=== PATIENT | male | born 1955 | race Caucasian/White ===

== ENCOUNTER 2017-04-27 07:07 | Inpatient (IN) | payer BC ==
[~2017-04-27] VITALS: Ht 182.9 cm; Wt 107.6 kg
--- NOTE | 2017-04-27 07:23 | PHYS DOC ---
Adult General Chief Complaint Chief Complaint: ABDOMINAL PAIN HPI HPI Patient is a 61 year old male who presents with abdominal pain. Patient states the pain started yesterday at noon, left lower quadrant radiating up to his left upper quadrant. Mild nausea, no vomiting, denies change in bowel or bladder. No hematuria or hematochezia. No fevers, no prior similar symptoms. He' s not attempted any symptom controlling medication. Patient's prior abdominal surgery includes cholecystectomy. He did take his a.m. medications. Pain does not radiate into his groin. Patient states he has an allergy to ciprofloxacin due to having a seizure after taking for urinary tract infection. Review of Systems Review of Systems Constitutional: Denies fever or chills [] Eyes: Denies change in visual acuity, redness, or eye pain [] HENT: Denies nasal congestion or sore throat [] Respiratory: Denies cough, reports minimal shortness of breath Cardiovascular: Denies chest pain GI: Per history of present illness : Denies dysuria or hematuria [] Musculoskeletal: Denies back pain or joint pain [] Integument: Denies rash or skin lesions [] Neurologic: Denies headache, focal weakness or sensory changes [] Current Medications Current Medications Current Medications Medications (Trade) Dose Ordered Sig/Duane Start Time Stop Time Status Last Admin Dose Admin Info (Do NOT chart on this entry -- for MONITORING) 1 each PRN DAILY PRN 04/27/17 08:15 04/29/17 08:14 Iohexol (Omnipaque 300 Mg/ml) 75 ml 1X ONCE 04/27/17 08:15 04/27/17 08:16 DC 04/27/17 08:41 75 ML Morphine Sulfate 4 mg 1X ONCE 04/27/17 07:30 04/27/17 07:52 DC 04/27/17 08:03 4 MG Ondansetron HCl (Zofran) 4 mg 1X ONCE 04/27/17 08:15 04/27/17 08:16 DC 04/27/17 08:12 4 MG Piperacillin Sod/ Tazobactam Sod (Zosyn Per Pharmacy) 1 each PRN DAILY PRN 04/27/17 09:45 Piperacillin Sod/ Tazobactam Sod 3.375 gm/Sodium Chloride 50 ml @ 100 mls/hr 1X ONCE 04/27/17 09:45 04/27/17 10:14 DC 04/27/17 10:05 100 MLS/HR Sodium Chloride 1,000 ml @ 1,000 mls/hr 1X ONCE 04/27/17 09:30 04/27/17 10:29 DC 04/27/17 09:30 1,000 MLS/HR Allergies Allergies Allergies Coded Allergies Type Severity Reaction Last Updated Verified ciprofloxacin Adverse Reaction Severe SEIZURES 04/27/17 Yes Physical Exam Physical Exam Constitutional: Well developed, well nourished, appears uncomfortable, obese HENT: Normocephalic, atraumatic, bilateral external ears normal, oropharynx moist, no oral exudates, nose normal. [] Eyes: PERRLA, EOMI, conjunctiva normal, no discharge. [] Neck: Normal range of motion, no tenderness, supple, no stridor. [] Cardiovascular:Heart rate regular with irregular rhythm, no murmur [] Lungs & Thorax: Bilateral breath sounds, no crackles, intermittent wheezes, moderate air movement Abdomen: Bowel sounds normal, soft, mildly distended, diffuse tenderness to palpation the left side of the abdomen most prominent in the left lower quadrant with mild voluntary guarding, no peritoneal signs Skin: Warm, dry, no erythema, no rash. [] Back: No tenderness, no CVA tenderness. [] Extremities: No tenderness, no cyanosis, no clubbing, ROM intact, no edema. Negative Homans bilaterally Neurologic: Alert and oriented X 3, normal motor function, normal sensory function, no focal deficits noted. [] Psychologic: Affect normal, judgement normal, mood normal. [] Current Patient Data Vital Signs Vital Signs Date Time Temp Pulse Resp B/P (MAP) Pulse Ox O2 Delivery O2 Flow Rate FiO2 04/27/17 09:42 125 20 106/76 (86) 95 Room Air 04/27/17 08:16 99.4 99.4 Lab Values Laboratory Tests Test 04/27/17 07:25 White Blood Count 16.8 x10^3/uL (4.0-11.0) H Red Blood Count 5.00 x10^6/uL (4.30-5.70) Hemoglobin 14.2 g/dL (13.0-17.5) Hematocrit 42.1 % (39.0-53.0) Mean Corpuscular Volume 84 fL (79-100) Mean Corpuscular Hemoglobin 28 pg (25-35) Mean Corpuscular Hemoglobin Concent 34 g/dL (31-37) Red Cell Distribution Width 14.1 % (11.5-14.5) Platelet Count 249 x10^3/uL (140-400) Neutrophils (%) (Auto) 82 % (31-73) H Lymphocytes (%) (Auto) 11 % (24-48) L Monocytes (%) (Auto) 5 % (0-9) Eosinophils (%) (Auto) 2 % (0-3) Basophils (%) (Auto) 1 % (0-3) Neutrophils # (Auto) 13.8 x10^3uL (1.8-7.7) H Lymphocytes # (Auto) 1.9 x10^3/uL (1.0-4.8) Monocytes # (Auto) 0.8 x10^3/uL (0.0-1.1) Eosinophils # (Auto) 0.3 x10^3/uL (0.0-0.7) Basophils # (Auto) 0.1 x10^3/uL (0.0-0.2) Sodium Level 137 mmol/L (136-145) Potassium Level 4.3 mmol/L (3.5-5.1) Chloride Level 100 mmol/L (98-107) Carbon Dioxide Level 28 mmol/L (21-32) Anion Gap 9 (6-14) Blood Urea Nitrogen 24 mg/dL (8-26) Creatinine 0.7 mg/dL (0.7-1.3) Estimated GFR (Cockcroft-Gault) 114.6 Glucose Level 195 mg/dL (70-99) H Calcium Level 9.8 mg/dL (8.5-10.1) Magnesium Level 1.4 mg/dL (1.8-2.4) L Total Bilirubin 0.7 mg/dL (0.2-1.0) Direct Bilirubin 0.1 mg/dL (0.0-0.2) Aspartate Amino Transferase (AST) 13 U/L (15-37) L Alanine Aminotransferase (ALT) 18 U/L (16-63) Alkaline Phosphatase 126 U/L (46-116) H Total Protein 8.5 g/dL (6.4-8.2) H Albumin 3.5 g/dL (3.4-5.0) Lipase 53 U/L (73-393) L Laboratory Tests 04/27/17 07:25 Laboratory Tests 04/27/17 07:25 EKG EKG 87 bpm, A. fib, normal intervals, no ST elevation or depression, interpreted by me [] Radiology/Procedures Radiology/Procedures CT abdomen and pelvis: Impression: Findings consistent with sigmoid diverticulitis. Small collections of free air are seen within the abdomen consistent with a perforation. No abscess is seen. Course & Med Decision Making Course & Med Decision Making Pertinent Labs and Imaging studies reviewed. (See chart for details) Patient given IV morphine, IV fluids. Lab work, urinalysis, CT abdomen and pelvis ordered. She received additional IV fluids and pain medication. When he returned from the CT scanner his blood pressure dropped and his heart rate went up. Repeat EKG showed A. fib with RVR. Continue to get IV fluids and his blood pressure responded and his heart rate did intermittently decrease. I contacted cardiology for consult. I spoke with Dr. Mcclain regarding the CT findings, IV Zosyn was given. I spoke with Dr. pelayo accepted this patient to stepdown unit. Cardiology recommended 500 g IV Digoxin, which was given. Pt given additional fluids. Dragon Disclaimer Dragon Disclaimer This electronic medical record was generated, in whole or in part, using a voice recognition dictation system. Departure Departure Impression: Primary Impression: Perforated bowel Additional Impression: Diverticulitis Disposition: ADMITTED INPATIENT Admitting Physician: Luly Pelayo Condition: GUARDED Problem Qualifiers ELIZABETH JOYA MD Apr 27, 2017 07:23
[2017-04-27] MEDS ORDERED: MORPHINE SULFATE 4 MG/ML DISP.SYRIN. IV ONE (07:30)
[2017-04-27 07:43] LABS: BASO # 0.1 x10^3/uL (0.0-0.2); BASO % 1 % (0-3); EOS % 2 % (0-3); HEMATOCRIT 42.1 % (39.0-53.0); HEMOGLOBIN 14.2 g/dL (13.0-17.5); LYMPH # 1.9 x10^3/uL (1.0-4.8); LYMPH % 11 % (24-48); MEAN CORPUSCULAR HEMOGLOBIN 28 pg (25-35); MEAN CORPUSCULAR HGB CONC 34 g/dL (31-37); MEAN CORPUSCULAR VOLUME 84 fL (79-100); MONO % 5 % (0-9); NEUT % 82 % (31-73); PLATELET COUNT 249 x10^3/uL (140-400); RED CELL DISTRIBUTION WIDTH 14.1 % (11.5-14.5); WHITE BLOOD COUNT 16.8 x10^3/uL (4.0-11.0)
[2017-04-27] MEDS ORDERED: NAPR220C4 PO (07:54)
[2017-04-27] MEDS ORDERED: CARV6.252 PO (07:54)
[2017-04-27] MEDS ORDERED: INSU100I13 SQ (07:54)
[2017-04-27] MEDS ORDERED: GEMF600T3 PO (07:54)
[2017-04-27] MEDS ORDERED: ASPI-482 PO (07:54)
[2017-04-27] MEDS ORDERED: GABA600T2 PO (07:54)
[2017-04-27] MEDS ORDERED: LISI-338 PO (07:54)
[2017-04-27 07:56] LABS: ALBUMIN 3.5 g/dL (3.4-5.0); DIRECT BILIRUBIN 0.1 mg/dL (0.0-0.2); TOTAL BILIRUBIN 0.7 mg/dL (0.2-1.0); TOTAL PROTEIN 8.5 g/dL (6.4-8.2)
[2017-04-27] MEDS ORDERED: CONTRAST GIVEN MC PRN (08:15)
[2017-04-27] MEDS ORDERED: IOHEXOL 300 MG/ML 75 ML VIAL IV ONE (08:15)
[2017-04-27] MEDS ORDERED: ONDANSETRON PF 4 MG/2 ML VIAL. IV ONE (08:15)
--- NOTE | 2017-04-27 08:36 | ACF ---
Admission Forms Criteria ABDOMINAL PAIN Clinical Indications for Admission to Inpatient Care (Place 'X' for any and all applicable criteria): Admission is indicated for ANY ONE of the following(1)(2)(3)(4)(5): [X]I. Inpatient admission required rather than observation care (Also use Abdominal Pain: Observation Care, as appropriate) because of ANY ONE of the following: [X]a) Severe pain requiring acute inpatient management [X]b) Identification of etiology/finding that requires inpatient care (eg, aortic dissection, free air) [ ]c) Absent bowel sounds with complete ileus(6) [ ]d) Suspected toxic megacolon [ ]e) Severe electrolyte abnormalities requiring inpatient care [ ]f) High fever or infection requiring inpatient admission as indicated by ANY ONE of following(7)(8): [ ] i) Appropriate outpatient or observational care antimicrobial treatment unavailable, not effective, or not feasible [ ] ii) Documented bacteremia [ ] iii) Temperature > 104.9 degrees F (oral) [ ] iv) T >103.1 F (oral) or < 96.8 F(rectal) that does not respond to all emergency treatment measures [ ]g) Signs of intestinal obstruction [B] [ ]h) Hemodynamic instability [ ]i) IV fluid to replace significant ongoing losses (greater than 3 L/m2 per day) (12)(13) [ ]j) Percutaneous or open drainage (eg, abscess, biliary tract ) procedures [ ]k) Parenteral nutrition regimen that must be implemented on inpatient basis [ ]l) Other condition,treatment or monitoring requiring inpatient admission. [ ]II. Peritoneal signs present [ ]III. Surgery needed that cannot be performed on an ambulatory basis. [ ]IV. Evaluation requires patient to not eat or drink for extended period ( eg, more than 24 hours). [ ]V. Contraindications and/or Inappropriate clinical situations for Observational Care in patients with abdominal pain, when ANY ONE of the following is required: [ ]a) Thorough evaluation is required to prevent catastrophic events due to delays in diagnosing (e.g.Mesenteric ischemia) 1,3 [ ]b) Patient with severe pathology or with chronic symptoms unlikely to improve in the ED stay (3) [ ]. General contraindications and/or Inappropriate clinical situations for Observational Care in patients with abdominal pain, when ANY ONE of the following is required: [ ]a) Prediction of prolongation of LOS based on ANY ONE of the following may be considered as a contraindication for observational care 2, 3, 4, 5, 6, 7, 8, 9, 10, 11 [ ]i) Age > 65 yrs. [ ]ii) Patient arriving by ambulance [ ]iii) Patient with high acuity [ ]iv) Patient requiring vital sign monitoring [ ]v) Patient on IV medication [ ]b) Systolic blood pressures 180mmHg 3,12 [ ]c) Patient with altered mental status including delirium and other alteration of consciousness, (3) [ ]d) Patient whose discharge disposition will be to a jail home or rehabilitation home should not be managed in Emergency Department Observation Unit. CMS rule requires 3 days hospital stay before such placement.3,13 [ ]e) Patient with failure to thrive due to broad array of etiologies 3,16,17 [ ]f) Inability to ambulate 3,14 Extended stay beyond goal length of stay may be needed for(2)(3): [ ]a) Persistent abdominal pain with suspected intra-abdominal process [ ]b) Diagnosed condition requiring continued stay (e.g., pancreatitis, complicated diverticulitis) [ ]c) Surgery (e.g., colectomy) The original [employer] content created by [employer] has been revised. The portions of the content which have been revised are identified through the use of italic text or in bold, and [facility] has neither reviewed nor approved the modified material.All other unmodified content is copyright [employer]. Please see references footnoted in the original [employer] [facility] edition 2016 Admission Criteria Met?: Yes SARAH DEVLIN Apr 27, 2017 08:36
--- NOTE | 2017-04-27 08:58 | EKG ---
[facility] [address] [place] [address] Test Date: 2017-04-27 Test Time: 07:43:59 Pat Name: DAYAN TORRES Department: Room: Gender: Scientific Helper: : 1955 Requested By: ELIZABETH JOYA Order Number: [id number] Reading MD: Michel Ford Measurements Intervals Comins Rate: 87 P: AR: QRS: 29 QRSD: 114 T: 23 QT: 332 QTc: 405 Interpretive Statements SR PAC Electronically Signed On 04-28-2017 11:05:00 CDT by Michel Ford
[2017-04-27] MEDS ORDERED: IV NORMAL SALINE 1000ML BAG 1,000 ML IV ONE ×2 (09:30→11:00)
--- NOTE | 2017-04-27 09:34 | RAD ---
CT scan of the abdomen and pelvis with contrast 04/27/2017 Clinical history: Lower abdominal pain. Technique: After the intravenous administration of 75 cc of Omnipaque 300, contiguous, 5 mm axial sections were obtained through the abdomen and pelvis. One or more of the following individualized dose reduction techniques were utilized for this study: 1. Automated exposure control. 2. Adjustment of the mA and/or kV according to patient size. 3. Use of iterative reconstruction technique. Findings: Images through the lung bases demonstrate minimal dependent subsegmental atelectasis bilaterally. The liver, spleen, pancreas, adrenal glands and right kidney are within normal limits. A 2.7 cm rounded low-attenuation lesion is seen involving the lower pole of the left kidney. This likely represents a cyst. Moderate atherosclerotic calcification of the abdominal aorta is seen. The abdominal aorta tapers normally. Surgical clips are seen within the gallbladder fossa consistent with a cholecystectomy. No free fluid is seen within the abdomen. There is no evidence of bowel obstruction. The appendix is well visualized and is within normal limits. Multiple diverticula are seen scattered throughout the colon, particularly the sigmoid colon. Wall thickening of the mid sigmoid colon is seen. Increased density is seen within the adjacent fat. These findings are consistent with sigmoid diverticulitis. Extraluminal collections of air are seen near the sigmoid colon. Small collections of free air are seen throughout the abdomen consistent with a perforation. No abnormal fluid collection is seen to suggest evidence of an abscess. Images through the pelvis demonstrate the urinary bladder distended with urine. Calcifications are seen within the prostate gland. No free fluid is seen. Degenerative changes are seen involving the lower thoracic and throughout the lumbar spine and both hips. Mild S-shaped curvature of the thoracic lumbar spine is noted. Impression: Findings consistent with sigmoid diverticulitis. Small collections of free air are seen within the abdomen consistent with a perforation. No abscess is seen. These findings were discussed with the emergency department.
[2017-04-27] MEDS ORDERED: PIP/TAZO PER PHARMACY MC PRN (09:45)
[2017-04-27] MEDS ORDERED: PIPERACILLIN/TAZOBACTAM 3.375 GM in IV NORMAL SALINE 50ML 50 ML IV ONE (09:45)
[2017-04-27] MEDS ORDERED: fentaNYL PF VIAL 100 MCG/2 ML VIAL IV ONE (10:00)
[2017-04-27] MEDS ORDERED: ONDANSETRON PF 4 MG/2 ML VIAL. IV PRN (10:00)
[2017-04-27] MEDS ORDERED: DIGOXIN IV 500 MCG/2 ML AMPUL. IV ONE (10:30)
--- NOTE | 2017-04-27 10:32 | PDOC2 ---
CARDIAC CONSULT DATE OF CONSULT Date of Consult DATE: 04/27/17 TIME: 10:31 REASON FOR CONSULT Reason for Consult: AFIB RVR REFERRING PHYSICIAN Referring Physician: Igor SOURCE Source: Chart review, Patient HISTORY OF PRESENT ILLNESS HISTORY OF PRESENT ILLNESS This is a pleasant 61 yo male who came in for abdominal tenderness and pain. This started yesterday afternoon. There was no apparent fever or chills at that time but his abd pain continued on overnight. No reports of chest pain and SOA but upon admission he was noted with AFIB RVR and upon further diagnostics he was noted with perforated large bowel with diverticulitis via CT. He does have hx of irregular heart rhythm but could not tell me specifically if any afib or atrial flutter and medications he has coreg and lisinpril at home and baby ASA and no mention of any OAC/NOAC in the past. He told me he has irregular heart beat for yrs since he was at the [employer]. No prior hx of stroke, dizziness, syncope. No cardiac symptoms prior to his abdominal pain. PAST MEDICAL HISTORY Cardiovascular: HTN, Hyperlipidemia Pulmonary: No pertinent hx CENTRAL NERVOUS SYSTEM: Other (No pertinent history) GI: No pertinent hx Heme/Onc: No pertinent hx Hepatobiliary: No pertinent hx Psych: No pertinent hx Renal/: Other (nephrolithiasis) Endocrine: Diabetes (2insulin dependent) Dermatology: No pertinent hx PAST SURGICAL HISTORY Past Surgical History: Cholecystectomy FAMILY HISTORY Family History: Coronary Artery Disease (father) SOCIAL HISTORY Smoke: 1 pack per day (50 pk yr) ALCOHOL: occassional Drugs: None Lives: with Family CURRENT MEDICATIONS CURRENT MEDICATIONS Current Medications Medications (Trade) Dose Ordered Sig/Duane Route PRN Reason Start Time Stop Time Status Last Admin Dose Admin Morphine Sulfate 4 mg 1X ONCE IV 04/27/17 07:30 04/27/17 07:52 DC 04/27/17 08:03 Ondansetron HCl (Zofran) 4 mg 1X ONCE IV 04/27/17 08:15 04/27/17 08:16 DC 04/27/17 08:12 Iohexol (Omnipaque 300 Mg/ml) 75 ml 1X ONCE IV 04/27/17 08:15 04/27/17 08:16 DC 04/27/17 08:41 Sodium Chloride 1,000 ml @ 1,000 mls/hr 1X ONCE IV 04/27/17 09:30 04/27/17 10:29 DC 04/27/17 09:30 Piperacillin Sod/ Tazobactam Sod 3.375 gm/Sodium Chloride 50 ml @ 100 mls/hr 1X ONCE IV 04/27/17 09:45 04/27/17 10:14 DC 04/27/17 10:05 Fentanyl Citrate (Fentanyl 2ml Vial) 50 mcg 1X ONCE IV 04/27/17 10:00 04/27/17 10:01 DC 04/27/17 10:27 ALLERGIES ALLERGIES: Coded Allergies: ciprofloxacin (Verified Adverse Reaction, Severe, SEIZURES, 04/27/17) ROS Review of System 14 point ROS evaluated with pertinent positives noted per HPI PHYSICAL EXAM General: Alert, Oriented X3, Cooperative, No acute distress HEENT: Atraumatic, Mucous membr. moist/pink Lungs: Clear to auscultation, Normal air movement Heart: Regular rate (AFIB RVR), Normal S1, Normal S2, Other (2/6 systolic murmur to LLS border) Abdomen: Other (diffuse abdominal tenderness with more pain to LLQ) Extremities: No cyanosis, No edema Skin: No breakdown, No significant lesion Neuro: Normal speech, Sensation intact Psych/Mental Status: Mental status NL, Mood NL MUSCULOSKELETAL: Osteoarthritic changes both hands VITALS VITALS Vital Signs Date Time Temp Pulse Resp B/P (MAP) Pulse Ox O2 Delivery O2 Flow Rate FiO2 04/27/17 10:28 101 20 94/55 (68) 95 Room Air 04/27/17 08:16 99.4 99.4 LABS Lab: Laboratory Tests Test 04/27/17 07:25 White Blood Count 16.8 x10^3/uL (4.0-11.0) Red Blood Count 5.00 x10^6/uL (4.30-5.70) Hemoglobin 14.2 g/dL (13.0-17.5) Hematocrit 42.1 % (39.0-53.0) Mean Corpuscular Volume 84 fL (79-100) Mean Corpuscular Hemoglobin 28 pg (25-35) Mean Corpuscular Hemoglobin Concent 34 g/dL (31-37) Red Cell Distribution Width 14.1 % (11.5-14.5) Platelet Count 249 x10^3/uL (140-400) Neutrophils (%) (Auto) 82 % (31-73) Lymphocytes (%) (Auto) 11 % (24-48) Monocytes (%) (Auto) 5 % (0-9) Eosinophils (%) (Auto) 2 % (0-3) Basophils (%) (Auto) 1 % (0-3) Neutrophils # (Auto) 13.8 x10^3uL (1.8-7.7) Lymphocytes # (Auto) 1.9 x10^3/uL (1.0-4.8) Monocytes # (Auto) 0.8 x10^3/uL (0.0-1.1) Eosinophils # (Auto) 0.3 x10^3/uL (0.0-0.7) Basophils # (Auto) 0.1 x10^3/uL (0.0-0.2) Creatinine 0.7 mg/dL (0.7-1.3) Estimated GFR (Cockcroft-Gault) 114.6 Total Bilirubin 0.7 mg/dL (0.2-1.0) Direct Bilirubin 0.1 mg/dL (0.0-0.2) Aspartate Amino Transf (AST/SGOT) 13 U/L (15-37) Alanine Aminotransferase (ALT/SGPT) 18 U/L (16-63) Alkaline Phosphatase 126 U/L (46-116) Total Protein 8.5 g/dL (6.4-8.2) Albumin 3.5 g/dL (3.4-5.0) Lipase 53 U/L (73-393) ASSESSMENT/PLAN ASSESSMENT/PLAN 1. AFIB RVR: Suspect new diagnosis. Currently appears paroxysmal with spontaneous conversion to SR at times 2. Sigmoid diverticulitis with perforation: general surgery and ID consulted 3. HTN: currently at low end 4. HLP 5. DM2: insulin dependent 6. Possible COPD with 50 pk yr tobaccoism Recommendations 1. Awaiting if any surgical plans. TTE today 2. Could not start any CCB or BB due to low BP. Dig for now. and will incorporate metoprolol IV when BP improved. 3. Per guidelines OAC/NOAC would be recommended for stroke prevention, but with #2, would not be a candidate at this time. Will consider for ASA once surgical plans is established and cleared by others.. 4. Mg and K and replace as warranted. IVF ongoing. TTE today and will risk stratify. 5. TSH, lipids. 6. Smoking cessation 7. DC coreg. Hold ACEi. 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
[2017-04-27 10:42] LABS: CALCIUM 9.8 mg/dL (8.5-10.1); CREATININE 0.7 mg/dL (0.7-1.3); GFR 114.6; MAGNESIUM 1.4 mg/dL (1.8-2.4); POTASSIUM 4.3 mmol/L (3.5-5.1)
[2017-04-27] MEDS ORDERED: MAGNESIUM SULFATE 4GM 100 ML IV ONE (11:00)
[2017-04-27 11:48] VITALS: BP 113/70
[2017-04-27 11:49] VITALS: BP 113/70
[2017-04-27] MEDS: fentaNYL PF VIAL 100 MCG/2 ML VIAL IV PRN ×3 (12:09→19:42)
--- NOTE | 2017-04-27 12:11 | PDOC ---
Infectious Disease Note ROS ROS GEN: Denies fevers, chills, sweats HEENT: Denies blurred vision, sore throat CV: Denies chest pain RESP: Denies shortness of air, cough GI: Denies n/v/d NEURO: Denies confusion, dizziness MSK: Denies weakness, joint pain/swelling Vital Sign Vital Signs Vital Signs Date Time Temp Pulse Resp B/P (MAP) Pulse Ox O2 Delivery O2 Flow Rate FiO2 04/27/17 10:54 136 16 84/56 (65) 95 Room Air 04/27/17 08:16 99.4 99.4 Physical Exam PHYSICAL EXAM GENERAL: NAD, Alert HEENT: PERRL, OC/OP NECK: Supple, no JVD, no LN LUNGS: Clear HEART: S1S2, no gallop, no murmur ABD: Soft, NT, no organomegaly, no rebound EXT: No edema, no cyanosis 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 GENERAL 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: Alert, oriented x 3, no focal neurologic deficit SKIN: No rash IV: ok Labs Lab Laboratory Tests Test 04/27/17 07:25 White Blood Count 16.8 x10^3/uL (4.0-11.0) Red Blood Count 5.00 x10^6/uL (4.30-5.70) Hemoglobin 14.2 g/dL (13.0-17.5) Hematocrit 42.1 % (39.0-53.0) Mean Corpuscular Volume 84 fL (79-100) Mean Corpuscular Hemoglobin 28 pg (25-35) Mean Corpuscular Hemoglobin Concent 34 g/dL (31-37) Red Cell Distribution Width 14.1 % (11.5-14.5) Platelet Count 249 x10^3/uL (140-400) Neutrophils (%) (Auto) 82 % (31-73) Lymphocytes (%) (Auto) 11 % (24-48) Monocytes (%) (Auto) 5 % (0-9) Eosinophils (%) (Auto) 2 % (0-3) Basophils (%) (Auto) 1 % (0-3) Neutrophils # (Auto) 13.8 x10^3uL (1.8-7.7) Lymphocytes # (Auto) 1.9 x10^3/uL (1.0-4.8) Monocytes # (Auto) 0.8 x10^3/uL (0.0-1.1) Eosinophils # (Auto) 0.3 x10^3/uL (0.0-0.7) Basophils # (Auto) 0.1 x10^3/uL (0.0-0.2) Sodium Level 137 mmol/L (136-145) Potassium Level 4.3 mmol/L (3.5-5.1) Chloride Level 100 mmol/L (98-107) Carbon Dioxide Level 28 mmol/L (21-32) Anion Gap 9 (6-14) Blood Urea Nitrogen 24 mg/dL (8-26) Creatinine 0.7 mg/dL (0.7-1.3) Estimated GFR (Cockcroft-Gault) 114.6 Glucose Level 195 mg/dL (70-99) Calcium Level 9.8 mg/dL (8.5-10.1) Magnesium Level 1.4 mg/dL (1.8-2.4) Total Bilirubin 0.7 mg/dL (0.2-1.0) Direct Bilirubin 0.1 mg/dL (0.0-0.2) Aspartate Amino Transf (AST/SGOT) 13 U/L (15-37) Alanine Aminotransferase (ALT/SGPT) 18 U/L (16-63) Alkaline Phosphatase 126 U/L (46-116) Total Protein 8.5 g/dL (6.4-8.2) Albumin 3.5 g/dL (3.4-5.0) Lipase 53 U/L (73-393) Objective Assessment Perforated sigmoid diverticulum Cipro allergy - ? seizure -has not had levoflox/Cipro since Leukocytosis Afib RVR Plan Plan of Care Agree with Zosyn F/u labs and progress Blood cults if spikes but now abx started already Thank you D/w family # [id number] JULIA JURADO MD Apr 27, 2017 12:11
[2017-04-27] MEDS ORDERED: METOPROLOL TARTRATE 5 MG/5 ML VIAL. IVP SCH (13:00)
--- NOTE | 2017-04-27 13:07 | CARD ---
APPROVED REPORT EXAM: Two-dimensional and M-mode echocardiogram with Doppler and color Doppler. Other Information Quality : GoodHR: 93bpm Rhythm : PVC's INDICATION Pre-Op 2D DIMENSIONS RVDd3.4 (2.9-3.5cm)Left Atrium(2D)3.7 (1.6-4.0cm) IVSd1.2 (0.7-1.1cm)Aortic Root(2D)3.2 (2.0-3.7cm) LVDd5.2 (3.9-5.9cm)LVOT Diameter2.5 (1.8-2.4cm) PWd1.2 (0.7-1.1cm)LVDs3.5 (2.5-4.0cm) FS (%) 32.1 %SV77.1 ml LVEF(%)59.9 (>50%) Aortic Valve LVOT Peak Simone.120.6cm/s Mitral Valve MV E Drjxmxuu99.6cm/sMV E Peak Gr.3mmHg MV DECEL [id number] A Ndddezxm850.3cm/s MV E Mean Gr.1mmHgE/A Ratio0.7 MV A [id number] Pulmonary Valve PV Peak Dqalpdnx13.8cm/s Pulmonary Vein S1 Rcgxnvsn00.1cm/sD2 Cejvagyr17.3cm/s PVa [id number] LEFT VENTRICLE The left ventricle is normal size. There is mild concentric left ventricular hypertrophy. The left ve ntricular systolic function is normal. The Ejection Fraction is 60-65%. Abnormal septal motion was no jesica. Transmitral Doppler flow pattern is Grade I-abnormal relaxation pattern. RIGHT VENTRICLE The right ventricle is normal size. There is normal right ventricular wall thickness. The right ventr icular systolic function is normal. ATRIA The left atrium size is normal. The right atrium size is normal. The interatrial septum is intact wit h no evidence for an atrial septal defect or patent foramen ovale as noted on 2-D or Doppler imaging. AORTIC VALVE The aortic valve is mildly sclerotic. The aortic valve is trileaflet. Doppler and Color Flow revealed no significant aortic regurgitation. There is no significant aortic valvular stenosis. MITRAL VALVE The mitral valve leaflets are mildly thickened. There is no evidence of mitral valve prolapse. There is no mitral valve stenosis. Doppler and Color Flow revealed no mitral valve regurgitation noted. TRICUSPID VALVE Doppler and Color Flow revealed no tricuspid valve regurgitation noted. Unable to determine pulmonary artery pressure at exam time. PULMONIC VALVE Doppler and Color Flow revealed no pulmonic valvular regurgitation. There is no pulmonic valvular phani nosis. GREAT VESSELS The aortic root is normal in size. The ascending aorta is normal in size. The pulmonary artery is nor mal. The IVC is normal in size and collapses >50% with inspiration. PERICARDIAL EFFUSION There is no evidence of significant pericardial effusion. Critical Notification Critical Value: No <Conclusion> The left ventricular systolic function is normal. The Ejection Fraction is 60-65%. Transmitral Doppler flow pattern is Grade I-abnormal relaxation pattern. There is no evidence of significant pericardial effusion.
[2017-04-27 13:13] LABS: CHOLESTEROL/HDL RATIO 5.6
[2017-04-27 13:40] LABS: BILIRUBIN,URINE NEGATIVE (NEG); GLUCOSE,URINE 250 mg/dL (NEG); NITRITE,URINE NEGATIVE (NEG); PROTEIN,URINE NEGATIVE (NEG-TRACE)
[2017-04-27 13:49] LABS: BACTERIA,URINE 0 /HPF (0-FEW); RBC,URINE 0 /HPF (0-2); SPERM,URINE PRESENT /HPF; SQUAMOUS EPITHELIAL CELL,UR FEW /LPF; WBC,URINE OCC /HPF (0-4)
--- NOTE | 2017-04-27 14:04 | PDOC1 ---
History and Physical Date of Admission Date of Admission DATE: 04/27/17 TIME: 14:00 Identification/Chief Complaint Chief Complaint acute abd pain Problems: Source Source: Chart review History of Present Illness History of Present Illness Mr. Lacy, is a 61 year old male who presents with abdominal pain. ACute worsening abd pain, w. left lower quadrant - a little improved from earlier. with IV pain meds, 6/10 at rest. Severe pain with movement adn any palpitations. . Mild nausea, no vomiting, dry mouth, no urinary ouptut he has been seen by Gen surg and ID, plan to defer surg at this time. Past Medical History Cardiovascular: HTN, Hyperlipidemia Pulmonary: No pertinent hx CENTRAL NERVOUS SYSTEM: Other (No pertinent history) GI: No pertinent hx Heme/Onc: No pertinent hx Hepatobiliary: No pertinent hx Psych: No pertinent hx Renal/: Other (nephrolithiasis) Endocrine: Diabetes (2insulin dependent) Dermatology: No pertinent hx Past Surgical History Past Surgical History: Cholecystectomy Family History Family History: Coronary Artery Disease (father) Social History Smoke: 1 pack per day (50 pk yr) ALCOHOL: occassional Drugs: None Current Problem List Problem List Problems Medical Problems: (1) Diverticulitis Status: Acute (2) Perforated bowel Status: Acute Problems: Current Medications Current Medications Current Medications Morphine Sulfate 4 mg 1X ONCE IV Last administered on 04/27/17 08:03; Start 04/27/17 at 07:30; Stop 04/27/17 at 07:52; Status DC Ondansetron HCl (Zofran) 4 mg 1X ONCE IV Last administered on 04/27/17 08:12 ; Start 04/27/17 at 08:15; Stop 04/27/17 at 08:16; Status DC Iohexol (Omnipaque 300 Mg/ml) 75 ml 1X ONCE IV Last administered on 04/27/17 08:41; Start 04/27/17 at 08:15; Stop 04/27/17 at 08:16; Status DC Info (Do NOT chart on this entry -- for MONITORING) 1 each PRN DAILY PRN MC SEE COMMENTS; Start 04/27/17 at 08:15; Stop 04/29/17 at 08:14 Sodium Chloride 1,000 ml @ 1,000 mls/hr 1X ONCE IV Last administered on 09:30; Start 04/27/17 at 09:30; Stop 04/27/17 at 10:29; Status DC Piperacillin Sod/ Tazobactam Sod (Zosyn Per Pharmacy) 1 each PRN DAILY PRN MC SEE COMMENTS; Start 04/27/17 at 09:45 Piperacillin Sod/ Tazobactam Sod 3.375 gm/Sodium Chloride 50 ml @ 100 mls/hr 1X ONCE IV Last administered on 04/27/17 10:05; Start 04/27/17 at 09:45; Stop 04/27/17 at 10:14; Status DC Fentanyl Citrate (Fentanyl 2ml Vial) 50 mcg 1X ONCE IV Last administered on 10:27; Start 04/27/17 at 10:00; Stop 04/27/17 at 10:01; Status DC Ondansetron HCl (Zofran) 4 mg PRN Q8HRS PRN IV NAUSEA/VOMITING; Start 04/27/17 at 10:00; Stop 04/28/17 at 09:59 Fentanyl Citrate (Fentanyl 2ml Vial) 50 mcg PRN Q1HR PRN IV PAIN Last administered on 04/27/17 12:09; Start 04/27/17 at 10:00; Stop 04/28/17 at 09:59 Piperacillin Sod/ Tazobactam Sod 3.375 gm/Sodium Chloride 50 ml @ 100 mls/hr Q6HRS IV ; Start 04/27/17 at 18:00 Digoxin (Lanoxin) 500 mcg 1X ONCE IV Last administered on 04/27/17 10:44; Start 04/27/17 at 10:30; Stop 04/27/17 at 10:31; Status DC Sodium Chloride 1,000 ml @ 1,000 mls/hr 1X ONCE IV Last administered on 10:53; Start 04/27/17 at 11:00; Stop 04/27/17 at 11:59; Status DC Magnesium Sulfate/ Dextrose 100 ml @ 25 mls/hr 1X ONCE IV Last administered on 04/27/17 12:21; Start 04/27/17 at 11:00; Stop 04/27/17 at 14:59 Metoprolol Tartrate (Lopressor) 5 mg Q6HRS IVP ; Start 04/27/17 at 13:00 Active Scripts Active Reported Lantus Solostar (Insulin Glargine,Hum.rec.anlog) 100 Unit/1 Ml Insuln.pen 65 Unit SQ BID Aleve (Naproxen Sodium) 220 Mg Capsule 440 Mg PO BID Aspir 81 (Aspirin) 81 Mg Tablet.dr 1 Tab PO DAILY Gabapentin 600 Mg Tablet 600 Mg PO TID Carvedilol 6.25 Mg Tablet 1 Tab PO BID Lisinopril 5 Mg Tablet 1 Tab PO DAILY Gemfibrozil 600 Mg Tablet 600 Mg PO BID Allergies Allergies: Coded Allergies: ciprofloxacin (Verified Adverse Reaction, Severe, SEIZURES, 04/27/17) ROS General: YES: Fatigue, Malaise, No: Chills, Night Sweats, Appetite, Other PSYCHOLOGICAL ROS: No: Anxiety, Behavioral Disorder, Concentration difficultie , Decreased libido, Depression, Disorientation, Hallucinations, Hostility, Irritablity, Memory difficulties, Mood Swings, Obsessive thoughts, Other Eyes: No Blurry vision, No Decreased vision, No Double vision, No Dry eyes, No Excessive tearing, No Eye Pain, No Itchy Eyes, No Loss of vision, No Photophobia , No Scotomata, No Uses contacts, No Uses glasses, No Other HEENT: YES: Other (dry mouth), No: Heacaches, Visual Changes, Hearing change, Nasal congestion, Nasal discharge, Oral lesions, Sinus pain, Sore Throat, Epistaxis, Sneezing, Snoring, Tinnitus, Vertigo, Vocal changes Hematological and Lymphatic: No: Bleeding Problems, Blood Clots, Blood Transfusions, Brusing, Night Sweats, Pallor, Swollen Lymph Nodes, Other Respiratory: No: Cough, Hemoptysis, Orthopnea, Pleuritic Pain, Shortness of breath, SOB with excertion, Sputum Changes, Stridor, Tachypnea, Wheezing, Other Cardiovascular: No Chest Pain, No Palpitations, No Orthopnea, No Paroxysmal Noc. Dyspnea, No Edema, No Lt Headedness, No Other Gastrointestinal: Yes Nausea, Yes Abdominal Pain, No Vomiting, No Diarrhea, No Constipation, No Melena, No Hematochezia, No Other Genitourinary: No Dysuria, No Frequency, No Incontinence, No Hematuria, No Retention, No Discharge, No Urgency, No Pain, No Flank Pain, No Other, No , No , No , No , No , No , No Musculoskeletal: Yes Joint Stiffness, No Gait Disturbance, No Joint Pain, No Joint Swelling, No Muscle Pain, No Muscular Weakness, No Pain In:, No Swelling In:, No Other Neurological: No Behavorial Changes, No Bowel/Bladder ControlChng, No Confusion , No Dizziness, No Gait Disturbance, No Headaches, No Impaired Coord/balance, No Memory Loss, No Numbness/Tingling, No Seizures, No Speech Problems, No Tremors, No Visual Changes, No Weakness, No Other Skin: No Dry Skin, No Eczema, No Hair Changes, No Lumps, No Mole Changes, No Mottling, No Nail Changes, No Pruritus, No Rash, No Skin Lesion Changes, No Other, No Acne Physical Exam General: Alert, Oriented X3, Cooperative, mild distress, moderate distress HEENT: Atraumatic, PERRLA, EOMI, Mucous membr. moist/pink, Other (dry mouth) Lungs: Clear to auscultation Heart: S1S2, no gallops Abdomen: Normal bowel sounds (tender, w/ guarding, pain with bed movement), Soft Extremities: No clubbing Skin: No rashes, No breakdown Neuro: Normal tone, Sensation intact Psych/Mental Status: Mood NL Vitals Vitals Vital Signs Date Time Temp Pulse Resp B/P (MAP) Pulse Ox O2 Delivery O2 Flow Rate FiO2 04/27/17 12:39 96 04/27/17 11:49 98.1 93 22 113/70 (84) Room Air 98.1 Labs Labs Laboratory Tests Test 04/27/17 07:25 04/27/17 11:35 04/27/17 12:01 White Blood Count 16.8 x10^3/uL (4.0-11.0) Red Blood Count 5.00 x10^6/uL (4.30-5.70) Hemoglobin 14.2 g/dL (13.0-17.5) Hematocrit 42.1 % (39.0-53.0) Mean Corpuscular Volume 84 fL (79-100) Mean Corpuscular Hemoglobin 28 pg (25-35) Mean Corpuscular Hemoglobin Concent 34 g/dL (31-37) Red Cell Distribution Width 14.1 % (11.5-14.5) Platelet Count 249 x10^3/uL (140-400) Neutrophils (%) (Auto) 82 % (31-73) Lymphocytes (%) (Auto) 11 % (24-48) Monocytes (%) (Auto) 5 % (0-9) Eosinophils (%) (Auto) 2 % (0-3) Basophils (%) (Auto) 1 % (0-3) Neutrophils # (Auto) 13.8 x10^3uL (1.8-7.7) Lymphocytes # (Auto) 1.9 x10^3/uL (1.0-4.8) Monocytes # (Auto) 0.8 x10^3/uL (0.0-1.1) Eosinophils # (Auto) 0.3 x10^3/uL (0.0-0.7) Basophils # (Auto) 0.1 x10^3/uL (0.0-0.2) Sodium Level 137 mmol/L (136-145) Potassium Level 4.3 mmol/L (3.5-5.1) Chloride Level 100 mmol/L (98-107) Carbon Dioxide Level 28 mmol/L (21-32) Anion Gap 9 (6-14) Blood Urea Nitrogen 24 mg/dL (8-26) Creatinine 0.7 mg/dL (0.7-1.3) Estimated GFR (Cockcroft-Gault) 114.6 Glucose Level 195 mg/dL (70-99) Calcium Level 9.8 mg/dL (8.5-10.1) Magnesium Level 1.4 mg/dL (1.8-2.4) Total Bilirubin 0.7 mg/dL (0.2-1.0) Direct Bilirubin 0.1 mg/dL (0.0-0.2) Aspartate Amino Transf (AST/SGOT) 13 U/L (15-37) Alanine Aminotransferase (ALT/SGPT) 18 U/L (16-63) Alkaline Phosphatase 126 U/L (46-116) Total Protein 8.5 g/dL (6.4-8.2) Albumin 3.5 g/dL (3.4-5.0) Triglycerides Level 139 mg/dL (0-150) Cholesterol Level 203 mg/dL (0-200) LDL Cholesterol, Calculated 139 mg/dL (0-100) VLDL Cholesterol, Calculated 28 mg/dL (0-40) Non-HDL Cholesterol Calculated 167 mg/dL (0-129) HDL Cholesterol 36 mg/dL (40-60) Cholesterol/HDL Ratio 5.6 Lipase 53 U/L (73-393) Thyroid Stimulating Hormone (TSH) 1.502 uIU/mL (0.358-3.74) Urine Collection Type Void Urine Color Yellow Urine Clarity Clear Urine pH 7.0 Urine Specific [place] >=1.030 Urine Protein Negative mg/dL (NEG-TRACE) Urine Glucose (UA) 250 mg/dL (NEG) Urine Ketones (Stick) Negative mg/dL (NEG) Urine Blood Negative (NEG) Urine Nitrite Negative (NEG) Urine Bilirubin Negative (NEG) Urine Urobilinogen Dipstick 1.0 mg/dL (0.2 mg/dL) Urine Leukocyte Esterase Negative (NEG) Urine RBC 0 /HPF (0-2) Urine WBC Occ /HPF (0-4) Urine Squamous Epithelial Cells Few /LPF Urine Bacteria 0 /HPF (0-FEW) Urine Mucus Slight /LPF Urine Sperm Present /HPF Glucose (Fingerstick) 169 mg/dL (70-99) Laboratory Tests Test 04/27/17 07:25 04/27/17 11:35 04/27/17 12:01 White Blood Count 16.8 x10^3/uL (4.0-11.0) Red Blood Count 5.00 x10^6/uL (4.30-5.70) Hemoglobin 14.2 g/dL (13.0-17.5) Hematocrit 42.1 % (39.0-53.0) Mean Corpuscular Volume 84 fL (79-100) Mean Corpuscular Hemoglobin 28 pg (25-35) Mean Corpuscular Hemoglobin Concent 34 g/dL (31-37) Red Cell Distribution Width 14.1 % (11.5-14.5) Platelet Count 249 x10^3/uL (140-400) Neutrophils (%) (Auto) 82 % (31-73) Lymphocytes (%) (Auto) 11 % (24-48) Monocytes (%) (Auto) 5 % (0-9) Eosinophils (%) (Auto) 2 % (0-3) Basophils (%) (Auto) 1 % (0-3) Neutrophils # (Auto) 13.8 x10^3uL (1.8-7.7) Lymphocytes # (Auto) 1.9 x10^3/uL (1.0-4.8) Monocytes # (Auto) 0.8 x10^3/uL (0.0-1.1) Eosinophils # (Auto) 0.3 x10^3/uL (0.0-0.7) Basophils # (Auto) 0.1 x10^3/uL (0.0-0.2) Sodium Level 137 mmol/L (136-145) Potassium Level 4.3 mmol/L (3.5-5.1) Chloride Level 100 mmol/L (98-107) Carbon Dioxide Level 28 mmol/L (21-32) Anion Gap 9 (6-14) Blood Urea Nitrogen 24 mg/dL (8-26) Creatinine 0.7 mg/dL (0.7-1.3) Estimated GFR (Cockcroft-Gault) 114.6 Glucose Level 195 mg/dL (70-99) Calcium Level 9.8 mg/dL (8.5-10.1) Magnesium Level 1.4 mg/dL (1.8-2.4) Total Bilirubin 0.7 mg/dL (0.2-1.0) Direct Bilirubin 0.1 mg/dL (0.0-0.2) Aspartate Amino Transf (AST/SGOT) 13 U/L (15-37) Alanine Aminotransferase (ALT/SGPT) 18 U/L (16-63) Alkaline Phosphatase 126 U/L (46-116) Total Protein 8.5 g/dL (6.4-8.2) Albumin 3.5 g/dL (3.4-5.0) Triglycerides Level 139 mg/dL (0-150) Cholesterol Level 203 mg/dL (0-200) LDL Cholesterol, Calculated 139 mg/dL (0-100) VLDL Cholesterol, Calculated 28 mg/dL (0-40) Non-HDL Cholesterol Calculated 167 mg/dL (0-129) HDL Cholesterol 36 mg/dL (40-60) Cholesterol/HDL Ratio 5.6 Lipase 53 U/L (73-393) Thyroid Stimulating Hormone (TSH) 1.502 uIU/mL (0.358-3.74) Urine Collection Type Void Urine Color Yellow Urine Clarity Clear Urine pH 7.0 Urine Specific [place] >=1.030 Urine Protein Negative mg/dL (NEG-TRACE) Urine Glucose (UA) 250 mg/dL (NEG) Urine Ketones (Stick) Negative mg/dL (NEG) Urine Blood Negative (NEG) Urine Nitrite Negative (NEG) Urine Bilirubin Negative (NEG) Urine Urobilinogen Dipstick 1.0 mg/dL (0.2 mg/dL) Urine Leukocyte Esterase Negative (NEG) Urine RBC 0 /HPF (0-2) Urine WBC Occ /HPF (0-4) Urine Squamous Epithelial Cells Few /LPF Urine Bacteria 0 /HPF (0-FEW) Urine Mucus Slight /LPF Urine Sperm Present /HPF Glucose (Fingerstick) 169 mg/dL (70-99) VTE Prophylaxis Ordered VTE Prophylaxis Devices: No VTE Pharmacological Prophylaxi: Yes Assessment/Plan Assessment/Plan Sepsis, tachycardia, tachypnea, leukocytosis Perf. abdominal viscous, acute diverticulitis, IV zosyn ID consult, gen surg to follow obesity, BMI 32 tobaccoism htn xerostomia DM2, check A1c, on insulin at baseline, decrease dose by 75% as NPO, follow FSBS FLORIAN PATEL MD Apr 27, 2017 14:04
[2017-04-27] MEDS ORDERED: DEXTROSE 50% 25 GM / 50ML DISP.SYRIN. IV PRN (14:15)
[2017-04-27] MEDS ORDERED: SALIVA STIMULANT AGENT 44ML SPRAY BOTTLE. PO PRN (14:15)
[2017-04-27] MEDS ORDERED: NICOTINE POLACRILEX 2MG GUM PACKAGE of 12. BC PRN (14:15)
[2017-04-27] MEDS ORDERED: IPRATRPIUM/ALBUTEROL 0.5/2.5MG 3 ML NEBU. NEB ONE (14:15)
[2017-04-27] MEDS: ASPIRIN ENTERIC COATED 81 MG TABLET.DR. PO SCH (14:30)
[2017-04-27] MEDS: IV NORMAL SALINE 1000ML BAG 1,000 ML IV SCH ×2 (14:41→23:11)
[2017-04-27 15:26] VITALS: BP 98/49
[2017-04-27] MEDS: IPRATRPIUM/ALBUTEROL 0.5/2.5MG 3 ML NEBU. NEB SCH ×2 (15:28→20:12)
--- NOTE | 2017-04-27 16:11 | EKG ---
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
[2017-04-27] MEDS: INSULIN ASPART 300 UNITS/3 ML INSULN.PEN SQ SCH (17:00)
[2017-04-27] MEDS: METOPROLOL TARTRATE 5 MG/5 ML VIAL. IVP SCH (18:00)
[2017-04-27 18:11] VITALS: BP 96/59
[2017-04-27] MEDS: PIPERACILLIN/TAZOBACTAM 3.375 GM in IV NORMAL SALINE 50ML 50 ML IV SCH ×2 (18:17→23:12)
[2017-04-27 19:45] VITALS: BP 96/65
[2017-04-27] MEDS: INSULIN DETEMIR 300 UNITS/3 ML INSULN.PEN. SQ SCH (20:41)
[2017-04-27] MEDS ORDERED: ATORVASTATIN CALCIUM 20 MG TABLET PO SCH (21:00)
[2017-04-27 22:22] VITALS: BP 96/57
[2017-04-28] VITALS (7 sets, daily range): BP systolic 88–123; BP diastolic 49–79
--- NOTE | 2017-04-28 00:25 | CONS ---
DATE OF CONSULTATION: 04/27/2017 LOCATION: 210. REQUESTING PHYSICIAN: Dr. Pelayo. REASON FOR CONSULTATION: Perforated diverticulum. HISTORY OF PRESENT ILLNESS: The patient is a pleasant gentleman with history of diabetes and atrial fibrillation, some high blood pressure. 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 He felt weak, had some chills, but he was sweating secondary to having recently been out in the truck. He states it was hot outside. He did develop some nausea as well and did not have any bowel movement with any blood in it, did not have any problems passing his urine, no spasms. He did not vomit. Did not have any hematuria. Denies any trauma or falls, but he did present to [facility] this morning was found to have a white blood cell count of 16.8, did develop a temperature of 99.[address] scan of the abdomen and pelvis which showed sigmoid diverticulitis with small fluid collections of free air within the abdomen consistent with a perforation. He was started on Zosyn and admitted to the hospital. Currently, the patient is in bed. He is fairly comfortable. Denies any gross headaches or change in vision. PAST MEDICAL HISTORY: Positive for previous urinary tract infection approximately 4-6 years ago secondary to a kidney stone, history of diabetes, hypertension, hyperlipidemia and atrial fibrillation. Questionable history of rheumatoid arthritis. PAST SURGICAL HISTORY: Positive for cholecystectomy as well as a renal stent and stone removal. REVIEW OF SYSTEMS: Otherwise negative except for mentioned above. ALLERGIES: LISTED CIPROFLOXACIN, WHICH APPARENTLY CAUSED A QUESTIONABLE SEIZURE. 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 FAMILY HISTORY: Noncontributory. CURRENT MEDICATIONS: Include Zosyn, digoxin, fentanyl, Zofran. PHYSICAL EXAMINATION: VITAL SIGNS: T-max most recently 99.4, pulse 120, respirations 16, satting 95% on room air, blood pressure 107/69. CONSTITUTIONAL: He is pleasant. He is cooperative. He is in no acute distress. He is sitting upright in bed. HEENT: Pupils are equal and reactive. He has normal conjunctivae. Oral cavity, pharynx is clear. He has good dentition. NECK: Supple, no JVD. LUNGS: Clear to auscultation bilaterally. HEART: S1, S2. ABDOMEN: Mildly obese and soft. Decreased bowel sounds. Minimal distention. EXTREMITIES: No clubbing or cyanosis. No gross edema. SKIN: Warm to touch without signs of rash. NEUROLOGIC: He is nonfocal. He is pleasant, appropriate. PSYCHIATRIC: Affect is pleasant. LABORATORY DATA: White count 16.8, hemoglobin 14.2, platelets of 249, neutrophils 81, lymphs 11, glucose 195, creatinine 0.9, AST 13, ALT 18, lipase 53. Radiology reviewed in history of present illness. IMPRESSION: 1. Perforated sigmoid diverticulum. 2. Cipro allergy causes questionable seizure, has not had levofloxacin suppressants. 3. Leukocytosis. 4. Atrial fibrillation, rapid ventricular response. RECOMMENDATIONS: I did review and agree with the Zosyn. We will follow up on labs as well as his progress. We will obtain blood cultures if he spikes, but no antibiotics ____ started at this point. Discussed the case with his family. Thank you for allowing us to participate in this patient's care. If you have any questions, please do not hesitate to contact me. JULIA JURADO MD DR: BERTHA/frank JOB#: [id number] / [id number]
--- NOTE | 2017-04-28 02:16 | CONS ---
DATE OF CONSULTATION: 04/27/2017 SUBJECTIVE: The patient also is a 61-year-old gentleman admitted through the Emergency Department with left lower quadrant abdominal pain, which came on acutely and has gradually progressed. He denies any similar previous episodes. He was evaluated in the Emergency Department where CT scan showed sigmoid diverticulitis with probable microperforation secondary to some small bubbles of air seen throughout the abdomen. He was admitted for further treatment and we were asked to evaluate him from a surgical standpoint. PAST SURGICAL HISTORY: Previous cholecystectomy done laparoscopically . PAST MEDICAL HISTORY: History of hypertension, hyperlipidemia, he is a type 2 diabetic, on insulin. ALLERGIES: HE IS ALLERGIC TO CIPROFLOXACIN. ROUTINE MEDICATIONS: Listed on reconciliation sheet. SOCIAL HISTORY: He is a pack a day smoker, has been for 50 years. He occasionally uses alcohol. FAMILY HISTORY: Positive for coronary artery disease. REVIEW OF SYSTEMS: GENERAL: He has been easily fatigable and lethargic of late, but denies chills or fevers. HEENT: Dry mouth. RESPIRATORY: No productive cough, although he is a smoker. CARDIAC: Denies chest pain or palpitations. GASTROINTESTINAL: As in HPI, positive for nausea, pain, no diarrhea or vomiting. GENITOURINARY: Denies frequency or dysuria. NEUROLOGIC: No recent visual changes or headaches. PHYSICAL EXAMINATION: GENERAL: Reveals a well-developed, well-nourished male. He is awake, alert and oriented. VITAL SIGNS: He is afebrile at 98.1, pulses 93, blood pressure 113/70. HEENT: Normocephalic. EOMs intact. The teeth were in poor repair. LUNGS: Have an occasional rhonchi. HEART: Regular rate and rhythm without extra sounds. ABDOMEN: Soft, nondistended, well healed scars from previous laparoscopic cholecystectomy, there is some tenderness to palpation in the left lower quadrant. GENITAL AND RECTAL: Deferred. EXTREMITIES: Show some arthritic changes. NEUROLOGIC: He is grossly intact. ADMISSION LABORATORY DATA: Showed a white count of 16,800, hemoglobin 14.2. Chemistries showed an elevated blood sugars and magnesium of 1.4. CT scan done on presentation showed findings consistent with sigmoid diverticulitis and some small areas of free air suggesting perforation without abscess. IMPRESSION: 1. Left lower quadrant abdominal pain. 1.1. Acute diverticulitis. 1.2. Microperforation. 2. Diabetes. 3. Hypertension. 4. Tobacco abuse. PLAN: Gut rest, IV fluids and antibiotics, pain meds as needed, hopefully we can defervesce the acute process prior to proceeding with any type of surgical resection in an attempt to avoid temporary stoma. Discussed the plan with the patient and his . Questions were answered. They understand. Thank you for asking me to see this gentleman and participate in his care. We will follow him with you during this hospitalization. JUAN LUIS HUANG MD DR: ENRICO/frank JOB#: [id number] / [id number]
[2017-04-28 04:28] LABS: BASO # 0.1 x10^3/uL (0.0-0.2); BASO % 0 % (0-3); EOS % 1 % (0-3); HEMATOCRIT 36.4 % (39.0-53.0); LYMPH # 2.3 x10^3/uL (1.0-4.8); LYMPH % 16 % (24-48); MEAN CORPUSCULAR HEMOGLOBIN 28 pg (25-35); MEAN CORPUSCULAR HGB CONC 33 g/dL (31-37); MEAN CORPUSCULAR VOLUME 85 fL (79-100); MONO % 7 % (0-9); NEUT % 76 % (31-73); PLATELET COUNT 197 x10^3/uL (140-400); RED BLOOD COUNT 4.29 x10^6/uL (4.30-5.70); RED CELL DISTRIBUTION WIDTH 14.4 % (11.5-14.5); WHITE BLOOD COUNT 14.5 x10^3/uL (4.0-11.0)
[2017-04-28 04:43] LABS: ALBUMIN 2.6 g/dL (3.4-5.0); ALBUMIN/GLOBULIN RATIO 0.6 (1.0-1.7); CALCIUM 8.6 mg/dL (8.5-10.1); CREATININE 0.7 mg/dL (0.7-1.3); GFR 114.6; POTASSIUM 3.6 mmol/L (3.5-5.1); TOTAL BILIRUBIN 0.6 mg/dL (0.2-1.0)
[2017-04-28] MEDS: METOPROLOL TARTRATE 5 MG/5 ML VIAL. IVP SCH ×4 (06:00→17:33)
[2017-04-28] MEDS: PIPERACILLIN/TAZOBACTAM 3.375 GM in IV NORMAL SALINE 50ML 50 ML IV SCH ×4 (06:20→22:57)
[2017-04-28] MEDS: INSULIN ASPART 300 UNITS/3 ML INSULN.PEN SQ SCH ×3 (08:00→17:00)
[2017-04-28] MEDS: fentaNYL PF VIAL 100 MCG/2 ML VIAL IV PRN ×5 (08:08→22:49)
--- NOTE | 2017-04-28 08:15 | PDOC ---
Infectious Disease Note Subjective Subjective Hungry. Pain is stable. Some sweats but feels room is warm + Flatus urinating well ROS ROS GEN: Denies fevers, chills HEENT: Denies blurred vision, sore throat CV: Denies chest pain RESP: Denies shortness of air, cough NEURO: Denies confusion, dizziness MSK: Denies weakness, joint pain/swelling Vital Sign Vital Signs Vital Signs Date Time Temp Pulse Resp B/P (MAP) Pulse Ox O2 Delivery O2 Flow Rate FiO2 04/28/17 07:20 98.2 79 20 119/71 (87) 95 Room Air 98.2 Physical Exam PHYSICAL EXAM GENERAL: NAD, Alert HEENT: PERRL, OC/OP -clear NECK: Supple, no JVD, no LN LUNGS: Clear HEART: S1S2, no gallop, no murmur ABD: Soft, NT, obese. no guard but + rebound even from right side EXT: No edema, no cyanosis CRIMINAL INTELLIGENCE SPECIALIST: Alert, oriented x 3, no focal neurologic deficit SKIN: No rash IV: ok Labs Lab Laboratory Tests Test 04/27/17 11:35 04/27/17 12:01 04/27/17 16:39 04/27/17 20:36 Urine Collection Type Void Urine Color Yellow Urine Clarity Clear Urine pH 7.0 Urine Specific [place] >=1.030 Urine Protein Negative mg/dL (NEG-TRACE) Urine Glucose (UA) 250 mg/dL (NEG) Urine Ketones (Stick) Negative mg/dL (NEG) Urine Blood Negative (NEG) Urine Nitrite Negative (NEG) Urine Bilirubin Negative (NEG) Urine Urobilinogen Dipstick 1.0 mg/dL (0.2 mg/dL) Urine Leukocyte Esterase Negative (NEG) Urine RBC 0 /HPF (0-2) Urine WBC Occ /HPF (0-4) Urine Squamous Epithelial Cells Few /LPF Urine Bacteria 0 /HPF (0-FEW) Urine Mucus Slight /LPF Urine Sperm Present /HPF Glucose (Fingerstick) 169 mg/dL (70-99) 144 mg/dL (70-99) 151 mg/dL (70-99) Test 04/28/17 03:10 04/28/17 07:22 White Blood Count 14.5 x10^3/uL (4.0-11.0) Red Blood Count 4.29 x10^6/uL (4.30-5.70) Hemoglobin 12.0 g/dL (13.0-17.5) Hematocrit 36.4 % (39.0-53.0) Mean Corpuscular Volume 85 fL (79-100) Mean Corpuscular Hemoglobin 28 pg (25-35) Mean Corpuscular Hemoglobin Concent 33 g/dL (31-37) Red Cell Distribution Width 14.4 % (11.5-14.5) Platelet Count 197 x10^3/uL (140-400) Neutrophils (%) (Auto) 76 % (31-73) Lymphocytes (%) (Auto) 16 % (24-48) Monocytes (%) (Auto) 7 % (0-9) Eosinophils (%) (Auto) 1 % (0-3) Basophils (%) (Auto) 0 % (0-3) Neutrophils # (Auto) 11.0 x10^3uL (1.8-7.7) Lymphocytes # (Auto) 2.3 x10^3/uL (1.0-4.8) Monocytes # (Auto) 1.0 x10^3/uL (0.0-1.1) Eosinophils # (Auto) 0.2 x10^3/uL (0.0-0.7) Basophils # (Auto) 0.1 x10^3/uL (0.0-0.2) Sodium Level 138 mmol/L (136-145) Potassium Level 3.6 mmol/L (3.5-5.1) Chloride Level 104 mmol/L (98-107) Carbon Dioxide Level 28 mmol/L (21-32) Anion Gap 6 (6-14) Blood Urea Nitrogen 20 mg/dL (8-26) Creatinine 0.7 mg/dL (0.7-1.3) Estimated GFR (Cockcroft-Gault) 114.6 BUN/Creatinine Ratio 29 (6-20) Glucose Level 129 mg/dL (70-99) Calcium Level 8.6 mg/dL (8.5-10.1) Magnesium Level 1.9 mg/dL (1.8-2.4) Total Bilirubin 0.6 mg/dL (0.2-1.0) Aspartate Amino Transf (AST/SGOT) 11 U/L (15-37) Alanine Aminotransferase (ALT/SGPT) 12 U/L (16-63) Alkaline Phosphatase 86 U/L (46-116) Total Protein 7.0 g/dL (6.4-8.2) Albumin 2.6 g/dL (3.4-5.0) Albumin/Globulin Ratio 0.6 (1.0-1.7) Glucose (Fingerstick) 131 mg/dL (70-99) Objective Assessment Perforated sigmoid diverticulum Cipro allergy - ? seizure -has not had levoflox/Cipro since Leukocytosis - better Afib RVR Plan Plan of Care Cont Zosyn F/u labs and progress Blood cults if spikes but now abx started already Thank you D/w JULIA JURADO MD Apr 28, 2017 08:15
[2017-04-28] MEDS: IPRATRPIUM/ALBUTEROL 0.5/2.5MG 3 ML NEBU. NEB SCH ×4 (08:43→20:28)
[2017-04-28] MEDS: ASPIRIN ENTERIC COATED 81 MG TABLET.DR. PO SCH (09:00)
[2017-04-28] MEDS: IV NORMAL SALINE 1000ML BAG 1,000 ML IV SCH ×2 (10:24→19:40)
[2017-04-28] MEDS ORDERED: fentaNYL PF VIAL 100 MCG/2 ML VIAL IV PRN (10:45)
[2017-04-28] MEDS ORDERED: METOPROLOL TARTRATE 5 MG/5 ML VIAL. IVP PRN (12:00)
--- NOTE | 2017-04-28 12:07 | PDOC ---
PROGRESS NOTES Chief Complaint Chief Complaint 1. Sigmoid diverticulitis with perforation 2. Paroxysmal atrial fivb s.p RVR now nSR 3. DM 2 on insulin 4. SIRS POA, no sepsis History of Present Illness History of Present Illness PAin still, LLQ area NO fevers WBC dropped to 14 from 16 LOwest pain scale is 6/10 PLAn: Inc fentanyl to 100mcg IV q2 prn PPI IV Dc ASA and all other PO meds if still NPO\ Cont IV zosyn CBC again cleopatra BC if febrile Dw SHARIF Choe Vitals Vitals Vital Signs Date Time Temp Pulse Resp B/P (MAP) Pulse Ox O2 Delivery O2 Flow Rate FiO2 04/28/17 10:17 98.7 80 20 123/79 (94) 97 Room Air 98.7 Physical Exam General: Alert, Oriented X3, Cooperative, mild distress, moderate distress Heart: Regular rate (AFIB RVR), Normal S1, Normal S2, Other (2/6 systolic murmur to LLS border) Abdomen: Normal bowel sounds (tender, w/ guarding, pain with bed movement), Soft Extremities: No clubbing Skin: No rashes, No breakdown Labs LABS Laboratory Tests Test 04/27/17 12:01 04/27/17 16:39 04/27/17 20:36 04/28/17 03:10 Glucose (Fingerstick) 169 mg/dL (70-99) 144 mg/dL (70-99) 151 mg/dL (70-99) White Blood Count 14.5 x10^3/uL (4.0-11.0) Red Blood Count 4.29 x10^6/uL (4.30-5.70) Hemoglobin 12.0 g/dL (13.0-17.5) Hematocrit 36.4 % (39.0-53.0) Mean Corpuscular Volume 85 fL (79-100) Mean Corpuscular Hemoglobin 28 pg (25-35) Mean Corpuscular Hemoglobin Concent 33 g/dL (31-37) Red Cell Distribution Width 14.4 % (11.5-14.5) Platelet Count 197 x10^3/uL (140-400) Neutrophils (%) (Auto) 76 % (31-73) Lymphocytes (%) (Auto) 16 % (24-48) Monocytes (%) (Auto) 7 % (0-9) Eosinophils (%) (Auto) 1 % (0-3) Basophils (%) (Auto) 0 % (0-3) Neutrophils # (Auto) 11.0 x10^3uL (1.8-7.7) Lymphocytes # (Auto) 2.3 x10^3/uL (1.0-4.8) Monocytes # (Auto) 1.0 x10^3/uL (0.0-1.1) Eosinophils # (Auto) 0.2 x10^3/uL (0.0-0.7) Basophils # (Auto) 0.1 x10^3/uL (0.0-0.2) Sodium Level 138 mmol/L (136-145) Potassium Level 3.6 mmol/L (3.5-5.1) Chloride Level 104 mmol/L (98-107) Carbon Dioxide Level 28 mmol/L (21-32) Anion Gap 6 (6-14) Blood Urea Nitrogen 20 mg/dL (8-26) Creatinine 0.7 mg/dL (0.7-1.3) Estimated GFR (Cockcroft-Gault) 114.6 BUN/Creatinine Ratio 29 (6-20) Glucose Level 129 mg/dL (70-99) Calcium Level 8.6 mg/dL (8.5-10.1) Magnesium Level 1.9 mg/dL (1.8-2.4) Total Bilirubin 0.6 mg/dL (0.2-1.0) Aspartate Amino Transf (AST/SGOT) 11 U/L (15-37) Alanine Aminotransferase (ALT/SGPT) 12 U/L (16-63) Alkaline Phosphatase 86 U/L (46-116) Total Protein 7.0 g/dL (6.4-8.2) Albumin 2.6 g/dL (3.4-5.0) Albumin/Globulin Ratio 0.6 (1.0-1.7) Test 04/28/17 07:22 04/28/17 10:18 Glucose (Fingerstick) 131 mg/dL (70-99) 133 mg/dL (70-99) Review of Systems Review of Systems pain LLQ area, no diarrhea, emesis, nausea, cp, soa Assessment and Plan Assessmemt and Plan Problems Medical Problems: (1) Diverticulitis Status: Acute (2) Perforated bowel Status: Acute Problems: Comment Review of Relevant I have reviewed the following items ebony (where applicable) has been applied. Labs Laboratory Tests Test 04/27/17 07:25 04/27/17 11:35 04/27/17 12:01 04/27/17 16:39 White Blood Count 16.8 x10^3/uL (4.0-11.0) Red Blood Count 5.00 x10^6/uL (4.30-5.70) Hemoglobin 14.2 g/dL (13.0-17.5) Hematocrit 42.1 % (39.0-53.0) Mean Corpuscular Volume 84 fL (79-100) Mean Corpuscular Hemoglobin 28 pg (25-35) Mean Corpuscular Hemoglobin Concent 34 g/dL (31-37) Red Cell Distribution Width 14.1 % (11.5-14.5) Platelet Count 249 x10^3/uL (140-400) Neutrophils (%) (Auto) 82 % (31-73) Lymphocytes (%) (Auto) 11 % (24-48) Monocytes (%) (Auto) 5 % (0-9) Eosinophils (%) (Auto) 2 % (0-3) Basophils (%) (Auto) 1 % (0-3) Neutrophils # (Auto) 13.8 x10^3uL (1.8-7.7) Lymphocytes # (Auto) 1.9 x10^3/uL (1.0-4.8) Monocytes # (Auto) 0.8 x10^3/uL (0.0-1.1) Eosinophils # (Auto) 0.3 x10^3/uL (0.0-0.7) Basophils # (Auto) 0.1 x10^3/uL (0.0-0.2) Sodium Level 137 mmol/L (136-145) Potassium Level 4.3 mmol/L (3.5-5.1) Chloride Level 100 mmol/L (98-107) Carbon Dioxide Level 28 mmol/L (21-32) Anion Gap 9 (6-14) Blood Urea Nitrogen 24 mg/dL (8-26) Creatinine 0.7 mg/dL (0.7-1.3) Estimated GFR (Cockcroft-Gault) 114.6 Glucose Level 195 mg/dL (70-99) Calcium Level 9.8 mg/dL (8.5-10.1) Magnesium Level 1.4 mg/dL (1.8-2.4) Total Bilirubin 0.7 mg/dL (0.2-1.0) Direct Bilirubin 0.1 mg/dL (0.0-0.2) Aspartate Amino Transf (AST/SGOT) 13 U/L (15-37) Alanine Aminotransferase (ALT/SGPT) 18 U/L (16-63) Alkaline Phosphatase 126 U/L (46-116) Total Protein 8.5 g/dL (6.4-8.2) Albumin 3.5 g/dL (3.4-5.0) Triglycerides Level 139 mg/dL (0-150) Cholesterol Level 203 mg/dL (0-200) LDL Cholesterol, Calculated 139 mg/dL (0-100) VLDL Cholesterol, Calculated 28 mg/dL (0-40) Non-HDL Cholesterol Calculated 167 mg/dL (0-129) HDL Cholesterol 36 mg/dL (40-60) Cholesterol/HDL Ratio 5.6 Lipase 53 U/L (73-393) Thyroid Stimulating Hormone (TSH) 1.502 uIU/mL (0.358-3.74) Urine Collection Type Void Urine Color Yellow Urine Clarity Clear Urine pH 7.0 Urine Specific [place] >=1.030 Urine Protein Negative mg/dL (NEG-TRACE) Urine Glucose (UA) 250 mg/dL (NEG) Urine Ketones (Stick) Negative mg/dL (NEG) Urine Blood Negative (NEG) Urine Nitrite Negative (NEG) Urine Bilirubin Negative (NEG) Urine Urobilinogen Dipstick 1.0 mg/dL (0.2 mg/dL) Urine Leukocyte Esterase Negative (NEG) Urine RBC 0 /HPF (0-2) Urine WBC Occ /HPF (0-4) Urine Squamous Epithelial Cells Few /LPF Urine Bacteria 0 /HPF (0-FEW) Urine Mucus Slight /LPF Urine Sperm Present /HPF Glucose (Fingerstick) 169 mg/dL (70-99) 144 mg/dL (70-99) Test 04/27/17 20:36 04/28/17 03:10 04/28/17 07:22 04/28/17 10:18 Glucose (Fingerstick) 151 mg/dL (70-99) 131 mg/dL (70-99) 133 mg/dL (70-99) White Blood Count 14.5 x10^3/uL (4.0-11.0) Red Blood Count 4.29 x10^6/uL (4.30-5.70) Hemoglobin 12.0 g/dL (13.0-17.5) Hematocrit 36.4 % (39.0-53.0) Mean Corpuscular Volume 85 fL (79-100) Mean Corpuscular Hemoglobin 28 pg (25-35) Mean Corpuscular Hemoglobin Concent 33 g/dL (31-37) Red Cell Distribution Width 14.4 % (11.5-14.5) Platelet Count 197 x10^3/uL (140-400) Neutrophils (%) (Auto) 76 % (31-73) Lymphocytes (%) (Auto) 16 % (24-48) Monocytes (%) (Auto) 7 % (0-9) Eosinophils (%) (Auto) 1 % (0-3) Basophils (%) (Auto) 0 % (0-3) Neutrophils # (Auto) 11.0 x10^3uL (1.8-7.7) Lymphocytes # (Auto) 2.3 x10^3/uL (1.0-4.8) Monocytes # (Auto) 1.0 x10^3/uL (0.0-1.1) Eosinophils # (Auto) 0.2 x10^3/uL (0.0-0.7) Basophils # (Auto) 0.1 x10^3/uL (0.0-0.2) Sodium Level 138 mmol/L (136-145) Potassium Level 3.6 mmol/L (3.5-5.1) Chloride Level 104 mmol/L (98-107) Carbon Dioxide Level 28 mmol/L (21-32) Anion Gap 6 (6-14) Blood Urea Nitrogen 20 mg/dL (8-26) Creatinine 0.7 mg/dL (0.7-1.3) Estimated GFR (Cockcroft-Gault) 114.6 BUN/Creatinine Ratio 29 (6-20) Glucose Level 129 mg/dL (70-99) Calcium Level 8.6 mg/dL (8.5-10.1) Magnesium Level 1.9 mg/dL (1.8-2.4) Total Bilirubin 0.6 mg/dL (0.2-1.0) Aspartate Amino Transf (AST/SGOT) 11 U/L (15-37) Alanine Aminotransferase (ALT/SGPT) 12 U/L (16-63) Alkaline Phosphatase 86 U/L (46-116) Total Protein 7.0 g/dL (6.4-8.2) Albumin 2.6 g/dL (3.4-5.0) Albumin/Globulin Ratio 0.6 (1.0-1.7) Laboratory Tests Test 04/27/17 12:01 04/27/17 16:39 04/27/17 20:36 04/28/17 03:10 Glucose (Fingerstick) 169 mg/dL (70-99) 144 mg/dL (70-99) 151 mg/dL (70-99) White Blood Count 14.5 x10^3/uL (4.0-11.0) Red Blood Count 4.29 x10^6/uL (4.30-5.70) Hemoglobin 12.0 g/dL (13.0-17.5) Hematocrit 36.4 % (39.0-53.0) Mean Corpuscular Volume 85 fL (79-100) Mean Corpuscular Hemoglobin 28 pg (25-35) Mean Corpuscular Hemoglobin Concent 33 g/dL (31-37) Red Cell Distribution Width 14.4 % (11.5-14.5) Platelet Count 197 x10^3/uL (140-400) Neutrophils (%) (Auto) 76 % (31-73) Lymphocytes (%) (Auto) 16 % (24-48) Monocytes (%) (Auto) 7 % (0-9) Eosinophils (%) (Auto) 1 % (0-3) Basophils (%) (Auto) 0 % (0-3) Neutrophils # (Auto) 11.0 x10^3uL (1.8-7.7) Lymphocytes # (Auto) 2.3 x10^3/uL (1.0-4.8) Monocytes # (Auto) 1.0 x10^3/uL (0.0-1.1) Eosinophils # (Auto) 0.2 x10^3/uL (0.0-0.7) Basophils # (Auto) 0.1 x10^3/uL (0.0-0.2) Sodium Level 138 mmol/L (136-145) Potassium Level 3.6 mmol/L (3.5-5.1) Chloride Level 104 mmol/L (98-107) Carbon Dioxide Level 28 mmol/L (21-32) Anion Gap 6 (6-14) Blood Urea Nitrogen 20 mg/dL (8-26) Creatinine 0.7 mg/dL (0.7-1.3) Estimated GFR (Cockcroft-Gault) 114.6 BUN/Creatinine Ratio 29 (6-20) Glucose Level 129 mg/dL (70-99) Calcium Level 8.6 mg/dL (8.5-10.1) Magnesium Level 1.9 mg/dL (1.8-2.4) Total Bilirubin 0.6 mg/dL (0.2-1.0) Aspartate Amino Transf (AST/SGOT) 11 U/L (15-37) Alanine Aminotransferase (ALT/SGPT) 12 U/L (16-63) Alkaline Phosphatase 86 U/L (46-116) Total Protein 7.0 g/dL (6.4-8.2) Albumin 2.6 g/dL (3.4-5.0) Albumin/Globulin Ratio 0.6 (1.0-1.7) Test 04/28/17 07:22 04/28/17 10:18 Glucose (Fingerstick) 131 mg/dL (70-99) 133 mg/dL (70-99) Medications Current Medications Morphine Sulfate 4 mg 1X ONCE IV Last administered on 04/27/17 08:03; Start 04/27/17 at 07:30; Stop 04/27/17 at 07:52; Status DC Ondansetron HCl (Zofran) 4 mg 1X ONCE IV Last administered on 04/27/17 08:12 ; Start 04/27/17 at 08:15; Stop 04/27/17 at 08:16; Status DC Iohexol (Omnipaque 300 Mg/ml) 75 ml 1X ONCE IV Last administered on 04/27/17 08:41; Start 04/27/17 at 08:15; Stop 04/27/17 at 08:16; Status DC Info (Do NOT chart on this entry -- for MONITORING) 1 each PRN DAILY PRN MC SEE COMMENTS; Start 04/27/17 at 08:15; Stop 04/29/17 at 08:14 Sodium Chloride 1,000 ml @ 1,000 mls/hr 1X ONCE IV Last administered on 09:30; Start 04/27/17 at 09:30; Stop 04/27/17 at 10:29; Status DC Piperacillin Sod/ Tazobactam Sod (Zosyn Per Pharmacy) 1 each PRN DAILY PRN MC SEE COMMENTS; Start 04/27/17 at 09:45 Piperacillin Sod/ Tazobactam Sod 3.375 gm/Sodium Chloride 50 ml @ 100 mls/hr 1X ONCE IV Last administered on 04/27/17 10:05; Start 04/27/17 at 09:45; Stop 04/27/17 at 10:14; Status DC Fentanyl Citrate (Fentanyl 2ml Vial) 50 mcg 1X ONCE IV Last administered on 10:27; Start 04/27/17 at 10:00; Stop 04/27/17 at 10:01; Status DC Ondansetron HCl (Zofran) 4 mg PRN Q8HRS PRN IV NAUSEA/VOMITING; Start 04/27/17 at 10:00; Stop 04/28/17 at 09:59; Status DC Fentanyl Citrate (Fentanyl 2ml Vial) 50 mcg PRN Q1HR PRN IV PAIN Last administered on 04/28/17 08:08; Start 04/27/17 at 10:00; Stop 04/28/17 at 09:59 ; Status DC Piperacillin Sod/ Tazobactam Sod 3.375 gm/Sodium Chloride 50 ml @ 100 mls/hr Q6HRS IV Last administered on 04/28/17 06:20; Start 04/27/17 at 18:00 Digoxin (Lanoxin) 500 mcg 1X ONCE IV Last administered on 04/27/17 10:44; Start 04/27/17 at 10:30; Stop 04/27/17 at 10:31; Status DC Sodium Chloride 1,000 ml @ 1,000 mls/hr 1X ONCE IV Last administered on 10:53; Start 04/27/17 at 11:00; Stop 04/27/17 at 11:59; Status DC Magnesium Sulfate/ Dextrose 100 ml @ 25 mls/hr 1X ONCE IV Last administered on 04/27/17 12:21; Start 04/27/17 at 11:00; Stop 04/27/17 at 14:59; Status DC Metoprolol Tartrate (Lopressor) 5 mg Q6HRS IVP ; Start 04/27/17 at 13:00; Stop 04/27/17 at 15:57; Status DC Sodium Chloride 1,000 ml @ 100 mls/hr Q10H IV Last administered on 04/28/17 10:24; Start 04/27/17 at 14:15 Saliva Substitute (Biotene Moisturizing Mouth) 2 spray PRN Q15MIN PRN PO DRY MOUTH Last administered on 04/27/17 18:18; Start 04/27/17 at 14:15 Nicotine Polacrilex (Nicorette Gum) 1 each PRN Q1HR PRN BC SMOKING CESSATION; Start 04/27/17 at 14:15 Albuterol/ Ipratropium (Duoneb) 3 ml RTQID NEB Last administered on 04/28/17 08:43; Start 04/27/17 at 16:00 Albuterol/ Ipratropium (Duoneb) 3 ml 1X ONCE NEB ; Start 04/27/17 at 14:15; Stop 04/27/17 at 14:16; Status DC Aspirin (Ecotrin) 81 mg DAILY PO ; Start 04/27/17 at 14:30; Stop 04/28/17 at 11: 52; Status DC Insulin Aspart (NovoLOG) 0-9 UNITS TIDWMEALS SQ ; Start 04/27/17 at 17:00 Dextrose (Dextrose 50%-Water Syringe) 12.5 gm PRN Q15MIN PRN IV SEE COMMENTS; Start 04/27/17 at 14:15 Insulin Detemir (Levemir) 25 units QHS SQ Last administered on 04/27/17 20:41 ; Start 04/27/17 at 21:00 Metoprolol Tartrate (Lopressor) 2.5 mg Q6HRS IVP ; Start 04/27/17 at 18:00; Stop 04/28/17 at 11:53; Status DC Atorvastatin Calcium (Lipitor) 20 mg QHS PO Last administered on 04/27/17 20: 38; Start 04/27/17 at 21:00; Stop 04/28/17 at 11:52; Status DC Ondansetron HCl (Zofran) 4 mg PRN Q6HRS PRN IV NAUSEA/VOMITING; Start 04/28/17 at 10:45 Fentanyl Citrate (Fentanyl 2ml Vial) 50 mcg PRN Q2HR PRN IV PAIN; Start at 10:45; Stop 04/28/17 at 11:50; Status DC Fentanyl Citrate (Fentanyl 2ml Vial) 100 mcg PRN Q2HR PRN IV PAIN SEVERE; Start 04/28/17 at 12:00 Pantoprazole Sodium (Protonix Vial) 40 mg DAILYAC IVP ; Start 04/28/17 at 12:00 Metoprolol Tartrate (Lopressor) 2.5 mg Q6HRS PRN IVP 160/100; Start 04/28/17 at 12:00; Status UNV Active Scripts Active Reported Lantus Solostar (Insulin Glargine,Hum.rec.anlog) 100 Unit/1 Ml Insuln.pen 65 Unit SQ BID Aleve (Naproxen Sodium) 220 Mg Capsule 440 Mg PO BID Aspir 81 (Aspirin) 81 Mg Tablet.dr 1 Tab PO DAILY Gabapentin 600 Mg Tablet 600 Mg PO TID Carvedilol 6.25 Mg Tablet 1 Tab PO BID Lisinopril 5 Mg Tablet 1 Tab PO DAILY Gemfibrozil 600 Mg Tablet 600 Mg PO BID Vitals/I & O Vital Sign - Last 24 Hours 04/27/17 04/27/17 04/27/17 04/27/17 12:09 15:26 15:28 16:32 Temp 99.5 99.5 Pulse 81 Resp 22 B/P (MAP) 98/49 (65) Pulse Ox 96 93 96 96 O2 Delivery Room Air Room Air Room Air 04/27/17 04/27/17 04/27/17 04/27/17 18:11 19:42 19:45 20:00 Temp 97.9 97.9 Pulse 81 Resp 18 B/P (MAP) 96/59 (71) 96/65 (75) Pulse Ox 96 96 O2 Delivery Room Air Room Air Room Air 04/27/17 04/27/17 04/27/17 04/28/17 20:12 20:12 22:22 02:49 Temp 98.5 98.6 98.5 98.6 Pulse 83 84 Resp 22 18 B/P (MAP) 96/57 (70) 104/49 (67) Pulse Ox 96 94 94 O2 Delivery Room Air Room Air Room Air 04/28/17 04/28/17 04/28/17 04/28/17 06:00 07:20 08:00 08:08 Temp 98.2 98.2 Pulse 84 79 Resp 20 B/P (MAP) 104/49 119/71 (87) Pulse Ox 95 O2 Delivery Room Air Room Air Room Air 04/28/17 04/28/17 04/28/17 08:44 09:00 10:17 Temp 98.7 98.7 Pulse 80 Resp 20 B/P (MAP) 123/79 (94) Pulse Ox 96 97 O2 Delivery Room Air Room Air Room Air Intake and Output 04/27/17 04/27/17 04/28/17 14:59 22:59 06:59 Intake Total 1050 ml 250 ml 1479 ml Output Total 225 ml 310 ml 1200 ml Balance 825 ml -60 ml 279 ml MURIEL FEUNTES MD Apr 28, 2017 12:06
--- NOTE | 2017-04-28 12:18 | PDOC ---
SURGICAL PROGRESS NOTE Subjective pain main issue passing gas denies nausea Vital Signs Vital Signs Date Time Temp Pulse Resp B/P (MAP) Pulse Ox O2 Delivery O2 Flow Rate FiO2 04/28/17 12:03 Room Air 04/28/17 10:17 98.7 80 20 123/79 (94) 97 98.7 I&O Intake and Output 04/28/17 06:59 Intake Total 2779 ml Output Total 1735 ml Balance 1044 ml Intake Oral 200 ml IV Total 2579 ml Output Urine Total 1735 ml PATIENT HAS A ZIEGLER: No General: Alert, Oriented X3, No acute distress Abdomen: Soft, Other (TTP LLQ) Labs Laboratory Tests Test 04/27/17 07:25 04/27/17 11:35 04/27/17 12:01 04/27/17 16:39 White Blood Count 16.8 x10^3/uL (4.0-11.0) Red Blood Count 5.00 x10^6/uL (4.30-5.70) Hemoglobin 14.2 g/dL (13.0-17.5) Hematocrit 42.1 % (39.0-53.0) Mean Corpuscular Volume 84 fL (79-100) Mean Corpuscular Hemoglobin 28 pg (25-35) Mean Corpuscular Hemoglobin Concent 34 g/dL (31-37) Red Cell Distribution Width 14.1 % (11.5-14.5) Platelet Count 249 x10^3/uL (140-400) Neutrophils (%) (Auto) 82 % (31-73) Lymphocytes (%) (Auto) 11 % (24-48) Monocytes (%) (Auto) 5 % (0-9) Eosinophils (%) (Auto) 2 % (0-3) Basophils (%) (Auto) 1 % (0-3) Neutrophils # (Auto) 13.8 x10^3uL (1.8-7.7) Lymphocytes # (Auto) 1.9 x10^3/uL (1.0-4.8) Monocytes # (Auto) 0.8 x10^3/uL (0.0-1.1) Eosinophils # (Auto) 0.3 x10^3/uL (0.0-0.7) Basophils # (Auto) 0.1 x10^3/uL (0.0-0.2) Sodium Level 137 mmol/L (136-145) Potassium Level 4.3 mmol/L (3.5-5.1) Chloride Level 100 mmol/L (98-107) Carbon Dioxide Level 28 mmol/L (21-32) Anion Gap 9 (6-14) Blood Urea Nitrogen 24 mg/dL (8-26) Creatinine 0.7 mg/dL (0.7-1.3) Estimated GFR (Cockcroft-Gault) 114.6 Glucose Level 195 mg/dL (70-99) Calcium Level 9.8 mg/dL (8.5-10.1) Magnesium Level 1.4 mg/dL (1.8-2.4) Total Bilirubin 0.7 mg/dL (0.2-1.0) Direct Bilirubin 0.1 mg/dL (0.0-0.2) Aspartate Amino Transf (AST/SGOT) 13 U/L (15-37) Alanine Aminotransferase (ALT/SGPT) 18 U/L (16-63) Alkaline Phosphatase 126 U/L (46-116) Total Protein 8.5 g/dL (6.4-8.2) Albumin 3.5 g/dL (3.4-5.0) Triglycerides Level 139 mg/dL (0-150) Cholesterol Level 203 mg/dL (0-200) LDL Cholesterol, Calculated 139 mg/dL (0-100) VLDL Cholesterol, Calculated 28 mg/dL (0-40) Non-HDL Cholesterol Calculated 167 mg/dL (0-129) HDL Cholesterol 36 mg/dL (40-60) Cholesterol/HDL Ratio 5.6 Lipase 53 U/L (73-393) Thyroid Stimulating Hormone (TSH) 1.502 uIU/mL (0.358-3.74) Urine Collection Type Void Urine Color Yellow Urine Clarity Clear Urine pH 7.0 Urine Specific [place] >=1.030 Urine Protein Negative mg/dL (NEG-TRACE) Urine Glucose (UA) 250 mg/dL (NEG) Urine Ketones (Stick) Negative mg/dL (NEG) Urine Blood Negative (NEG) Urine Nitrite Negative (NEG) Urine Bilirubin Negative (NEG) Urine Urobilinogen Dipstick 1.0 mg/dL (0.2 mg/dL) Urine Leukocyte Esterase Negative (NEG) Urine RBC 0 /HPF (0-2) Urine WBC Occ /HPF (0-4) Urine Squamous Epithelial Cells Few /LPF Urine Bacteria 0 /HPF (0-FEW) Urine Mucus Slight /LPF Urine Sperm Present /HPF Glucose (Fingerstick) 169 mg/dL (70-99) 144 mg/dL (70-99) Test 04/27/17 20:36 04/28/17 03:10 04/28/17 07:22 04/28/17 10:18 Glucose (Fingerstick) 151 mg/dL (70-99) 131 mg/dL (70-99) 133 mg/dL (70-99) White Blood Count 14.5 x10^3/uL (4.0-11.0) Red Blood Count 4.29 x10^6/uL (4.30-5.70) Hemoglobin 12.0 g/dL (13.0-17.5) Hematocrit 36.4 % (39.0-53.0) Mean Corpuscular Volume 85 fL (79-100) Mean Corpuscular Hemoglobin 28 pg (25-35) Mean Corpuscular Hemoglobin Concent 33 g/dL (31-37) Red Cell Distribution Width 14.4 % (11.5-14.5) Platelet Count 197 x10^3/uL (140-400) Neutrophils (%) (Auto) 76 % (31-73) Lymphocytes (%) (Auto) 16 % (24-48) Monocytes (%) (Auto) 7 % (0-9) Eosinophils (%) (Auto) 1 % (0-3) Basophils (%) (Auto) 0 % (0-3) Neutrophils # (Auto) 11.0 x10^3uL (1.8-7.7) Lymphocytes # (Auto) 2.3 x10^3/uL (1.0-4.8) Monocytes # (Auto) 1.0 x10^3/uL (0.0-1.1) Eosinophils # (Auto) 0.2 x10^3/uL (0.0-0.7) Basophils # (Auto) 0.1 x10^3/uL (0.0-0.2) Sodium Level 138 mmol/L (136-145) Potassium Level 3.6 mmol/L (3.5-5.1) Chloride Level 104 mmol/L (98-107) Carbon Dioxide Level 28 mmol/L (21-32) Anion Gap 6 (6-14) Blood Urea Nitrogen 20 mg/dL (8-26) Creatinine 0.7 mg/dL (0.7-1.3) Estimated GFR (Cockcroft-Gault) 114.6 BUN/Creatinine Ratio 29 (6-20) Glucose Level 129 mg/dL (70-99) Calcium Level 8.6 mg/dL (8.5-10.1) Magnesium Level 1.9 mg/dL (1.8-2.4) Total Bilirubin 0.6 mg/dL (0.2-1.0) Aspartate Amino Transf (AST/SGOT) 11 U/L (15-37) Alanine Aminotransferase (ALT/SGPT) 12 U/L (16-63) Alkaline Phosphatase 86 U/L (46-116) Total Protein 7.0 g/dL (6.4-8.2) Albumin 2.6 g/dL (3.4-5.0) Albumin/Globulin Ratio 0.6 (1.0-1.7) Laboratory Tests Test 04/27/17 16:39 04/27/17 20:36 04/28/17 03:10 04/28/17 07:22 Glucose (Fingerstick) 144 mg/dL (70-99) 151 mg/dL (70-99) 131 mg/dL (70-99) White Blood Count 14.5 x10^3/uL (4.0-11.0) Red Blood Count 4.29 x10^6/uL (4.30-5.70) Hemoglobin 12.0 g/dL (13.0-17.5) Hematocrit 36.4 % (39.0-53.0) Mean Corpuscular Volume 85 fL (79-100) Mean Corpuscular Hemoglobin 28 pg (25-35) Mean Corpuscular Hemoglobin Concent 33 g/dL (31-37) Red Cell Distribution Width 14.4 % (11.5-14.5) Platelet Count 197 x10^3/uL (140-400) Neutrophils (%) (Auto) 76 % (31-73) Lymphocytes (%) (Auto) 16 % (24-48) Monocytes (%) (Auto) 7 % (0-9) Eosinophils (%) (Auto) 1 % (0-3) Basophils (%) (Auto) 0 % (0-3) Neutrophils # (Auto) 11.0 x10^3uL (1.8-7.7) Lymphocytes # (Auto) 2.3 x10^3/uL (1.0-4.8) Monocytes # (Auto) 1.0 x10^3/uL (0.0-1.1) Eosinophils # (Auto) 0.2 x10^3/uL (0.0-0.7) Basophils # (Auto) 0.1 x10^3/uL (0.0-0.2) Sodium Level 138 mmol/L (136-145) Potassium Level 3.6 mmol/L (3.5-5.1) Chloride Level 104 mmol/L (98-107) Carbon Dioxide Level 28 mmol/L (21-32) Anion Gap 6 (6-14) Blood Urea Nitrogen 20 mg/dL (8-26) Creatinine 0.7 mg/dL (0.7-1.3) Estimated GFR (Cockcroft-Gault) 114.6 BUN/Creatinine Ratio 29 (6-20) Glucose Level 129 mg/dL (70-99) Calcium Level 8.6 mg/dL (8.5-10.1) Magnesium Level 1.9 mg/dL (1.8-2.4) Total Bilirubin 0.6 mg/dL (0.2-1.0) Aspartate Amino Transf (AST/SGOT) 11 U/L (15-37) Alanine Aminotransferase (ALT/SGPT) 12 U/L (16-63) Alkaline Phosphatase 86 U/L (46-116) Total Protein 7.0 g/dL (6.4-8.2) Albumin 2.6 g/dL (3.4-5.0) Albumin/Globulin Ratio 0.6 (1.0-1.7) Test 04/28/17 10:18 Glucose (Fingerstick) 133 mg/dL (70-99) Problem List Problems Medical Problems: (1) Diverticulitis Status: Acute (2) Perforated bowel Status: Acute Assessment/Plan stable pain persists WBC down a little continue abx offer clears Problems: JUAN LUIS HUANG MD Apr 28, 2017 12:18
[2017-04-28] MEDS: PANTOPRAZOLE IV PUSH 40 MG VIAL. IVP SCH (12:22)
--- NOTE | 2017-04-28 12:43 | PDOC ---
CARDIO Progress Notes Date and Time Date of Service 04/28/2017 Time of Evaluation 1150 Subjective Subjective: No Chest Pain, No shortness of breath, No Palpitations, No Dizziness, Other (continue to have diffuse abdominal tenderness but tolerable) Vitals Vitals Vital Signs Date Time Temp Pulse Resp B/P (MAP) Pulse Ox O2 Delivery O2 Flow Rate FiO2 04/28/17 12:24 80 123/79 04/28/17 12:03 Room Air 04/28/17 10:17 98.7 20 97 98.7 Weight Weight [ ] Input and Output Intake and Output Intake and Output 04/28/17 07:00 Intake Total 2779 ml Output Total 1735 ml Balance 1044 ml Intake Oral 200 ml IV Total 2579 ml Output Urine Total 1735 ml Laboratory Labs Laboratory Tests Test 04/27/17 16:39 04/27/17 20:36 04/28/17 03:10 04/28/17 07:22 Glucose (Fingerstick) 144 mg/dL (70-99) 151 mg/dL (70-99) 131 mg/dL (70-99) White Blood Count 14.5 x10^3/uL (4.0-11.0) Red Blood Count 4.29 x10^6/uL (4.30-5.70) Hemoglobin 12.0 g/dL (13.0-17.5) Hematocrit 36.4 % (39.0-53.0) Mean Corpuscular Volume 85 fL (79-100) Mean Corpuscular Hemoglobin 28 pg (25-35) Mean Corpuscular Hemoglobin Concent 33 g/dL (31-37) Red Cell Distribution Width 14.4 % (11.5-14.5) Platelet Count 197 x10^3/uL (140-400) Neutrophils (%) (Auto) 76 % (31-73) Lymphocytes (%) (Auto) 16 % (24-48) Monocytes (%) (Auto) 7 % (0-9) Eosinophils (%) (Auto) 1 % (0-3) Basophils (%) (Auto) 0 % (0-3) Neutrophils # (Auto) 11.0 x10^3uL (1.8-7.7) Lymphocytes # (Auto) 2.3 x10^3/uL (1.0-4.8) Monocytes # (Auto) 1.0 x10^3/uL (0.0-1.1) Eosinophils # (Auto) 0.2 x10^3/uL (0.0-0.7) Basophils # (Auto) 0.1 x10^3/uL (0.0-0.2) Sodium Level 138 mmol/L (136-145) Potassium Level 3.6 mmol/L (3.5-5.1) Chloride Level 104 mmol/L (98-107) Carbon Dioxide Level 28 mmol/L (21-32) Anion Gap 6 (6-14) Blood Urea Nitrogen 20 mg/dL (8-26) Creatinine 0.7 mg/dL (0.7-1.3) Estimated GFR (Cockcroft-Gault) 114.6 BUN/Creatinine Ratio 29 (6-20) Glucose Level 129 mg/dL (70-99) Calcium Level 8.6 mg/dL (8.5-10.1) Magnesium Level 1.9 mg/dL (1.8-2.4) Total Bilirubin 0.6 mg/dL (0.2-1.0) Aspartate Amino Transf (AST/SGOT) 11 U/L (15-37) Alanine Aminotransferase (ALT/SGPT) 12 U/L (16-63) Alkaline Phosphatase 86 U/L (46-116) Total Protein 7.0 g/dL (6.4-8.2) Albumin 2.6 g/dL (3.4-5.0) Albumin/Globulin Ratio 0.6 (1.0-1.7) Test 04/28/17 10:18 Glucose (Fingerstick) 133 mg/dL (70-99) Physical Exam HEENT: Neck Supple W Full Motion Chest: Symmetric LUNGS: Clear to Auscultation Heart: S1S2, RRR (SR) Abdomen: Soft N/T Extremities: No Edema, No Calf Tenderness Neurology: alert, oriented, follow commands Assessment Assessment 1. PAFIB: RVR initially and has remained SR overnight. 2. Sigmoid diverticulitis with perforation: General surgery and ID following 3. HTN: better adequacy today 4. HLP 5. DM2: insulin dependent 6. Possible COPD with 50 pk yr tobaccoism Recommendations 1. TTE with normal LV systolic function and EF. No significant valvular disease. Continue with low dose IV metoprolol, will consider changing to PO per tolerance of po liquids. 2. IVF ongoing, to be advanced to clear liquid diet. Talked to general surgery , ok to start ECASA 81 mg po for stroke prevention. 3. Not a candidate for NOAC/OAC at this time due to above #2. 4. lipitor started, continue to hold ACEi. 5. Smoking cessation 6. Continue supportive care. GINA ONEILL APRN Apr 28, 2017 12:43
[2017-04-28 15:18] LABS: POTASSIUM ISTAT 4.1 mmol/L (3.5-5.0)
[2017-04-28] MEDS: ONDANSETRON PF 4 MG/2 ML VIAL. IV PRN (19:41)
[2017-04-28] MEDS: ATORVASTATIN CALCIUM 20 MG TABLET PO SCH (21:19)
[2017-04-28] MEDS: INSULIN DETEMIR 300 UNITS/3 ML INSULN.PEN. SQ SCH (21:22)
[2017-04-29 02:42] VITALS: BP 90/59
[2017-04-29] MEDS: ONDANSETRON PF 4 MG/2 ML VIAL. IV PRN (02:55)
[2017-04-29] MEDS: fentaNYL PF VIAL 100 MCG/2 ML VIAL IV PRN ×3 (02:56→08:19)
[2017-04-29 05:31] LABS: BASO % 0 % (0-3); EOS % 1 % (0-3); HEMATOCRIT 41.3 % (39.0-53.0); HEMOGLOBIN 13.6 g/dL (13.0-17.5); LYMPH # 1.8 x10^3/uL (1.0-4.8); LYMPH % 10 % (24-48); MEAN CORPUSCULAR HEMOGLOBIN 28 pg (25-35); MEAN CORPUSCULAR HGB CONC 33 g/dL (31-37); MEAN CORPUSCULAR VOLUME 85 fL (79-100); MONO % 7 % (0-9); NEUT % 83 % (31-73); PLATELET COUNT 228 x10^3/uL (140-400); RED BLOOD COUNT 4.85 x10^6/uL (4.30-5.70); RED CELL DISTRIBUTION WIDTH 13.9 % (11.5-14.5); WHITE BLOOD COUNT 18.3 x10^3/uL (4.0-11.0)
[2017-04-29] MEDS: IV NORMAL SALINE 1000ML BAG 1,000 ML IV SCH ×3 (06:19→19:32)
[2017-04-29] MEDS: METOPROLOL TARTRATE 5 MG/5 ML VIAL. IVP SCH ×4 (06:19→18:16)
[2017-04-29] MEDS: PIPERACILLIN/TAZOBACTAM 3.375 GM in IV NORMAL SALINE 50ML 50 ML IV SCH ×3 (06:20→18:08)
[2017-04-29 06:24] LABS: CREATININE 0.6 mg/dL (0.7-1.3)
[2017-04-29 07:40] VITALS: BP 130/85
[2017-04-29] MEDS: IPRATRPIUM/ALBUTEROL 0.5/2.5MG 3 ML NEBU. NEB SCH ×4 (07:44→21:04)
[2017-04-29] MEDS: INSULIN ASPART 300 UNITS/3 ML INSULN.PEN SQ SCH ×3 (08:00→17:00)
[2017-04-29] MEDS: PANTOPRAZOLE IV PUSH 40 MG VIAL. IVP SCH (08:18)
[2017-04-29] MEDS: ASPIRIN ENTERIC COATED 81 MG TABLET.DR. PO SCH (08:19)
--- NOTE | 2017-04-29 08:23 | PDOC ---
Infectious Disease Note Subjective Subjective Cont pain but pain med is not lasting as long. Still sweats + Flatus urinating well ROS ROS GEN: Denies chills HEENT: Denies blurred vision, sore throat CV: Denies chest pain RESP: Denies shortness of air, cough GI: Denies n/v NEURO: Denies confusion, dizziness MSK: Denies weakness, joint pain/swelling Vital Sign Vital Signs Vital Signs Date Time Temp Pulse Resp B/P (MAP) Pulse Ox O2 Delivery O2 Flow Rate FiO2 04/29/17 07:50 Room Air 04/29/17 07:45 96 04/29/17 07:40 98.6 80 18 130/85 (100) 98.6 Physical Exam PHYSICAL EXAM GENERAL: NAD, Alert, sitting on side of bed. looks a little uncomfortable HEENT: PERRL, OC/OP -clear NECK: Supple, no JVD, no LN LUNGS: Clear HEART: S1S2, no gallop, no murmur ABD: Soft, NT, obese. 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, oriented x 3, no focal neurologic deficit SKIN: No rash IV: ok Labs Lab Laboratory Tests Test 04/28/17 10:18 04/28/17 16:23 04/28/17 20:22 04/29/17 05:00 Glucose (Fingerstick) 133 mg/dL (70-99) 140 mg/dL (70-99) 166 mg/dL (70-99) White Blood Count 18.3 x10^3/uL (4.0-11.0) Red Blood Count 4.85 x10^6/uL (4.30-5.70) Hemoglobin 13.6 g/dL (13.0-17.5) Hematocrit 41.3 % (39.0-53.0) Mean Corpuscular Volume 85 fL (79-100) Mean Corpuscular Hemoglobin 28 pg (25-35) Mean Corpuscular Hemoglobin Concent 33 g/dL (31-37) Red Cell Distribution Width 13.9 % (11.5-14.5) Platelet Count 228 x10^3/uL (140-400) Neutrophils (%) (Auto) 83 % (31-73) Lymphocytes (%) (Auto) 10 % (24-48) Monocytes (%) (Auto) 7 % (0-9) Eosinophils (%) (Auto) 1 % (0-3) Basophils (%) (Auto) 0 % (0-3) Neutrophils # (Auto) 15.1 x10^3uL (1.8-7.7) Lymphocytes # (Auto) 1.8 x10^3/uL (1.0-4.8) Monocytes # (Auto) 1.2 x10^3/uL (0.0-1.1) Eosinophils # (Auto) 0.1 x10^3/uL (0.0-0.7) Basophils # (Auto) 0.0 x10^3/uL (0.0-0.2) Creatinine 0.6 mg/dL (0.7-1.3) Estimated GFR (Cockcroft-Gault) 137.0 Test 04/29/17 07:39 Glucose (Fingerstick) 174 mg/dL (70-99) Objective Assessment Perforated sigmoid diverticulum Cipro allergy - ? seizure -has not had levoflox/Cipro since Leukocytosis - increased Afib RVR Plan Plan of Care Cont Zosyn Add micafungin May need additional imaging with progressive pain d/w [facility] nursing to please notify Gen surgery F/u labs and progress Blood cults if spikes but now abx started already JULIA JURADO MD Apr 29, 2017 08:23
[2017-04-29] MEDS: MICAFUNGIN 100 MG in IV DEXTROSE 5% 100 ML IV SCH (09:07)
[2017-04-29] MEDS ORDERED: NALOXONE 0.4 MG/ML VIAL. IV PRN (09:45)
[2017-04-29 10:16] LABS: % EOS 2 % (0-5)
[2017-04-29 10:17] LABS: PLT ESTIMATE ADEQUATE (ADEQUATE)
[2017-04-29 10:30] VITALS: BP 120/86
--- NOTE | 2017-04-29 10:35 | PDOC ---
PROGRESS NOTES Chief Complaint Chief Complaint cc: abdominal pain A/P Leucocytosis: on Zosyn and Micafungin, ID following, Repeat CT today, PAFIB: Rate controlled, continue current care. 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 HTN. HLD DM : SSI, see orders. History of Present Illness History of Present Illness no fever pain 8/10 not better NPO Vitals Vitals Vital Signs Date Time Temp Pulse Resp B/P (MAP) Pulse Ox O2 Delivery O2 Flow Rate FiO2 04/29/17 08:45 96 Room Air 04/29/17 07:40 98.6 80 18 130/85 (100) 98.6 Physical Exam General: Alert, Oriented X3, No acute distress Heart: Regular rate (AFIB RVR), Normal S1, Normal S2, Other (2/6 systolic murmur to LLS border) Abdomen: Soft, Other (TTP LLQ) Extremities: No clubbing Skin: No rashes, No breakdown Labs LABS Laboratory Tests Test 04/28/17 16:23 04/28/17 20:22 04/29/17 05:00 04/29/17 07:39 Glucose (Fingerstick) 140 mg/dL (70-99) 166 mg/dL (70-99) 174 mg/dL (70-99) White Blood Count 18.3 x10^3/uL (4.0-11.0) Red Blood Count 4.85 x10^6/uL (4.30-5.70) Hemoglobin 13.6 g/dL (13.0-17.5) Hematocrit 41.3 % (39.0-53.0) Mean Corpuscular Volume 85 fL (79-100) Mean Corpuscular Hemoglobin 28 pg (25-35) Mean Corpuscular Hemoglobin Concent 33 g/dL (31-37) Red Cell Distribution Width 13.9 % (11.5-14.5) Platelet Count 228 x10^3/uL (140-400) Neutrophils (%) (Auto) 83 % (31-73) Lymphocytes (%) (Auto) 10 % (24-48) Monocytes (%) (Auto) 7 % (0-9) Eosinophils (%) (Auto) 1 % (0-3) Basophils (%) (Auto) 0 % (0-3) Neutrophils # (Auto) 15.1 x10^3uL (1.8-7.7) Lymphocytes # (Auto) 1.8 x10^3/uL (1.0-4.8) Monocytes # (Auto) 1.2 x10^3/uL (0.0-1.1) Eosinophils # (Auto) 0.1 x10^3/uL (0.0-0.7) Basophils # (Auto) 0.0 x10^3/uL (0.0-0.2) Segmented Neutrophils % 84 % (35-66) Band Neutrophils % 3 % (0-9) Lymphocytes % 8 % (24-48) Monocytes % 3 % (0-10) Eosinophils % 2 % (0-5) Platelet Estimate Adequate (ADEQUATE) Creatinine 0.6 mg/dL (0.7-1.3) Estimated GFR (Cockcroft-Gault) 137.0 Assessment and Plan Assessmemt and Plan Problems Medical Problems: (1) Diverticulitis Status: Acute (2) Perforated bowel Status: Acute Problems: Comment Review of Relevant I have reviewed the following items ebony (where applicable) has been applied. Labs Laboratory Tests Test 04/27/17 11:35 04/27/17 12:01 04/27/17 16:39 04/27/17 20:36 Urine Collection Type Void Urine Color Yellow Urine Clarity Clear Urine pH 7.0 Urine Specific Truxton >=1.030 Urine Protein Negative mg/dL (NEG-TRACE) Urine Glucose (UA) 250 mg/dL (NEG) Urine Ketones (Stick) Negative mg/dL (NEG) Urine Blood Negative (NEG) Urine Nitrite Negative (NEG) Urine Bilirubin Negative (NEG) Urine Urobilinogen Dipstick 1.0 mg/dL (0.2 mg/dL) Urine Leukocyte Esterase Negative (NEG) Urine RBC 0 /HPF (0-2) Urine WBC Occ /HPF (0-4) Urine Squamous Epithelial Cells Few /LPF Urine Bacteria 0 /HPF (0-FEW) Urine Mucus Slight /LPF Urine Sperm Present /HPF Glucose (Fingerstick) 169 mg/dL (70-99) 144 mg/dL (70-99) 151 mg/dL (70-99) Test 04/28/17 03:10 04/28/17 07:22 04/28/17 10:18 04/28/17 16:23 White Blood Count 14.5 x10^3/uL (4.0-11.0) Red Blood Count 4.29 x10^6/uL (4.30-5.70) Hemoglobin 12.0 g/dL (13.0-17.5) Hematocrit 36.4 % (39.0-53.0) Mean Corpuscular Volume 85 fL (79-100) Mean Corpuscular Hemoglobin 28 pg (25-35) Mean Corpuscular Hemoglobin Concent 33 g/dL (31-37) Red Cell Distribution Width 14.4 % (11.5-14.5) Platelet Count 197 x10^3/uL (140-400) Neutrophils (%) (Auto) 76 % (31-73) Lymphocytes (%) (Auto) 16 % (24-48) Monocytes (%) (Auto) 7 % (0-9) Eosinophils (%) (Auto) 1 % (0-3) Basophils (%) (Auto) 0 % (0-3) Neutrophils # (Auto) 11.0 x10^3uL (1.8-7.7) Lymphocytes # (Auto) 2.3 x10^3/uL (1.0-4.8) Monocytes # (Auto) 1.0 x10^3/uL (0.0-1.1) Eosinophils # (Auto) 0.2 x10^3/uL (0.0-0.7) Basophils # (Auto) 0.1 x10^3/uL (0.0-0.2) Sodium Level 138 mmol/L (136-145) Potassium Level 3.6 mmol/L (3.5-5.1) Chloride Level 104 mmol/L (98-107) Carbon Dioxide Level 28 mmol/L (21-32) Anion Gap 6 (6-14) Blood Urea Nitrogen 20 mg/dL (8-26) Creatinine 0.7 mg/dL (0.7-1.3) Estimated GFR (Cockcroft-Gault) 114.6 BUN/Creatinine Ratio 29 (6-20) Glucose Level 129 mg/dL (70-99) Calcium Level 8.6 mg/dL (8.5-10.1) Magnesium Level 1.9 mg/dL (1.8-2.4) Total Bilirubin 0.6 mg/dL (0.2-1.0) Aspartate Amino Transf (AST/SGOT) 11 U/L (15-37) Alanine Aminotransferase (ALT/SGPT) 12 U/L (16-63) Alkaline Phosphatase 86 U/L (46-116) Total Protein 7.0 g/dL (6.4-8.2) Albumin 2.6 g/dL (3.4-5.0) Albumin/Globulin Ratio 0.6 (1.0-1.7) Glucose (Fingerstick) 131 mg/dL (70-99) 133 mg/dL (70-99) 140 mg/dL (70-99) Test 04/28/17 20:22 04/29/17 05:00 04/29/17 07:39 Glucose (Fingerstick) 166 mg/dL (70-99) 174 mg/dL (70-99) White Blood Count 18.3 x10^3/uL (4.0-11.0) Red Blood Count 4.85 x10^6/uL (4.30-5.70) Hemoglobin 13.6 g/dL (13.0-17.5) Hematocrit 41.3 % (39.0-53.0) Mean Corpuscular Volume 85 fL (79-100) Mean Corpuscular Hemoglobin 28 pg (25-35) Mean Corpuscular Hemoglobin Concent 33 g/dL (31-37) Red Cell Distribution Width 13.9 % (11.5-14.5) Platelet Count 228 x10^3/uL (140-400) Neutrophils (%) (Auto) 83 % (31-73) Lymphocytes (%) (Auto) 10 % (24-48) Monocytes (%) (Auto) 7 % (0-9) Eosinophils (%) (Auto) 1 % (0-3) Basophils (%) (Auto) 0 % (0-3) Neutrophils # (Auto) 15.1 x10^3uL (1.8-7.7) Lymphocytes # (Auto) 1.8 x10^3/uL (1.0-4.8) Monocytes # (Auto) 1.2 x10^3/uL (0.0-1.1) Eosinophils # (Auto) 0.1 x10^3/uL (0.0-0.7) Basophils # (Auto) 0.0 x10^3/uL (0.0-0.2) Segmented Neutrophils % 84 % (35-66) Band Neutrophils % 3 % (0-9) Lymphocytes % 8 % (24-48) Monocytes % 3 % (0-10) Eosinophils % 2 % (0-5) Platelet Estimate Adequate (ADEQUATE) Creatinine 0.6 mg/dL (0.7-1.3) Estimated GFR (Cockcroft-Gault) 137.0 Laboratory Tests Test 04/28/17 16:23 04/28/17 20:22 04/29/17 05:00 04/29/17 07:39 Glucose (Fingerstick) 140 mg/dL (70-99) 166 mg/dL (70-99) 174 mg/dL (70-99) White Blood Count 18.3 x10^3/uL (4.0-11.0) Red Blood Count 4.85 x10^6/uL (4.30-5.70) Hemoglobin 13.6 g/dL (13.0-17.5) Hematocrit 41.3 % (39.0-53.0) Mean Corpuscular Volume 85 fL (79-100) Mean Corpuscular Hemoglobin 28 pg (25-35) Mean Corpuscular Hemoglobin Concent 33 g/dL (31-37) Red Cell Distribution Width 13.9 % (11.5-14.5) Platelet Count 228 x10^3/uL (140-400) Neutrophils (%) (Auto) 83 % (31-73) Lymphocytes (%) (Auto) 10 % (24-48) Monocytes (%) (Auto) 7 % (0-9) Eosinophils (%) (Auto) 1 % (0-3) Basophils (%) (Auto) 0 % (0-3) Neutrophils # (Auto) 15.1 x10^3uL (1.8-7.7) Lymphocytes # (Auto) 1.8 x10^3/uL (1.0-4.8) Monocytes # (Auto) 1.2 x10^3/uL (0.0-1.1) Eosinophils # (Auto) 0.1 x10^3/uL (0.0-0.7) Basophils # (Auto) 0.0 x10^3/uL (0.0-0.2) Segmented Neutrophils % 84 % (35-66) Band Neutrophils % 3 % (0-9) Lymphocytes % 8 % (24-48) Monocytes % 3 % (0-10) Eosinophils % 2 % (0-5) Platelet Estimate Adequate (ADEQUATE) Creatinine 0.6 mg/dL (0.7-1.3) Estimated GFR (Cockcroft-Gault) 137.0 Medications Current Medications Morphine Sulfate 4 mg 1X ONCE IV Last administered on 04/27/17 08:03; Start 04/27/17 at 07:30; Stop 04/27/17 at 07:52; Status DC Ondansetron HCl (Zofran) 4 mg 1X ONCE IV Last administered on 04/27/17 08:12 ; Start 04/27/17 at 08:15; Stop 04/27/17 at 08:16; Status DC Iohexol (Omnipaque 300 Mg/ml) 75 ml 1X ONCE IV Last administered on 04/27/17 08:41; Start 04/27/17 at 08:15; Stop 04/27/17 at 08:16; Status DC Info (Do NOT chart on this entry -- for MONITORING) 1 each PRN DAILY PRN MC SEE COMMENTS; Start 04/27/17 at 08:15; Stop 04/29/17 at 08:14; Status DC Sodium Chloride 1,000 ml @ 1,000 mls/hr 1X ONCE IV Last administered on 09:30; Start 04/27/17 at 09:30; Stop 04/27/17 at 10:29; Status DC Piperacillin Sod/ Tazobactam Sod (Zosyn Per Pharmacy) 1 each PRN DAILY PRN MC SEE COMMENTS; Start 04/27/17 at 09:45 Piperacillin Sod/ Tazobactam Sod 3.375 gm/Sodium Chloride 50 ml @ 100 mls/hr 1X ONCE IV Last administered on 04/27/17 10:05; Start 04/27/17 at 09:45; Stop 04/27/17 at 10:14; Status DC Fentanyl Citrate (Fentanyl 2ml Vial) 50 mcg 1X ONCE IV Last administered on 10:27; Start 04/27/17 at 10:00; Stop 04/27/17 at 10:01; Status DC Ondansetron HCl (Zofran) 4 mg PRN Q8HRS PRN IV NAUSEA/VOMITING; Start 04/27/17 at 10:00; Stop 04/28/17 at 09:59; Status DC Fentanyl Citrate (Fentanyl 2ml Vial) 50 mcg PRN Q1HR PRN IV PAIN Last administered on 04/28/17 08:08; Start 04/27/17 at 10:00; Stop 04/28/17 at 09:59 ; Status DC Piperacillin Sod/ Tazobactam Sod 3.375 gm/Sodium Chloride 50 ml @ 100 mls/hr Q6HRS IV Last administered on 04/29/17 06:20; Start 04/27/17 at 18:00 Digoxin (Lanoxin) 500 mcg 1X ONCE IV Last administered on 04/27/17 10:44; Start 04/27/17 at 10:30; Stop 04/27/17 at 10:31; Status DC Sodium Chloride 1,000 ml @ 1,000 mls/hr 1X ONCE IV Last administered on 10:53; Start 04/27/17 at 11:00; Stop 04/27/17 at 11:59; Status DC Magnesium Sulfate/ Dextrose 100 ml @ 25 mls/hr 1X ONCE IV Last administered on 04/27/17 12:21; Start 04/27/17 at 11:00; Stop 04/27/17 at 14:59; Status DC Metoprolol Tartrate (Lopressor) 5 mg Q6HRS IVP ; Start 04/27/17 at 13:00; Stop 04/27/17 at 15:57; Status DC Sodium Chloride 1,000 ml @ 100 mls/hr Q10H IV Last administered on 04/29/17 06:19; Start 04/27/17 at 14:15 Saliva Substitute (Biotene Moisturizing Mouth) 2 spray PRN Q15MIN PRN PO DRY MOUTH Last administered on 04/27/17 18:18; Start 04/27/17 at 14:15 Nicotine Polacrilex (Nicorette Gum) 1 each PRN Q1HR PRN BC SMOKING CESSATION; Start 04/27/17 at 14:15 Albuterol/ Ipratropium (Duoneb) 3 ml RTQID NEB Last administered on 04/29/17 07:44; Start 04/27/17 at 16:00 Albuterol/ Ipratropium (Duoneb) 3 ml 1X ONCE NEB ; Start 04/27/17 at 14:15; Stop 04/27/17 at 14:16; Status DC Aspirin (Ecotrin) 81 mg DAILY PO ; Start 04/27/17 at 14:30; Stop 04/28/17 at 11: 52; Status DC Insulin Aspart (NovoLOG) 0-9 UNITS TIDWMEALS SQ ; Start 04/27/17 at 17:00 Dextrose (Dextrose 50%-Water Syringe) 12.5 gm PRN Q15MIN PRN IV SEE COMMENTS; Start 04/27/17 at 14:15 Insulin Detemir (Levemir) 25 units QHS SQ Last administered on 04/28/17 21:22 ; Start 04/27/17 at 21:00 Metoprolol Tartrate (Lopressor) 2.5 mg Q6HRS IVP ; Start 04/27/17 at 18:00; Stop 04/28/17 at 11:53; Status DC Atorvastatin Calcium (Lipitor) 20 mg QHS PO Last administered on 04/27/17 20: 38; Start 04/27/17 at 21:00; Stop 04/28/17 at 11:52; Status DC Ondansetron HCl (Zofran) 4 mg PRN Q6HRS PRN IV NAUSEA/VOMITING Last administered on 04/29/17 02:55; Start 04/28/17 at 10:45 Fentanyl Citrate (Fentanyl 2ml Vial) 50 mcg PRN Q2HR PRN IV PAIN; Start at 10:45; Stop 04/28/17 at 11:50; Status DC Fentanyl Citrate (Fentanyl 2ml Vial) 100 mcg PRN Q2HR PRN IV PAIN SEVERE Last administered on 04/29/17 08:19; Start 04/28/17 at 12:00 Pantoprazole Sodium (Protonix Vial) 40 mg DAILYAC IVP Last administered on 04/29 08:18; Start 04/28/17 at 12:00 Metoprolol Tartrate (Lopressor) 2.5 mg PRN Q6HRS PRN IVP BP 160/100; Start at 12:00 Metoprolol Tartrate (Lopressor) 2.5 mg Q6HRS IVP Last administered on 06:19; Start 04/28/17 at 12:00 Aspirin (Ecotrin) 81 mg DAILYWBKFT PO Last administered on 04/29/17 08:19; Start 04/29/17 at 08:00 Atorvastatin Calcium (Lipitor) 20 mg QHS PO Last administered on 04/28/17 21: 19; Start 04/28/17 at 21:00 Micafungin Sodium 100 mg/Dextrose 100 ml @ 100 mls/hr Q24H IV Last administered on 04/29/17 09:07; Start 04/29/17 at 09:00 Naloxone HCl (Narcan) 0.4 mg PRN Q2MIN PRN IV SEE INSTRUCTIONS; Start 04/29/17 at 09:45 Hydromorphone HCl 30 ml @ 0 mls/hr CONT PRN PRN IV PROTOCOL; Start 04/29/17 at 09:45 Digoxin (Lanoxin) 125 mcg DAILY IV ; Start 04/29/17 at 11:00 Active Scripts Active Reported Lantus Solostar (Insulin Glargine,Hum.rec.anlog) 100 Unit/1 Ml Insuln.pen 65 Unit SQ BID Aleve (Naproxen Sodium) 220 Mg Capsule 440 Mg PO BID Aspir 81 (Aspirin) 81 Mg Tablet. 1 Tab PO DAILY Gabapentin 600 Mg Tablet 600 Mg PO TID Carvedilol 6.25 Mg Tablet 1 Tab PO BID Lisinopril 5 Mg Tablet 1 Tab PO DAILY Gemfibrozil 600 Mg Tablet 600 Mg PO BID Vitals/I & O Vital Sign - Last 24 Hours 04/28/17 04/28/17 04/28/17 04/28/17 12:03 12:24 13:04 14:18 Temp 97.8 97.8 Pulse 80 94 102 Resp 20 B/P (MAP) 123/79 111/64 (80) 109/68 (82) Pulse Ox 96 O2 Delivery Room Air Room Air Room Air 04/28/17 04/28/17 04/28/17 04/28/17 14:23 16:17 17:03 17:33 Pulse 124 B/P (MAP) 112/63 O2 Delivery Room Air Room Air Room Air 04/28/17 04/28/17 04/28/17 04/28/17 18:04 19:40 19:41 20:20 Pulse 102 Resp 20 B/P (MAP) 104/59 (74) Pulse Ox 95 O2 Delivery Room Air Room Air Room Air 04/28/17 04/28/17 04/29/17 04/29/17 22:28 22:49 02:42 02:56 Temp 98.0 97.8 98.0 97.8 Pulse 95 67 Resp 20 20 18 20 B/P (MAP) 88/56 (67) 90/59 (69) Pulse Ox 96 95 O2 Delivery Room Air Room Air Room Air Room Air 04/29/17 04/29/17 04/29/17 04/29/17 06:19 06:20 06:50 07:40 Temp 98.6 98.6 Pulse 92 80 Resp 20 20 18 B/P (MAP) 90/59 130/85 (100) Pulse Ox 95 O2 Delivery Room Air Room Air 04/29/17 04/29/17 04/29/17 04/29/17 07:45 07:50 08:19 08:45 Pulse Ox 96 96 96 O2 Delivery Room Air Room Air Room Air Room Air Intake and Output 04/28/17 04/28/17 04/29/17 15:00 23:00 07:00 Intake Total 2090 ml Output Total 525 ml 500 ml 550 ml Balance -525 ml 1590 ml -550 ml CARLOS MURRELL MD Apr 29, 2017 10:35
[2017-04-29] MEDS ORDERED: CONTRAST GIVEN MC PRN (11:15)
[2017-04-29] MEDS ORDERED: IOHEXOL 300 MG/ML 75 ML VIAL IV ONE (11:15)
--- NOTE | 2017-04-29 11:25 | PDOC ---
CARDIO Progress Notes Date and Time Date of Service 04/29/2017 Time of Evaluation 0920 Subjective Subjective: No Chest Pain, No shortness of breath, No Palpitations, No Dizziness, Other (no appetite, still have some abdominal tenderness) Vitals Vitals Vital Signs Date Time Temp Pulse Resp B/P (MAP) Pulse Ox O2 Delivery O2 Flow Rate FiO2 04/29/17 11:09 95 Room Air 04/29/17 10:30 98.1 82 18 120/86 (97) 98.1 Weight Weight [ ] Input and Output Intake and Output Intake and Output 04/29/17 07:00 Intake Total 2090 ml Output Total 1575 ml Balance 515 ml Intake Oral 740 ml IV Total 1350 ml Output Urine Total 1575 ml Laboratory Labs Laboratory Tests Test 04/28/17 16:23 04/28/17 20:22 04/29/17 05:00 04/29/17 07:39 Glucose (Fingerstick) 140 mg/dL (70-99) 166 mg/dL (70-99) 174 mg/dL (70-99) White Blood Count 18.3 x10^3/uL (4.0-11.0) Red Blood Count 4.85 x10^6/uL (4.30-5.70) Hemoglobin 13.6 g/dL (13.0-17.5) Hematocrit 41.3 % (39.0-53.0) Mean Corpuscular Volume 85 fL (79-100) Mean Corpuscular Hemoglobin 28 pg (25-35) Mean Corpuscular Hemoglobin Concent 33 g/dL (31-37) Red Cell Distribution Width 13.9 % (11.5-14.5) Platelet Count 228 x10^3/uL (140-400) Neutrophils (%) (Auto) 83 % (31-73) Lymphocytes (%) (Auto) 10 % (24-48) Monocytes (%) (Auto) 7 % (0-9) Eosinophils (%) (Auto) 1 % (0-3) Basophils (%) (Auto) 0 % (0-3) Neutrophils # (Auto) 15.1 x10^3uL (1.8-7.7) Lymphocytes # (Auto) 1.8 x10^3/uL (1.0-4.8) Monocytes # (Auto) 1.2 x10^3/uL (0.0-1.1) Eosinophils # (Auto) 0.1 x10^3/uL (0.0-0.7) Basophils # (Auto) 0.0 x10^3/uL (0.0-0.2) Segmented Neutrophils % 84 % (35-66) Band Neutrophils % 3 % (0-9) Lymphocytes % 8 % (24-48) Monocytes % 3 % (0-10) Eosinophils % 2 % (0-5) Platelet Estimate Adequate (ADEQUATE) Creatinine 0.6 mg/dL (0.7-1.3) Estimated GFR (Cockcroft-Gault) 137.0 Physical Exam HEENT: Neck Supple W Full Motion Chest: Symmetric LUNGS: Clear to Auscultation Heart: S1S2, RRR (SR) Abdomen: Soft N/T Extremities: No Edema, No Calf Tenderness Neurology: alert, oriented, follow commands Assessment Assessment 1. PAFIB: overnight with episodes of brief AFIB RVR otherwise currently SR. 2. Sigmoid diverticulitis with perforation: General surgery and ID following 3. HTN: at time low and presently adequate. 4. HLP:m statin in place 5. DM2: insulin dependent 6. Possible COPD with 50 pk yr tobaccoism Recommendations 1. Continue with 2.5 mg of IV metoprolol (unable to uptitrate due to BP) and will add 0.125 mg of IV digoxin daily. 2. ECASA 81 mg po for stroke prevention. 3. Not a candidate for NOAC/OAC at this time due to above #2. 4. Hold any other antiHTN 5. Smoking cessation 6. Continue supportive care. 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
[2017-04-29] MEDS: DIGOXIN IV 500 MCG/2 ML AMPUL. IV SCH (11:38)
--- NOTE | 2017-04-29 13:37 | RAD ---
CT scan of the abdomen and pelvis with contrast 04/29/2017 Clinical history: Sigmoid diverticulitis. Technique: After the intravenous administration of 75 cc of Omnipaque 300, contiguous, 5 mm axial sections were obtained through the abdomen and pelvis. One or more of the following individualized dose reduction techniques were utilized for this study: 1. Automated exposure control. 2. Adjustment of the mA and/or kV according to patient size. 3. Use of iterative reconstruction technique. Findings: Comparison study is dated 04/27/2017. Images through the lung bases demonstrate areas of subsegmental atelectasis and/or infiltrate involving both lower lobes which have increased since previous examination. The liver, spleen, pancreas, adrenal glands and right kidney within normal limits. A 2.7 cm rounded low-attenuation lesion is seen involving the lower pole left kidney. This likely represents a cyst. It is unchanged. Moderate scattered atherosclerotic plaque formation is seen involving the abdominal aorta and its branches. The abdominal aorta tapers normally. Findings are again seen consistent with sigmoid diverticulitis. The inflammatory changes surrounding the sigmoid colon have increased since the previous study. There has been interval development of small amount of ascites surrounding the liver and spleen within the abdomen. Small extraluminal collections of air are seen within the mesentery and peroneal cavity consistent with perforation. This has increased slightly since the previous study. Progressive dilatation of small bowel loops to the level of the sigmoid diverticulitis is noted. The small bowel distal to this is normal in caliber as is the colon. These findings could reflect an ileus versus a small bowel obstruction. Images through the pelvis demonstrate the urinary bladder distended with urine. No abnormal fluid collection is seen. The osseous structures are unchanged. Impression: Findings are again seen consistent with sigmoid diverticulitis. The inflammatory changes surrounding the sigmoid colon have increased since the previous examination. There has been interval development of a small amount of ascites. The extraluminal collections of air within the abdomen consistent with a perforation have increased slightly. Progressive dilatation of small bowel loops to the level of the sigmoid diverticulitis is seen which could reflect a small bowel obstruction versus an ileus. No abscess is seen.
[2017-04-29 14:30] VITALS: BP 108/71
--- NOTE | 2017-04-29 14:46 | PDOC ---
SURGICAL PROGRESS NOTE Subjective pt seen this AM and again this afternoon pain better with SEE WHEELER at bedside passing gas denies n/v Vital Signs Vital Signs Date Time Temp Pulse Resp B/P (MAP) Pulse Ox O2 Delivery O2 Flow Rate FiO2 04/29/17 13:37 83 118/80 04/29/17 11:39 96 Room Air 04/29/17 10:30 98.1 18 98.1 I&O Intake and Output 04/29/17 07:00 Intake Total 2090 ml Output Total 1575 ml Balance 515 ml Intake Oral 740 ml IV Total 1350 ml Output Urine Total 1575 ml PATIENT HAS A ZIEGLER: No General: Alert, Oriented X3, No acute distress Abdomen: Soft, Other (TTP LLQ) Labs Laboratory Tests Test 04/27/17 16:39 04/27/17 20:36 04/28/17 03:10 04/28/17 07:22 Glucose (Fingerstick) 144 mg/dL (70-99) 151 mg/dL (70-99) 131 mg/dL (70-99) White Blood Count 14.5 x10^3/uL (4.0-11.0) Red Blood Count 4.29 x10^6/uL (4.30-5.70) Hemoglobin 12.0 g/dL (13.0-17.5) Hematocrit 36.4 % (39.0-53.0) Mean Corpuscular Volume 85 fL (79-100) Mean Corpuscular Hemoglobin 28 pg (25-35) Mean Corpuscular Hemoglobin Concent 33 g/dL (31-37) Red Cell Distribution Width 14.4 % (11.5-14.5) Platelet Count 197 x10^3/uL (140-400) Neutrophils (%) (Auto) 76 % (31-73) Lymphocytes (%) (Auto) 16 % (24-48) Monocytes (%) (Auto) 7 % (0-9) Eosinophils (%) (Auto) 1 % (0-3) Basophils (%) (Auto) 0 % (0-3) Neutrophils # (Auto) 11.0 x10^3uL (1.8-7.7) Lymphocytes # (Auto) 2.3 x10^3/uL (1.0-4.8) Monocytes # (Auto) 1.0 x10^3/uL (0.0-1.1) Eosinophils # (Auto) 0.2 x10^3/uL (0.0-0.7) Basophils # (Auto) 0.1 x10^3/uL (0.0-0.2) Sodium Level 138 mmol/L (136-145) Potassium Level 3.6 mmol/L (3.5-5.1) Chloride Level 104 mmol/L (98-107) Carbon Dioxide Level 28 mmol/L (21-32) Anion Gap 6 (6-14) Blood Urea Nitrogen 20 mg/dL (8-26) Creatinine 0.7 mg/dL (0.7-1.3) Estimated GFR (Cockcroft-Gault) 114.6 BUN/Creatinine Ratio 29 (6-20) Glucose Level 129 mg/dL (70-99) Calcium Level 8.6 mg/dL (8.5-10.1) Magnesium Level 1.9 mg/dL (1.8-2.4) Total Bilirubin 0.6 mg/dL (0.2-1.0) Aspartate Amino Transf (AST/SGOT) 11 U/L (15-37) Alanine Aminotransferase (ALT/SGPT) 12 U/L (16-63) Alkaline Phosphatase 86 U/L (46-116) Total Protein 7.0 g/dL (6.4-8.2) Albumin 2.6 g/dL (3.4-5.0) Albumin/Globulin Ratio 0.6 (1.0-1.7) Test 04/28/17 10:18 04/28/17 16:23 04/28/17 20:22 04/29/17 05:00 Glucose (Fingerstick) 133 mg/dL (70-99) 140 mg/dL (70-99) 166 mg/dL (70-99) White Blood Count 18.3 x10^3/uL (4.0-11.0) Red Blood Count 4.85 x10^6/uL (4.30-5.70) Hemoglobin 13.6 g/dL (13.0-17.5) Hematocrit 41.3 % (39.0-53.0) Mean Corpuscular Volume 85 fL (79-100) Mean Corpuscular Hemoglobin 28 pg (25-35) Mean Corpuscular Hemoglobin Concent 33 g/dL (31-37) Red Cell Distribution Width 13.9 % (11.5-14.5) Platelet Count 228 x10^3/uL (140-400) Neutrophils (%) (Auto) 83 % (31-73) Lymphocytes (%) (Auto) 10 % (24-48) Monocytes (%) (Auto) 7 % (0-9) Eosinophils (%) (Auto) 1 % (0-3) Basophils (%) (Auto) 0 % (0-3) Neutrophils # (Auto) 15.1 x10^3uL (1.8-7.7) Lymphocytes # (Auto) 1.8 x10^3/uL (1.0-4.8) Monocytes # (Auto) 1.2 x10^3/uL (0.0-1.1) Eosinophils # (Auto) 0.1 x10^3/uL (0.0-0.7) Basophils # (Auto) 0.0 x10^3/uL (0.0-0.2) Segmented Neutrophils % 84 % (35-66) Band Neutrophils % 3 % (0-9) Lymphocytes % 8 % (24-48) Monocytes % 3 % (0-10) Eosinophils % 2 % (0-5) Platelet Estimate Adequate (ADEQUATE) Creatinine 0.6 mg/dL (0.7-1.3) Estimated GFR (Cockcroft-Gault) 137.0 Test 04/29/17 07:39 04/29/17 11:37 Glucose (Fingerstick) 174 mg/dL (70-99) 188 mg/dL (70-99) Laboratory Tests Test 04/28/17 16:23 04/28/17 20:22 04/29/17 05:00 04/29/17 07:39 Glucose (Fingerstick) 140 mg/dL (70-99) 166 mg/dL (70-99) 174 mg/dL (70-99) White Blood Count 18.3 x10^3/uL (4.0-11.0) Red Blood Count 4.85 x10^6/uL (4.30-5.70) Hemoglobin 13.6 g/dL (13.0-17.5) Hematocrit 41.3 % (39.0-53.0) Mean Corpuscular Volume 85 fL (79-100) Mean Corpuscular Hemoglobin 28 pg (25-35) Mean Corpuscular Hemoglobin Concent 33 g/dL (31-37) Red Cell Distribution Width 13.9 % (11.5-14.5) Platelet Count 228 x10^3/uL (140-400) Neutrophils (%) (Auto) 83 % (31-73) Lymphocytes (%) (Auto) 10 % (24-48) Monocytes (%) (Auto) 7 % (0-9) Eosinophils (%) (Auto) 1 % (0-3) Basophils (%) (Auto) 0 % (0-3) Neutrophils # (Auto) 15.1 x10^3uL (1.8-7.7) Lymphocytes # (Auto) 1.8 x10^3/uL (1.0-4.8) Monocytes # (Auto) 1.2 x10^3/uL (0.0-1.1) Eosinophils # (Auto) 0.1 x10^3/uL (0.0-0.7) Basophils # (Auto) 0.0 x10^3/uL (0.0-0.2) Segmented Neutrophils % 84 % (35-66) Band Neutrophils % 3 % (0-9) Lymphocytes % 8 % (24-48) Monocytes % 3 % (0-10) Eosinophils % 2 % (0-5) Platelet Estimate Adequate (ADEQUATE) Creatinine 0.6 mg/dL (0.7-1.3) Estimated GFR (Cockcroft-Gault) 137.0 Test 04/29/17 11:37 Glucose (Fingerstick) 188 mg/dL (70-99) I have reviewed the following repeat CT reviewed Problem List Problems Medical Problems: (1) Diverticulitis Status: Acute (2) Perforated bowel Status: Acute Assessment/Plan acute diverticulitis offered surgery, Gee would like to wait if possible will follow WBC and VS does not look toxic continue IV ABX observe Problems: JUAN LUIS HUANG MD Apr 29, 2017 14:46
[2017-04-29 19:25] VITALS: BP 112/70
[2017-04-29] MEDS: INSULIN DETEMIR 300 UNITS/3 ML INSULN.PEN. SQ SCH (20:56)
[2017-04-29] MEDS: ATORVASTATIN CALCIUM 20 MG TABLET PO SCH (20:56)
[2017-04-29 23:34] VITALS: BP 113/63
[2017-04-30] MEDS: METOPROLOL TARTRATE 5 MG/5 ML VIAL. IVP SCH ×4 (00:10→17:41)
[2017-04-30] MEDS: PIPERACILLIN/TAZOBACTAM 3.375 GM in IV NORMAL SALINE 50ML 50 ML IV SCH ×4 (00:10→17:40)
[2017-04-30 02:56] VITALS: BP 134/79
[2017-04-30 05:11] LABS: BASO # 0.1 x10^3/uL (0.0-0.2); BASO % 1 % (0-3); EOS % 4 % (0-3); HEMATOCRIT 37.9 % (39.0-53.0); HEMOGLOBIN 12.6 g/dL (13.0-17.5); LYMPH % 15 % (24-48); MEAN CORPUSCULAR HEMOGLOBIN 28 pg (25-35); MEAN CORPUSCULAR HGB CONC 33 g/dL (31-37); MEAN CORPUSCULAR VOLUME 85 fL (79-100); MONO % 8 % (0-9); NEUT % 73 % (31-73); PLATELET COUNT 243 x10^3/uL (140-400); RED BLOOD COUNT 4.48 x10^6/uL (4.30-5.70); RED CELL DISTRIBUTION WIDTH 13.8 % (11.5-14.5); WHITE BLOOD COUNT 13.2 x10^3/uL (4.0-11.0)
[2017-04-30] MEDS: IV NORMAL SALINE 1000ML BAG 1,000 ML IV SCH ×2 (05:31→16:12)
[2017-04-30 05:39] LABS: CALCIUM 8.8 mg/dL (8.5-10.1); CREATININE 0.5 mg/dL (0.7-1.3); POTASSIUM 3.4 mmol/L (3.5-5.1)
[2017-04-30] MEDS: IPRATRPIUM/ALBUTEROL 0.5/2.5MG 3 ML NEBU. NEB SCH ×4 (07:29→19:49)
[2017-04-30 07:30] VITALS: BP 115/70
[2017-04-30] MEDS: INSULIN ASPART 300 UNITS/3 ML INSULN.PEN SQ SCH ×3 (08:00→16:55)
[2017-04-30] MEDS: ASPIRIN ENTERIC COATED 81 MG TABLET.DR. PO SCH (08:22)
[2017-04-30] MEDS: DIGOXIN IV 500 MCG/2 ML AMPUL. IV SCH (08:23)
[2017-04-30] MEDS: PANTOPRAZOLE IV PUSH 40 MG VIAL. IVP SCH (08:25)
[2017-04-30] MEDS: MICAFUNGIN 100 MG in IV DEXTROSE 5% 100 ML IV SCH (08:27)
--- NOTE | 2017-04-30 09:26 | PDOC ---
CARDIO Progress Notes Date and Time Date of Service 04/30/2017 Time of Evaluation 0920 Subjective Subjective: No Chest Pain, No shortness of breath, No Palpitations, No Dizziness, Other (tolerting clear liquids) Vitals Vitals Vital Signs Date Time Temp Pulse Resp B/P (MAP) Pulse Ox O2 Delivery O2 Flow Rate FiO2 04/30/17 08:23 81 115/70 04/30/17 08:00 Room Air 2.0 04/30/17 07:30 97.6 20 96 97.6 Weight Weight [ ] Input and Output Intake and Output Intake and Output 04/30/17 07:00 Intake Total 1888 ml Output Total 1200 ml Balance 688 ml Intake Oral 540 ml IV Total 1348 ml Output Urine Total 1200 ml Laboratory Labs Laboratory Tests Test 04/29/17 11:37 04/29/17 17:08 04/29/17 20:51 04/30/17 05:00 Glucose (Fingerstick) 188 mg/dL (70-99) 162 mg/dL (70-99) 151 mg/dL (70-99) White Blood Count 13.2 x10^3/uL (4.0-11.0) Red Blood Count 4.48 x10^6/uL (4.30-5.70) Hemoglobin 12.6 g/dL (13.0-17.5) Hematocrit 37.9 % (39.0-53.0) Mean Corpuscular Volume 85 fL (79-100) Mean Corpuscular Hemoglobin 28 pg (25-35) Mean Corpuscular Hemoglobin Concent 33 g/dL (31-37) Red Cell Distribution Width 13.8 % (11.5-14.5) Platelet Count 243 x10^3/uL (140-400) Neutrophils (%) (Auto) 73 % (31-73) Lymphocytes (%) (Auto) 15 % (24-48) Monocytes (%) (Auto) 8 % (0-9) Eosinophils (%) (Auto) 4 % (0-3) Basophils (%) (Auto) 1 % (0-3) Neutrophils # (Auto) 9.6 x10^3uL (1.8-7.7) Lymphocytes # (Auto) 2.0 x10^3/uL (1.0-4.8) Monocytes # (Auto) 1.1 x10^3/uL (0.0-1.1) Eosinophils # (Auto) 0.5 x10^3/uL (0.0-0.7) Basophils # (Auto) 0.1 x10^3/uL (0.0-0.2) Sodium Level 140 mmol/L (136-145) Potassium Level 3.4 mmol/L (3.5-5.1) Chloride Level 104 mmol/L (98-107) Carbon Dioxide Level 24 mmol/L (21-32) Anion Gap 12 (6-14) Blood Urea Nitrogen 14 mg/dL (8-26) Creatinine 0.5 mg/dL (0.7-1.3) Estimated GFR (Cockcroft-Gault) 169.0 Glucose Level 147 mg/dL (70-99) Calcium Level 8.8 mg/dL (8.5-10.1) Test 04/30/17 07:41 Glucose (Fingerstick) 163 mg/dL (70-99) Physical Exam HEENT: Neck Supple W Full Motion Chest: Symmetric LUNGS: Clear to Auscultation Heart: S1S2, RRR (SR no signnificant ectopies overnight) Abdomen: Soft N/T Extremities: No Edema, No Calf Tenderness Neurology: alert, oriented, follow commands Assessment Assessment 1. PAFIB: intially with RVR. No further episodes overnight 2. Sigmoid diverticulitis with perforation: General surgery and ID following 3. HTN: well controlled overnight 4. HLP: statin in place 5. DM2: insulin dependent 6. Possible COPD with 50 pk yr tobaccoism Recommendations 1. Continue with 2.5 mg of IV metoprolol and 0.125 mg of IV digoxin daily. 2. ECASA 81 mg po for stroke prevention. 3. Not a candidate for NOAC/OAC at this time due to above #2. 4. Hold any other antiHTN, replace K. 5. Smoking cessation 6. Wanting to wait in regards to surgery. Preoperative risk for non cardiac surgery moderate risk for perioperative CV events. 6. Continue supportive care. GINA ONEILL APRN Apr 30, 2017 09:26
[2017-04-30] MEDS ORDERED: POTASSIUM CHLORIDE 20 MEQ TABLET.ER. PO ONE (10:00)
--- NOTE | 2017-04-30 10:16 | PDOC ---
SURGICAL PROGRESS NOTE Subjective didn't sleep well less pain using less MAP MOUNTER passing some gas Vital Signs Vital Signs Date Time Temp Pulse Resp B/P (MAP) Pulse Ox O2 Delivery O2 Flow Rate FiO2 04/30/17 08:23 81 115/70 04/30/17 08:00 Room Air 2.0 04/30/17 07:30 97.6 20 96 97.6 I&O Intake and Output 04/30/17 07:00 Intake Total 1888 ml Output Total 1200 ml Balance 688 ml Intake Oral 540 ml IV Total 1348 ml Output Urine Total 1200 ml PATIENT HAS A ZIEGLER: No General: Alert, Oriented X3, Cooperative, No acute distress Abdomen: Soft, Other (some TTP in the LLQ) Labs Laboratory Tests Test 04/28/17 10:18 04/28/17 16:23 04/28/17 20:22 04/29/17 05:00 Glucose (Fingerstick) 133 mg/dL (70-99) 140 mg/dL (70-99) 166 mg/dL (70-99) White Blood Count 18.3 x10^3/uL (4.0-11.0) Red Blood Count 4.85 x10^6/uL (4.30-5.70) Hemoglobin 13.6 g/dL (13.0-17.5) Hematocrit 41.3 % (39.0-53.0) Mean Corpuscular Volume 85 fL (79-100) Mean Corpuscular Hemoglobin 28 pg (25-35) Mean Corpuscular Hemoglobin Concent 33 g/dL (31-37) Red Cell Distribution Width 13.9 % (11.5-14.5) Platelet Count 228 x10^3/uL (140-400) Neutrophils (%) (Auto) 83 % (31-73) Lymphocytes (%) (Auto) 10 % (24-48) Monocytes (%) (Auto) 7 % (0-9) Eosinophils (%) (Auto) 1 % (0-3) Basophils (%) (Auto) 0 % (0-3) Neutrophils # (Auto) 15.1 x10^3uL (1.8-7.7) Lymphocytes # (Auto) 1.8 x10^3/uL (1.0-4.8) Monocytes # (Auto) 1.2 x10^3/uL (0.0-1.1) Eosinophils # (Auto) 0.1 x10^3/uL (0.0-0.7) Basophils # (Auto) 0.0 x10^3/uL (0.0-0.2) Segmented Neutrophils % 84 % (35-66) Band Neutrophils % 3 % (0-9) Lymphocytes % 8 % (24-48) Monocytes % 3 % (0-10) Eosinophils % 2 % (0-5) Platelet Estimate Adequate (ADEQUATE) Creatinine 0.6 mg/dL (0.7-1.3) Estimated GFR (Cockcroft-Gault) 137.0 Test 04/29/17 07:39 04/29/17 11:37 04/29/17 17:08 04/29/17 20:51 Glucose (Fingerstick) 174 mg/dL (70-99) 188 mg/dL (70-99) 162 mg/dL (70-99) 151 mg/dL (70-99) Test 04/30/17 05:00 04/30/17 07:41 White Blood Count 13.2 x10^3/uL (4.0-11.0) Red Blood Count 4.48 x10^6/uL (4.30-5.70) Hemoglobin 12.6 g/dL (13.0-17.5) Hematocrit 37.9 % (39.0-53.0) Mean Corpuscular Volume 85 fL (79-100) Mean Corpuscular Hemoglobin 28 pg (25-35) Mean Corpuscular Hemoglobin Concent 33 g/dL (31-37) Red Cell Distribution Width 13.8 % (11.5-14.5) Platelet Count 243 x10^3/uL (140-400) Neutrophils (%) (Auto) 73 % (31-73) Lymphocytes (%) (Auto) 15 % (24-48) Monocytes (%) (Auto) 8 % (0-9) Eosinophils (%) (Auto) 4 % (0-3) Basophils (%) (Auto) 1 % (0-3) Neutrophils # (Auto) 9.6 x10^3uL (1.8-7.7) Lymphocytes # (Auto) 2.0 x10^3/uL (1.0-4.8) Monocytes # (Auto) 1.1 x10^3/uL (0.0-1.1) Eosinophils # (Auto) 0.5 x10^3/uL (0.0-0.7) Basophils # (Auto) 0.1 x10^3/uL (0.0-0.2) Sodium Level 140 mmol/L (136-145) Potassium Level 3.4 mmol/L (3.5-5.1) Chloride Level 104 mmol/L (98-107) Carbon Dioxide Level 24 mmol/L (21-32) Anion Gap 12 (6-14) Blood Urea Nitrogen 14 mg/dL (8-26) Creatinine 0.5 mg/dL (0.7-1.3) Estimated GFR (Cockcroft-Gault) 169.0 Glucose Level 147 mg/dL (70-99) Calcium Level 8.8 mg/dL (8.5-10.1) Glucose (Fingerstick) 163 mg/dL (70-99) Laboratory Tests Test 04/29/17 11:37 04/29/17 17:08 04/29/17 20:51 04/30/17 05:00 Glucose (Fingerstick) 188 mg/dL (70-99) 162 mg/dL (70-99) 151 mg/dL (70-99) White Blood Count 13.2 x10^3/uL (4.0-11.0) Red Blood Count 4.48 x10^6/uL (4.30-5.70) Hemoglobin 12.6 g/dL (13.0-17.5) Hematocrit 37.9 % (39.0-53.0) Mean Corpuscular Volume 85 fL (79-100) Mean Corpuscular Hemoglobin 28 pg (25-35) Mean Corpuscular Hemoglobin Concent 33 g/dL (31-37) Red Cell Distribution Width 13.8 % (11.5-14.5) Platelet Count 243 x10^3/uL (140-400) Neutrophils (%) (Auto) 73 % (31-73) Lymphocytes (%) (Auto) 15 % (24-48) Monocytes (%) (Auto) 8 % (0-9) Eosinophils (%) (Auto) 4 % (0-3) Basophils (%) (Auto) 1 % (0-3) Neutrophils # (Auto) 9.6 x10^3uL (1.8-7.7) Lymphocytes # (Auto) 2.0 x10^3/uL (1.0-4.8) Monocytes # (Auto) 1.1 x10^3/uL (0.0-1.1) Eosinophils # (Auto) 0.5 x10^3/uL (0.0-0.7) Basophils # (Auto) 0.1 x10^3/uL (0.0-0.2) Sodium Level 140 mmol/L (136-145) Potassium Level 3.4 mmol/L (3.5-5.1) Chloride Level 104 mmol/L (98-107) Carbon Dioxide Level 24 mmol/L (21-32) Anion Gap 12 (6-14) Blood Urea Nitrogen 14 mg/dL (8-26) Creatinine 0.5 mg/dL (0.7-1.3) Estimated GFR (Cockcroft-Gault) 169.0 Glucose Level 147 mg/dL (70-99) Calcium Level 8.8 mg/dL (8.5-10.1) Test 04/30/17 07:41 Glucose (Fingerstick) 163 mg/dL (70-99) WBC down Problem List Problems Medical Problems: (1) Diverticulitis Status: Acute (2) Perforated bowel Status: Acute Assessment/Plan acute diverticulitis stable continue presetn Rx ice chips Problems: JUAN LUIS UHANG MD Apr 30, 2017 10:16
[2017-04-30 11:15] VITALS: BP 116/76
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
--- NOTE | 2017-04-30 11:49 | PDOC ---
PROGRESS NOTES Chief Complaint Chief Complaint cc: abdominal pain A/P Leucocytosis: on Zosyn and Micafungin, ID following, Repeat CT - no acute findings, PAFIB: Rate controlled, continue current care. 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 HTN. HLD DM : SSI, see orders. History of Present Illness History of Present Illness no fever pain 8/10 not better NPO Vitals Vitals Vital Signs Date Time Temp Pulse Resp B/P (MAP) Pulse Ox O2 Delivery O2 Flow Rate FiO2 04/30/17 11:29 Room Air 04/30/17 11:15 97.8 81 22 116/76 (89) 95 2.0 97.8 Physical Exam General: Alert, Oriented X3, Cooperative, No acute distress Heart: Regular rate (AFIB RVR), Normal S1, Normal S2, Other (2/6 systolic murmur to LLS border) Abdomen: Soft, Other (some TTP in the LLQ) Extremities: No clubbing Skin: No rashes, No breakdown Labs LABS Laboratory Tests Test 04/29/17 17:08 04/29/17 20:51 04/30/17 05:00 04/30/17 07:41 Glucose (Fingerstick) 162 mg/dL (70-99) 151 mg/dL (70-99) 163 mg/dL (70-99) White Blood Count 13.2 x10^3/uL (4.0-11.0) Red Blood Count 4.48 x10^6/uL (4.30-5.70) Hemoglobin 12.6 g/dL (13.0-17.5) Hematocrit 37.9 % (39.0-53.0) Mean Corpuscular Volume 85 fL (79-100) Mean Corpuscular Hemoglobin 28 pg (25-35) Mean Corpuscular Hemoglobin Concent 33 g/dL (31-37) Red Cell Distribution Width 13.8 % (11.5-14.5) Platelet Count 243 x10^3/uL (140-400) Neutrophils (%) (Auto) 73 % (31-73) Lymphocytes (%) (Auto) 15 % (24-48) Monocytes (%) (Auto) 8 % (0-9) Eosinophils (%) (Auto) 4 % (0-3) Basophils (%) (Auto) 1 % (0-3) Neutrophils # (Auto) 9.6 x10^3uL (1.8-7.7) Lymphocytes # (Auto) 2.0 x10^3/uL (1.0-4.8) Monocytes # (Auto) 1.1 x10^3/uL (0.0-1.1) Eosinophils # (Auto) 0.5 x10^3/uL (0.0-0.7) Basophils # (Auto) 0.1 x10^3/uL (0.0-0.2) Sodium Level 140 mmol/L (136-145) Potassium Level 3.4 mmol/L (3.5-5.1) Chloride Level 104 mmol/L (98-107) Carbon Dioxide Level 24 mmol/L (21-32) Anion Gap 12 (6-14) Blood Urea Nitrogen 14 mg/dL (8-26) Creatinine 0.5 mg/dL (0.7-1.3) Estimated GFR (Cockcroft-Gault) 169.0 Glucose Level 147 mg/dL (70-99) Calcium Level 8.8 mg/dL (8.5-10.1) Assessment and Plan Assessmemt and Plan Problems Medical Problems: (1) Diverticulitis Status: Acute (2) Perforated bowel Status: Acute Problems: Comment Review of Relevant I have reviewed the following items ebony (where applicable) has been applied. Labs Laboratory Tests Test 04/28/17 16:23 04/28/17 20:22 04/29/17 05:00 04/29/17 07:39 Glucose (Fingerstick) 140 mg/dL (70-99) 166 mg/dL (70-99) 174 mg/dL (70-99) White Blood Count 18.3 x10^3/uL (4.0-11.0) Red Blood Count 4.85 x10^6/uL (4.30-5.70) Hemoglobin 13.6 g/dL (13.0-17.5) Hematocrit 41.3 % (39.0-53.0) Mean Corpuscular Volume 85 fL (79-100) Mean Corpuscular Hemoglobin 28 pg (25-35) Mean Corpuscular Hemoglobin Concent 33 g/dL (31-37) Red Cell Distribution Width 13.9 % (11.5-14.5) Platelet Count 228 x10^3/uL (140-400) Neutrophils (%) (Auto) 83 % (31-73) Lymphocytes (%) (Auto) 10 % (24-48) Monocytes (%) (Auto) 7 % (0-9) Eosinophils (%) (Auto) 1 % (0-3) Basophils (%) (Auto) 0 % (0-3) Neutrophils # (Auto) 15.1 x10^3uL (1.8-7.7) Lymphocytes # (Auto) 1.8 x10^3/uL (1.0-4.8) Monocytes # (Auto) 1.2 x10^3/uL (0.0-1.1) Eosinophils # (Auto) 0.1 x10^3/uL (0.0-0.7) Basophils # (Auto) 0.0 x10^3/uL (0.0-0.2) Segmented Neutrophils % 84 % (35-66) Band Neutrophils % 3 % (0-9) Lymphocytes % 8 % (24-48) Monocytes % 3 % (0-10) Eosinophils % 2 % (0-5) Platelet Estimate Adequate (ADEQUATE) Creatinine 0.6 mg/dL (0.7-1.3) Estimated GFR (Cockcroft-Gault) 137.0 Test 04/29/17 11:37 04/29/17 17:08 04/29/17 20:51 04/30/17 05:00 Glucose (Fingerstick) 188 mg/dL (70-99) 162 mg/dL (70-99) 151 mg/dL (70-99) White Blood Count 13.2 x10^3/uL (4.0-11.0) Red Blood Count 4.48 x10^6/uL (4.30-5.70) Hemoglobin 12.6 g/dL (13.0-17.5) Hematocrit 37.9 % (39.0-53.0) Mean Corpuscular Volume 85 fL (79-100) Mean Corpuscular Hemoglobin 28 pg (25-35) Mean Corpuscular Hemoglobin Concent 33 g/dL (31-37) Red Cell Distribution Width 13.8 % (11.5-14.5) Platelet Count 243 x10^3/uL (140-400) Neutrophils (%) (Auto) 73 % (31-73) Lymphocytes (%) (Auto) 15 % (24-48) Monocytes (%) (Auto) 8 % (0-9) Eosinophils (%) (Auto) 4 % (0-3) Basophils (%) (Auto) 1 % (0-3) Neutrophils # (Auto) 9.6 x10^3uL (1.8-7.7) Lymphocytes # (Auto) 2.0 x10^3/uL (1.0-4.8) Monocytes # (Auto) 1.1 x10^3/uL (0.0-1.1) Eosinophils # (Auto) 0.5 x10^3/uL (0.0-0.7) Basophils # (Auto) 0.1 x10^3/uL (0.0-0.2) Sodium Level 140 mmol/L (136-145) Potassium Level 3.4 mmol/L (3.5-5.1) Chloride Level 104 mmol/L (98-107) Carbon Dioxide Level 24 mmol/L (21-32) Anion Gap 12 (6-14) Blood Urea Nitrogen 14 mg/dL (8-26) Creatinine 0.5 mg/dL (0.7-1.3) Estimated GFR (Cockcroft-Gault) 169.0 Glucose Level 147 mg/dL (70-99) Calcium Level 8.8 mg/dL (8.5-10.1) Test 04/30/17 07:41 Glucose (Fingerstick) 163 mg/dL (70-99) Laboratory Tests Test 04/29/17 17:08 04/29/17 20:51 04/30/17 05:00 04/30/17 07:41 Glucose (Fingerstick) 162 mg/dL (70-99) 151 mg/dL (70-99) 163 mg/dL (70-99) White Blood Count 13.2 x10^3/uL (4.0-11.0) Red Blood Count 4.48 x10^6/uL (4.30-5.70) Hemoglobin 12.6 g/dL (13.0-17.5) Hematocrit 37.9 % (39.0-53.0) Mean Corpuscular Volume 85 fL (79-100) Mean Corpuscular Hemoglobin 28 pg (25-35) Mean Corpuscular Hemoglobin Concent 33 g/dL (31-37) Red Cell Distribution Width 13.8 % (11.5-14.5) Platelet Count 243 x10^3/uL (140-400) Neutrophils (%) (Auto) 73 % (31-73) Lymphocytes (%) (Auto) 15 % (24-48) Monocytes (%) (Auto) 8 % (0-9) Eosinophils (%) (Auto) 4 % (0-3) Basophils (%) (Auto) 1 % (0-3) Neutrophils # (Auto) 9.6 x10^3uL (1.8-7.7) Lymphocytes # (Auto) 2.0 x10^3/uL (1.0-4.8) Monocytes # (Auto) 1.1 x10^3/uL (0.0-1.1) Eosinophils # (Auto) 0.5 x10^3/uL (0.0-0.7) Basophils # (Auto) 0.1 x10^3/uL (0.0-0.2) Sodium Level 140 mmol/L (136-145) Potassium Level 3.4 mmol/L (3.5-5.1) Chloride Level 104 mmol/L (98-107) Carbon Dioxide Level 24 mmol/L (21-32) Anion Gap 12 (6-14) Blood Urea Nitrogen 14 mg/dL (8-26) Creatinine 0.5 mg/dL (0.7-1.3) Estimated GFR (Cockcroft-Gault) 169.0 Glucose Level 147 mg/dL (70-99) Calcium Level 8.8 mg/dL (8.5-10.1) Medications Current Medications Morphine Sulfate 4 mg 1X ONCE IV Last administered on 04/27/17 08:03; Start 04/27/17 at 07:30; Stop 04/27/17 at 07:52; Status DC Ondansetron HCl (Zofran) 4 mg 1X ONCE IV Last administered on 04/27/17 08:12 ; Start 04/27/17 at 08:15; Stop 04/27/17 at 08:16; Status DC Iohexol (Omnipaque 300 Mg/ml) 75 ml 1X ONCE IV Last administered on 04/27/17 08:41; Start 04/27/17 at 08:15; Stop 04/27/17 at 08:16; Status DC Info (Do NOT chart on this entry -- for MONITORING) 1 each PRN DAILY PRN MC SEE COMMENTS; Start 04/27/17 at 08:15; Stop 04/29/17 at 08:14; Status DC Sodium Chloride 1,000 ml @ 1,000 mls/hr 1X ONCE IV Last administered on 09:30; Start 04/27/17 at 09:30; Stop 04/27/17 at 10:29; Status DC Piperacillin Sod/ Tazobactam Sod (Zosyn Per Pharmacy) 1 each PRN DAILY PRN MC SEE COMMENTS; Start 04/27/17 at 09:45 Piperacillin Sod/ Tazobactam Sod 3.375 gm/Sodium Chloride 50 ml @ 100 mls/hr 1X ONCE IV Last administered on 04/27/17 10:05; Start 04/27/17 at 09:45; Stop 04/27/17 at 10:14; Status DC Fentanyl Citrate (Fentanyl 2ml Vial) 50 mcg 1X ONCE IV Last administered on 10:27; Start 04/27/17 at 10:00; Stop 04/27/17 at 10:01; Status DC Ondansetron HCl (Zofran) 4 mg PRN Q8HRS PRN IV NAUSEA/VOMITING; Start 04/27/17 at 10:00; Stop 04/28/17 at 09:59; Status DC Fentanyl Citrate (Fentanyl 2ml Vial) 50 mcg PRN Q1HR PRN IV PAIN Last administered on 04/28/17 08:08; Start 04/27/17 at 10:00; Stop 04/28/17 at 09:59 ; Status DC Piperacillin Sod/ Tazobactam Sod 3.375 gm/Sodium Chloride 50 ml @ 100 mls/hr Q6HRS IV Last administered on 04/30/17 05:31; Start 04/27/17 at 18:00 Digoxin (Lanoxin) 500 mcg 1X ONCE IV Last administered on 04/27/17 10:44; Start 04/27/17 at 10:30; Stop 04/27/17 at 10:31; Status DC Sodium Chloride 1,000 ml @ 1,000 mls/hr 1X ONCE IV Last administered on 10:53; Start 04/27/17 at 11:00; Stop 04/27/17 at 11:59; Status DC Magnesium Sulfate/ Dextrose 100 ml @ 25 mls/hr 1X ONCE IV Last administered on 04/27/17 12:21; Start 04/27/17 at 11:00; Stop 04/27/17 at 14:59; Status DC Metoprolol Tartrate (Lopressor) 5 mg Q6HRS IVP ; Start 04/27/17 at 13:00; Stop 04/27/17 at 15:57; Status DC Sodium Chloride 1,000 ml @ 100 mls/hr Q10H IV Last administered on 04/30/17 05:31; Start 04/27/17 at 14:15 Saliva Substitute (Biotene Moisturizing Mouth) 2 spray PRN Q15MIN PRN PO DRY MOUTH Last administered on 04/27/17 18:18; Start 04/27/17 at 14:15 Nicotine Polacrilex (Nicorette Gum) 1 each PRN Q1HR PRN BC SMOKING CESSATION; Start 04/27/17 at 14:15 Albuterol/ Ipratropium (Duoneb) 3 ml RTQID NEB Last administered on 04/30/17 11:28; Start 04/27/17 at 16:00 Albuterol/ Ipratropium (Duoneb) 3 ml 1X ONCE NEB ; Start 04/27/17 at 14:15; Stop 04/27/17 at 14:16; Status DC Aspirin (Ecotrin) 81 mg DAILY PO ; Start 04/27/17 at 14:30; Stop 04/28/17 at 11: 52; Status DC Insulin Aspart (NovoLOG) 0-9 UNITS TIDWMEALS SQ ; Start 04/27/17 at 17:00 Dextrose (Dextrose 50%-Water Syringe) 12.5 gm PRN Q15MIN PRN IV SEE COMMENTS; Start 04/27/17 at 14:15 Insulin Detemir (Levemir) 25 units QHS SQ Last administered on 04/28/17 21:22 ; Start 04/27/17 at 21:00 Metoprolol Tartrate (Lopressor) 2.5 mg Q6HRS IVP ; Start 04/27/17 at 18:00; Stop 04/28/17 at 11:53; Status DC Atorvastatin Calcium (Lipitor) 20 mg QHS PO Last administered on 04/27/17 20: 38; Start 04/27/17 at 21:00; Stop 04/28/17 at 11:52; Status DC Ondansetron HCl (Zofran) 4 mg PRN Q6HRS PRN IV NAUSEA/VOMITING Last administered on 04/29/17 02:55; Start 04/28/17 at 10:45 Fentanyl Citrate (Fentanyl 2ml Vial) 50 mcg PRN Q2HR PRN IV PAIN; Start at 10:45; Stop 04/28/17 at 11:50; Status DC Fentanyl Citrate (Fentanyl 2ml Vial) 100 mcg PRN Q2HR PRN IV PAIN SEVERE Last administered on 04/29/17 08:19; Start 04/28/17 at 12:00 Pantoprazole Sodium (Protonix Vial) 40 mg DAILYAC IVP Last administered on 04/30 08:25; Start 04/28/17 at 12:00 Metoprolol Tartrate (Lopressor) 2.5 mg PRN Q6HRS PRN IVP BP 160/100; Start at 12:00 Metoprolol Tartrate (Lopressor) 2.5 mg Q6HRS IVP Last administered on 05:32; Start 04/28/17 at 12:00 Aspirin (Ecotrin) 81 mg DAILYWBKFT PO Last administered on 04/30/17 08:22; Start 04/29/17 at 08:00 Atorvastatin Calcium (Lipitor) 20 mg QHS PO Last administered on 04/28/17 21: 19; Start 04/28/17 at 21:00 Micafungin Sodium 100 mg/Dextrose 100 ml @ 100 mls/hr Q24H IV Last administered on 04/30/17 08:27; Start 04/29/17 at 09:00 Naloxone HCl (Narcan) 0.4 mg PRN Q2MIN PRN IV SEE INSTRUCTIONS; Start 04/29/17 at 09:45 Hydromorphone HCl 30 ml @ 0 mls/hr CONT PRN PRN IV PROTOCOL Last administered on 04/29/17 11:09; Start 04/29/17 at 09:45 Digoxin (Lanoxin) 125 mcg DAILY IV Last administered on 04/30/17t 08:23; Start 04/29/17 at 11:00 Iohexol (Omnipaque 300 Mg/ml) 75 ml 1X ONCE IV ; Start 04/29/17 at 11:15; Stop 04/29/17 at 11:16; Status DC Info (Do NOT chart on this entry -- for MONITORING) 1 each PRN DAILY PRN MC SEE COMMENTS; Start 04/29/17 at 11:15; Stop 05/01/17 at 11:14 Potassium Chloride (Klor-Con) 20 meq 1X ONCE PO Last administered on t 10:04; Start 04/30/17 at 10:00; Stop 04/30/17 at 10:01; Status DC Active Scripts Active Reported Lantus Solostar (Insulin Glargine,Hum.rec.anlog) 100 Unit/1 Ml Insuln.pen 65 Unit SQ BID Aleve (Naproxen Sodium) 220 Mg Capsule 440 Mg PO BID Aspir 81 (Aspirin) 81 Mg Tablet. 1 Tab PO DAILY Gabapentin 600 Mg Tablet 600 Mg PO TID Carvedilol 6.25 Mg Tablet 1 Tab PO BID Lisinopril 5 Mg Tablet 1 Tab PO DAILY Gemfibrozil 600 Mg Tablet 600 Mg PO BID Vitals/I & O Vital Sign - Last 24 Hours 04/29/17 04/29/17 04/29/17 04/29/17 13:37 14:30 16:24 18:16 Temp 97.7 97.7 Pulse 83 80 80 Resp 17 B/P (MAP) 118/80 108/71 (83) 108/71 Pulse Ox 96 O2 Delivery Room Air Room Air 04/29/17 04/29/17 04/29/17 04/29/17 19:25 19:28 20:53 23:34 Temp 97.6 98.4 97.6 98.4 Pulse 80 85 Resp 18 20 B/P (MAP) 112/70 (84) 113/63 (80) Pulse Ox 97 96 97 O2 Delivery Nasal Cannula Room Air Room Air O2 Flow Rate 2.0 2.0 2.0 04/30/17 04/30/17 04/30/17 04/30/17 00:10 02:56 05:32 07:29 Temp 98.2 98.2 Pulse 85 82 82 Resp 18 B/P (MAP) 113/63 134/79 (97) 134/79 Pulse Ox 96 97 O2 Delivery Room Air Room Air 04/30/17 04/30/17 04/30/17 04/30/17 07:30 08:00 08:23 11:15 Temp 97.6 97.8 97.6 97.8 Pulse 81 81 81 Resp 20 22 B/P (MAP) 115/70 (85) 115/70 116/76 (89) Pulse Ox 96 95 O2 Delivery Nasal Cannula Room Air Nasal Cannula O2 Flow Rate 2.0 2.0 2.0 04/30/17 11:29 O2 Delivery Room Air Intake and Output 04/29/17 04/29/17 04/30/17 15:00 23:00 07:00 Intake Total 180 ml 1108 ml 600 ml Output Total 900 ml 300 ml Balance -720 ml 808 ml 600 ml CARLOS MURRELL MD Apr 30, 2017 11:49
[2017-04-30] MEDS ORDERED: POTASSIUM CL 20MEQ IN D5W 1,000 ML IV ONE (13:00)
[2017-04-30 15:30] VITALS: BP 119/74
[2017-04-30 19:10] VITALS: BP 115/74
[2017-04-30] MEDS: ATORVASTATIN CALCIUM 20 MG TABLET PO SCH (21:01)
[2017-04-30] MEDS: INSULIN DETEMIR 300 UNITS/3 ML INSULN.PEN. SQ SCH (21:04)
[2017-04-30 22:37] VITALS: BP 122/73
[2017-05-01] MEDS: METOPROLOL TARTRATE 5 MG/5 ML VIAL. IVP SCH ×5 (00:16→23:48)
[2017-05-01] MEDS: PIPERACILLIN/TAZOBACTAM 3.375 GM in IV NORMAL SALINE 50ML 50 ML IV SCH ×5 (00:17→23:47)
[2017-05-01] MEDS: fentaNYL PF VIAL 100 MCG/2 ML VIAL IV PRN ×2 (00:29→20:58)
[2017-05-01] MEDS: IV NORMAL SALINE 1000ML BAG 1,000 ML IV SCH ×3 (02:51→22:51)
[2017-05-01 03:47] VITALS: BP 132/77
[2017-05-01 06:16] VITALS: BP 129/75
[2017-05-01] MEDS: IPRATRPIUM/ALBUTEROL 0.5/2.5MG 3 ML NEBU. NEB SCH ×4 (07:38→19:31)
[2017-05-01] MEDS: INSULIN ASPART 300 UNITS/3 ML INSULN.PEN SQ SCH ×3 (08:00→17:00)
[2017-05-01] MEDS: PANTOPRAZOLE IV PUSH 40 MG VIAL. IVP SCH (09:02)
[2017-05-01] MEDS: DIGOXIN IV 500 MCG/2 ML AMPUL. IV SCH (09:02)
[2017-05-01] MEDS: ASPIRIN ENTERIC COATED 81 MG TABLET.DR. PO SCH (09:04)
[2017-05-01] MEDS: MICAFUNGIN 100 MG in IV DEXTROSE 5% 100 ML IV SCH (09:09)
--- NOTE | 2017-05-01 09:40 | PDOC ---
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 Cipro allergy - ? seizure -has not had levoflox/Cipro since Leukocytosis Afib RVR Plan Plan of Care Cont Zosyn and micafungin Await today's CBC Supportive care Attending Co-Sign The patient was seen and interviewed as well as examined at the bedside. The chart was reviewed. The case was discussed. Agree with the plan of care. ALLEN MCKINLEY APRN May 01, 2017 09:40 MARU VENTURA MD May 01, 2017 12:21
[2017-05-01 09:56] LABS: BASO # 0.1 x10^3/uL (0.0-0.2); BASO % 1 % (0-3); EOS % 4 % (0-3); HEMATOCRIT 37.1 % (39.0-53.0); HEMOGLOBIN 12.3 g/dL (13.0-17.5); LYMPH % 17 % (24-48); MEAN CORPUSCULAR HEMOGLOBIN 28 pg (25-35); MEAN CORPUSCULAR HGB CONC 33 g/dL (31-37); MEAN CORPUSCULAR VOLUME 84 fL (79-100); MONO % 7 % (0-9); NEUT % 72 % (31-73); PLATELET COUNT 272 x10^3/uL (140-400); RED BLOOD COUNT 4.45 x10^6/uL (4.30-5.70)
--- NOTE | 2017-05-01 10:17 | PDOC ---
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: No General: No acute distress Abdomen: Soft, Other (some TTP in the LLQ) Labs Laboratory Tests Test 04/29/17 11:37 04/29/17 17:08 04/29/17 20:51 04/30/17 05:00 Glucose (Fingerstick) 188 mg/dL (70-99) 162 mg/dL (70-99) 151 mg/dL (70-99) White Blood Count 13.2 x10^3/uL (4.0-11.0) Red Blood Count 4.48 x10^6/uL (4.30-5.70) Hemoglobin 12.6 g/dL (13.0-17.5) Hematocrit 37.9 % (39.0-53.0) Mean Corpuscular Volume 85 fL (79-100) Mean Corpuscular Hemoglobin 28 pg (25-35) Mean Corpuscular Hemoglobin Concent 33 g/dL (31-37) Red Cell Distribution Width 13.8 % (11.5-14.5) Platelet Count 243 x10^3/uL (140-400) Neutrophils (%) (Auto) 73 % (31-73) Lymphocytes (%) (Auto) 15 % (24-48) Monocytes (%) (Auto) 8 % (0-9) Eosinophils (%) (Auto) 4 % (0-3) Basophils (%) (Auto) 1 % (0-3) Neutrophils # (Auto) 9.6 x10^3uL (1.8-7.7) Lymphocytes # (Auto) 2.0 x10^3/uL (1.0-4.8) Monocytes # (Auto) 1.1 x10^3/uL (0.0-1.1) Eosinophils # (Auto) 0.5 x10^3/uL (0.0-0.7) Basophils # (Auto) 0.1 x10^3/uL (0.0-0.2) Sodium Level 140 mmol/L (136-145) Potassium Level 3.4 mmol/L (3.5-5.1) Chloride Level 104 mmol/L (98-107) Carbon Dioxide Level 24 mmol/L (21-32) Anion Gap 12 (6-14) Blood Urea Nitrogen 14 mg/dL (8-26) Creatinine 0.5 mg/dL (0.7-1.3) Estimated GFR (Cockcroft-Gault) 169.0 Glucose Level 147 mg/dL (70-99) Calcium Level 8.8 mg/dL (8.5-10.1) Test 04/30/17 07:41 04/30/17 11:58 04/30/17 16:45 04/30/17 20:36 Glucose (Fingerstick) 163 mg/dL (70-99) 170 mg/dL (70-99) 187 mg/dL (70-99) 185 mg/dL (70-99) Test 05/01/17 09:11 Glucose (Fingerstick) 178 mg/dL (70-99) Laboratory Tests Test 04/30/17 11:58 04/30/17 16:45 04/30/17 20:36 05/01/17 09:11 Glucose (Fingerstick) 170 mg/dL (70-99) 187 mg/dL (70-99) 185 mg/dL (70-99) 178 mg/dL (70-99) Problem List Problems Medical Problems: (1) Diverticulitis Status: Acute (2) Perforated bowel Status: Acute Assessment/Plan recheck lab start clears explained to Mr Lacy that if we hope to transition to po abx and outpatient Rx will need to be sure he tolerates diet to that end will start with clears today Problems: JUAN LUIS HUANG MD May 01, 2017 10:17
[2017-05-01 11:00] VITALS: BP 115/80
[2017-05-01] MEDS: ENOXAPARIN 40 MG/0.4 ML SYRINGE. SQ SCH (11:44)
--- NOTE | 2017-05-01 13:46 | PDOC ---
PROGRESS NOTES Chief Complaint Chief Complaint cc: abdominal pain A/P Leucocytosis: on Zosyn and Micafungin, ID following, Repeat CT - no acute findings, PAFIB: Rate controlled, continue current care. Sigmoid diverticulitis with perforation:clear liquids, advance as per GS Pain due to above: on SULKY DRIVER pump per surgery, telemetry avoid co2 narcosis. HTN. HLD DM : SSI, see orders. History of Present Illness History of Present Illness no fever pain 8/10 not better BM TODAY Vitals Vitals Vital Signs Date Time Temp Pulse Resp B/P (MAP) Pulse Ox O2 Delivery O2 Flow Rate FiO2 05/01/17 11:43 79 129/75 05/01/17 11:35 Room Air 05/01/17 11:00 98.2 20 96 98.2 05/01/17 07:40 2.0 Physical Exam General: Alert, Oriented X3, Cooperative, No acute distress Heart: Regular rate (AFIB RVR), Normal S1, Normal S2, Other (2/6 systolic murmur to LLS border) Lungs: Clear Abdomen: Soft, Other Extremities: No clubbing Skin: No rashes, No breakdown Labs LABS Laboratory Tests Test 04/30/17 16:45 04/30/17 20:36 05/01/17 09:11 05/01/17 09:30 Glucose (Fingerstick) 187 mg/dL (70-99) 185 mg/dL (70-99) 178 mg/dL (70-99) White Blood Count 12.0 x10^3/uL (4.0-11.0) Red Blood Count 4.45 x10^6/uL (4.30-5.70) Hemoglobin 12.3 g/dL (13.0-17.5) Hematocrit 37.1 % (39.0-53.0) Mean Corpuscular Volume 84 fL (79-100) Mean Corpuscular Hemoglobin 28 pg (25-35) Mean Corpuscular Hemoglobin Concent 33 g/dL (31-37) Red Cell Distribution Width 14.0 % (11.5-14.5) Platelet Count 272 x10^3/uL (140-400) Neutrophils (%) (Auto) 72 % (31-73) Lymphocytes (%) (Auto) 17 % (24-48) Monocytes (%) (Auto) 7 % (0-9) Eosinophils (%) (Auto) 4 % (0-3) Basophils (%) (Auto) 1 % (0-3) Neutrophils # (Auto) 8.6 x10^3uL (1.8-7.7) Lymphocytes # (Auto) 2.0 x10^3/uL (1.0-4.8) Monocytes # (Auto) 0.9 x10^3/uL (0.0-1.1) Eosinophils # (Auto) 0.5 x10^3/uL (0.0-0.7) Basophils # (Auto) 0.1 x10^3/uL (0.0-0.2) Test 05/01/17 11:45 Glucose (Fingerstick) 165 mg/dL (70-99) Assessment and Plan Assessmemt and Plan Problems Medical Problems: (1) Diverticulitis Status: Acute (2) Perforated bowel Status: Acute Problems: Comment Review of Relevant I have reviewed the following items ebony (where applicable) has been applied. Labs Laboratory Tests Test 04/29/17 17:08 04/29/17 20:51 04/30/17 05:00 04/30/17 07:41 Glucose (Fingerstick) 162 mg/dL (70-99) 151 mg/dL (70-99) 163 mg/dL (70-99) White Blood Count 13.2 x10^3/uL (4.0-11.0) Red Blood Count 4.48 x10^6/uL (4.30-5.70) Hemoglobin 12.6 g/dL (13.0-17.5) Hematocrit 37.9 % (39.0-53.0) Mean Corpuscular Volume 85 fL (79-100) Mean Corpuscular Hemoglobin 28 pg (25-35) Mean Corpuscular Hemoglobin Concent 33 g/dL (31-37) Red Cell Distribution Width 13.8 % (11.5-14.5) Platelet Count 243 x10^3/uL (140-400) Neutrophils (%) (Auto) 73 % (31-73) Lymphocytes (%) (Auto) 15 % (24-48) Monocytes (%) (Auto) 8 % (0-9) Eosinophils (%) (Auto) 4 % (0-3) Basophils (%) (Auto) 1 % (0-3) Neutrophils # (Auto) 9.6 x10^3uL (1.8-7.7) Lymphocytes # (Auto) 2.0 x10^3/uL (1.0-4.8) Monocytes # (Auto) 1.1 x10^3/uL (0.0-1.1) Eosinophils # (Auto) 0.5 x10^3/uL (0.0-0.7) Basophils # (Auto) 0.1 x10^3/uL (0.0-0.2) Sodium Level 140 mmol/L (136-145) Potassium Level 3.4 mmol/L (3.5-5.1) Chloride Level 104 mmol/L (98-107) Carbon Dioxide Level 24 mmol/L (21-32) Anion Gap 12 (6-14) Blood Urea Nitrogen 14 mg/dL (8-26) Creatinine 0.5 mg/dL (0.7-1.3) Estimated GFR (Cockcroft-Gault) 169.0 Glucose Level 147 mg/dL (70-99) Calcium Level 8.8 mg/dL (8.5-10.1) Test 04/30/17 11:58 04/30/17 16:45 04/30/17 20:36 05/01/17 09:11 Glucose (Fingerstick) 170 mg/dL (70-99) 187 mg/dL (70-99) 185 mg/dL (70-99) 178 mg/dL (70-99) Test 05/01/17 09:30 05/01/17 11:45 White Blood Count 12.0 x10^3/uL (4.0-11.0) Red Blood Count 4.45 x10^6/uL (4.30-5.70) Hemoglobin 12.3 g/dL (13.0-17.5) Hematocrit 37.1 % (39.0-53.0) Mean Corpuscular Volume 84 fL (79-100) Mean Corpuscular Hemoglobin 28 pg (25-35) Mean Corpuscular Hemoglobin Concent 33 g/dL (31-37) Red Cell Distribution Width 14.0 % (11.5-14.5) Platelet Count 272 x10^3/uL (140-400) Neutrophils (%) (Auto) 72 % (31-73) Lymphocytes (%) (Auto) 17 % (24-48) Monocytes (%) (Auto) 7 % (0-9) Eosinophils (%) (Auto) 4 % (0-3) Basophils (%) (Auto) 1 % (0-3) Neutrophils # (Auto) 8.6 x10^3uL (1.8-7.7) Lymphocytes # (Auto) 2.0 x10^3/uL (1.0-4.8) Monocytes # (Auto) 0.9 x10^3/uL (0.0-1.1) Eosinophils # (Auto) 0.5 x10^3/uL (0.0-0.7) Basophils # (Auto) 0.1 x10^3/uL (0.0-0.2) Glucose (Fingerstick) 165 mg/dL (70-99) Laboratory Tests Test 04/30/17 16:45 04/30/17 20:36 05/01/17 09:11 05/01/17 09:30 Glucose (Fingerstick) 187 mg/dL (70-99) 185 mg/dL (70-99) 178 mg/dL (70-99) White Blood Count 12.0 x10^3/uL (4.0-11.0) Red Blood Count 4.45 x10^6/uL (4.30-5.70) Hemoglobin 12.3 g/dL (13.0-17.5) Hematocrit 37.1 % (39.0-53.0) Mean Corpuscular Volume 84 fL (79-100) Mean Corpuscular Hemoglobin 28 pg (25-35) Mean Corpuscular Hemoglobin Concent 33 g/dL (31-37) Red Cell Distribution Width 14.0 % (11.5-14.5) Platelet Count 272 x10^3/uL (140-400) Neutrophils (%) (Auto) 72 % (31-73) Lymphocytes (%) (Auto) 17 % (24-48) Monocytes (%) (Auto) 7 % (0-9) Eosinophils (%) (Auto) 4 % (0-3) Basophils (%) (Auto) 1 % (0-3) Neutrophils # (Auto) 8.6 x10^3uL (1.8-7.7) Lymphocytes # (Auto) 2.0 x10^3/uL (1.0-4.8) Monocytes # (Auto) 0.9 x10^3/uL (0.0-1.1) Eosinophils # (Auto) 0.5 x10^3/uL (0.0-0.7) Basophils # (Auto) 0.1 x10^3/uL (0.0-0.2) Test 05/01/17 11:45 Glucose (Fingerstick) 165 mg/dL (70-99) Medications Current Medications Morphine Sulfate 4 mg 1X ONCE IV Last administered on 04/27/17 08:03; Start 04/27/17 at 07:30; Stop 04/27/17 at 07:52; Status DC Ondansetron HCl (Zofran) 4 mg 1X ONCE IV Last administered on 04/27/17 08:12 ; Start 04/27/17 at 08:15; Stop 04/27/17 at 08:16; Status DC Iohexol (Omnipaque 300 Mg/ml) 75 ml 1X ONCE IV Last administered on 04/27/17 08:41; Start 04/27/17 at 08:15; Stop 04/27/17 at 08:16; Status DC Info (Do NOT chart on this entry -- for MONITORING) 1 each PRN DAILY PRN MC SEE COMMENTS; Start 04/27/17 at 08:15; Stop 04/29/17 at 08:14; Status DC Sodium Chloride 1,000 ml @ 1,000 mls/hr 1X ONCE IV Last administered on 09:30; Start 04/27/17 at 09:30; Stop 04/27/17 at 10:29; Status DC Piperacillin Sod/ Tazobactam Sod (Zosyn Per Pharmacy) 1 each PRN DAILY PRN MC SEE COMMENTS; Start 04/27/17 at 09:45 Piperacillin Sod/ Tazobactam Sod 3.375 gm/Sodium Chloride 50 ml @ 100 mls/hr 1X ONCE IV Last administered on 04/27/17 10:05; Start 04/27/17 at 09:45; Stop 04/27/17 at 10:14; Status DC Fentanyl Citrate (Fentanyl 2ml Vial) 50 mcg 1X ONCE IV Last administered on 10:27; Start 04/27/17 at 10:00; Stop 04/27/17 at 10:01; Status DC Ondansetron HCl (Zofran) 4 mg PRN Q8HRS PRN IV NAUSEA/VOMITING; Start 04/27/17 at 10:00; Stop 04/28/17 at 09:59; Status DC Fentanyl Citrate (Fentanyl 2ml Vial) 50 mcg PRN Q1HR PRN IV PAIN Last administered on 04/28/17 08:08; Start 04/27/17 at 10:00; Stop 04/28/17 at 09:59 ; Status DC Piperacillin Sod/ Tazobactam Sod 3.375 gm/Sodium Chloride 50 ml @ 100 mls/hr Q6HRS IV Last administered on 05/01/17 11:43; Start 04/27/17 at 18:00 Digoxin (Lanoxin) 500 mcg 1X ONCE IV Last administered on 04/27/17 10:44; Start 04/27/17 at 10:30; Stop 04/27/17 at 10:31; Status DC Sodium Chloride 1,000 ml @ 1,000 mls/hr 1X ONCE IV Last administered on 10:53; Start 04/27/17 at 11:00; Stop 04/27/17 at 11:59; Status DC Magnesium Sulfate/ Dextrose 100 ml @ 25 mls/hr 1X ONCE IV Last administered on 04/27/17 12:21; Start 04/27/17 at 11:00; Stop 04/27/17 at 14:59; Status DC Metoprolol Tartrate (Lopressor) 5 mg Q6HRS IVP ; Start 04/27/17 at 13:00; Stop 04/27/17 at 15:57; Status DC Sodium Chloride 1,000 ml @ 100 mls/hr Q10H IV Last administered on 05/01/17 02:51; Start 04/27/17 at 14:15 Saliva Substitute (Biotene Moisturizing Mouth) 2 spray PRN Q15MIN PRN PO DRY MOUTH Last administered on 04/27/17 18:18; Start 04/27/17 at 14:15 Nicotine Polacrilex (Nicorette Gum) 1 each PRN Q1HR PRN BC SMOKING CESSATION; Start 04/27/17 at 14:15 Albuterol/ Ipratropium (Duoneb) 3 ml RTQID NEB Last administered on 05/01/17 11:35; Start 04/27/17 at 16:00 Albuterol/ Ipratropium (Duoneb) 3 ml 1X ONCE NEB ; Start 04/27/17 at 14:15; Stop 04/27/17 at 14:16; Status DC Aspirin (Ecotrin) 81 mg DAILY PO ; Start 04/27/17 at 14:30; Stop 04/28/17 at 11: 52; Status DC Insulin Aspart (NovoLOG) 0-9 UNITS TIDWMEALS SQ ; Start 04/27/17 at 17:00 Dextrose (Dextrose 50%-Water Syringe) 12.5 gm PRN Q15MIN PRN IV SEE COMMENTS; Start 04/27/17 at 14:15 Insulin Detemir (Levemir) 25 units QHS SQ Last administered on 04/30/17 21:04 ; Start 04/27/17 at 21:00 Metoprolol Tartrate (Lopressor) 2.5 mg Q6HRS IVP ; Start 04/27/17 at 18:00; Stop 04/28/17 at 11:53; Status DC Atorvastatin Calcium (Lipitor) 20 mg QHS PO Last administered on 04/27/17 20: 38; Start 04/27/17 at 21:00; Stop 04/28/17 at 11:52; Status DC Ondansetron HCl (Zofran) 4 mg PRN Q6HRS PRN IV NAUSEA/VOMITING Last administered on 04/29/17 02:55; Start 04/28/17 at 10:45 Fentanyl Citrate (Fentanyl 2ml Vial) 50 mcg PRN Q2HR PRN IV PAIN; Start at 10:45; Stop 04/28/17 at 11:50; Status DC Fentanyl Citrate (Fentanyl 2ml Vial) 100 mcg PRN Q2HR PRN IV PAIN SEVERE Last administered on 05/01/17 00:29; Start 04/28/17 at 12:00 Pantoprazole Sodium (Protonix Vial) 40 mg DAILYAC IVP Last administered on 05/01 09:02; Start 04/28/17 at 12:00 Metoprolol Tartrate (Lopressor) 2.5 mg PRN Q6HRS PRN IVP BP 160/100; Start at 12:00 Metoprolol Tartrate (Lopressor) 2.5 mg Q6HRS IVP Last administered on 11:43; Start 04/28/17 at 12:00 Aspirin (Ecotrin) 81 mg DAILYWBKFT PO Last administered on 05/01/17 09:04; Start 04/29/17 at 08:00 Atorvastatin Calcium (Lipitor) 20 mg QHS PO Last administered on 04/30/17 21: 01; Start 04/28/17 at 21:00 Micafungin Sodium 100 mg/Dextrose 100 ml @ 100 mls/hr Q24H IV Last administered on 05/01/17 09:09; Start 04/29/17 at 09:00 Naloxone HCl (Narcan) 0.4 mg PRN Q2MIN PRN IV SEE INSTRUCTIONS; Start 04/29/17 at 09:45 Hydromorphone HCl 30 ml @ 0 mls/hr CONT PRN PRN IV PROTOCOL Last administered on 04/29/17 11:09; Start 04/29/17 at 09:45 Digoxin (Lanoxin) 125 mcg DAILY IV Last administered on 05/01/17 09:02; Start 04/29/17 at 11:00 Iohexol (Omnipaque 300 Mg/ml) 75 ml 1X ONCE IV ; Start 04/29/17 at 11:15; Stop 04/29/17 at 11:16; Status DC Info (Do NOT chart on this entry -- for MONITORING) 1 each PRN DAILY PRN MC SEE COMMENTS; Start 04/29/17 at 11:15; Stop 05/01/17 at 11:14; Status DC Potassium Chloride (Klor-Con) 20 meq 1X ONCE PO Last administered on 10:04; Start 04/30/17 at 10:00; Stop 04/30/17 at 10:01; Status DC Potassium Chloride/Dextrose 1,000 ml @ 75 mls/hr 1X ONCE IV Last administered on 04/30/17 12:54; Start 04/30/17 at 13:00; Stop 05/01/17 at 02:19 ; Status DC Enoxaparin Sodium (Lovenox 40mg Syringe) 40 mg Q24H SQ Last administered on 11:44; Start 05/01/17 at 11:00 Active Scripts Active Reported Lantus Solostar (Insulin Glargine,Hum.rec.anlog) 100 Unit/1 Ml Insuln.pen 65 Unit SQ BID Aleve (Naproxen Sodium) 220 Mg Capsule 440 Mg PO BID Aspir 81 (Aspirin) 81 Mg Tablet.dr 1 Tab PO DAILY Gabapentin 600 Mg Tablet 600 Mg PO TID Carvedilol 6.25 Mg Tablet 1 Tab PO BID Lisinopril 5 Mg Tablet 1 Tab PO DAILY Gemfibrozil 600 Mg Tablet 600 Mg PO BID Vitals/I & O Vital Sign - Last 24 Hours 04/30/17 04/30/17 04/30/17 04/30/17 15:30 15:58 17:41 19:10 Temp 97.7 98.2 97.7 98.2 Pulse 83 83 87 Resp 22 20 B/P (MAP) 119/74 (89) 119/74 115/74 (88) Pulse Ox 95 97 O2 Delivery Nasal Cannula Room Air Nasal Cannula O2 Flow Rate 2.0 2.0 04/30/17 04/30/17 04/30/17 05/01/17 19:50 20:00 22:37 00:16 Temp 98.0 98.0 Pulse 90 90 Resp 18 B/P (MAP) 122/73 (89) 122/73 Pulse Ox 99 96 O2 Delivery Room Air Room Air Room Air 05/01/17 05/01/17 05/01/17 05/01/17 00:29 00:59 03:47 06:00 Temp 98.1 98.1 Pulse 85 79 Resp 18 B/P (MAP) 132/77 (95) 129/75 Pulse Ox 96 96 96 O2 Delivery Room Air Room Air Room Air O2 Flow Rate 2.0 2.0 05/01/17 05/01/17 05/01/17 05/01/17 06:16 07:39 07:40 09:02 Temp 98.2 98.2 Pulse 79 79 Resp 20 B/P (MAP) 129/75 (93) 129/75 Pulse Ox 92 98 O2 Delivery Room Air Room Air Room Air O2 Flow Rate 2.0 05/01/17 05/01/17 05/01/17 11:00 11:35 11:43 Temp 98.2 98.2 Pulse 79 79 Resp 20 B/P (MAP) 115/80 (92) 129/75 Pulse Ox 96 O2 Delivery Room Air Room Air Intake and Output 04/30/17 04/30/17 05/01/17 15:00 23:00 07:00 Intake Total 150 ml 1150 ml 1357 ml Output Total 850 ml 900 ml Balance 150 ml 300 ml 457 ml CARLOS MURRELL MD May 01, 2017 13:46
[2017-05-01 15:00] VITALS: BP 144/81
[2017-05-01 19:00] VITALS: BP 125/74
[2017-05-01] MEDS: ATORVASTATIN CALCIUM 20 MG TABLET PO SCH (20:54)
[2017-05-01] MEDS: INSULIN DETEMIR 300 UNITS/3 ML INSULN.PEN. SQ SCH (20:56)
[2017-05-01 22:30] VITALS: BP 121/75
[2017-05-02 02:55] VITALS: BP 118/70
[2017-05-02] MEDS: METOPROLOL TARTRATE 5 MG/5 ML VIAL. IVP SCH ×3 (06:11→17:52)
[2017-05-02] MEDS: PIPERACILLIN/TAZOBACTAM 3.375 GM in IV NORMAL SALINE 50ML 50 ML IV SCH ×3 (06:11→17:48)
[2017-05-02 07:00] VITALS: BP 132/78
[2017-05-02] MEDS: INSULIN ASPART 300 UNITS/3 ML INSULN.PEN SQ SCH ×3 (08:00→17:00)
[2017-05-02] MEDS: IPRATRPIUM/ALBUTEROL 0.5/2.5MG 3 ML NEBU. NEB SCH ×4 (08:11→19:25)
[2017-05-02] MEDS: PANTOPRAZOLE IV PUSH 40 MG VIAL. IVP SCH (08:24)
[2017-05-02] MEDS: ASPIRIN ENTERIC COATED 81 MG TABLET.DR. PO SCH (08:24)
[2017-05-02] MEDS: DIGOXIN IV 500 MCG/2 ML AMPUL. IV SCH (08:25)
[2017-05-02] MEDS: MICAFUNGIN 100 MG in IV DEXTROSE 5% 100 ML IV SCH (08:25)
[2017-05-02] MEDS: IV NORMAL SALINE 1000ML BAG 1,000 ML IV SCH ×2 (08:26→18:51)
--- NOTE | 2017-05-02 08:42 | PDOC ---
Infectious Disease Note Subjective Subjective Feeling better Less pain + BM ROS ROS GEN: Denies fevers, chills, sweats HEENT: Denies blurred vision, sore throat CV: Denies chest pain RESP: Denies shortness of air, cough GI: Denies n/v/d NEURO: Denies confusion, dizziness MSK: Denies weakness, joint pain/swelling Vital Sign Vital Signs Vital Signs Date Time Temp Pulse Resp B/P (MAP) Pulse Ox O2 Delivery O2 Flow Rate FiO2 05/02/17 08:25 73 132/78 05/02/17 08:12 95 Room Air 05/02/17 07:00 98.1 24 98.1 05/01/17 07:40 2.0 Physical Exam PHYSICAL EXAM GENERAL: NAD, Alert HEENT: PERRL, OC/OP NECK: Supple, no JVD, no LN LUNGS: Clear HEART: S1S2, no gallop, no murmur ABD: Soft, NT, no organomegaly, no rebound, mild tenderness EXT: No edema, no cyanosis [employer]: Alert, oriented x 3, no focal neurologic deficit SKIN: No rash IV: ok Labs Lab Laboratory Tests Test 05/01/17 09:11 05/01/17 09:30 05/01/17 11:45 05/01/17 17:12 Glucose (Fingerstick) 178 mg/dL (70-99) 165 mg/dL (70-99) 166 mg/dL (70-99) White Blood Count 12.0 x10^3/uL (4.0-11.0) Red Blood Count 4.45 x10^6/uL (4.30-5.70) Hemoglobin 12.3 g/dL (13.0-17.5) Hematocrit 37.1 % (39.0-53.0) Mean Corpuscular Volume 84 fL (79-100) Mean Corpuscular Hemoglobin 28 pg (25-35) Mean Corpuscular Hemoglobin Concent 33 g/dL (31-37) Red Cell Distribution Width 14.0 % (11.5-14.5) Platelet Count 272 x10^3/uL (140-400) Neutrophils (%) (Auto) 72 % (31-73) Lymphocytes (%) (Auto) 17 % (24-48) Monocytes (%) (Auto) 7 % (0-9) Eosinophils (%) (Auto) 4 % (0-3) Basophils (%) (Auto) 1 % (0-3) Neutrophils # (Auto) 8.6 x10^3uL (1.8-7.7) Lymphocytes # (Auto) 2.0 x10^3/uL (1.0-4.8) Monocytes # (Auto) 0.9 x10^3/uL (0.0-1.1) Eosinophils # (Auto) 0.5 x10^3/uL (0.0-0.7) Basophils # (Auto) 0.1 x10^3/uL (0.0-0.2) Test 05/01/17 20:04 05/02/17 07:54 Glucose (Fingerstick) 208 mg/dL (70-99) 135 mg/dL (70-99) Objective Assessment Perforated sigmoid diverticulum. Cipro allergy - ? seizure -has not had levoflox/Cipro since Leukocytosis Afib RVR Plan Plan of Care Cont Zosyn and d/c micafungin Await today's CBC Supportive care MARU VENTURA MD May 02, 2017 08:42
--- NOTE | 2017-05-02 09:51 | PDOC ---
CONOR MILLER MILL WORK 05/02/17 0951: SURGICAL PROGRESS NOTE Subjective taking some clears, although does not like them much, some nausea pain is improving Vital Signs Vital Signs Date Time Temp Pulse Resp B/P (MAP) Pulse Ox O2 Delivery O2 Flow Rate FiO2 05/02/17 08:25 73 132/78 05/02/17 08:12 95 Room Air 05/02/17 07:00 98.1 24 98.1 05/01/17 07:40 2.0 I&O Intake and Output 05/02/17 07:00 Intake Total 2410 ml Balance 2410 ml Intake Oral 700 ml IV Total 1710 ml # Voids 5 General: Alert, Oriented X3, Cooperative, No acute distress Abdomen: Soft, Other (ND, tendeness to LLQ, moderate) Labs Laboratory Tests Test 04/30/17 11:58 04/30/17 16:45 04/30/17 20:36 05/01/17 09:11 Glucose (Fingerstick) 170 mg/dL (70-99) 187 mg/dL (70-99) 185 mg/dL (70-99) 178 mg/dL (70-99) Test 05/01/17 09:30 05/01/17 11:45 05/01/17 17:12 05/01/17 20:04 White Blood Count 12.0 x10^3/uL (4.0-11.0) Red Blood Count 4.45 x10^6/uL (4.30-5.70) Hemoglobin 12.3 g/dL (13.0-17.5) Hematocrit 37.1 % (39.0-53.0) Mean Corpuscular Volume 84 fL (79-100) Mean Corpuscular Hemoglobin 28 pg (25-35) Mean Corpuscular Hemoglobin Concent 33 g/dL (31-37) Red Cell Distribution Width 14.0 % (11.5-14.5) Platelet Count 272 x10^3/uL (140-400) Neutrophils (%) (Auto) 72 % (31-73) Lymphocytes (%) (Auto) 17 % (24-48) Monocytes (%) (Auto) 7 % (0-9) Eosinophils (%) (Auto) 4 % (0-3) Basophils (%) (Auto) 1 % (0-3) Neutrophils # (Auto) 8.6 x10^3uL (1.8-7.7) Lymphocytes # (Auto) 2.0 x10^3/uL (1.0-4.8) Monocytes # (Auto) 0.9 x10^3/uL (0.0-1.1) Eosinophils # (Auto) 0.5 x10^3/uL (0.0-0.7) Basophils # (Auto) 0.1 x10^3/uL (0.0-0.2) Glucose (Fingerstick) 165 mg/dL (70-99) 166 mg/dL (70-99) 208 mg/dL (70-99) Test 05/02/17 07:54 Glucose (Fingerstick) 135 mg/dL (70-99) Laboratory Tests Test 05/01/17 11:45 05/01/17 17:12 05/01/17 20:04 05/02/17 07:54 Glucose (Fingerstick) 165 mg/dL (70-99) 166 mg/dL (70-99) 208 mg/dL (70-99) 135 mg/dL (70-99) Problem List Problems Medical Problems: (1) Diverticulitis Status: Acute (2) Perforated bowel Status: Acute Assessment/Plan continue abx, clears, did not advance continued moderate pain afebrile, will check CBC in AM Problems: JUAN LUIS HUANG MD 05/02/17 1301: SURGICAL PROGRESS NOTE Assessment/Plan pt seen and examined need to increase activity and try fulls Problems: CONOR MILLER APRN May 02, 2017 09:51 JUAN LUIS HUANG MD May 02, 2017 13:01
[2017-05-02 10:43] VITALS: BP 139/79
--- NOTE | 2017-05-02 11:28 | PDOC ---
PROGRESS NOTES Chief Complaint Chief Complaint cc: abdominal pain A/P Leucocytosis: on Zosyn and Micafungin, ID following, Repeat CT - no acute findings, PAFIB: Rate controlled, continue current care. Sigmoid diverticulitis with perforation:clear liquids, advance as per GS Pain due to above: on [employer] pump per surgery, telemetry avoid co2 narcosis. HTN. HLD DM : SSI, see orders. History of Present Illness History of Present Illness no fever pain 5/10 not better BM TODAY Vitals Vitals Vital Signs Date Time Temp Pulse Resp B/P (MAP) Pulse Ox O2 Delivery O2 Flow Rate FiO2 05/02/17 10:43 98.1 78 24 139/79 (99) 98 Room Air 98.1 05/01/17 07:40 2.0 Physical Exam General: Alert, Oriented X3, Cooperative, No acute distress Heart: Regular rate (AFIB RVR), Normal S1, Normal S2, Other (2/6 systolic murmur to LLS border) Lungs: Clear Abdomen: Soft, Other (ND, tendeness to LLQ, moderate) Extremities: No clubbing Skin: No rashes, No breakdown Labs LABS Laboratory Tests Test 05/01/17 11:45 05/01/17 17:12 05/01/17 20:04 05/02/17 07:54 Glucose (Fingerstick) 165 mg/dL (70-99) 166 mg/dL (70-99) 208 mg/dL (70-99) 135 mg/dL (70-99) Assessment and Plan Assessmemt and Plan Problems Medical Problems: (1) Diverticulitis Status: Acute (2) Perforated bowel Status: Acute Problems: Comment Review of Relevant I have reviewed the following items ebony (where applicable) has been applied. Labs Laboratory Tests Test 04/30/17 11:58 04/30/17 16:45 04/30/17 20:36 05/01/17 09:11 Glucose (Fingerstick) 170 mg/dL (70-99) 187 mg/dL (70-99) 185 mg/dL (70-99) 178 mg/dL (70-99) Test 05/01/17 09:30 05/01/17 11:45 05/01/17 17:12 05/01/17 20:04 White Blood Count 12.0 x10^3/uL (4.0-11.0) Red Blood Count 4.45 x10^6/uL (4.30-5.70) Hemoglobin 12.3 g/dL (13.0-17.5) Hematocrit 37.1 % (39.0-53.0) Mean Corpuscular Volume 84 fL (79-100) Mean Corpuscular Hemoglobin 28 pg (25-35) Mean Corpuscular Hemoglobin Concent 33 g/dL (31-37) Red Cell Distribution Width 14.0 % (11.5-14.5) Platelet Count 272 x10^3/uL (140-400) Neutrophils (%) (Auto) 72 % (31-73) Lymphocytes (%) (Auto) 17 % (24-48) Monocytes (%) (Auto) 7 % (0-9) Eosinophils (%) (Auto) 4 % (0-3) Basophils (%) (Auto) 1 % (0-3) Neutrophils # (Auto) 8.6 x10^3uL (1.8-7.7) Lymphocytes # (Auto) 2.0 x10^3/uL (1.0-4.8) Monocytes # (Auto) 0.9 x10^3/uL (0.0-1.1) Eosinophils # (Auto) 0.5 x10^3/uL (0.0-0.7) Basophils # (Auto) 0.1 x10^3/uL (0.0-0.2) Glucose (Fingerstick) 165 mg/dL (70-99) 166 mg/dL (70-99) 208 mg/dL (70-99) Test 05/02/17 07:54 Glucose (Fingerstick) 135 mg/dL (70-99) Laboratory Tests Test 05/01/17 11:45 05/01/17 17:12 05/01/17 20:04 05/02/17 07:54 Glucose (Fingerstick) 165 mg/dL (70-99) 166 mg/dL (70-99) 208 mg/dL (70-99) 135 mg/dL (70-99) Medications Current Medications Morphine Sulfate 4 mg 1X ONCE IV Last administered on 04/27/17t 08:03; Start 04/27/17 at 07:30; Stop 04/27/17 at 07:52; Status DC Ondansetron HCl (Zofran) 4 mg 1X ONCE IV Last administered on 04/27/17 08:12 ; Start 04/27/17 at 08:15; Stop 04/27/17 at 08:16; Status DC Iohexol (Omnipaque 300 Mg/ml) 75 ml 1X ONCE IV Last administered on 04/27/17 08:41; Start 04/27/17 at 08:15; Stop 04/27/17 at 08:16; Status DC Info (Do NOT chart on this entry -- for MONITORING) 1 each PRN DAILY PRN MC SEE COMMENTS; Start 04/27/17 at 08:15; Stop 04/29/17 at 08:14; Status DC Sodium Chloride 1,000 ml @ 1,000 mls/hr 1X ONCE IV Last administered on 09:30; Start 04/27/17 at 09:30; Stop 04/27/17 at 10:29; Status DC Piperacillin Sod/ Tazobactam Sod (Zosyn Per Pharmacy) 1 each PRN DAILY PRN MC SEE COMMENTS; Start 04/27/17 at 09:45 Piperacillin Sod/ Tazobactam Sod 3.375 gm/Sodium Chloride 50 ml @ 100 mls/hr 1X ONCE IV Last administered on 04/27/17 10:05; Start 04/27/17 at 09:45; Stop 04/27/17 at 10:14; Status DC Fentanyl Citrate (Fentanyl 2ml Vial) 50 mcg 1X ONCE IV Last administered on 10:27; Start 04/27/17 at 10:00; Stop 04/27/17 at 10:01; Status DC Ondansetron HCl (Zofran) 4 mg PRN Q8HRS PRN IV NAUSEA/VOMITING; Start 04/27/17 at 10:00; Stop 04/28/17 at 09:59; Status DC Fentanyl Citrate (Fentanyl 2ml Vial) 50 mcg PRN Q1HR PRN IV PAIN Last administered on 04/28/17 08:08; Start 04/27/17 at 10:00; Stop 04/28/17 at 09:59 ; Status DC Piperacillin Sod/ Tazobactam Sod 3.375 gm/Sodium Chloride 50 ml @ 100 mls/hr Q6HRS IV Last administered on 05/02/17 06:11; Start 04/27/17 at 18:00 Digoxin (Lanoxin) 500 mcg 1X ONCE IV Last administered on 04/27/17 10:44; Start 04/27/17 at 10:30; Stop 04/27/17 at 10:31; Status DC Sodium Chloride 1,000 ml @ 1,000 mls/hr 1X ONCE IV Last administered on 10:53; Start 04/27/17 at 11:00; Stop 04/27/17 at 11:59; Status DC Magnesium Sulfate/ Dextrose 100 ml @ 25 mls/hr 1X ONCE IV Last administered on 04/27/17 12:21; Start 04/27/17 at 11:00; Stop 04/27/17 at 14:59; Status DC Metoprolol Tartrate (Lopressor) 5 mg Q6HRS IVP ; Start 04/27/17 at 13:00; Stop 04/27/17 at 15:57; Status DC Sodium Chloride 1,000 ml @ 100 mls/hr Q10H IV Last administered on 05/02/17 08:26; Start 04/27/17 at 14:15 Saliva Substitute (Biotene Moisturizing Mouth) 2 spray PRN Q15MIN PRN PO DRY MOUTH Last administered on 04/27/17 18:18; Start 04/27/17 at 14:15 Nicotine Polacrilex (Nicorette Gum) 1 each PRN Q1HR PRN BC SMOKING CESSATION; Start 04/27/17 at 14:15 Albuterol/ Ipratropium (Duoneb) 3 ml RTQID NEB Last administered on 05/02/17 08:11; Start 04/27/17 at 16:00 Albuterol/ Ipratropium (Duoneb) 3 ml 1X ONCE NEB ; Start 04/27/17 at 14:15; Stop 04/27/17 at 14:16; Status DC Aspirin (Ecotrin) 81 mg DAILY PO ; Start 04/27/17 at 14:30; Stop 04/28/17 at 11: 52; Status DC Insulin Aspart (NovoLOG) 0-9 UNITS TIDWMEALS SQ ; Start 04/27/17 at 17:00 Dextrose (Dextrose 50%-Water Syringe) 12.5 gm PRN Q15MIN PRN IV SEE COMMENTS; Start 04/27/17 at 14:15 Insulin Detemir (Levemir) 25 units QHS SQ Last administered on 05/01/17 20:56 ; Start 04/27/17 at 21:00 Metoprolol Tartrate (Lopressor) 2.5 mg Q6HRS IVP ; Start 04/27/17 at 18:00; Stop 04/28/17 at 11:53; Status DC Atorvastatin Calcium (Lipitor) 20 mg QHS PO Last administered on 04/27/17 20: 38; Start 04/27/17 at 21:00; Stop 04/28/17 at 11:52; Status DC Ondansetron HCl (Zofran) 4 mg PRN Q6HRS PRN IV NAUSEA/VOMITING Last administered on 04/29/17 02:55; Start 04/28/17 at 10:45 Fentanyl Citrate (Fentanyl 2ml Vial) 50 mcg PRN Q2HR PRN IV PAIN; Start at 10:45; Stop 04/28/17 at 11:50; Status DC Fentanyl Citrate (Fentanyl 2ml Vial) 100 mcg PRN Q2HR PRN IV PAIN SEVERE Last administered on 05/01/17 20:58; Start 04/28/17 at 12:00 Pantoprazole Sodium (Protonix Vial) 40 mg DAILYAC IVP Last administered on 05/02 08:24; Start 04/28/17 at 12:00 Metoprolol Tartrate (Lopressor) 2.5 mg PRN Q6HRS PRN IVP BP 160/100; Start at 12:00 Metoprolol Tartrate (Lopressor) 2.5 mg Q6HRS IVP Last administered on 06:11; Start 04/28/17 at 12:00 Aspirin (Ecotrin) 81 mg DAILYWBKFT PO Last administered on 05/02/17 08:24; Start 04/29/17 at 08:00 Atorvastatin Calcium (Lipitor) 20 mg QHS PO Last administered on 05/01/17 20: 54; Start 04/28/17 at 21:00 Micafungin Sodium 100 mg/Dextrose 100 ml @ 100 mls/hr Q24H IV Last administered on 05/02/17 08:25; Start 04/29/17 at 09:00 Naloxone HCl (Narcan) 0.4 mg PRN Q2MIN PRN IV SEE INSTRUCTIONS; Start 04/29/17 at 09:45 Hydromorphone HCl 30 ml @ 0 mls/hr CONT PRN PRN IV PROTOCOL Last administered on 04/29/17 11:09; Start 04/29/17 at 09:45 Digoxin (Lanoxin) 125 mcg DAILY IV Last administered on 05/02/17 08:25; Start 04/29/17 at 11:00 Iohexol (Omnipaque 300 Mg/ml) 75 ml 1X ONCE IV ; Start 04/29/17 at 11:15; Stop 04/29/17 at 11:16; Status DC Info (Do NOT chart on this entry -- for MONITORING) 1 each PRN DAILY PRN MC SEE COMMENTS; Start 04/29/17 at 11:15; Stop 05/01/17 at 11:14; Status DC Potassium Chloride (Klor-Con) 20 meq 1X ONCE PO Last administered on 10:04; Start 04/30/17 at 10:00; Stop 04/30/17 at 10:01; Status DC Potassium Chloride/Dextrose 1,000 ml @ 75 mls/hr 1X ONCE IV Last administered on 04/30/17 12:54; Start 04/30/17 at 13:00; Stop 05/01/17 at 02:19 ; Status DC Enoxaparin Sodium (Lovenox 40mg Syringe) 40 mg Q24H SQ Last administered on 11:44; Start 05/01/17 at 11:00 Active Scripts Active Reported Lantus Solostar (Insulin Glargine,Hum.rec.anlog) 100 Unit/1 Ml Insuln.pen 65 Unit SQ BID Aleve (Naproxen Sodium) 220 Mg Capsule 440 Mg PO BID Aspir 81 (Aspirin) 81 Mg Tablet.dr 1 Tab PO DAILY Gabapentin 600 Mg Tablet 600 Mg PO TID Carvedilol 6.25 Mg Tablet 1 Tab PO BID Lisinopril 5 Mg Tablet 1 Tab PO DAILY Gemfibrozil 600 Mg Tablet 600 Mg PO BID Vitals/I & O Vital Sign - Last 24 Hours 05/01/17 05/01/17 05/01/17 05/01/17 11:35 11:43 15:00 15:20 Temp 98.1 98.1 Pulse 79 73 Resp 18 B/P (MAP) 129/75 144/81 (102) Pulse Ox 98 O2 Delivery Room Air Room Air Room Air 05/01/17 05/01/17 05/01/17 05/01/17 17:15 19:00 19:36 20:00 Temp 98.1 98.1 Pulse 73 78 Resp 20 B/P (MAP) 144/81 125/74 (91) Pulse Ox 96 96 O2 Delivery Room Air Room Air Room Air 05/01/17 05/01/17 05/01/17 05/01/17 20:58 21:28 22:30 23:48 Temp 98.0 98.0 Pulse 80 80 Resp 20 B/P (MAP) 121/75 (90) 121/75 Pulse Ox 96 96 97 O2 Delivery Room Air Room Air Room Air 05/02/17 05/02/17 05/02/17 05/02/17 02:55 06:11 07:00 08:10 Temp 98.2 98.1 98.2 98.1 Pulse 77 77 73 Resp 20 24 B/P (MAP) 118/70 (86) 118/70 132/78 (96) Pulse Ox 97 97 O2 Delivery Room Air Room Air Room Air 05/02/17 05/02/17 05/02/17 08:12 08:25 10:43 Temp 98.1 98.1 Pulse 73 78 Resp 24 B/P (MAP) 132/78 139/79 (99) Pulse Ox 95 98 O2 Delivery Room Air Room Air Intake and Output 05/01/17 05/01/17 05/02/17 15:00 23:00 07:00 Intake Total 150 ml 450 ml 1810 ml Balance 150 ml 450 ml 1810 ml CARLOS MURRELL MD May 02, 2017 11:28
[2017-05-02] MEDS: ENOXAPARIN 40 MG/0.4 ML SYRINGE. SQ SCH (11:58)
--- NOTE | 2017-05-02 13:18 | PDOC ---
CARDIO Progress Notes Date and Time Date of Service 05/02/2017 Time of Evaluation 1330 Subjective Subjective: No Chest Pain, No shortness of breath, No Palpitations, No Dizziness, Other (tolerting clear liquids) Vitals Vitals Vital Signs Date Time Temp Pulse Resp B/P (MAP) Pulse Ox O2 Delivery O2 Flow Rate FiO2 05/02/17 12:19 Room Air 05/02/17 11:58 78 139/79 05/02/17 10:43 98.1 24 98 98.1 05/01/17 07:40 2.0 Weight Weight [ ] Input and Output Intake and Output Intake and Output 05/02/17 07:00 Intake Total 2410 ml Balance 2410 ml Intake Oral 700 ml IV Total 1710 ml # Voids 5 Laboratory Labs Laboratory Tests Test 05/01/17 17:12 05/01/17 20:04 05/02/17 07:54 05/02/17 11:36 Glucose (Fingerstick) 166 mg/dL (70-99) 208 mg/dL (70-99) 135 mg/dL (70-99) 136 mg/dL (70-99) Physical Exam HEENT: Neck Supple W Full Motion Chest: Symmetric LUNGS: Clear to Auscultation Heart: S1S2, RRR (SR no signnificant ectopies overnight) Abdomen: Soft N/T Extremities: No Edema, No Calf Tenderness Neurology: alert, oriented, follow commands Assessment Assessment 1. PAFIB: Remains SR, tolerating BB and dig. EF/LV systolic function normal. Preoperative risk for non cardiac surgery moderate risk for perioperative CV events. 2. Sigmoid diverticulitis with perforation: General surgery and ID following 3. HTN: controlled 4. HLP: statin in place 5. DM2: insulin dependent 6. Possible COPD with 50 pk yr tobaccoism Recommendations 1. IV metoprolol and Dig. Will convert to PO if no surgical plans. 2. ECASA 81 mg po for stroke prevention. 3. Not a candidate for NOAC/OAC at this time due to above #2. 4. Continue supportive care. GINA ONEILL APRN May 02, 2017 13:18
[2017-05-02 15:52] VITALS: BP 123/62
[2017-05-02 19:40] VITALS: BP 130/68
[2017-05-02] MEDS: ATORVASTATIN CALCIUM 20 MG TABLET PO SCH (21:12)
[2017-05-02] MEDS: INSULIN DETEMIR 300 UNITS/3 ML INSULN.PEN. SQ SCH (21:18)
[2017-05-02 23:40] VITALS: BP 117/70
[2017-05-03] MEDS: PIPERACILLIN/TAZOBACTAM 3.375 GM in IV NORMAL SALINE 50ML 50 ML IV SCH ×4 (00:16→17:41)
[2017-05-03] MEDS: METOPROLOL TARTRATE 5 MG/5 ML VIAL. IVP SCH ×4 (00:19→17:40)
[2017-05-03 03:40] VITALS: BP 133/79
[2017-05-03 04:38] LABS: BASO # 0.1 x10^3/uL (0.0-0.2); BASO % 1 % (0-3); EOS % 3 % (0-3); HEMATOCRIT 36.8 % (39.0-53.0); HEMOGLOBIN 12.4 g/dL (13.0-17.5); LYMPH # 2.1 x10^3/uL (1.0-4.8); LYMPH % 15 % (24-48); MEAN CORPUSCULAR HEMOGLOBIN 28 pg (25-35); MEAN CORPUSCULAR HGB CONC 34 g/dL (31-37); MEAN CORPUSCULAR VOLUME 83 fL (79-100); MONO % 8 % (0-9); NEUT % 73 % (31-73); PLATELET COUNT 308 x10^3/uL (140-400); RED BLOOD COUNT 4.42 x10^6/uL (4.30-5.70); WHITE BLOOD COUNT 13.4 x10^3/uL (4.0-11.0)
[2017-05-03] MEDS: IV NORMAL SALINE 1000ML BAG 1,000 ML IV SCH ×2 (06:19→17:41)
[2017-05-03 07:00] VITALS: BP 143/84
[2017-05-03] MEDS: IPRATRPIUM/ALBUTEROL 0.5/2.5MG 3 ML NEBU. NEB SCH ×4 (07:33→19:35)
[2017-05-03] MEDS: INSULIN ASPART 300 UNITS/3 ML INSULN.PEN SQ SCH ×3 (08:00→17:00)
[2017-05-03] MEDS: PANTOPRAZOLE IV PUSH 40 MG VIAL. IVP SCH (08:28)
[2017-05-03] MEDS: DIGOXIN IV 500 MCG/2 ML AMPUL. IV SCH (08:28)
[2017-05-03] MEDS: ASPIRIN ENTERIC COATED 81 MG TABLET.DR. PO SCH (08:29)
[2017-05-03] MEDS: MICAFUNGIN 100 MG in IV DEXTROSE 5% 100 ML IV SCH (08:29)
--- NOTE | 2017-05-03 09:01 | PDOC ---
Infectious Disease Note Subjective Subjective Feeling better Less pain + BM ROS ROS GEN: Denies fevers, chills, sweats HEENT: Denies blurred vision, sore throat CV: Denies chest pain RESP: Denies shortness of air, cough GI: Denies n/v/d NEURO: Denies confusion, dizziness MSK: Denies weakness, joint pain/swelling Vital Sign Vital Signs Vital Signs Date Time Temp Pulse Resp B/P (MAP) Pulse Ox O2 Delivery O2 Flow Rate FiO2 05/03/17 08:28 60 133/79 05/03/17 07:34 97 Room Air 05/03/17 07:00 97.7 16 97.7 05/02/17 14:20 2.0 Physical Exam PHYSICAL EXAM GENERAL: NAD, Alert HEENT: PERRL, OC/OP NECK: Supple, no JVD, no LN LUNGS: Clear HEART: S1S2, no gallop, no murmur ABD: Soft, NT, no organomegaly, no rebound EXT: No edema, no cyanosis SUPPLY AIDE: Alert, oriented x 3, no focal neurologic deficit SKIN: No rash IV: ok Labs Lab Laboratory Tests Test 05/02/17 11:36 05/02/17 17:03 05/02/17 20:57 05/03/17 03:50 Glucose (Fingerstick) 136 mg/dL (70-99) 137 mg/dL (70-99) 197 mg/dL (70-99) White Blood Count 13.4 x10^3/uL (4.0-11.0) Red Blood Count 4.42 x10^6/uL (4.30-5.70) Hemoglobin 12.4 g/dL (13.0-17.5) Hematocrit 36.8 % (39.0-53.0) Mean Corpuscular Volume 83 fL (79-100) Mean Corpuscular Hemoglobin 28 pg (25-35) Mean Corpuscular Hemoglobin Concent 34 g/dL (31-37) Red Cell Distribution Width 14.0 % (11.5-14.5) Platelet Count 308 x10^3/uL (140-400) Neutrophils (%) (Auto) 73 % (31-73) Lymphocytes (%) (Auto) 15 % (24-48) Monocytes (%) (Auto) 8 % (0-9) Eosinophils (%) (Auto) 3 % (0-3) Basophils (%) (Auto) 1 % (0-3) Neutrophils # (Auto) 9.9 x10^3uL (1.8-7.7) Lymphocytes # (Auto) 2.1 x10^3/uL (1.0-4.8) Monocytes # (Auto) 1.1 x10^3/uL (0.0-1.1) Eosinophils # (Auto) 0.4 x10^3/uL (0.0-0.7) Basophils # (Auto) 0.1 x10^3/uL (0.0-0.2) Test 05/03/17 07:27 Glucose (Fingerstick) 122 mg/dL (70-99) Objective Assessment Perforated sigmoid diverticulum. Cipro allergy - ? seizure -has not had levoflox/Cipro since Leukocytosis Afib RVR Plan Plan of Care Cont Zosyn wbc high, though he says he has problem with wbc for long time, ? MDS/ Myeloproliferative disorder Supportive care MARU VENTURA MD May 03, 2017 09:00
[2017-05-03 09:19] LABS: CREATININE 0.6 mg/dL (0.7-1.3)
--- NOTE | 2017-05-03 09:40 | PDOC ---
PROGRESS NOTES Chief Complaint Chief Complaint cc: abdominal pain A/P Leucocytosis: on Zosyn and Micafungin, ID following, Repeat CT - no acute findings, consult Oncology, d/w surgery, PAFIB: Rate controlled, continue current care. cardiology following, on beta stevan Sigmoid diverticulitis with perforation:clear liquids, advance as per GS Pain due to above: on ERP DEVELOPER pump per surgery, telemetry avoid co2 narcosis. HTN. HLD DM : SSI, see orders. History of Present Illness History of Present Illness no fever pain 5/10 not better BM TODAY Vitals Vitals Vital Signs Date Time Temp Pulse Resp B/P (MAP) Pulse Ox O2 Delivery O2 Flow Rate FiO2 05/03/17 08:28 60 133/79 05/03/17 07:50 Room Air 05/03/17 07:34 97 05/03/17 07:00 97.7 16 97.7 05/02/17 14:20 2.0 Physical Exam General: Alert, Oriented X3, Cooperative, No acute distress Heart: Regular rate (AFIB RVR), Normal S1, Normal S2, Other (2/6 systolic murmur to LLS border) Lungs: Clear Abdomen: Soft, Other (ND, tendeness to LLQ, moderate) Extremities: No clubbing Skin: No rashes, No breakdown Labs LABS Laboratory Tests Test 05/02/17 11:36 05/02/17 17:03 05/02/17 20:57 05/03/17 03:50 Glucose (Fingerstick) 136 mg/dL (70-99) 137 mg/dL (70-99) 197 mg/dL (70-99) White Blood Count 13.4 x10^3/uL (4.0-11.0) Red Blood Count 4.42 x10^6/uL (4.30-5.70) Hemoglobin 12.4 g/dL (13.0-17.5) Hematocrit 36.8 % (39.0-53.0) Mean Corpuscular Volume 83 fL (79-100) Mean Corpuscular Hemoglobin 28 pg (25-35) Mean Corpuscular Hemoglobin Concent 34 g/dL (31-37) Red Cell Distribution Width 14.0 % (11.5-14.5) Platelet Count 308 x10^3/uL (140-400) Neutrophils (%) (Auto) 73 % (31-73) Lymphocytes (%) (Auto) 15 % (24-48) Monocytes (%) (Auto) 8 % (0-9) Eosinophils (%) (Auto) 3 % (0-3) Basophils (%) (Auto) 1 % (0-3) Neutrophils # (Auto) 9.9 x10^3uL (1.8-7.7) Lymphocytes # (Auto) 2.1 x10^3/uL (1.0-4.8) Monocytes # (Auto) 1.1 x10^3/uL (0.0-1.1) Eosinophils # (Auto) 0.4 x10^3/uL (0.0-0.7) Basophils # (Auto) 0.1 x10^3/uL (0.0-0.2) Sodium Level 143 mmol/L (136-145) Potassium Level 3.0 mmol/L (3.5-5.1) Chloride Level 105 mmol/L (98-107) Carbon Dioxide Level 27 mmol/L (21-32) Anion Gap 11 (6-14) Blood Urea Nitrogen 10 mg/dL (8-26) Creatinine 0.6 mg/dL (0.7-1.3) Estimated GFR (Cockcroft-Gault) 137.0 Glucose Level 126 mg/dL (70-99) Calcium Level 9.0 mg/dL (8.5-10.1) Test 05/03/17 07:27 Glucose (Fingerstick) 122 mg/dL (70-99) Assessment and Plan Assessmemt and Plan Problems Medical Problems: (1) Diverticulitis Status: Acute (2) Perforated bowel Status: Acute Problems: Comment Review of Relevant I have reviewed the following items ebony (where applicable) has been applied. Labs Laboratory Tests Test 05/01/17 11:45 05/01/17 17:12 05/01/17 20:04 05/02/17 07:54 Glucose (Fingerstick) 165 mg/dL (70-99) 166 mg/dL (70-99) 208 mg/dL (70-99) 135 mg/dL (70-99) Test 05/02/17 11:36 05/02/17 17:03 05/02/17 20:57 05/03/17 03:50 Glucose (Fingerstick) 136 mg/dL (70-99) 137 mg/dL (70-99) 197 mg/dL (70-99) White Blood Count 13.4 x10^3/uL (4.0-11.0) Red Blood Count 4.42 x10^6/uL (4.30-5.70) Hemoglobin 12.4 g/dL (13.0-17.5) Hematocrit 36.8 % (39.0-53.0) Mean Corpuscular Volume 83 fL (79-100) Mean Corpuscular Hemoglobin 28 pg (25-35) Mean Corpuscular Hemoglobin Concent 34 g/dL (31-37) Red Cell Distribution Width 14.0 % (11.5-14.5) Platelet Count 308 x10^3/uL (140-400) Neutrophils (%) (Auto) 73 % (31-73) Lymphocytes (%) (Auto) 15 % (24-48) Monocytes (%) (Auto) 8 % (0-9) Eosinophils (%) (Auto) 3 % (0-3) Basophils (%) (Auto) 1 % (0-3) Neutrophils # (Auto) 9.9 x10^3uL (1.8-7.7) Lymphocytes # (Auto) 2.1 x10^3/uL (1.0-4.8) Monocytes # (Auto) 1.1 x10^3/uL (0.0-1.1) Eosinophils # (Auto) 0.4 x10^3/uL (0.0-0.7) Basophils # (Auto) 0.1 x10^3/uL (0.0-0.2) Sodium Level 143 mmol/L (136-145) Potassium Level 3.0 mmol/L (3.5-5.1) Chloride Level 105 mmol/L (98-107) Carbon Dioxide Level 27 mmol/L (21-32) Anion Gap 11 (6-14) Blood Urea Nitrogen 10 mg/dL (8-26) Creatinine 0.6 mg/dL (0.7-1.3) Estimated GFR (Cockcroft-Gault) 137.0 Glucose Level 126 mg/dL (70-99) Calcium Level 9.0 mg/dL (8.5-10.1) Test 05/03/17 07:27 Glucose (Fingerstick) 122 mg/dL (70-99) Laboratory Tests Test 05/02/17 11:36 05/02/17 17:03 05/02/17 20:57 05/03/17 03:50 Glucose (Fingerstick) 136 mg/dL (70-99) 137 mg/dL (70-99) 197 mg/dL (70-99) White Blood Count 13.4 x10^3/uL (4.0-11.0) Red Blood Count 4.42 x10^6/uL (4.30-5.70) Hemoglobin 12.4 g/dL (13.0-17.5) Hematocrit 36.8 % (39.0-53.0) Mean Corpuscular Volume 83 fL (79-100) Mean Corpuscular Hemoglobin 28 pg (25-35) Mean Corpuscular Hemoglobin Concent 34 g/dL (31-37) Red Cell Distribution Width 14.0 % (11.5-14.5) Platelet Count 308 x10^3/uL (140-400) Neutrophils (%) (Auto) 73 % (31-73) Lymphocytes (%) (Auto) 15 % (24-48) Monocytes (%) (Auto) 8 % (0-9) Eosinophils (%) (Auto) 3 % (0-3) Basophils (%) (Auto) 1 % (0-3) Neutrophils # (Auto) 9.9 x10^3uL (1.8-7.7) Lymphocytes # (Auto) 2.1 x10^3/uL (1.0-4.8) Monocytes # (Auto) 1.1 x10^3/uL (0.0-1.1) Eosinophils # (Auto) 0.4 x10^3/uL (0.0-0.7) Basophils # (Auto) 0.1 x10^3/uL (0.0-0.2) Sodium Level 143 mmol/L (136-145) Potassium Level 3.0 mmol/L (3.5-5.1) Chloride Level 105 mmol/L (98-107) Carbon Dioxide Level 27 mmol/L (21-32) Anion Gap 11 (6-14) Blood Urea Nitrogen 10 mg/dL (8-26) Creatinine 0.6 mg/dL (0.7-1.3) Estimated GFR (Cockcroft-Gault) 137.0 Glucose Level 126 mg/dL (70-99) Calcium Level 9.0 mg/dL (8.5-10.1) Test 05/03/17 07:27 Glucose (Fingerstick) 122 mg/dL (70-99) Medications Current Medications Morphine Sulfate 4 mg 1X ONCE IV Last administered on 04/27/17 08:03; Start 04/27/17 at 07:30; Stop 04/27/17 at 07:52; Status DC Ondansetron HCl (Zofran) 4 mg 1X ONCE IV Last administered on 04/27/17 08:12 ; Start 04/27/17 at 08:15; Stop 04/27/17 at 08:16; Status DC Iohexol (Omnipaque 300 Mg/ml) 75 ml 1X ONCE IV Last administered on 04/27/17 08:41; Start 04/27/17 at 08:15; Stop 04/27/17 at 08:16; Status DC Info (Do NOT chart on this entry -- for MONITORING) 1 each PRN DAILY PRN MC SEE COMMENTS; Start 04/27/17 at 08:15; Stop 04/29/17 at 08:14; Status DC Sodium Chloride 1,000 ml @ 1,000 mls/hr 1X ONCE IV Last administered on 09:30; Start 04/27/17 at 09:30; Stop 04/27/17 at 10:29; Status DC Piperacillin Sod/ Tazobactam Sod (Zosyn Per Pharmacy) 1 each PRN DAILY PRN MC SEE COMMENTS; Start 04/27/17 at 09:45 Piperacillin Sod/ Tazobactam Sod 3.375 gm/Sodium Chloride 50 ml @ 100 mls/hr 1X ONCE IV Last administered on 04/27/17 10:05; Start 04/27/17 at 09:45; Stop 04/27/17 at 10:14; Status DC Fentanyl Citrate (Fentanyl 2ml Vial) 50 mcg 1X ONCE IV Last administered on 10:27; Start 04/27/17 at 10:00; Stop 04/27/17 at 10:01; Status DC Ondansetron HCl (Zofran) 4 mg PRN Q8HRS PRN IV NAUSEA/VOMITING; Start 04/27/17 at 10:00; Stop 04/28/17 at 09:59; Status DC Fentanyl Citrate (Fentanyl 2ml Vial) 50 mcg PRN Q1HR PRN IV PAIN Last administered on 04/28/17 08:08; Start 04/27/17 at 10:00; Stop 04/28/17 at 09:59 ; Status DC Piperacillin Sod/ Tazobactam Sod 3.375 gm/Sodium Chloride 50 ml @ 100 mls/hr Q6HRS IV Last administered on 05/03/17 06:18; Start 04/27/17 at 18:00 Digoxin (Lanoxin) 500 mcg 1X ONCE IV Last administered on 04/27/17 10:44; Start 04/27/17 at 10:30; Stop 04/27/17 at 10:31; Status DC Sodium Chloride 1,000 ml @ 1,000 mls/hr 1X ONCE IV Last administered on 10:53; Start 04/27/17 at 11:00; Stop 04/27/17 at 11:59; Status DC Magnesium Sulfate/ Dextrose 100 ml @ 25 mls/hr 1X ONCE IV Last administered on 04/27/17 12:21; Start 04/27/17 at 11:00; Stop 04/27/17 at 14:59; Status DC Metoprolol Tartrate (Lopressor) 5 mg Q6HRS IVP ; Start 04/27/17 at 13:00; Stop 04/27/17 at 15:57; Status DC Sodium Chloride 1,000 ml @ 100 mls/hr Q10H IV Last administered on 05/03/17 06:19; Start 04/27/17 at 14:15 Saliva Substitute (Biotene Moisturizing Mouth) 2 spray PRN Q15MIN PRN PO DRY MOUTH Last administered on 04/27/17 18:18; Start 04/27/17 at 14:15 Nicotine Polacrilex (Nicorette Gum) 1 each PRN Q1HR PRN BC SMOKING CESSATION; Start 04/27/17 at 14:15 Albuterol/ Ipratropium (Duoneb) 3 ml RTQID NEB Last administered on 05/03/17 07:33; Start 04/27/17 at 16:00 Albuterol/ Ipratropium (Duoneb) 3 ml 1X ONCE NEB ; Start 04/27/17 at 14:15; Stop 04/27/17 at 14:16; Status DC Aspirin (Ecotrin) 81 mg DAILY PO ; Start 04/27/17 at 14:30; Stop 04/28/17 at 11: 52; Status DC Insulin Aspart (NovoLOG) 0-9 UNITS TIDWMEALS SQ ; Start 04/27/17 at 17:00 Dextrose (Dextrose 50%-Water Syringe) 12.5 gm PRN Q15MIN PRN IV SEE COMMENTS; Start 04/27/17 at 14:15 Insulin Detemir (Levemir) 25 units QHS SQ Last administered on 05/02/17 21:18 ; Start 04/27/17 at 21:00 Metoprolol Tartrate (Lopressor) 2.5 mg Q6HRS IVP ; Start 04/27/17 at 18:00; Stop 04/28/17 at 11:53; Status DC Atorvastatin Calcium (Lipitor) 20 mg QHS PO Last administered on 04/27/17 20: 38; Start 04/27/17 at 21:00; Stop 04/28/17 at 11:52; Status DC Ondansetron HCl (Zofran) 4 mg PRN Q6HRS PRN IV NAUSEA/VOMITING Last administered on 04/29/17 02:55; Start 04/28/17 at 10:45 Fentanyl Citrate (Fentanyl 2ml Vial) 50 mcg PRN Q2HR PRN IV PAIN; Start at 10:45; Stop 04/28/17 at 11:50; Status DC Fentanyl Citrate (Fentanyl 2ml Vial) 100 mcg PRN Q2HR PRN IV PAIN SEVERE Last administered on 05/01/17 20:58; Start 04/28/17 at 12:00 Pantoprazole Sodium (Protonix Vial) 40 mg DAILYAC IVP Last administered on 05/03 08:28; Start 04/28/17 at 12:00 Metoprolol Tartrate (Lopressor) 2.5 mg PRN Q6HRS PRN IVP BP 160/100; Start at 12:00 Metoprolol Tartrate (Lopressor) 2.5 mg Q6HRS IVP Last administered on 06:18; Start 04/28/17 at 12:00 Aspirin (Ecotrin) 81 mg DAILYWBKFT PO Last administered on 05/03/17 08:29; Start 04/29/17 at 08:00 Atorvastatin Calcium (Lipitor) 20 mg QHS PO Last administered on 05/02/17 21: 12; Start 04/28/17 at 21:00 Micafungin Sodium 100 mg/Dextrose 100 ml @ 100 mls/hr Q24H IV Last administered on 05/03/17 08:29; Start 04/29/17 at 09:00 Naloxone HCl (Narcan) 0.4 mg PRN Q2MIN PRN IV SEE INSTRUCTIONS; Start 04/29/17 at 09:45 Hydromorphone HCl 30 ml @ 0 mls/hr CONT PRN PRN IV PROTOCOL Last administered on 05/02/17 13:51; Start 04/29/17 at 09:45 Digoxin (Lanoxin) 125 mcg DAILY IV Last administered on 05/03/17 08:28; Start 04/29/17 at 11:00 Iohexol (Omnipaque 300 Mg/ml) 75 ml 1X ONCE IV ; Start 04/29/17 at 11:15; Stop 04/29/17 at 11:16; Status DC Info (Do NOT chart on this entry -- for MONITORING) 1 each PRN DAILY PRN MC SEE COMMENTS; Start 04/29/17 at 11:15; Stop 05/01/17 at 11:14; Status DC Potassium Chloride (Klor-Con) 20 meq 1X ONCE PO Last administered on 10:04; Start 04/30/17 at 10:00; Stop 04/30/17 at 10:01; Status DC Potassium Chloride/Dextrose 1,000 ml @ 75 mls/hr 1X ONCE IV Last administered on 04/30/17 12:54; Start 04/30/17 at 13:00; Stop 05/01/17 at 02:19 ; Status DC Enoxaparin Sodium (Lovenox 40mg Syringe) 40 mg Q24H SQ Last administered on 11:58; Start 05/01/17 at 11:00 Potassium Chloride (Klor-Con) 40 meq 1X ONCE PO ; Start 05/03/17 at 09:45; Stop 05/03/17 at 09:46 Active Scripts Active Reported Lantus Solostar (Insulin Glargine,Hum.rec.anlog) 100 Unit/1 Ml Insuln.pen 65 Unit SQ BID Aleve (Naproxen Sodium) 220 Mg Capsule 440 Mg PO BID Aspir 81 (Aspirin) 81 Mg Tablet. 1 Tab PO DAILY Gabapentin 600 Mg Tablet 600 Mg PO TID Carvedilol 6.25 Mg Tablet 1 Tab PO BID Lisinopril 5 Mg Tablet 1 Tab PO DAILY Gemfibrozil 600 Mg Tablet 600 Mg PO BID Vitals/I & O Vital Sign - Last 24 Hours 05/02/17 05/02/17 05/02/17 05/02/17 10:43 11:58 12:19 13:51 Temp 98.1 98.1 Pulse 78 78 Resp 24 14 B/P (MAP) 139/79 (99) 139/79 Pulse Ox 98 98 O2 Delivery Room Air Room Air Room Air O2 Flow Rate 2.0 05/02/17 05/02/17 05/02/17 05/02/17 14:20 15:52 16:01 17:52 Temp 97.8 97.8 Pulse 82 82 Resp 22 B/P (MAP) 123/62 (82) 123/62 Pulse Ox 98 96 O2 Delivery Room Air Room Air Room Air O2 Flow Rate 2.0 05/02/17 05/02/17 05/02/17 05/02/17 19:26 19:40 20:30 23:40 Temp 98.1 98.3 98.1 98.3 Pulse 84 86 Resp 18 18 B/P (MAP) 130/68 (88) 117/70 (86) Pulse Ox 94 96 O2 Delivery Room Air Room Air Room Air Room Air 05/03/17 05/03/17 05/03/17 05/03/17 00:19 03:40 06:18 07:00 Temp 98.7 97.7 98.7 97.7 Pulse 80 59 60 77 Resp 15 16 B/P (MAP) 130/68 133/79 (97) 133/79 143/84 (103) Pulse Ox 96 95 O2 Delivery Room Air Room Air 05/03/17 05/03/17 05/03/17 07:34 07:50 08:28 Pulse 60 B/P (MAP) 133/79 Pulse Ox 97 O2 Delivery Room Air Room Air Intake and Output 6/19/17 6/19/17 6/20/17 15:00 23:00 07:00 Intake Total 600 ml 800 ml Output Total 400 ml Balance -400 ml 600 ml 800 ml CARLOS MURRELL MD May 03, 2017 09:40
[2017-05-03] MEDS ORDERED: POTASSIUM CHLORIDE 20 MEQ TABLET.ER. PO ONE (09:45)
--- NOTE | 2017-05-03 10:37 | PDOC ---
CONOR MILLER SUGAR LABORATORY ASSISTANT 05/03/17 1037: SURGICAL PROGRESS NOTE Subjective reports he feels a little better, but the pain is worse after he eats no emesis Vital Signs Vital Signs Date Time Temp Pulse Resp B/P (MAP) Pulse Ox O2 Delivery O2 Flow Rate FiO2 05/03/17 08:28 60 133/79 05/03/17 07:50 Room Air 05/03/17 07:34 97 05/03/17 07:00 97.7 16 97.7 05/02/17 14:20 2.0 I&O Intake and Output 05/03/17 07:00 Intake Total 1400 ml Output Total 400 ml Balance 1000 ml Intake Oral 600 ml IV Total 800 ml Output Urine Total 400 ml # Voids 7 General: Alert, Oriented X3, Cooperative, No acute distress Abdomen: Soft, Other (moderate to severe tenderness to LLQ) Labs Laboratory Tests Test 05/01/17 11:45 05/01/17 17:12 05/01/17 20:04 05/02/17 07:54 Glucose (Fingerstick) 165 mg/dL (70-99) 166 mg/dL (70-99) 208 mg/dL (70-99) 135 mg/dL (70-99) Test 05/02/17 11:36 05/02/17 17:03 05/02/17 20:57 05/03/17 03:50 Glucose (Fingerstick) 136 mg/dL (70-99) 137 mg/dL (70-99) 197 mg/dL (70-99) White Blood Count 13.4 x10^3/uL (4.0-11.0) Red Blood Count 4.42 x10^6/uL (4.30-5.70) Hemoglobin 12.4 g/dL (13.0-17.5) Hematocrit 36.8 % (39.0-53.0) Mean Corpuscular Volume 83 fL (79-100) Mean Corpuscular Hemoglobin 28 pg (25-35) Mean Corpuscular Hemoglobin Concent 34 g/dL (31-37) Red Cell Distribution Width 14.0 % (11.5-14.5) Platelet Count 308 x10^3/uL (140-400) Neutrophils (%) (Auto) 73 % (31-73) Lymphocytes (%) (Auto) 15 % (24-48) Monocytes (%) (Auto) 8 % (0-9) Eosinophils (%) (Auto) 3 % (0-3) Basophils (%) (Auto) 1 % (0-3) Neutrophils # (Auto) 9.9 x10^3uL (1.8-7.7) Lymphocytes # (Auto) 2.1 x10^3/uL (1.0-4.8) Monocytes # (Auto) 1.1 x10^3/uL (0.0-1.1) Eosinophils # (Auto) 0.4 x10^3/uL (0.0-0.7) Basophils # (Auto) 0.1 x10^3/uL (0.0-0.2) Sodium Level 143 mmol/L (136-145) Potassium Level 3.0 mmol/L (3.5-5.1) Chloride Level 105 mmol/L (98-107) Carbon Dioxide Level 27 mmol/L (21-32) Anion Gap 11 (6-14) Blood Urea Nitrogen 10 mg/dL (8-26) Creatinine 0.6 mg/dL (0.7-1.3) Estimated GFR (Cockcroft-Gault) 137.0 Glucose Level 126 mg/dL (70-99) Calcium Level 9.0 mg/dL (8.5-10.1) Test 05/03/17 07:27 Glucose (Fingerstick) 122 mg/dL (70-99) Laboratory Tests Test 05/02/17 11:36 05/02/17 17:03 05/02/17 20:57 05/03/17 03:50 Glucose (Fingerstick) 136 mg/dL (70-99) 137 mg/dL (70-99) 197 mg/dL (70-99) White Blood Count 13.4 x10^3/uL (4.0-11.0) Red Blood Count 4.42 x10^6/uL (4.30-5.70) Hemoglobin 12.4 g/dL (13.0-17.5) Hematocrit 36.8 % (39.0-53.0) Mean Corpuscular Volume 83 fL (79-100) Mean Corpuscular Hemoglobin 28 pg (25-35) Mean Corpuscular Hemoglobin Concent 34 g/dL (31-37) Red Cell Distribution Width 14.0 % (11.5-14.5) Platelet Count 308 x10^3/uL (140-400) Neutrophils (%) (Auto) 73 % (31-73) Lymphocytes (%) (Auto) 15 % (24-48) Monocytes (%) (Auto) 8 % (0-9) Eosinophils (%) (Auto) 3 % (0-3) Basophils (%) (Auto) 1 % (0-3) Neutrophils # (Auto) 9.9 x10^3uL (1.8-7.7) Lymphocytes # (Auto) 2.1 x10^3/uL (1.0-4.8) Monocytes # (Auto) 1.1 x10^3/uL (0.0-1.1) Eosinophils # (Auto) 0.4 x10^3/uL (0.0-0.7) Basophils # (Auto) 0.1 x10^3/uL (0.0-0.2) Sodium Level 143 mmol/L (136-145) Potassium Level 3.0 mmol/L (3.5-5.1) Chloride Level 105 mmol/L (98-107) Carbon Dioxide Level 27 mmol/L (21-32) Anion Gap 11 (6-14) Blood Urea Nitrogen 10 mg/dL (8-26) Creatinine 0.6 mg/dL (0.7-1.3) Estimated GFR (Cockcroft-Gault) 137.0 Glucose Level 126 mg/dL (70-99) Calcium Level 9.0 mg/dL (8.5-10.1) Test 05/03/17 07:27 Glucose (Fingerstick) 122 mg/dL (70-99) Problem List Problems Medical Problems: (1) Diverticulitis Status: Acute (2) Perforated bowel Status: Acute Assessment/Plan continued significant pain on exam, pain exacerbated with eating will review with Dr Huang may need to consider surgical intervention with ongoing symptoms Problems: JUAN LUIS HUANG MD 05/03/17 1253: SURGICAL PROGRESS NOTE Assessment/Plan pt seen and examined is up walking the halls discussed surgery he would like to continue with current management if possible follow labs, exams Problems: CONOR MILLER APRN May 03, 2017 10:37 JUAN LUIS HUANG MD May 03, 2017 12:53
[2017-05-03 11:00] VITALS: BP 121/68
[2017-05-03] MEDS: ENOXAPARIN 40 MG/0.4 ML SYRINGE. SQ SCH (11:06)
[2017-05-03 15:00] VITALS: BP 144/92
--- NOTE | 2017-05-03 16:23 | PDOC ---
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 Will f/u in clinic in 6-8 weeks with repeat CBC. ESTEPHANIA PEÑA DO May 03, 2017 16:23
[2017-05-03 19:10] VITALS: BP 139/80
[2017-05-03] MEDS: INSULIN DETEMIR 300 UNITS/3 ML INSULN.PEN. SQ SCH (21:00)
[2017-05-03] MEDS: ATORVASTATIN CALCIUM 20 MG TABLET PO SCH (22:25)
[2017-05-03 23:15] VITALS: BP 105/54
[2017-05-04] MEDS: IV NORMAL SALINE 1000ML BAG 1,000 ML IV SCH ×3 (00:51→21:26)
--- NOTE | 2017-05-04 02:41 | CONS ---
DATE OF CONSULTATION: 05/03/2017 REFERRING PROVIDER: Dr. Jacob. REASON FOR CONSULTATION: Neutrophilia. HISTORY OF PRESENT ILLNESS: The patient is a 61-year-old male, who was admitted to the hospital on 04/27/2017 with a perforated sigmoid diverticulum, atrial fibrillation with rapid ventricular response. He has been placed on bowel rest and antibiotics including Zosyn and micafungin. He is now tolerating a liquid diet and clinically his abdominal pain is improving. He has never had a colonoscopy. Upon admission, he was noted to have a WBC of 14.5 with mildly increased ANC ranging anywhere from 8.6 up to 15.1. Despite clinical improvements that neutrophilia has persisted. His hemoglobin and platelets are essentially normal. He reported that he had been told previously, this was an issue. I do have to outside CBCs from the [employer] system in 2008, when his labs were very similar to those seen this admission as well. Overall, he appears to be in good health. However, he does historically smoke at least 1.5 packs per day at least for the last 50 years. He has not been smoking while he has been admitted and plans to hopefully quit when he leaves the hospital. He does not have any other ongoing chronic infection or rashes. PAST MEDICAL HISTORY: Hypertension, hyperlipidemia, diabetes, TIA, chronic neutrophilia, mild and tobacco abuse. PAST SURGICAL HISTORY: Cholecystectomy. FAMILY HISTORY : Dad from heart disease. Mom from natural causes. Sister with diverticulitis. SOCIAL HISTORY: 1.5 packs per day for 50 years, interested in quitting; no alcohol or drug use. ALLERGIES: CIPROFLOXACIN. CURRENT MEDICATIONS: Lovenox, digoxin, Dilaudid, micafungin, aspirin, atorvastatin, metoprolol, pantoprazole, fentanyl, Zofran, Levemir, Zosyn, NovoLog, DuoNeb and nicotine gum. REVIEW OF SYSTEMS: Ten point review of systems completed and unremarkable with the exception of the abdominal pain, which is improving. PHYSICAL EXAMINATION: VITAL SIGNS: Temperature 97.8, pulse 61, respiratory rate 16, blood pressure 144/92, 97% O2 on room air. GENERAL: He is alert and oriented and in no distress. Overall, appears to be healthy. HEENT: Extraocular muscles are intact. Sclerae are without icterus. Mucous membranes are moist. CARDIOVASCULAR: Heart is currently in regular rhythm and rate. LUNGS: Clear to auscultation bilaterally. ABDOMEN: Soft with mild tenderness remains on the left lower quadrant. EXTREMITIES: No edema. NEUROLOGIC: No focal deficits. IMAGING AND LABORATORY DATA: Pertinent CBC findings both here at [facility] and outside records reviewed as above. CT imaging did reveal the sigmoid diverticulitis with increased inflammation from scan earlier this admission, but no obvious abscess. ASSESSMENT AND PLAN: The patient is a 61-year-old male with the following medical problems: 1. 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 It was also present in outside records in 2008, even prior to the acute issues going on this hospitalization. He is interested in quitting smoking. I will plan to see him back in our clinic in 6-8 weeks with repeat CBC that day. Given that it is always a mild neutrophilic predominance. I do not suspect any underlying chronic leukemias like chronic lymphocytic leukemia. Likely will resolve when he quits smoking. 2. Tobacco abuse. Plans to quit. Currently using nicotine gum. 3. Perforated sigmoid diverticulitis. On antibiotics. However, I do not suspect this is the full reason for his neutrophilia given that it has been present since at least 2008. Thank you for allowing me to participate in his care. Please call with any further questions. ESTEPHANIA PEÑA DO DR: Wil JOB#: [id number] / [id number] REYNA
[2017-05-04 03:15] VITALS: BP 140/76
[2017-05-04] MEDS: PIPERACILLIN/TAZOBACTAM 3.375 GM in IV NORMAL SALINE 50ML 50 ML IV SCH ×5 (05:56→18:20)
[2017-05-04] MEDS: METOPROLOL TARTRATE 5 MG/5 ML VIAL. IVP SCH ×4 (05:56→18:20)
[2017-05-04 07:56] VITALS: BP 140/77
[2017-05-04] MEDS: INSULIN ASPART 300 UNITS/3 ML INSULN.PEN SQ SCH ×3 (08:00→17:00)
--- NOTE | 2017-05-04 08:12 | PDOC ---
Infectious Disease Note Subjective Subjective Feeling better Less pain + BM ROS ROS GEN: Denies fevers, chills, sweats HEENT: Denies blurred vision, sore throat CV: Denies chest pain RESP: Denies shortness of air, cough GI: Denies n/v/d NEURO: Denies confusion, dizziness MSK: Denies weakness, joint pain/swelling Vital Sign Vital Signs Vital Signs Date Time Temp Pulse Resp B/P (MAP) Pulse Ox O2 Delivery O2 Flow Rate FiO2 05/04/17 07:56 98.1 74 22 140/77 (98) 94 Room Air 98.1 Physical Exam PHYSICAL EXAM GENERAL: NAD, Alert HEENT: PERRL, OC/OP NECK: Supple, no JVD, no LN LUNGS: Clear HEART: S1S2, no gallop, no murmur ABD: Soft, NT, no organomegaly, no rebound EXT: No edema, no cyanosis CENTER PUNCH OPERATOR: Alert, oriented x 3, no focal neurologic deficit SKIN: No rash IV: ok Labs Lab Laboratory Tests Test 05/03/17 10:39 05/03/17 16:50 05/03/17 21:03 05/04/17 07:44 Glucose (Fingerstick) 169 mg/dL (70-99) 170 mg/dL (70-99) 132 mg/dL (70-99) 128 mg/dL (70-99) Objective Assessment Perforated sigmoid diverticulum. Cipro allergy - ? seizure -has not had levoflox/Cipro since Leukocytosis Afib RVR Plan Plan of Care Cont Zosyn wbc high, though he says he has problem with wbc for long time, ? MDS/ Myeloproliferative disorder Supportive care repeat ct , if better, then change to po for d/c MARU VENTURA MD May 04, 2017 08:12
[2017-05-04] MEDS: IPRATRPIUM/ALBUTEROL 0.5/2.5MG 3 ML NEBU. NEB SCH ×4 (08:42→20:17)
[2017-05-04] MEDS: PANTOPRAZOLE IV PUSH 40 MG VIAL. IVP SCH (09:35)
[2017-05-04] MEDS: ASPIRIN ENTERIC COATED 81 MG TABLET.DR. PO SCH (09:35)
[2017-05-04] MEDS: ENOXAPARIN 40 MG/0.4 ML SYRINGE. SQ SCH (09:36)
[2017-05-04] MEDS: DIGOXIN IV 500 MCG/2 ML AMPUL. IV SCH (09:38)
--- NOTE | 2017-05-04 09:38 | PDOC ---
PROGRESS NOTES Chief Complaint Chief Complaint cc: abdominal pain A/P Leucocytosis: on Zosyn ID following, Repeat CT - no acute findings, Oncology following for leucocytosis, d/w surgery, PAFIB: Rate controlled, continue current care. cardiology following, on beta stevan Sigmoid diverticulitis with perforation:clear liquids, advance as per GS Pain due to above: on [employer] pump Dilaudid, per surgery, telemetry avoid co2 narcosis. HTN. HLD DM : SSI, see orders. History of Present Illness History of Present Illness no fever pain 5/10 not better BM TODAY Vitals Vitals Vital Signs Date Time Temp Pulse Resp B/P (MAP) Pulse Ox O2 Delivery O2 Flow Rate FiO2 05/04/17 08:43 97 Room Air 05/04/17 07:56 98.1 74 22 140/77 (98) 98.1 Physical Exam General: Alert, Oriented X3, Cooperative, No acute distress Heart: Regular rate, Normal S1, Normal S2, Other (2/6 systolic murmur to LLS border) Lungs: Clear Abdomen: Normal bowel sounds, Soft, No tenderness, Other Extremities: No clubbing Skin: No rashes, No breakdown Labs LABS Laboratory Tests Test 05/03/17 10:39 05/03/17 16:50 05/03/17 21:03 05/04/17 07:44 Glucose (Fingerstick) 169 mg/dL (70-99) 170 mg/dL (70-99) 132 mg/dL (70-99) 128 mg/dL (70-99) Assessment and Plan Assessmemt and Plan Problems Medical Problems: (1) Diverticulitis Status: Acute (2) Perforated bowel Status: Acute Problems: Comment Review of Relevant I have reviewed the following items ebony (where applicable) has been applied. Labs Laboratory Tests Test 05/02/17 11:36 05/02/17 17:03 05/02/17 20:57 05/03/17 03:50 Glucose (Fingerstick) 136 mg/dL (70-99) 137 mg/dL (70-99) 197 mg/dL (70-99) White Blood Count 13.4 x10^3/uL (4.0-11.0) Red Blood Count 4.42 x10^6/uL (4.30-5.70) Hemoglobin 12.4 g/dL (13.0-17.5) Hematocrit 36.8 % (39.0-53.0) Mean Corpuscular Volume 83 fL (79-100) Mean Corpuscular Hemoglobin 28 pg (25-35) Mean Corpuscular Hemoglobin Concent 34 g/dL (31-37) Red Cell Distribution Width 14.0 % (11.5-14.5) Platelet Count 308 x10^3/uL (140-400) Neutrophils (%) (Auto) 73 % (31-73) Lymphocytes (%) (Auto) 15 % (24-48) Monocytes (%) (Auto) 8 % (0-9) Eosinophils (%) (Auto) 3 % (0-3) Basophils (%) (Auto) 1 % (0-3) Neutrophils # (Auto) 9.9 x10^3uL (1.8-7.7) Lymphocytes # (Auto) 2.1 x10^3/uL (1.0-4.8) Monocytes # (Auto) 1.1 x10^3/uL (0.0-1.1) Eosinophils # (Auto) 0.4 x10^3/uL (0.0-0.7) Basophils # (Auto) 0.1 x10^3/uL (0.0-0.2) Sodium Level 143 mmol/L (136-145) Potassium Level 3.0 mmol/L (3.5-5.1) Chloride Level 105 mmol/L (98-107) Carbon Dioxide Level 27 mmol/L (21-32) Anion Gap 11 (6-14) Blood Urea Nitrogen 10 mg/dL (8-26) Creatinine 0.6 mg/dL (0.7-1.3) Estimated GFR (Cockcroft-Gault) 137.0 Glucose Level 126 mg/dL (70-99) Calcium Level 9.0 mg/dL (8.5-10.1) Test 05/03/17 07:27 05/03/17 10:39 05/03/17 16:50 05/03/17 21:03 Glucose (Fingerstick) 122 mg/dL (70-99) 169 mg/dL (70-99) 170 mg/dL (70-99) 132 mg/dL (70-99) Test 05/04/17 07:44 Glucose (Fingerstick) 128 mg/dL (70-99) Laboratory Tests Test 05/03/17 10:39 05/03/17 16:50 05/03/17 21:03 05/04/17 07:44 Glucose (Fingerstick) 169 mg/dL (70-99) 170 mg/dL (70-99) 132 mg/dL (70-99) 128 mg/dL (70-99) Medications Current Medications Morphine Sulfate 4 mg 1X ONCE IV Last administered on 04/27/17 08:03; Start 04/27/17 at 07:30; Stop 04/27/17 at 07:52; Status DC Ondansetron HCl (Zofran) 4 mg 1X ONCE IV Last administered on 04/27/17 08:12 ; Start 04/27/17 at 08:15; Stop 04/27/17 at 08:16; Status DC Iohexol (Omnipaque 300 Mg/ml) 75 ml 1X ONCE IV Last administered on 04/27/17 08:41; Start 04/27/17 at 08:15; Stop 04/27/17 at 08:16; Status DC Info (Do NOT chart on this entry -- for MONITORING) 1 each PRN DAILY PRN MC SEE COMMENTS; Start 04/27/17 at 08:15; Stop 04/29/17 at 08:14; Status DC Sodium Chloride 1,000 ml @ 1,000 mls/hr 1X ONCE IV Last administered on 09:30; Start 04/27/17 at 09:30; Stop 04/27/17 at 10:29; Status DC Piperacillin Sod/ Tazobactam Sod (Zosyn Per Pharmacy) 1 each PRN DAILY PRN MC SEE COMMENTS; Start 04/27/17 at 09:45 Piperacillin Sod/ Tazobactam Sod 3.375 gm/Sodium Chloride 50 ml @ 100 mls/hr 1X ONCE IV Last administered on 04/27/17 10:05; Start 04/27/17 at 09:45; Stop 04/27/17 at 10:14; Status DC Fentanyl Citrate (Fentanyl 2ml Vial) 50 mcg 1X ONCE IV Last administered on 10:27; Start 04/27/17 at 10:00; Stop 04/27/17 at 10:01; Status DC Ondansetron HCl (Zofran) 4 mg PRN Q8HRS PRN IV NAUSEA/VOMITING; Start 04/27/17 at 10:00; Stop 04/28/17 at 09:59; Status DC Fentanyl Citrate (Fentanyl 2ml Vial) 50 mcg PRN Q1HR PRN IV PAIN Last administered on 04/28/17 08:08; Start 04/27/17 at 10:00; Stop 04/28/17 at 09:59 ; Status DC Piperacillin Sod/ Tazobactam Sod 3.375 gm/Sodium Chloride 50 ml @ 100 mls/hr Q6HRS IV Last administered on 05/04/17 05:56; Start 04/27/17 at 18:00 Digoxin (Lanoxin) 500 mcg 1X ONCE IV Last administered on 04/27/17 10:44; Start 04/27/17 at 10:30; Stop 04/27/17 at 10:31; Status DC Sodium Chloride 1,000 ml @ 1,000 mls/hr 1X ONCE IV Last administered on 10:53; Start 04/27/17 at 11:00; Stop 04/27/17 at 11:59; Status DC Magnesium Sulfate/ Dextrose 100 ml @ 25 mls/hr 1X ONCE IV Last administered on 04/27/17 12:21; Start 04/27/17 at 11:00; Stop 04/27/17 at 14:59; Status DC Metoprolol Tartrate (Lopressor) 5 mg Q6HRS IVP ; Start 04/27/17 at 13:00; Stop 04/27/17 at 15:57; Status DC Sodium Chloride 1,000 ml @ 100 mls/hr Q10H IV Last administered on 05/03/17 17:41; Start 04/27/17 at 14:15 Saliva Substitute (Biotene Moisturizing Mouth) 2 spray PRN Q15MIN PRN PO DRY MOUTH Last administered on 04/27/17 18:18; Start 04/27/17 at 14:15 Nicotine Polacrilex (Nicorette Gum) 1 each PRN Q1HR PRN BC SMOKING CESSATION; Start 04/27/17 at 14:15 Albuterol/ Ipratropium (Duoneb) 3 ml RTQID NEB Last administered on 05/04/17 08:42; Start 04/27/17 at 16:00 Albuterol/ Ipratropium (Duoneb) 3 ml 1X ONCE NEB ; Start 04/27/17 at 14:15; Stop 04/27/17 at 14:16; Status DC Aspirin (Ecotrin) 81 mg DAILY PO ; Start 04/27/17 at 14:30; Stop 04/28/17 at 11: 52; Status DC Insulin Aspart (NovoLOG) 0-9 UNITS TIDWMEALS SQ Last administered on 05/03/17 12:43; Start 04/27/17 at 17:00 Dextrose (Dextrose 50%-Water Syringe) 12.5 gm PRN Q15MIN PRN IV SEE COMMENTS; Start 04/27/17 at 14:15 Insulin Detemir (Levemir) 25 units QHS SQ Last administered on 05/02/17 21:18 ; Start 04/27/17 at 21:00 Metoprolol Tartrate (Lopressor) 2.5 mg Q6HRS IVP ; Start 04/27/17 at 18:00; Stop 04/28/17 at 11:53; Status DC Atorvastatin Calcium (Lipitor) 20 mg QHS PO Last administered on 04/27/17 20: 38; Start 04/27/17 at 21:00; Stop 04/28/17 at 11:52; Status DC Ondansetron HCl (Zofran) 4 mg PRN Q6HRS PRN IV NAUSEA/VOMITING Last administered on 04/29/17 02:55; Start 04/28/17 at 10:45 Fentanyl Citrate (Fentanyl 2ml Vial) 50 mcg PRN Q2HR PRN IV PAIN; Start at 10:45; Stop 04/28/17 at 11:50; Status DC Fentanyl Citrate (Fentanyl 2ml Vial) 100 mcg PRN Q2HR PRN IV PAIN SEVERE Last administered on 05/01/17 20:58; Start 04/28/17 at 12:00 Pantoprazole Sodium (Protonix Vial) 40 mg DAILYAC IVP Last administered on 05/03 08:28; Start 04/28/17 at 12:00 Metoprolol Tartrate (Lopressor) 2.5 mg PRN Q6HRS PRN IVP BP 160/100; Start at 12:00 Metoprolol Tartrate (Lopressor) 2.5 mg Q6HRS IVP Last administered on 05:56; Start 04/28/17 at 12:00 Aspirin (Ecotrin) 81 mg DAILYWBKFT PO Last administered on 05/03/17 08:29; Start 04/29/17 at 08:00 Atorvastatin Calcium (Lipitor) 20 mg QHS PO Last administered on 05/03/17 22: 25; Start 04/28/17 at 21:00 Micafungin Sodium 100 mg/Dextrose 100 ml @ 100 mls/hr Q24H IV Last administered on 05/03/17 08:29; Start 04/29/17 at 09:00; Stop 05/04/17 at 08:38 ; Status DC Naloxone HCl (Narcan) 0.4 mg PRN Q2MIN PRN IV SEE INSTRUCTIONS; Start 04/29/17 at 09:45 Hydromorphone HCl 30 ml @ 0 mls/hr CONT PRN PRN IV PROTOCOL Last administered on 05/02/17 13:51; Start 04/29/17 at 09:45 Digoxin (Lanoxin) 125 mcg DAILY IV Last administered on 05/03/17 08:28; Start 04/29/17 at 11:00 Iohexol (Omnipaque 300 Mg/ml) 75 ml 1X ONCE IV ; Start 04/29/17 at 11:15; Stop 04/29/17 at 11:16; Status DC Info (Do NOT chart on this entry -- for MONITORING) 1 each PRN DAILY PRN MC SEE COMMENTS; Start 04/29/17 at 11:15; Stop 05/01/17 at 11:14; Status DC Potassium Chloride (Klor-Con) 20 meq 1X ONCE PO Last administered on 10:04; Start 04/30/17 at 10:00; Stop 04/30/17 at 10:01; Status DC Potassium Chloride/Dextrose 1,000 ml @ 75 mls/hr 1X ONCE IV Last administered on 04/30/17 12:54; Start 04/30/17 at 13:00; Stop 05/01/17 at 02:19 ; Status DC Enoxaparin Sodium (Lovenox 40mg Syringe) 40 mg Q24H SQ Last administered on 11:06; Start 05/01/17 at 11:00 Potassium Chloride (Klor-Con) 40 meq 1X ONCE PO Last administered on t 10:00; Start 05/03/17 at 09:45; Stop 05/03/17 at 09:46; Status DC Active Scripts Active Reported Lantus Solostar (Insulin Glargine,Hum.rec.anlog) 100 Unit/1 Ml Insuln.pen 65 Unit SQ BID Aleve (Naproxen Sodium) 220 Mg Capsule 440 Mg PO BID Aspir 81 (Aspirin) 81 Mg Tablet.dr 1 Tab PO DAILY Gabapentin 600 Mg Tablet 600 Mg PO TID Carvedilol 6.25 Mg Tablet 1 Tab PO BID Lisinopril 5 Mg Tablet 1 Tab PO DAILY Gemfibrozil 600 Mg Tablet 600 Mg PO BID Vitals/I & O Vital Sign - Last 24 Hours 05/03/17 05/03/17 05/03/17 05/03/17 11:00 11:15 12:36 15:00 Temp 98.2 97.8 98.2 97.8 Pulse 82 82 61 Resp 16 16 B/P (MAP) 121/68 (85) 121/68 144/92 (109) Pulse Ox 95 97 97 O2 Delivery Room Air Room Air Room Air 05/03/17 05/03/17 05/03/17 05/03/17 16:12 17:40 19:10 19:35 Temp 98.8 98.8 Pulse 61 76 Resp 22 B/P (MAP) 144/92 139/80 (99) Pulse Ox 96 96 96 O2 Delivery Room Air Room Air Room Air 05/03/17 05/03/17 05/04/17 05/04/17 20:00 23:15 00:00 03:15 Temp 98.3 98.5 98.3 98.5 Pulse 78 78 76 Resp 22 20 B/P (MAP) 105/54 (71) 105/54 140/76 (97) Pulse Ox 96 95 O2 Delivery Room Air Room Air Room Air 05/04/17 05/04/17 05/04/17 05:56 07:56 08:43 Temp 98.1 98.1 Pulse 76 74 Resp 22 B/P (MAP) 140/76 140/77 (98) Pulse Ox 94 97 O2 Delivery Room Air Room Air Intake and Output 05/03/17 05/03/17 05/04/17 15:00 23:00 07:00 Intake Total 540 ml 600 ml 1590 ml Balance 540 ml 600 ml 1590 ml CARLOS MURRELL MD May 04, 2017 09:38
[2017-05-04 10:42] VITALS: BP 133/75
[2017-05-04 14:30] VITALS: BP 136/68
--- NOTE | 2017-05-04 16:43 | PDOC ---
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 General: Alert, Oriented X3, Cooperative, No acute distress Labs Laboratory Tests Test 05/02/17 17:03 05/02/17 20:57 05/03/17 03:50 05/03/17 07:27 Glucose (Fingerstick) 137 mg/dL (70-99) 197 mg/dL (70-99) 122 mg/dL (70-99) White Blood Count 13.4 x10^3/uL (4.0-11.0) Red Blood Count 4.42 x10^6/uL (4.30-5.70) Hemoglobin 12.4 g/dL (13.0-17.5) Hematocrit 36.8 % (39.0-53.0) Mean Corpuscular Volume 83 fL (79-100) Mean Corpuscular Hemoglobin 28 pg (25-35) Mean Corpuscular Hemoglobin Concent 34 g/dL (31-37) Red Cell Distribution Width 14.0 % (11.5-14.5) Platelet Count 308 x10^3/uL (140-400) Neutrophils (%) (Auto) 73 % (31-73) Lymphocytes (%) (Auto) 15 % (24-48) Monocytes (%) (Auto) 8 % (0-9) Eosinophils (%) (Auto) 3 % (0-3) Basophils (%) (Auto) 1 % (0-3) Neutrophils # (Auto) 9.9 x10^3uL (1.8-7.7) Lymphocytes # (Auto) 2.1 x10^3/uL (1.0-4.8) Monocytes # (Auto) 1.1 x10^3/uL (0.0-1.1) Eosinophils # (Auto) 0.4 x10^3/uL (0.0-0.7) Basophils # (Auto) 0.1 x10^3/uL (0.0-0.2) Sodium Level 143 mmol/L (136-145) Potassium Level 3.0 mmol/L (3.5-5.1) Chloride Level 105 mmol/L (98-107) Carbon Dioxide Level 27 mmol/L (21-32) Anion Gap 11 (6-14) Blood Urea Nitrogen 10 mg/dL (8-26) Creatinine 0.6 mg/dL (0.7-1.3) Estimated GFR (Cockcroft-Gault) 137.0 Glucose Level 126 mg/dL (70-99) Calcium Level 9.0 mg/dL (8.5-10.1) Test 05/03/17 10:39 05/03/17 16:50 05/03/17 21:03 05/04/17 07:44 Glucose (Fingerstick) 169 mg/dL (70-99) 170 mg/dL (70-99) 132 mg/dL (70-99) 128 mg/dL (70-99) Test 05/04/17 11:30 Glucose (Fingerstick) 150 mg/dL (70-99) Laboratory Tests Test 05/03/17 16:50 05/03/17 21:03 05/04/17 07:44 05/04/17 11:30 Glucose (Fingerstick) 170 mg/dL (70-99) 132 mg/dL (70-99) 128 mg/dL (70-99) 150 mg/dL (70-99) Problem List Problems Medical Problems: (1) Diverticulitis Status: Acute (2) Perforated bowel Status: Acute Assessment/Plan stable check CT and labs in AM Problems: JUAN LUIS HUANG MD May 04, 2017 16:43
[2017-05-04 19:25] VITALS: BP 130/70
[2017-05-04] MEDS: ATORVASTATIN CALCIUM 20 MG TABLET PO SCH (21:25)
[2017-05-04] MEDS: METOPROLOL TART IMMED RELEASE 25 MG TABLET. PO SCH (21:26)
[2017-05-04] MEDS: INSULIN DETEMIR 300 UNITS/3 ML INSULN.PEN. SQ SCH (21:31)
[2017-05-04 22:58] VITALS: BP 114/65
[2017-05-05] MEDS: PIPERACILLIN/TAZOBACTAM 3.375 GM in IV NORMAL SALINE 50ML 50 ML IV SCH ×4 (00:16→18:03)
[2017-05-05 03:00] VITALS: BP 140/77
[2017-05-05 03:55] LABS: BASO # 0.1 x10^3/uL (0.0-0.2); BASO % 1 % (0-3); EOS % 3 % (0-3); HEMATOCRIT 34.4 % (39.0-53.0); HEMOGLOBIN 11.8 g/dL (13.0-17.5); LYMPH # 2.3 x10^3/uL (1.0-4.8); LYMPH % 17 % (24-48); MEAN CORPUSCULAR HEMOGLOBIN 28 pg (25-35); MEAN CORPUSCULAR HGB CONC 34 g/dL (31-37); MEAN CORPUSCULAR VOLUME 82 fL (79-100); MONO % 8 % (0-9); NEUT % 72 % (31-73); PLATELET COUNT 318 x10^3/uL (140-400); RED BLOOD COUNT 4.22 x10^6/uL (4.30-5.70); WHITE BLOOD COUNT 13.7 x10^3/uL (4.0-11.0)
[2017-05-05 04:17] LABS: CALCIUM 8.7 mg/dL (8.5-10.1); CREATININE 0.5 mg/dL (0.7-1.3)
[2017-05-05] MEDS: POTASSIUM CHLORIDE 10MEQ 100 ML IV SCH ×4 (05:53→11:04)
[2017-05-05] MEDS: IPRATRPIUM/ALBUTEROL 0.5/2.5MG 3 ML NEBU. NEB SCH ×4 (07:44→20:35)
[2017-05-05] MEDS ORDERED: IOHEXOL 300 MG/ML 75 ML VIAL IV ONE (07:45)
[2017-05-05 07:47] VITALS: BP 154/88
[2017-05-05] MEDS: INSULIN ASPART 300 UNITS/3 ML INSULN.PEN SQ SCH ×3 (08:00→17:00)
--- NOTE | 2017-05-05 08:37 | PDOC ---
CONOR MILLER [employer] MA[employer] 05/05/17 0837: SURGICAL PROGRESS NOTE Subjective pain about the same liquids yesterday + stool yesterday Vital Signs Vital Signs Date Time Temp Pulse Resp B/P (MAP) Pulse Ox O2 Delivery O2 Flow Rate FiO2 05/05/17 07:47 97.9 86 23 154/88 (110) 96 Room Air 97.9 I&O Intake and Output 05/05/17 07:00 Intake Total 660 ml Balance 660 ml Intake Oral 660 ml # Voids 8 # Bowel Movements 2 General: Alert, Oriented X3, Cooperative, No acute distress Abdomen: Soft, Other (LLQ tenderness, moderate) Labs Laboratory Tests Test 05/03/17 10:39 05/03/17 16:50 05/03/17 21:03 05/04/17 07:44 Glucose (Fingerstick) 169 mg/dL (70-99) 170 mg/dL (70-99) 132 mg/dL (70-99) 128 mg/dL (70-99) Test 05/04/17 11:30 05/04/17 16:44 05/04/17 20:50 05/05/17 03:25 Glucose (Fingerstick) 150 mg/dL (70-99) 141 mg/dL (70-99) 142 mg/dL (70-99) White Blood Count 13.7 x10^3/uL (4.0-11.0) Red Blood Count 4.22 x10^6/uL (4.30-5.70) Hemoglobin 11.8 g/dL (13.0-17.5) Hematocrit 34.4 % (39.0-53.0) Mean Corpuscular Volume 82 fL (79-100) Mean Corpuscular Hemoglobin 28 pg (25-35) Mean Corpuscular Hemoglobin Concent 34 g/dL (31-37) Red Cell Distribution Width 14.0 % (11.5-14.5) Platelet Count 318 x10^3/uL (140-400) Neutrophils (%) (Auto) 72 % (31-73) Lymphocytes (%) (Auto) 17 % (24-48) Monocytes (%) (Auto) 8 % (0-9) Eosinophils (%) (Auto) 3 % (0-3) Basophils (%) (Auto) 1 % (0-3) Neutrophils # (Auto) 9.9 x10^3uL (1.8-7.7) Lymphocytes # (Auto) 2.3 x10^3/uL (1.0-4.8) Monocytes # (Auto) 1.0 x10^3/uL (0.0-1.1) Eosinophils # (Auto) 0.4 x10^3/uL (0.0-0.7) Basophils # (Auto) 0.1 x10^3/uL (0.0-0.2) Sodium Level 142 mmol/L (136-145) Potassium Level 2.8 mmol/L (3.5-5.1) Chloride Level 104 mmol/L (98-107) Carbon Dioxide Level 25 mmol/L (21-32) Anion Gap 13 (6-14) Blood Urea Nitrogen 7 mg/dL (8-26) Creatinine 0.5 mg/dL (0.7-1.3) Estimated GFR (Cockcroft-Gault) 169.0 Glucose Level 107 mg/dL (70-99) Calcium Level 8.7 mg/dL (8.5-10.1) Test 05/05/17 07:57 Glucose (Fingerstick) 93 mg/dL (70-99) Laboratory Tests Test 05/04/17 11:30 05/04/17 16:44 05/04/17 20:50 05/05/17 03:25 Glucose (Fingerstick) 150 mg/dL (70-99) 141 mg/dL (70-99) 142 mg/dL (70-99) White Blood Count 13.7 x10^3/uL (4.0-11.0) Red Blood Count 4.22 x10^6/uL (4.30-5.70) Hemoglobin 11.8 g/dL (13.0-17.5) Hematocrit 34.4 % (39.0-53.0) Mean Corpuscular Volume 82 fL (79-100) Mean Corpuscular Hemoglobin 28 pg (25-35) Mean Corpuscular Hemoglobin Concent 34 g/dL (31-37) Red Cell Distribution Width 14.0 % (11.5-14.5) Platelet Count 318 x10^3/uL (140-400) Neutrophils (%) (Auto) 72 % (31-73) Lymphocytes (%) (Auto) 17 % (24-48) Monocytes (%) (Auto) 8 % (0-9) Eosinophils (%) (Auto) 3 % (0-3) Basophils (%) (Auto) 1 % (0-3) Neutrophils # (Auto) 9.9 x10^3uL (1.8-7.7) Lymphocytes # (Auto) 2.3 x10^3/uL (1.0-4.8) Monocytes # (Auto) 1.0 x10^3/uL (0.0-1.1) Eosinophils # (Auto) 0.4 x10^3/uL (0.0-0.7) Basophils # (Auto) 0.1 x10^3/uL (0.0-0.2) Sodium Level 142 mmol/L (136-145) Potassium Level 2.8 mmol/L (3.5-5.1) Chloride Level 104 mmol/L (98-107) Carbon Dioxide Level 25 mmol/L (21-32) Anion Gap 13 (6-14) Blood Urea Nitrogen 7 mg/dL (8-26) Creatinine 0.5 mg/dL (0.7-1.3) Estimated GFR (Cockcroft-Gault) 169.0 Glucose Level 107 mg/dL (70-99) Calcium Level 8.7 mg/dL (8.5-10.1) Test 05/05/17 07:57 Glucose (Fingerstick) 93 mg/dL (70-99) Problem List Problems Medical Problems: (1) Diverticulitis Status: Acute (2) Perforated bowel Status: Acute Assessment/Plan plan for CT today hypokalemia, has been replaced today wbc unchanged Problems: JUAN LUIS HUANG MD 05/05/17 1307: SURGICAL PROGRESS NOTE Assessment/Plan reviewed CT now has pericolonic abscess with SBO recommended surgery for sigmoid resection, probable diversion, release small bowel obstruction. after discussing with his , he will proceed on OR schedule for tomorrow Problems: CONOR MILLER APRN May 05, 2017 08:37 JUAN LUIS HUANG MD May 05, 2017 13:07
--- NOTE | 2017-05-05 08:39 | PDOC ---
Infectious Disease Note Subjective Subjective Feeling better Less pain + BM ROS ROS GEN: Denies fevers, chills, sweats HEENT: Denies blurred vision, sore throat CV: Denies chest pain RESP: Denies shortness of air, cough GI: Denies n/v/d NEURO: Denies confusion, dizziness MSK: Denies weakness, joint pain/swelling Vital Sign Vital Signs Vital Signs Date Time Temp Pulse Resp B/P (MAP) Pulse Ox O2 Delivery O2 Flow Rate FiO2 05/05/17 07:47 97.9 86 23 154/88 (110) 96 Room Air 97.9 Physical Exam PHYSICAL EXAM GENERAL: NAD, Alert HEENT: PERRL, OC/OP NECK: Supple, no JVD, no LN LUNGS: Clear HEART: S1S2, no gallop, no murmur ABD: Soft, NT, no organomegaly, no rebound EXT: No edema, no cyanosis 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, oriented x 3, no focal neurologic deficit SKIN: No rash IV: ok Labs Lab Laboratory Tests Test 05/04/17 11:30 05/04/17 16:44 05/04/17 20:50 05/05/17 03:25 Glucose (Fingerstick) 150 mg/dL (70-99) 141 mg/dL (70-99) 142 mg/dL (70-99) White Blood Count 13.7 x10^3/uL (4.0-11.0) Red Blood Count 4.22 x10^6/uL (4.30-5.70) Hemoglobin 11.8 g/dL (13.0-17.5) Hematocrit 34.4 % (39.0-53.0) Mean Corpuscular Volume 82 fL (79-100) Mean Corpuscular Hemoglobin 28 pg (25-35) Mean Corpuscular Hemoglobin Concent 34 g/dL (31-37) Red Cell Distribution Width 14.0 % (11.5-14.5) Platelet Count 318 x10^3/uL (140-400) Neutrophils (%) (Auto) 72 % (31-73) Lymphocytes (%) (Auto) 17 % (24-48) Monocytes (%) (Auto) 8 % (0-9) Eosinophils (%) (Auto) 3 % (0-3) Basophils (%) (Auto) 1 % (0-3) Neutrophils # (Auto) 9.9 x10^3uL (1.8-7.7) Lymphocytes # (Auto) 2.3 x10^3/uL (1.0-4.8) Monocytes # (Auto) 1.0 x10^3/uL (0.0-1.1) Eosinophils # (Auto) 0.4 x10^3/uL (0.0-0.7) Basophils # (Auto) 0.1 x10^3/uL (0.0-0.2) Sodium Level 142 mmol/L (136-145) Potassium Level 2.8 mmol/L (3.5-5.1) Chloride Level 104 mmol/L (98-107) Carbon Dioxide Level 25 mmol/L (21-32) Anion Gap 13 (6-14) Blood Urea Nitrogen 7 mg/dL (8-26) Creatinine 0.5 mg/dL (0.7-1.3) Estimated GFR (Cockcroft-Gault) 169.0 Glucose Level 107 mg/dL (70-99) Calcium Level 8.7 mg/dL (8.5-10.1) Test 05/05/17 07:57 Glucose (Fingerstick) 93 mg/dL (70-99) Objective Assessment Perforated sigmoid diverticulum. Cipro allergy - ? seizure -has not had levoflox/Cipro since Leukocytosis Afib RVR Plan Plan of Care Cont Zosyn wbc high, though he says he has problem with wbc for long time, ? MDS/ Myeloproliferative disorder Supportive care repeat ct , if better, then change to po for d/c MARU VENTURA MD May 05, 2017 08:39
[2017-05-05] MEDS: METOPROLOL TART IMMED RELEASE 25 MG TABLET. PO SCH ×2 (09:04→22:24)
[2017-05-05] MEDS: ASPIRIN ENTERIC COATED 81 MG TABLET.DR. PO SCH (09:04)
[2017-05-05] MEDS: PANTOPRAZOLE 40 MG TABLET.DR. PO SCH (09:04)
[2017-05-05] MEDS: DIGOXIN 125 MCG TABLET. PO SCH (09:05)
[2017-05-05] MEDS: GEMFIBROZIL 600 MG TABLET. PO SCH ×2 (09:08→22:21)
[2017-05-05] MEDS: GABAPENTIN 300 MG CAPSULE. PO SCH ×3 (09:09→22:21)
[2017-05-05] MEDS: LISINOPRIL 5 MG TABLET. PO SCH (09:09)
--- NOTE | 2017-05-05 11:34 | PDOC ---
PROGRESS NOTES Chief Complaint Chief Complaint 1. Sigmoid diverticulitis with perforation 2. Paroxysmal atrial fivb s.p RVR now nSR 3. DM 2 on insulin 4. SIRS POA, no sepsis 5. Acute abd pain sec to # 1 on [employer] History of Present Illness History of Present Illness RPt CT abd pending but on wet read might show some abscess Dw GS - options include iR drainage or sx Pt cant decide,wants to wait for [employer] running, looks comfortable NO fevers ID now on board PLAN: NPO MIght need PICC and TPN Await formal read CT Dw GS and pt COnt iV zosyn MOnitor for fevers or white ct Ok to t.o CVC to med surg floor on tele Vitals Vitals Vital Signs Date Time Temp Pulse Resp B/P (MAP) Pulse Ox O2 Delivery O2 Flow Rate FiO2 05/05/17 10:57 Room Air 05/05/17 09:09 86 154/88 05/05/17 07:47 97.9 23 96 97.9 Physical Exam General: Alert, Oriented X3, Cooperative, No acute distress Heart: Regular rate, Normal S1, Normal S2, Other (2/6 systolic murmur to LLS border) Lungs: Clear Abdomen: Soft, Other (LLQ tenderness, moderate) Extremities: No clubbing Skin: No rashes, No breakdown Labs LABS Laboratory Tests Test 05/04/17 16:44 05/04/17 20:50 05/05/17 03:25 05/05/17 07:57 Glucose (Fingerstick) 141 mg/dL (70-99) 142 mg/dL (70-99) 93 mg/dL (70-99) White Blood Count 13.7 x10^3/uL (4.0-11.0) Red Blood Count 4.22 x10^6/uL (4.30-5.70) Hemoglobin 11.8 g/dL (13.0-17.5) Hematocrit 34.4 % (39.0-53.0) Mean Corpuscular Volume 82 fL (79-100) Mean Corpuscular Hemoglobin 28 pg (25-35) Mean Corpuscular Hemoglobin Concent 34 g/dL (31-37) Red Cell Distribution Width 14.0 % (11.5-14.5) Platelet Count 318 x10^3/uL (140-400) Neutrophils (%) (Auto) 72 % (31-73) Lymphocytes (%) (Auto) 17 % (24-48) Monocytes (%) (Auto) 8 % (0-9) Eosinophils (%) (Auto) 3 % (0-3) Basophils (%) (Auto) 1 % (0-3) Neutrophils # (Auto) 9.9 x10^3uL (1.8-7.7) Lymphocytes # (Auto) 2.3 x10^3/uL (1.0-4.8) Monocytes # (Auto) 1.0 x10^3/uL (0.0-1.1) Eosinophils # (Auto) 0.4 x10^3/uL (0.0-0.7) Basophils # (Auto) 0.1 x10^3/uL (0.0-0.2) Sodium Level 142 mmol/L (136-145) Potassium Level 2.8 mmol/L (3.5-5.1) Chloride Level 104 mmol/L (98-107) Carbon Dioxide Level 25 mmol/L (21-32) Anion Gap 13 (6-14) Blood Urea Nitrogen 7 mg/dL (8-26) Creatinine 0.5 mg/dL (0.7-1.3) Estimated GFR (Cockcroft-Gault) 169.0 Glucose Level 107 mg/dL (70-99) Calcium Level 8.7 mg/dL (8.5-10.1) Review of Systems Review of Systems abd pain, no emesis, diarrhea, cp, soa Assessment and Plan Assessmemt and Plan Problems Medical Problems: (1) Diverticulitis Status: Acute (2) Perforated bowel Status: Acute Problems: Comment Review of Relevant I have reviewed the following items ebony (where applicable) has been applied. Labs Laboratory Tests Test 05/03/17 16:50 05/03/17 21:03 05/04/17 07:44 05/04/17 11:30 Glucose (Fingerstick) 170 mg/dL (70-99) 132 mg/dL (70-99) 128 mg/dL (70-99) 150 mg/dL (70-99) Test 05/04/17 16:44 05/04/17 20:50 05/05/17 03:25 05/05/17 07:57 Glucose (Fingerstick) 141 mg/dL (70-99) 142 mg/dL (70-99) 93 mg/dL (70-99) White Blood Count 13.7 x10^3/uL (4.0-11.0) Red Blood Count 4.22 x10^6/uL (4.30-5.70) Hemoglobin 11.8 g/dL (13.0-17.5) Hematocrit 34.4 % (39.0-53.0) Mean Corpuscular Volume 82 fL (79-100) Mean Corpuscular Hemoglobin 28 pg (25-35) Mean Corpuscular Hemoglobin Concent 34 g/dL (31-37) Red Cell Distribution Width 14.0 % (11.5-14.5) Platelet Count 318 x10^3/uL (140-400) Neutrophils (%) (Auto) 72 % (31-73) Lymphocytes (%) (Auto) 17 % (24-48) Monocytes (%) (Auto) 8 % (0-9) Eosinophils (%) (Auto) 3 % (0-3) Basophils (%) (Auto) 1 % (0-3) Neutrophils # (Auto) 9.9 x10^3uL (1.8-7.7) Lymphocytes # (Auto) 2.3 x10^3/uL (1.0-4.8) Monocytes # (Auto) 1.0 x10^3/uL (0.0-1.1) Eosinophils # (Auto) 0.4 x10^3/uL (0.0-0.7) Basophils # (Auto) 0.1 x10^3/uL (0.0-0.2) Sodium Level 142 mmol/L (136-145) Potassium Level 2.8 mmol/L (3.5-5.1) Chloride Level 104 mmol/L (98-107) Carbon Dioxide Level 25 mmol/L (21-32) Anion Gap 13 (6-14) Blood Urea Nitrogen 7 mg/dL (8-26) Creatinine 0.5 mg/dL (0.7-1.3) Estimated GFR (Cockcroft-Gault) 169.0 Glucose Level 107 mg/dL (70-99) Calcium Level 8.7 mg/dL (8.5-10.1) Laboratory Tests Test 05/04/17 16:44 6/21/17 20:50 05/05/17 03:25 05/05/17 07:57 Glucose (Fingerstick) 141 mg/dL (70-99) 142 mg/dL (70-99) 93 mg/dL (70-99) White Blood Count 13.7 x10^3/uL (4.0-11.0) Red Blood Count 4.22 x10^6/uL (4.30-5.70) Hemoglobin 11.8 g/dL (13.0-17.5) Hematocrit 34.4 % (39.0-53.0) Mean Corpuscular Volume 82 fL (79-100) Mean Corpuscular Hemoglobin 28 pg (25-35) Mean Corpuscular Hemoglobin Concent 34 g/dL (31-37) Red Cell Distribution Width 14.0 % (11.5-14.5) Platelet Count 318 x10^3/uL (140-400) Neutrophils (%) (Auto) 72 % (31-73) Lymphocytes (%) (Auto) 17 % (24-48) Monocytes (%) (Auto) 8 % (0-9) Eosinophils (%) (Auto) 3 % (0-3) Basophils (%) (Auto) 1 % (0-3) Neutrophils # (Auto) 9.9 x10^3uL (1.8-7.7) Lymphocytes # (Auto) 2.3 x10^3/uL (1.0-4.8) Monocytes # (Auto) 1.0 x10^3/uL (0.0-1.1) Eosinophils # (Auto) 0.4 x10^3/uL (0.0-0.7) Basophils # (Auto) 0.1 x10^3/uL (0.0-0.2) Sodium Level 142 mmol/L (136-145) Potassium Level 2.8 mmol/L (3.5-5.1) Chloride Level 104 mmol/L (98-107) Carbon Dioxide Level 25 mmol/L (21-32) Anion Gap 13 (6-14) Blood Urea Nitrogen 7 mg/dL (8-26) Creatinine 0.5 mg/dL (0.7-1.3) Estimated GFR (Cockcroft-Gault) 169.0 Glucose Level 107 mg/dL (70-99) Calcium Level 8.7 mg/dL (8.5-10.1) Medications Current Medications Morphine Sulfate 4 mg 1X ONCE IV Last administered on 04/27/17 08:03; Start 04/27/17 at 07:30; Stop 04/27/17 at 07:52; Status DC Ondansetron HCl (Zofran) 4 mg 1X ONCE IV Last administered on 04/27/17 08:12 ; Start 04/27/17 at 08:15; Stop 04/27/17 at 08:16; Status DC Iohexol (Omnipaque 300 Mg/ml) 75 ml 1X ONCE IV Last administered on 04/27/17 08:41; Start 04/27/17 at 08:15; Stop 04/27/17 at 08:16; Status DC Info (Do NOT chart on this entry -- for MONITORING) 1 each PRN DAILY PRN MC SEE COMMENTS; Start 04/27/17 at 08:15; Stop 04/29/17 at 08:14; Status DC Sodium Chloride 1,000 ml @ 1,000 mls/hr 1X ONCE IV Last administered on 09:30; Start 04/27/17 at 09:30; Stop 04/27/17 at 10:29; Status DC Piperacillin Sod/ Tazobactam Sod (Zosyn Per Pharmacy) 1 each PRN DAILY PRN MC SEE COMMENTS; Start 04/27/17 at 09:45; Stop 05/05/17 at 10:29; Status DC Piperacillin Sod/ Tazobactam Sod 3.375 gm/Sodium Chloride 50 ml @ 100 mls/hr 1X ONCE IV Last administered on 04/27/17 10:05; Start 04/27/17 at 09:45; Stop 04/27/17 at 10:14; Status DC Fentanyl Citrate (Fentanyl 2ml Vial) 50 mcg 1X ONCE IV Last administered on 10:27; Start 04/27/17 at 10:00; Stop 04/27/17 at 10:01; Status DC Ondansetron HCl (Zofran) 4 mg PRN Q8HRS PRN IV NAUSEA/VOMITING; Start 04/27/17 at 10:00; Stop 04/28/17 at 09:59; Status DC Fentanyl Citrate (Fentanyl 2ml Vial) 50 mcg PRN Q1HR PRN IV PAIN Last administered on 04/28/17 08:08; Start 04/27/17 at 10:00; Stop 04/28/17 at 09:59 ; Status DC Piperacillin Sod/ Tazobactam Sod 3.375 gm/Sodium Chloride 50 ml @ 100 mls/hr Q6HRS IV Last administered on 05/05/17 05:22; Start 04/27/17 at 18:00 Digoxin (Lanoxin) 500 mcg 1X ONCE IV Last administered on 04/27/17 10:44; Start 04/27/17 at 10:30; Stop 04/27/17 at 10:31; Status DC Sodium Chloride 1,000 ml @ 1,000 mls/hr 1X ONCE IV Last administered on 10:53; Start 04/27/17 at 11:00; Stop 04/27/17 at 11:59; Status DC Magnesium Sulfate/ Dextrose 100 ml @ 25 mls/hr 1X ONCE IV Last administered on 04/27/17 12:21; Start 04/27/17 at 11:00; Stop 04/27/17 at 14:59; Status DC Metoprolol Tartrate (Lopressor) 5 mg Q6HRS IVP ; Start 04/27/17 at 13:00; Stop 04/27/17 at 15:57; Status DC Sodium Chloride 1,000 ml @ 100 mls/hr Q10H IV Last administered on 05/04/17 21:26; Start 04/27/17 at 14:15 Saliva Substitute (Biotene Moisturizing Mouth) 2 spray PRN Q15MIN PRN PO DRY MOUTH Last administered on 04/27/17 18:18; Start 04/27/17 at 14:15 Nicotine Polacrilex (Nicorette Gum) 1 each PRN Q1HR PRN BC SMOKING CESSATION; Start 04/27/17 at 14:15 Albuterol/ Ipratropium (Duoneb) 3 ml RTQID NEB Last administered on 05/05/17 10:56; Start 04/27/17 at 16:00 Albuterol/ Ipratropium (Duoneb) 3 ml 1X ONCE NEB ; Start 04/27/17 at 14:15; Stop 04/27/17 at 14:16; Status DC Aspirin (Ecotrin) 81 mg DAILY PO ; Start 04/27/17 at 14:30; Stop 04/28/17 at 11: 52; Status DC Insulin Aspart (NovoLOG) 0-9 UNITS TIDWMEALS SQ Last administered on 05/03/17 12:43; Start 04/27/17 at 17:00 Dextrose (Dextrose 50%-Water Syringe) 12.5 gm PRN Q15MIN PRN IV SEE COMMENTS; Start 04/27/17 at 14:15 Insulin Detemir (Levemir) 25 units QHS SQ Last administered on 05/04/17 21:31 ; Start 04/27/17 at 21:00 Metoprolol Tartrate (Lopressor) 2.5 mg Q6HRS IVP ; Start 04/27/17 at 18:00; Stop 04/28/17 at 11:53; Status DC Atorvastatin Calcium (Lipitor) 20 mg QHS PO Last administered on 04/27/17 20: 38; Start 04/27/17 at 21:00; Stop 04/28/17 at 11:52; Status DC Ondansetron HCl (Zofran) 4 mg PRN Q6HRS PRN IV NAUSEA/VOMITING Last administered on 04/29/17 02:55; Start 04/28/17 at 10:45 Fentanyl Citrate (Fentanyl 2ml Vial) 50 mcg PRN Q2HR PRN IV PAIN; Start at 10:45; Stop 04/28/17 at 11:50; Status DC Fentanyl Citrate (Fentanyl 2ml Vial) 100 mcg PRN Q2HR PRN IV PAIN SEVERE Last administered on 05/01/17 20:58; Start 04/28/17 at 12:00 Pantoprazole Sodium (Protonix Vial) 40 mg DAILYAC IVP Last administered on 05/04 09:35; Start 04/28/17 at 12:00; Stop 05/04/17 at 19:22; Status DC Metoprolol Tartrate (Lopressor) 2.5 mg PRN Q6HRS PRN IVP BP 160/100; Start at 12:00; Stop 05/04/17 at 19:22; Status DC Metoprolol Tartrate (Lopressor) 2.5 mg Q6HRS IVP Last administered on 18:20; Start 04/28/17 at 12:00; Stop 05/04/17 at 19:22; Status DC Aspirin (Ecotrin) 81 mg DAILYWBKFT PO Last administered on 05/05/17 09:04; Start 04/29/17 at 08:00 Atorvastatin Calcium (Lipitor) 20 mg QHS PO Last administered on 05/04/17 21: 25; Start 04/28/17 at 21:00 Micafungin Sodium 100 mg/Dextrose 100 ml @ 100 mls/hr Q24H IV Last administered on 05/03/17 08:29; Start 04/29/17 at 09:00; Stop 05/04/17 at 08:38 ; Status DC Naloxone HCl (Narcan) 0.4 mg PRN Q2MIN PRN IV SEE INSTRUCTIONS; Start 04/29/17 at 09:45 Hydromorphone HCl 30 ml @ 0 mls/hr CONT PRN PRN IV PROTOCOL Last administered on 05/02/17 13:51; Start 04/29/17 at 09:45 Digoxin (Lanoxin) 125 mcg DAILY IV Last administered on 05/04/17 09:38; Start 04/29/17 at 11:00; Stop 05/04/17 at 19:22; Status DC Iohexol (Omnipaque 300 Mg/ml) 75 ml 1X ONCE IV ; Start 04/29/17 at 11:15; Stop 04/29/17 at 11:16; Status DC Info (Do NOT chart on this entry -- for MONITORING) 1 each PRN DAILY PRN MC SEE COMMENTS; Start 04/29/17 at 11:15; Stop 05/01/17 at 11:14; Status DC Potassium Chloride (Klor-Con) 20 meq 1X ONCE PO Last administered on 10:04; Start 04/30/17 at 10:00; Stop 04/30/17 at 10:01; Status DC Potassium Chloride/Dextrose 1,000 ml @ 75 mls/hr 1X ONCE IV Last administered on 04/30/17 12:54; Start 04/30/17 at 13:00; Stop 05/01/17 at 02:19 ; Status DC Enoxaparin Sodium (Lovenox 40mg Syringe) 40 mg Q24H SQ Last administered on 09:36; Start 05/01/17 at 11:00 Potassium Chloride (Klor-Con) 40 meq 1X ONCE PO Last administered on 10:00; Start 05/03/17 at 09:45; Stop 05/03/17 at 09:46; Status DC Metoprolol Tartrate (Lopressor) 12.5 mg BID PO Last administered on 05/05/17 09:04; Start 05/04/17 at 21:00 Pantoprazole Sodium (Protonix) 40 mg DAILYAC PO Last administered on 05/05/17 09:04; Start 05/05/17 at 07:30 Digoxin (Lanoxin) 125 mcg DAILY PO Last administered on 05/05/17 09:05; Start 05/05/17 at 09:00 Potassium Chloride 100 ml @ 100 mls/hr Q1H IV Last administered on 05/05/17 11:04; Start 05/05/17 at 05:30; Stop 05/05/17 at 09:29; Status DC Iohexol (Omnipaque 300 Mg/ml) 75 ml 1X ONCE IV Last administered on 05/05/17 08:47; Start 05/05/17 at 07:45; Stop 05/05/17 at 07:46; Status DC Gemfibrozil (Lopid) 600 mg BID PO Last administered on 05/05/17 09:08; Start 05/05/17 at 09:00 Lisinopril (Prinivil) 5 mg DAILY PO Last administered on 05/05/17 09:09; Start 05/05/17 at 09:00 Gabapentin (Neurontin) 600 mg TID PO Last administered on 05/05/17 09:09; Start 05/05/17 at 09:00 Active Scripts Active Reported Lantus Solostar (Insulin Glargine,Hum.rec.anlog) 100 Unit/1 Ml Insuln.pen 65 Unit SQ BID Aleve (Naproxen Sodium) 220 Mg Capsule 440 Mg PO BID Aspir 81 (Aspirin) 81 Mg Tablet. 1 Tab PO DAILY Gabapentin 600 Mg Tablet 600 Mg PO TID Carvedilol 6.25 Mg Tablet 1 Tab PO BID Lisinopril 5 Mg Tablet 1 Tab PO DAILY Gemfibrozil 600 Mg Tablet 600 Mg PO BID Vitals/I & O Vital Sign - Last 24 Hours 05/04/17 05/04/17 05/04/17 05/04/17 11:53 14:03 14:30 15:53 Temp 98.1 98.1 Pulse 80 72 Resp 24 B/P (MAP) 133/75 136/68 (90) Pulse Ox 97 O2 Delivery Room Air Room Air Room Air 05/04/17 05/04/17 05/04/17 05/04/17 18:20 19:25 20:10 20:18 Temp 97.9 97.9 Pulse 72 73 Resp 20 B/P (MAP) 136/68 130/70 (90) Pulse Ox 96 95 O2 Delivery Room Air Room Air Room Air 05/04/17 05/04/17 05/05/17 05/05/17 21:26 22:58 03:00 07:45 Temp 98.8 97.7 98.8 97.7 Pulse 73 80 78 Resp 18 18 B/P (MAP) 130/70 114/65 (81) 140/77 (98) Pulse Ox 94 95 98 O2 Delivery Room Air Room Air Room Air 05/05/17 05/05/17 05/05/17 05/05/17 07:47 08:00 09:04 09:05 Temp 97.9 97.9 Pulse 86 86 86 Resp 23 B/P (MAP) 154/88 (110) 154/88 154/88 Pulse Ox 96 O2 Delivery Room Air Room Air 05/05/17 05/05/17 09:09 10:57 Pulse 86 B/P (MAP) 154/88 O2 Delivery Room Air Intake and Output 05/04/17 05/04/17 05/05/17 15:00 23:00 07:00 Intake Total 460 ml 200 ml Balance 460 ml 200 ml MURIEL FUENTES MD May 05, 2017 11:34
[2017-05-05 11:39] VITALS: BP 136/75
[2017-05-05] MEDS: ENOXAPARIN 40 MG/0.4 ML SYRINGE. SQ SCH (12:40)
[2017-05-05] MEDS: IV NORMAL SALINE 1000ML BAG 1,000 ML IV SCH ×2 (12:42→16:51)
[2017-05-05] MEDS ORDERED: IV RINGERS,LACTATED 1000ML 1,000 ML IV SCH (13:12)
[2017-05-05 14:55] VITALS: BP 138/78
--- NOTE | 2017-05-05 16:57 | RAD ---
CT of the abdomen and pelvis with contrast, 05/05/2017: History: Follow-up diverticulitis Multidetector CT imaging was performed following an IV bolus injection of iodinated contrast material. Comparison is made to a study from 04/29/2017. There are numerous sigmoid diverticula with ongoing paracolic inflammation. There are extraluminal gas bubbles adjacent to the proximal sigmoid colon. There is a 6 cm collection of gas and fluid along the anterior aspect of the inflamed sigmoid colon, compatible with a paracolic abscess. It lies directly adjacent to a loop of small bowel. There is increasing distention of proximal and mid small bowel loops leading up to this region. The distal small bowel loops are of normal caliber. There is gas in the colon. The colon is not distended. There is mild streaky atelectasis and/or scarring in the lung bases. No hepatic abnormality is seen. The gallbladder is surgically absent. The pancreas is unremarkable. The spleen is of normal size. A small cyst is present in the left kidney. The kidneys show no evidence of obstruction. There is a trace amount of pleural fluid and atelectasis in the posterior costophrenic angle on the right. IMPRESSION: 1. Ongoing acute diverticulitis with a 6 cm paracolic abscess now evident. 2. Partial small bowel obstruction which appears to be secondary to this abscess. Note: The findings were called to the patient's nurse on the floor at 4:53 PM on 05/05/2017. PQRS Compliance Statement: One or more of the following individualized dose reduction techniques were utilized for this examination: 1. Automated exposure control 2. Adjustment of the mA and/or kV according to patient size 3. Use of iterative reconstruction technique
[2017-05-05 19:55] VITALS: BP 138/80
[2017-05-05] MEDS: INSULIN DETEMIR 300 UNITS/3 ML INSULN.PEN. SQ SCH (21:00)
[2017-05-05] MEDS: ATORVASTATIN CALCIUM 20 MG TABLET PO SCH (22:21)
[2017-05-05 22:52] VITALS: BP 134/79
[2017-05-06] MEDS: PIPERACILLIN/TAZOBACTAM 3.375 GM in IV NORMAL SALINE 50ML 50 ML IV SCH ×4 (02:03→18:00)
[2017-05-06 02:21] VITALS: BP 134/80
[2017-05-06] MEDS: IV NORMAL SALINE 1000ML BAG 1,000 ML IV SCH ×3 (02:51→22:51)
[2017-05-06 06:14] LABS: POTASSIUM 2.8 mmol/L (3.5-5.1)
[2017-05-06 07:00] VITALS: BP 145/78
[2017-05-06] MEDS ORDERED: MORPHINE SULFATE 4 MG/ML DISP.SYRIN. IV PRN (07:00)
[2017-05-06] MEDS ORDERED: fentaNYL PF VIAL 100 MCG/2 ML VIAL IV PRN ×2 (07:00)
[2017-05-06] MEDS ORDERED: MIDAZOLAM HCL/PF 2 MG/2 ML VIAL. IV PRN ×2 (07:00)
[2017-05-06] MEDS ORDERED: diphenhydrAMINE 50 MG/ML VIAL IV PRN ×2 (07:00→13:45)
[2017-05-06] MEDS ORDERED: PROCHLORPERAZINE 10 MG/2 ML VIAL. IV PRN (07:00)
[2017-05-06] MEDS ORDERED: MEPERIDINE PF 25 MG/ML VIAL. IV PRN (07:00)
[2017-05-06] MEDS: IV RINGERS,LACTATED 1000ML 1,000 ML IV SCH ×3 (07:00→15:00)
[2017-05-06] MEDS ORDERED: LIDOCAINE 1% 1 ML SYRINGE. ID PRN (07:00)
[2017-05-06] MEDS: IPRATRPIUM/ALBUTEROL 0.5/2.5MG 3 ML NEBU. NEB SCH ×4 (07:07→19:48)
[2017-05-06] MEDS: PANTOPRAZOLE 40 MG TABLET.DR. PO SCH (07:30)
[2017-05-06] MEDS ORDERED: SUCCINYLCHOLINE 200 MG/10 ML VIAL. ONE (07:47)
[2017-05-06] MEDS ORDERED: LIDOCAINE 2% PF Vial for OR 5 ML VIAL. ONE (07:47)
[2017-05-06] MEDS ORDERED: ROCURONIUM 50 MG/5 ML VIAL. ONE ×2 (07:47→11:18)
[2017-05-06] MEDS ORDERED: fentaNYL PF VIAL 100 MCG/2 ML VIAL ONE ×3 (07:47→11:51)
[2017-05-06] MEDS: INSULIN ASPART 300 UNITS/3 ML INSULN.PEN SQ SCH ×3 (08:00→16:36)
[2017-05-06] MEDS: ASPIRIN ENTERIC COATED 81 MG TABLET.DR. PO SCH (08:00)
[2017-05-06] MEDS: METOPROLOL TART IMMED RELEASE 25 MG TABLET. PO SCH ×2 (08:42→20:55)
[2017-05-06] MEDS: LISINOPRIL 5 MG TABLET. PO SCH (08:43)
[2017-05-06] MEDS: DIGOXIN 125 MCG TABLET. PO SCH (08:43)
[2017-05-06] MEDS: GEMFIBROZIL 600 MG TABLET. PO SCH ×2 (08:50→20:55)
[2017-05-06] MEDS: GABAPENTIN 300 MG CAPSULE. PO SCH ×3 (08:50→20:56)
[2017-05-06] MEDS ORDERED: PROPOFOL 20 ML IV ONE (10:00)
[2017-05-06] MEDS ORDERED: DEXAMETHASONE SOD PHOS 20 MG/5 ML VIAL. ONE (10:17)
[2017-05-06] MEDS ORDERED: SEVOFLURANE 61 TO 120 MINUTES. IH ONE (10:17)
[2017-05-06] MEDS ORDERED: ePHEDrine PF IN SALINE 50 MG/5 ML DISP.SYRIN IV ONE (10:21)
--- NOTE | 2017-05-06 10:44 | PDOC ---
PROGRESS NOTES Chief Complaint Chief Complaint 1. Sigmoid diverticulitis with perforation 2. Paroxysmal atrial fivb s.p RVR now nSR 3. DM 2 on insulin 4. SIRS POA, no sepsis 5. Acute abd pain sec to # 1 on POST ACUTE CARE NURSE PRACTITIONER 6. Sustained vtach (05/05/17) History of Present Illness History of Present Illness Out having GS - possible sigmoid resection to relieve obstrcn with indwelling ileostomy Went into vtach last night, > 4 beats - tele strip reviewed CArds aware On digoxina nd BB PLAN: Will await from sx Keep in CVC LAbs post op lceopatra AM MIght need PICC and TPN COnt iV zosyn MOnitor for fevers or white ct dw RN Vitals Vitals Vital Signs Date Time Temp Pulse Resp B/P (MAP) Pulse Ox O2 Delivery O2 Flow Rate FiO2 05/06/17 09:19 97.2 78 15 108/67 97 Room Air 2.0 97.2 Physical Exam General: Alert, Oriented X3, Cooperative, No acute distress Heart: Regular rate, Normal S1, Normal S2, Other (2/6 systolic murmur to LLS border) Lungs: Clear Abdomen: Soft, Other (LLQ tenderness, moderate) Extremities: No clubbing Skin: No rashes, No breakdown Labs LABS Laboratory Tests Test 05/05/17 11:51 05/05/17 17:06 05/05/17 20:18 05/06/17 07:25 Glucose (Fingerstick) 82 mg/dL (70-99) 91 mg/dL (70-99) 125 mg/dL (70-99) 130 mg/dL (70-99) Review of Systems Review of Systems out having sx Assessment and Plan Assessmemt and Plan Problems Medical Problems: (1) Diverticulitis Status: Acute (2) Perforated bowel Status: Acute Problems: Comment Review of Relevant I have reviewed the following items ebony (where applicable) has been applied. Labs Laboratory Tests Test 05/04/17 11:30 05/04/17 16:44 05/04/17 20:50 05/05/17 03:25 Glucose (Fingerstick) 150 mg/dL (70-99) 141 mg/dL (70-99) 142 mg/dL (70-99) White Blood Count 13.7 x10^3/uL (4.0-11.0) Red Blood Count 4.22 x10^6/uL (4.30-5.70) Hemoglobin 11.8 g/dL (13.0-17.5) Hematocrit 34.4 % (39.0-53.0) Mean Corpuscular Volume 82 fL (79-100) Mean Corpuscular Hemoglobin 28 pg (25-35) Mean Corpuscular Hemoglobin Concent 34 g/dL (31-37) Red Cell Distribution Width 14.0 % (11.5-14.5) Platelet Count 318 x10^3/uL (140-400) Neutrophils (%) (Auto) 72 % (31-73) Lymphocytes (%) (Auto) 17 % (24-48) Monocytes (%) (Auto) 8 % (0-9) Eosinophils (%) (Auto) 3 % (0-3) Basophils (%) (Auto) 1 % (0-3) Neutrophils # (Auto) 9.9 x10^3uL (1.8-7.7) Lymphocytes # (Auto) 2.3 x10^3/uL (1.0-4.8) Monocytes # (Auto) 1.0 x10^3/uL (0.0-1.1) Eosinophils # (Auto) 0.4 x10^3/uL (0.0-0.7) Basophils # (Auto) 0.1 x10^3/uL (0.0-0.2) Sodium Level 142 mmol/L (136-145) Potassium Level 2.8 mmol/L (3.5-5.1) Chloride Level 104 mmol/L (98-107) Carbon Dioxide Level 25 mmol/L (21-32) Anion Gap 13 (6-14) Blood Urea Nitrogen 7 mg/dL (8-26) Creatinine 0.5 mg/dL (0.7-1.3) Estimated GFR (Cockcroft-Gault) 169.0 Glucose Level 107 mg/dL (70-99) Calcium Level 8.7 mg/dL (8.5-10.1) Test 05/05/17 07:57 05/05/17 11:51 05/05/17 17:06 05/05/17 20:18 Glucose (Fingerstick) 93 mg/dL (70-99) 82 mg/dL (70-99) 91 mg/dL (70-99) 125 mg/dL (70-99) Test 05/06/17 07:25 Glucose (Fingerstick) 130 mg/dL (70-99) Laboratory Tests Test 05/05/17 11:51 05/05/17 17:06 05/05/17 20:18 05/06/17 07:25 Glucose (Fingerstick) 82 mg/dL (70-99) 91 mg/dL (70-99) 125 mg/dL (70-99) 130 mg/dL (70-99) Medications Current Medications Morphine Sulfate 4 mg 1X ONCE IV Last administered on 04/27/17 08:03; Start 04/27/17 at 07:30; Stop 04/27/17 at 07:52; Status DC Ondansetron HCl (Zofran) 4 mg 1X ONCE IV Last administered on 04/27/17 08:12 ; Start 04/27/17 at 08:15; Stop 04/27/17 at 08:16; Status DC Iohexol (Omnipaque 300 Mg/ml) 75 ml 1X ONCE IV Last administered on 04/27/17 08:41; Start 04/27/17 at 08:15; Stop 04/27/17 at 08:16; Status DC Info (Do NOT chart on this entry -- for MONITORING) 1 each PRN DAILY PRN MC SEE COMMENTS; Start 04/27/17 at 08:15; Stop 04/29/17 at 08:14; Status DC Sodium Chloride 1,000 ml @ 1,000 mls/hr 1X ONCE IV Last administered on 09:30; Start 04/27/17 at 09:30; Stop 04/27/17 at 10:29; Status DC Piperacillin Sod/ Tazobactam Sod (Zosyn Per Pharmacy) 1 each PRN DAILY PRN MC SEE COMMENTS; Start 04/27/17 at 09:45; Stop 05/05/17 at 10:29; Status DC Piperacillin Sod/ Tazobactam Sod 3.375 gm/Sodium Chloride 50 ml @ 100 mls/hr 1X ONCE IV Last administered on 04/27/17 10:05; Start 04/27/17 at 09:45; Stop 04/27/17 at 10:14; Status DC Fentanyl Citrate (Fentanyl 2ml Vial) 50 mcg 1X ONCE IV Last administered on 10:27; Start 04/27/17 at 10:00; Stop 04/27/17 at 10:01; Status DC Ondansetron HCl (Zofran) 4 mg PRN Q8HRS PRN IV NAUSEA/VOMITING; Start 04/27/17 at 10:00; Stop 04/28/17 at 09:59; Status DC Fentanyl Citrate (Fentanyl 2ml Vial) 50 mcg PRN Q1HR PRN IV PAIN Last administered on 04/28/17 08:08; Start 04/27/17 at 10:00; Stop 04/28/17 at 09:59 ; Status DC Piperacillin Sod/ Tazobactam Sod 3.375 gm/Sodium Chloride 50 ml @ 100 mls/hr Q6HRS IV Last administered on 05/06/17 05:49; Start 04/27/17 at 18:00 Digoxin (Lanoxin) 500 mcg 1X ONCE IV Last administered on 04/27/17 10:44; Start 04/27/17 at 10:30; Stop 04/27/17 at 10:31; Status DC Sodium Chloride 1,000 ml @ 1,000 mls/hr 1X ONCE IV Last administered on 10:53; Start 04/27/17 at 11:00; Stop 04/27/17 at 11:59; Status DC Magnesium Sulfate/ Dextrose 100 ml @ 25 mls/hr 1X ONCE IV Last administered on 04/27/17 12:21; Start 04/27/17 at 11:00; Stop 04/27/17 at 14:59; Status DC Metoprolol Tartrate (Lopressor) 5 mg Q6HRS IVP ; Start 04/27/17 at 13:00; Stop 04/27/17 at 15:57; Status DC Sodium Chloride 1,000 ml @ 100 mls/hr Q10H IV Last administered on 05/05/17 12:42; Start 04/27/17 at 14:15 Saliva Substitute (Biotene Moisturizing Mouth) 2 spray PRN Q15MIN PRN PO DRY MOUTH Last administered on 04/27/17 18:18; Start 04/27/17 at 14:15 Nicotine Polacrilex (Nicorette Gum) 1 each PRN Q1HR PRN BC SMOKING CESSATION; Start 04/27/17 at 14:15 Albuterol/ Ipratropium (Duoneb) 3 ml RTQID NEB Last administered on 05/06/17 07:07; Start 04/27/17 at 16:00 Albuterol/ Ipratropium (Duoneb) 3 ml 1X ONCE NEB ; Start 04/27/17 at 14:15; Stop 04/27/17 at 14:16; Status DC Aspirin (Ecotrin) 81 mg DAILY PO ; Start 04/27/17 at 14:30; Stop 04/28/17 at 11: 52; Status DC Insulin Aspart (NovoLOG) 0-9 UNITS TIDWMEALS SQ Last administered on 05/03/17 12:43; Start 04/27/17 at 17:00 Dextrose (Dextrose 50%-Water Syringe) 12.5 gm PRN Q15MIN PRN IV SEE COMMENTS; Start 04/27/17 at 14:15 Insulin Detemir (Levemir) 25 units QHS SQ Last administered on 05/04/17 21:31 ; Start 04/27/17 at 21:00 Metoprolol Tartrate (Lopressor) 2.5 mg Q6HRS IVP ; Start 04/27/17 at 18:00; Stop 04/28/17 at 11:53; Status DC Atorvastatin Calcium (Lipitor) 20 mg QHS PO Last administered on 04/27/17 20: 38; Start 04/27/17 at 21:00; Stop 04/28/17 at 11:52; Status DC Ondansetron HCl (Zofran) 4 mg PRN Q6HRS PRN IV NAUSEA/VOMITING Last administered on 04/29/17 02:55; Start 04/28/17 at 10:45 Fentanyl Citrate (Fentanyl 2ml Vial) 50 mcg PRN Q2HR PRN IV PAIN; Start at 10:45; Stop 04/28/17 at 11:50; Status DC Fentanyl Citrate (Fentanyl 2ml Vial) 100 mcg PRN Q2HR PRN IV PAIN SEVERE Last administered on 05/01/17 20:58; Start 04/28/17 at 12:00 Pantoprazole Sodium (Protonix Vial) 40 mg DAILYAC IVP Last administered on 05/04 09:35; Start 04/28/17 at 12:00; Stop 05/04/17 at 19:22; Status DC Metoprolol Tartrate (Lopressor) 2.5 mg PRN Q6HRS PRN IVP BP 160/100; Start at 12:00; Stop 05/04/17 at 19:22; Status DC Metoprolol Tartrate (Lopressor) 2.5 mg Q6HRS IVP Last administered on 18:20; Start 04/28/17 at 12:00; Stop 05/04/17 at 19:22; Status DC Aspirin (Ecotrin) 81 mg DAILYWBKFT PO Last administered on 05/05/17 09:04; Start 04/29/17 at 08:00 Atorvastatin Calcium (Lipitor) 20 mg QHS PO Last administered on 05/05/17 22: 21; Start 04/28/17 at 21:00 Micafungin Sodium 100 mg/Dextrose 100 ml @ 100 mls/hr Q24H IV Last administered on 05/03/17 08:29; Start 04/29/17 at 09:00; Stop 05/04/17 at 08:38 ; Status DC Naloxone HCl (Narcan) 0.4 mg PRN Q2MIN PRN IV SEE INSTRUCTIONS; Start 04/29/17 at 09:45 Hydromorphone HCl 30 ml @ 0 mls/hr CONT PRN PRN IV PROTOCOL Last administered on 05/06/17 05:51; Start 04/29/17 at 09:45 Digoxin (Lanoxin) 125 mcg DAILY IV Last administered on 05/04/17 09:38; Start 04/29/17 at 11:00; Stop 05/04/17 at 19:22; Status DC Iohexol (Omnipaque 300 Mg/ml) 75 ml 1X ONCE IV ; Start 04/29/17 at 11:15; Stop 04/29/17 at 11:16; Status DC Info (Do NOT chart on this entry -- for MONITORING) 1 each PRN DAILY PRN MC SEE COMMENTS; Start 04/29/17 at 11:15; Stop 05/01/17 at 11:14; Status DC Potassium Chloride (Klor-Con) 20 meq 1X ONCE PO Last administered on 10:04; Start 04/30/17 at 10:00; Stop 04/30/17 at 10:01; Status DC Potassium Chloride/Dextrose 1,000 ml @ 75 mls/hr 1X ONCE IV Last administered on 04/30/17 12:54; Start 04/30/17 at 13:00; Stop 05/01/17 at 02:19 ; Status DC Enoxaparin Sodium (Lovenox 40mg Syringe) 40 mg Q24H SQ Last administered on 12:40; Start 05/01/17 at 11:00 Potassium Chloride (Klor-Con) 40 meq 1X ONCE PO Last administered on 10:00; Start 05/03/17 at 09:45; Stop 05/03/17 at 09:46; Status DC Metoprolol Tartrate (Lopressor) 12.5 mg BID PO Last administered on 05/06/17 08:42; Start 05/04/17 at 21:00 Pantoprazole Sodium (Protonix) 40 mg DAILYAC PO Last administered on 05/05/17 09:04; Start 05/05/17 at 07:30 Digoxin (Lanoxin) 125 mcg DAILY PO Last administered on 05/06/17 08:43; Start 05/05/17 at 09:00 Potassium Chloride 100 ml @ 100 mls/hr Q1H IV Last administered on 05/05/17 11:04; Start 05/05/17 at 05:30; Stop 05/05/17 at 09:29; Status DC Iohexol (Omnipaque 300 Mg/ml) 75 ml 1X ONCE IV Last administered on 05/05/17 08:47; Start 05/05/17 at 07:45; Stop 05/05/17 at 07:46; Status DC Gemfibrozil (Lopid) 600 mg BID PO Last administered on 05/05/17 22:21; Start 05/05/17 at 09:00 Lisinopril (Prinivil) 5 mg DAILY PO Last administered on 05/06/17 08:43; Start 05/05/17 at 09:00 Gabapentin (Neurontin) 600 mg TID PO Last administered on 05/05/17 22:21; Start 05/05/17 at 09:00 Fentanyl Citrate (Fentanyl 2ml Vial) 50 mcg PRN Q5MIN PRN IV Acute Pain; Start 05/06/17 at 07:00; Stop 05/06/17 at 18:00 Morphine Sulfate 4 mg PRN Q10MIN PRN IV Moderate Pain; Start 05/06/17 at 07:00 ; Stop 05/06/17 at 18:00 Hydromorphone HCl (Dilaudid) 0.4 mg PRN Q10MIN PRN IV Moderate to severe pain; Start 05/06/17 at 07:00; Stop 05/06/17 at 18:00 Meperidine HCl (Demerol) 12.5 mg PRN Q5MIN PRN IV SHIVERING; Start 05/06/17 at 07:00; Stop 05/06/17 at 18:00 Prochlorperazine Edisylate (Compazine) 5 mg PRN Q6HRS PRN IV Nausea/Vomiting, 1st Choice; Start 05/06/17 at 07:00; Stop 05/06/17 at 18:00 Diphenhydramine HCl (Benadryl) 12.5 mg PRN Q2HR PRN IV ITCHING; Start 05/06/17 at 07:00; Stop 05/06/17 at 18:00 Midazolam HCl (Versed) 2 mg PRN 1X PRN IV PRIOR TO PROCEDURE; Start 05/06/17 at 07:00; Stop 05/06/17 at 18:00 Midazolam HCl (Versed) 1 mg PRN 1X PRN IV PRIOR TO PROCEDURE; Start 05/06/17 at 07:00; Stop 05/06/17 at 18:00 Fentanyl Citrate (Fentanyl 2ml Vial) 25 mcg PRN Q5MIN PRN IV X 2 DOSES FOR PAIN ; Start 05/06/17 at 07:00; Stop 05/06/17 at 18:00 Fentanyl Citrate (Fentanyl 2ml Vial) 50 mcg PRN Q5MIN PRN IV X 2 DOSES FOR PAIN ; Start 05/06/17 at 07:00; Stop 05/06/17 at 18:00 Ringer's Solution 1,000 ml @ 125 mls/hr Q8H IV ; Start 05/05/17 at 13:12; Stop 05/05/17 at 13:31; Status DC Lidocaine HCl 2 ml 1X PRN PRN ID IV START; Start 05/06/17 at 07:00; Stop at 18:00 Ringer's Solution 1,000 ml @ 125 mls/hr Q8H IV ; Start 05/06/17 at 07:00; Stop 05/06/17 at 20:00 Lidocaine HCl (Lidocaine Pf 2% Vial) 5 ml STK-MED ONCE .ROUTE ; Start 05/06/17 at 07:47; Stop 05/06/17 at 07:48; Status DC Fentanyl Citrate (Fentanyl 2ml Vial) 100 mcg STK-MED ONCE .ROUTE ; Start at 07:47; Stop 05/06/17 at 07:48; Status DC Succinylcholine Chloride (Anectine) 200 mg STK-MED ONCE .ROUTE ; Start 05/06/17 at 07:47; Stop 05/06/17 at 07:48; Status DC Rocuronium Strong (Zemuron) 50 mg STK-MED ONCE .ROUTE ; Start 05/06/17 at 07:47 ; Stop 05/06/17 at 07:48; Status DC Propofol 20 ml @ As Directed STK-MED ONCE IV ; Start 05/06/17 at 10:00; Stop at 10:01; Status DC Dexamethasone Sodium Phosphate (Decadron) 20 mg STK-MED ONCE .ROUTE ; Start at 10:17; Stop 05/06/17 at 10:18; Status DC Sevoflurane (Ultane) 60 ml STK-MED ONCE IH ; Start 05/06/17 at 10:17; Stop 05/06 at 10:18; Status DC Ephedrine Sulfate 50 mg STK-MED ONCE IV ; Start 05/06/17 at 10:21; Stop at 10:22; Status DC Fentanyl Citrate (Fentanyl 2ml Vial) 100 mcg STK-MED ONCE .ROUTE ; Start at 10:37; Stop 05/06/17 at 10:38; Status DC Active Scripts Active Reported Lantus Solostar (Insulin Glargine,Hum.rec.anlog) 100 Unit/1 Ml Insuln.pen 65 Unit SQ BID Aleve (Naproxen Sodium) 220 Mg Capsule 440 Mg PO BID Aspir 81 (Aspirin) 81 Mg Tablet.dr 1 Tab PO DAILY Gabapentin 600 Mg Tablet 600 Mg PO TID Carvedilol 6.25 Mg Tablet 1 Tab PO BID Lisinopril 5 Mg Tablet 1 Tab PO DAILY Gemfibrozil 600 Mg Tablet 600 Mg PO BID Vitals/I & O Vital Sign - Last 24 Hours 05/05/17 05/05/17 05/05/17 05/05/17 10:57 11:39 14:55 15:12 Temp 98.5 98.1 98.5 98.1 Pulse 83 80 Resp 23 22 B/P (MAP) 136/75 (95) 138/78 (98) Pulse Ox 98 96 O2 Delivery Room Air Room Air Room Air Room Air 05/05/17 05/05/17 05/05/17 05/05/17 19:55 20:00 20:35 22:24 Temp 98.0 98.0 Pulse 78 78 Resp 20 B/P (MAP) 138/80 (99) 138/80 Pulse Ox 97 95 O2 Delivery Room Air Room Air Room Air 05/05/17 05/06/17 05/06/17 05/06/17 22:52 02:21 05:51 06:21 Temp 98.0 97.9 98.0 97.9 Pulse 78 75 Resp 20 20 16 17 B/P (MAP) 134/79 (97) 134/80 (98) Pulse Ox 95 96 98 O2 Delivery Room Air Room Air Room Air 05/06/17 05/06/17 05/06/17 05/06/17 07:00 07:09 08:00 08:42 Temp 97.9 97.9 Pulse 79 79 Resp 18 B/P (MAP) 145/78 (100) 145/78 Pulse Ox 98 98 O2 Delivery Room Air Room Air Room Air 05/06/17 05/06/17 05/06/17 08:43 08:43 09:19 Temp 97.2 97.2 Pulse 79 79 78 Resp 15 B/P (MAP) 145/78 145/78 108/67 Pulse Ox 97 O2 Delivery Room Air O2 Flow Rate 2.0 Intake and Output 05/05/17 05/05/17 05/06/17 14:59 22:59 06:59 Intake Total 250 ml 500 ml 100 ml Balance 250 ml 500 ml 100 ml MURIEL FUENTES MD May 06, 2017 10:44
[2017-05-06] MEDS: ENOXAPARIN 40 MG/0.4 ML SYRINGE. SQ SCH ×2 (11:00→20:56)
[2017-05-06] MEDS ORDERED: ONDANSETRON PF 4 MG/2 ML VIAL. ONE (11:25)
[2017-05-06] MEDS ORDERED: GLYCOPYRROLATE 1 MG/5 ML VIAL. ONE (11:25)
[2017-05-06] MEDS ORDERED: NEOSTIGMINE METHYLSULFATE 5 MG/5 ML SYRINGE. ONE (11:25)
--- NOTE | 2017-05-06 13:01 | RAD ---
Portable abdomen, 05/06/2017: History: Postop sigmoid resection Surgical skin clips overlie the abdomen and pelvis to the midline. A surgical drain extends into the mid pelvis. There appears to be a Edmond type drain at the midline in the upper pelvis and lower abdomen. The abdominal gas pattern is unremarkable. There is no evidence of a retained surgical instrument, needle or radiopaque sponge on this single view.
[2017-05-06] MEDS: HYDROmorphone 2 MG/ML VIAL IV PRN ×5 (13:30→15:00)
--- NOTE | 2017-05-06 13:33 | PDOC ---
BRIEF OPERATIVE NOTE Date: May 06, 2017 Pre-Op Diagnosis perforated diverticulitis with abscess and SBO Post-Op Diagnosis same Procedure Performed rigid procto, SBR with primary anastomosis, sigmoid resection with end colostomy , Agustin's pouch Surgeon Johny Cell Phone Repair Technician Rosie DIAS Anesthesia Type: General Blood Loss 250cc IV Fluid 1400cc Urine Output 700c Specimens Obtained small bowel, sigmoid colon Findings SBO 2/2 involvement in the inflammatory process/abscess sigmoid colon Complications none Additional Remarks NG output 1900cc, small bowel decompression on field, 1500cc JUAN LUIS HUANG MD May 06, 2017 13:32
[2017-05-06] MEDS: fentaNYL PF VIAL 100 MCG/2 ML VIAL IV PRN ×2 (13:42→14:19)
[2017-05-06] MEDS ORDERED: PHENOL ORAL SPRAY 177ML BOTTLE. PO PRN (13:45)
[2017-05-06] MEDS ORDERED: ONDANSETRON PF 4 MG/2 ML VIAL. IV PRN (13:45)
[2017-05-06] MEDS ORDERED: BENZOCAINE/MENTHOL LOZENGE. PO PRN (13:45)
[2017-05-06] MEDS ORDERED: 0.9 % SODIUM CHLORIDE 10 ML DISP.SYRIN. IV PRN (13:45)
[2017-05-06] MEDS: POTASSIUM CL 20MEQ-0.45% NACL 1,000 ML IV SCH (16:34)
[2017-05-06 18:55] VITALS: BP 146/86
[2017-05-06] MEDS: ATORVASTATIN CALCIUM 20 MG TABLET PO SCH (20:55)
[2017-05-06] MEDS: INSULIN DETEMIR 300 UNITS/3 ML INSULN.PEN. SQ SCH (20:56)
[2017-05-06 23:00] VITALS: BP 142/76
[2017-05-07] MEDS: PIPERACILLIN/TAZOBACTAM 3.375 GM in IV NORMAL SALINE 50ML 50 ML IV SCH ×4 (00:23→17:56)
[2017-05-07 03:30] VITALS: BP 151/74
[2017-05-07] MEDS: POTASSIUM CL 20MEQ-0.45% NACL 1,000 ML IV SCH ×3 (03:36→21:23)
[2017-05-07 07:00] VITALS: BP 160/78
[2017-05-07] MEDS: PANTOPRAZOLE 40 MG TABLET.DR. PO SCH (07:30)
[2017-05-07] MEDS: IPRATRPIUM/ALBUTEROL 0.5/2.5MG 3 ML NEBU. NEB SCH ×4 (07:55→20:00)
[2017-05-07] MEDS: ASPIRIN ENTERIC COATED 81 MG TABLET.DR. PO SCH (08:00)
[2017-05-07] MEDS: INSULIN ASPART 300 UNITS/3 ML INSULN.PEN SQ SCH ×3 (08:00→17:00)
[2017-05-07 08:40] LABS: CALCIUM 8.5 mg/dL (8.5-10.1); CREATININE 0.4 mg/dL (0.7-1.3); GFR 218.7; POTASSIUM 4.4 mmol/L (3.5-5.1)
[2017-05-07] MEDS: IV NORMAL SALINE 1000ML BAG 1,000 ML IV SCH ×2 (08:51→17:57)
[2017-05-07] MEDS: GEMFIBROZIL 600 MG TABLET. PO SCH (08:53)
[2017-05-07] MEDS: GABAPENTIN 300 MG CAPSULE. PO SCH (08:55)
[2017-05-07] MEDS: METOPROLOL TARTRATE 5 MG/5 ML VIAL. IVP SCH ×3 (09:12→17:56)
[2017-05-07] MEDS: DIGOXIN IV 500 MCG/2 ML AMPUL. IV SCH (09:13)
--- NOTE | 2017-05-07 09:19 | PDOC ---
Infectious Disease Note Subjective Subjective s/p surgery Not wanting to look at ostomy c/o abdominal pain, on PROOFREADER Denies N/V ROS ROS GEN: Denies fevers, chills, sweats CV: Denies chest pain RESP: Denies shortness of air, cough NEURO: Denies confusion, dizziness Vital Sign Vital Signs Vital Signs Date Time Temp Pulse Resp B/P (MAP) Pulse Ox O2 Delivery O2 Flow Rate FiO2 05/07/17 07:57 97 Nasal Cannula 2.0 05/07/17 07:00 97.9 110 22 160/78 (105) 97.9 Physical Exam PHYSICAL EXAM GENERAL: Lying down, NAD HEENT: OC/OP dry, bacterial overgrowth. NGT NECK: Supple LUNGS: Clear HEART: S1 and S2, no gallop, no murmur ABD: Obese, BS quit, soft, NT to light palpation. Dressings dry, KENNETH intact. ostomy-no output EXT: No edema, no cyanosis WATCHGUARD: Alert, oriented x 3, no focal neurologic deficit SKIN: No rash IV: ok Labs Lab Laboratory Tests Test 05/06/17 13:28 05/06/17 16:30 05/06/17 22:20 05/07/17 07:49 Glucose (Fingerstick) 146 mg/dL (70-99) 149 mg/dL (70-99) 131 mg/dL (70-99) 119 mg/dL (70-99) Test 05/07/17 07:55 Sodium Level 140 mmol/L (136-145) Potassium Level 4.4 mmol/L (3.5-5.1) Chloride Level 103 mmol/L (98-107) Carbon Dioxide Level 25 mmol/L (21-32) Anion Gap 12 (6-14) Blood Urea Nitrogen 10 mg/dL (8-26) Creatinine 0.4 mg/dL (0.7-1.3) Estimated GFR (Cockcroft-Gault) 218.7 Glucose Level 120 mg/dL (70-99) Calcium Level 8.5 mg/dL (8.5-10.1) Magnesium Level 1.3 mg/dL (1.8-2.4) Micro GRAM STAIN Final WBCS MODERATE RBCS MANY OCCASIONAL SMALL GRAM POSITIVE RODS Objective Assessment Perforated sigmoid diverticulum. -s/p rigid procto, SBR with primary anastomosis, sigmoid resection with end colostomy, Agustin's pouch, 05/06. 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 and Enterococcus Cipro allergy - ? seizure -has not had levoflox/Cipro since Leukocytosis Afib RVR Plan Plan of Care Cont Zosyn Add Vanc with Enterococcus although Zosyn should cover CBC f/u intra-op cx Supportive care Attending Co-Sign Attending Co-Sign The patient was seen and interviewed as well as examined at the bedside. The chart was reviewed. The case was discussed. Agree with the plan of care. ALLEN MCKINLEY APRN May 07, 2017 09:19 JULIA JURADO MD May 07, 2017 13:05
[2017-05-07 09:34] LABS: BASO % 0 % (0-3); EOS % 1 % (0-3); HEMATOCRIT 39.5 % (39.0-53.0); LYMPH # 2.2 x10^3/uL (1.0-4.8); LYMPH % 12 % (24-48); MEAN CORPUSCULAR HEMOGLOBIN 28 pg (25-35); MEAN CORPUSCULAR HGB CONC 33 g/dL (31-37); MEAN CORPUSCULAR VOLUME 84 fL (79-100); MONO % 9 % (0-9); NEUT % 79 % (31-73); PLATELET COUNT 349 x10^3/uL (140-400); RED BLOOD COUNT 4.72 x10^6/uL (4.30-5.70); RED CELL DISTRIBUTION WIDTH 14.1 % (11.5-14.5); WHITE BLOOD COUNT 18.2 x10^3/uL (4.0-11.0)
--- NOTE | 2017-05-07 10:14 | PDOC ---
CARDIOLOGY PROGRESS NOTE SUBJECTIVE: S/p surgery for perforated bowel. Doing well this a.m. No arrhythmias. OBJECTIVE: Vital SIgns: Vital Signs Date Time Temp Pulse Resp B/P (MAP) Pulse Ox O2 Delivery O2 Flow Rate FiO2 05/07/17 09:13 85 160/78 05/07/17 07:57 97 Nasal Cannula 2.0 05/07/17 07:00 97.9 22 97.9 I & O Intake and Output 05/07/17 07:00 Intake Total 3264 ml Output Total 1910 ml Balance 1354 ml Intake Oral 0 ml IV Total 3264 ml Output Urine Total 700 ml Gastric Drainage Total 800 ml Drainage Total 160 ml Estimated Blood Loss 250 ml Objective: Gen: A/O x 3. Mild distress from incisional pain CVS: RRR no m/r/g PULM: Decreased breath sounds bilaterally. ABD: Soft, TTP EXT: No edema. NEURO: Non focal exam. CURRENT MEDICATIONS: Current Medications Medications (Trade) Dose Ordered Sig/Duane Start Time Stop Time Status Last Admin Dose Admin Albuterol/ Ipratropium (Duoneb) 3 ml 1X ONCE 04/27/17 14:15 04/27/17 14:16 DC Aspirin (Ecotrin) 81 mg DAILYWBKFT 04/29/17 08:00 05/05/17 09:04 81 MG Atorvastatin Calcium (Lipitor) 20 mg QHS 04/28/17 21:00 Future Hold 05/05/17 22:21 20 MG Dexamethasone Sodium Phosphate (Decadron) 20 mg STK-MED ONCE 05/06/17 10:17 05/06/17 10:18 DC Dextrose (Dextrose 50%-Water Syringe) 12.5 gm PRN Q15MIN PRN 04/27/17 14:15 Digoxin (Lanoxin) 125 mcg DAILY 05/07/17 09:00 05/07/17 09:13 125 MCG Diphenhydramine HCl (Benadryl) 25 mg PRN Q6HRS PRN 05/06/17 13:45 Enalaprilat (Vasotec) 0.625 mg Q6HRS 05/07/17 12:00 Enoxaparin Sodium (Lovenox 40mg Syringe) 40 mg Q24H 05/06/17 21:00 Ephedrine Sulfate 50 mg STK-MED ONCE 05/06/17 10:21 05/06/17 10:22 DC Fentanyl Citrate (Fentanyl 2ml Vial) 100 mcg STK-MED ONCE 05/06/17 11:51 05/06/17 11:52 DC Gabapentin (Neurontin) 600 mg TID 05/05/17 09:00 05/05/17 22:21 600 MG Gemfibrozil (Lopid) 600 mg BID 05/05/17 09:00 05/05/17 22:21 600 MG Glycopyrrolate (Robinul) 1 mg STK-MED ONCE 05/06/17 11:25 05/06/17 11:26 DC Hydromorphone HCl (Dilaudid) 0.4 mg PRN Q10MIN PRN 05/06/17 07:00 05/06/17 18:00 DC 05/06/17 15:00 0.4 MG Info (Do NOT chart on this entry -- for MONITORING) 1 each PRN DAILY PRN 04/29/17 11:15 05/01/17 11:14 DC Insulin Aspart (NovoLOG) 0-9 UNITS TIDWMEALS 04/27/17 17:00 05/03/17 12:43 4 UNITS Insulin Detemir (Levemir) 25 units QHS 04/27/17 21:00 05/04/17 21:31 25 UNITS Iohexol (Omnipaque 300 Mg/ml) 75 ml 1X ONCE 05/05/17 07:45 05/05/17 07:46 DC 05/05/17 08:47 75 ML Lidocaine HCl (Lidocaine Pf 2% Vial) 5 ml STK-MED ONCE 05/06/17 07:47 05/06/17 07:48 DC Lisinopril (Prinivil) 5 mg DAILY 05/05/17 09:00 05/07/17 08:44 DC 05/06/17 08:43 5 MG Magnesium Sulfate/ Dextrose 100 ml @ 25 mls/hr 1X ONCE 05/07/17 10:30 05/07/17 14:29 Meperidine HCl (Demerol) 12.5 mg PRN Q5MIN PRN 05/06/17 07:00 05/06/17 18:00 DC Metoprolol Tartrate (Lopressor) 5 mg Q6HRS 05/07/17 08:45 05/07/17 09:12 5 MG Micafungin Sodium 100 mg/Dextrose 100 ml @ 100 mls/hr Q24H 04/29/17 09:00 05/04/17 08:38 DC 05/03/17 08:29 100 MLS/HR Midazolam HCl (Versed) 1 mg PRN 1X PRN 05/06/17 07:00 05/06/17 18:00 DC Morphine Sulfate 4 mg PRN Q10MIN PRN 05/06/17 07:00 05/06/17 18:00 DC Naloxone HCl (Narcan) 0.4 mg PRN Q2MIN PRN 04/29/17 09:45 Neostigmine Methylsulfate 5 mg STK-MED ONCE 05/06/17 11:25 05/06/17 11:26 DC Nicotine Polacrilex (Nicorette Gum) 1 each PRN Q1HR PRN 04/27/17 14:15 Ondansetron HCl (Zofran) 4 mg PRN Q6HRS PRN 05/06/17 13:45 Pantoprazole Sodium (Protonix Vial) 40 mg DAILYAC 04/28/17 12:00 05/04/17 19:22 DC 05/04/17 09:35 40 MG Pantoprazole Sodium (Protonix) 40 mg DAILYAC 05/05/17 07:30 05/05/17 09:04 40 MG Piperacillin Sod/ Tazobactam Sod (Zosyn Per Pharmacy) 1 each PRN DAILY PRN 04/27/17 09:45 05/05/17 10:29 DC Piperacillin Sod/ Tazobactam Sod 3.375 gm/Sodium Chloride 50 ml @ 100 mls/hr Q6HRS 04/27/17 18:00 05/07/17 06:00 100 MLS/HR Potassium Chloride/Dextrose 1,000 ml @ 75 mls/hr 1X ONCE 04/30/17 13:00 05/01/17 02:19 DC 04/30/17 12:54 75 MLS/HR Potassium Chloride/Sodium Chloride 1,000 ml @ 100 mls/hr Q10H 05/06/17 14:00 05/07/17 09:15 100 MLS/HR Potassium Chloride 100 ml @ 100 mls/hr Q1H 05/05/17 05:30 05/05/17 09:29 DC 05/05/17 11:04 100 MLS/HR Potassium Chloride (Klor-Con) 40 meq 1X ONCE 05/03/17 09:45 05/03/17 09:46 DC 05/03/17 10:00 40 MEQ Prochlorperazine Edisylate (Compazine) 5 mg PRN Q6HRS PRN 05/06/17 07:00 05/06/17 18:00 DC 05/06/17 13:30 5 MG Propofol 20 ml @ As Directed STK-MED ONCE 05/06/17 10:00 05/06/17 10:01 DC Ringer's Solution 1,000 ml @ 125 mls/hr Q8H 05/06/17 07:00 05/06/17 20:00 DC 05/06/17 13:29 125 MLS/HR Rocuronium Harvel (Zemuron) 50 mg STK-MED ONCE 05/06/17 11:18 05/06/17 11:19 DC Saliva Substitute (Biotene Moisturizing Mouth) 2 spray PRN Q15MIN PRN 04/27/17 14:15 04/27/17 18:18 2 SPRAY Sevoflurane (Ultane) 60 ml STK-MED ONCE 05/06/17 10:17 05/06/17 10:18 DC Sodium Chloride (Normal Saline Flush) 3 ml QSHIFT PRN 05/06/17 13:45 Succinylcholine Chloride (Anectine) 200 mg STK-MED ONCE 05/06/17 07:47 05/06/17 07:48 DC Throat Lozenges (Cepacol Sore Throat Lozenge) 1 shalom PRN Q2HRS PRN 05/06/17 13:45 Throat Lozenges (Chloraseptic) 1 spray PRN Q2HR PRN 05/06/17 13:45 ASSESSMENT: 1. PAF, currently in SR. 2. HTN 3. DLP Problems: PLAN: 1. Med changes made today. Start Enalapril IV, Metop IV and one time Dig dose. 2. Replace mg. Supportive care. Will follow along, convert meds back to oral when ok per gen surg. No anticoagulation for now given above surgical issues. LUCIANA CHAND MD May 07, 2017 10:14
[2017-05-07] MEDS ORDERED: MAGNESIUM SULFATE 4GM 100 ML IV ONE (10:30)
--- NOTE | 2017-05-07 10:58 | PDOC ---
PROGRESS NOTES Chief Complaint Chief Complaint 1. Sigmoid diverticulitis with perforation s/p sx sigmoid resection with ileostomy (05/05/17) POD # 1 2. Paroxysmal atrial fivb s.p RVR now nSR 3. DM 2 on insulin 4. SIRS POA, no sepsis 5. Acute abd pain sec to # 1 on MEDICAL RECORD TRANSCRIBER 6. Sustained vtach (05/05/17) 7. LEukocytosis post op day # 1 8. Obesity BMI 33.9 History of Present Illness History of Present Illness s/p sx POD # 1 at bedside\ On MEDICAL RECORD TRANSCRIBER - pressing the button canal tender on palpation, otherwise tolerable if left alone ABd inspected, dressing dry, tender around post op site Indwelling ostomy Left side WBC 17,. no fevers NPO MAg 1,3 PLAN: Cont MEDICAL RECORD TRANSCRIBER IS REplace mag IV STart PICC and tPN if ok with GS COnt lovenox qD Dc PO meds STart PPI IV Recheck CBC cleopatra - leukocytosis dw Lexie RN Vitals Vitals Vital Signs Date Time Temp Pulse Resp B/P (MAP) Pulse Ox O2 Delivery O2 Flow Rate FiO2 05/07/17 09:13 85 160/78 05/07/17 08:00 Nasal Cannula 2.0 05/07/17 07:57 97 05/07/17 07:00 97.9 22 97.9 Physical Exam General: Alert, Oriented X3, Cooperative, No acute distress Heart: Regular rate, Normal S1, Normal S2, Other (2/6 systolic murmur to LLS border) Lungs: Clear Abdomen: Soft, Other (LLQ tenderness, moderate) Extremities: No clubbing Skin: No rashes, No breakdown Labs LABS Laboratory Tests Test 05/06/17 13:28 05/06/17 16:30 05/06/17 22:20 05/07/17 07:49 Glucose (Fingerstick) 146 mg/dL (70-99) 149 mg/dL (70-99) 131 mg/dL (70-99) 119 mg/dL (70-99) Test 05/07/17 07:55 White Blood Count 18.2 x10^3/uL (4.0-11.0) Red Blood Count 4.72 x10^6/uL (4.30-5.70) Hemoglobin 13.0 g/dL (13.0-17.5) Hematocrit 39.5 % (39.0-53.0) Mean Corpuscular Volume 84 fL (79-100) Mean Corpuscular Hemoglobin 28 pg (25-35) Mean Corpuscular Hemoglobin Concent 33 g/dL (31-37) Red Cell Distribution Width 14.1 % (11.5-14.5) Platelet Count 349 x10^3/uL (140-400) Neutrophils (%) (Auto) 79 % (31-73) Lymphocytes (%) (Auto) 12 % (24-48) Monocytes (%) (Auto) 9 % (0-9) Eosinophils (%) (Auto) 1 % (0-3) Basophils (%) (Auto) 0 % (0-3) Neutrophils # (Auto) 14.3 x10^3uL (1.8-7.7) Lymphocytes # (Auto) 2.2 x10^3/uL (1.0-4.8) Monocytes # (Auto) 1.6 x10^3/uL (0.0-1.1) Eosinophils # (Auto) 0.1 x10^3/uL (0.0-0.7) Basophils # (Auto) 0.0 x10^3/uL (0.0-0.2) Sodium Level 140 mmol/L (136-145) Potassium Level 4.4 mmol/L (3.5-5.1) Chloride Level 103 mmol/L (98-107) Carbon Dioxide Level 25 mmol/L (21-32) Anion Gap 12 (6-14) Blood Urea Nitrogen 10 mg/dL (8-26) Creatinine 0.4 mg/dL (0.7-1.3) Estimated GFR (Cockcroft-Gault) 218.7 Glucose Level 120 mg/dL (70-99) Calcium Level 8.5 mg/dL (8.5-10.1) Magnesium Level 1.3 mg/dL (1.8-2.4) Review of Systems Review of Systems abd pain, all else is neg - 14 pt reviewed Assessment and Plan Assessmemt and Plan Problems Medical Problems: (1) Diverticulitis Status: Acute (2) Perforated bowel Status: Acute Problems: Comment Review of Relevant I have reviewed the following items ebony (where applicable) has been applied. Labs Laboratory Tests Test 05/05/17 11:51 05/05/17 17:06 05/05/17 20:18 05/06/17 07:25 Glucose (Fingerstick) 82 mg/dL (70-99) 91 mg/dL (70-99) 125 mg/dL (70-99) 130 mg/dL (70-99) Test 05/06/17 13:28 05/06/17 16:30 05/06/17 22:20 05/07/17 07:49 Glucose (Fingerstick) 146 mg/dL (70-99) 149 mg/dL (70-99) 131 mg/dL (70-99) 119 mg/dL (70-99) Test 05/07/17 07:55 White Blood Count 18.2 x10^3/uL (4.0-11.0) Red Blood Count 4.72 x10^6/uL (4.30-5.70) Hemoglobin 13.0 g/dL (13.0-17.5) Hematocrit 39.5 % (39.0-53.0) Mean Corpuscular Volume 84 fL (79-100) Mean Corpuscular Hemoglobin 28 pg (25-35) Mean Corpuscular Hemoglobin Concent 33 g/dL (31-37) Red Cell Distribution Width 14.1 % (11.5-14.5) Platelet Count 349 x10^3/uL (140-400) Neutrophils (%) (Auto) 79 % (31-73) Lymphocytes (%) (Auto) 12 % (24-48) Monocytes (%) (Auto) 9 % (0-9) Eosinophils (%) (Auto) 1 % (0-3) Basophils (%) (Auto) 0 % (0-3) Neutrophils # (Auto) 14.3 x10^3uL (1.8-7.7) Lymphocytes # (Auto) 2.2 x10^3/uL (1.0-4.8) Monocytes # (Auto) 1.6 x10^3/uL (0.0-1.1) Eosinophils # (Auto) 0.1 x10^3/uL (0.0-0.7) Basophils # (Auto) 0.0 x10^3/uL (0.0-0.2) Sodium Level 140 mmol/L (136-145) Potassium Level 4.4 mmol/L (3.5-5.1) Chloride Level 103 mmol/L (98-107) Carbon Dioxide Level 25 mmol/L (21-32) Anion Gap 12 (6-14) Blood Urea Nitrogen 10 mg/dL (8-26) Creatinine 0.4 mg/dL (0.7-1.3) Estimated GFR (Cockcroft-Gault) 218.7 Glucose Level 120 mg/dL (70-99) Calcium Level 8.5 mg/dL (8.5-10.1) Magnesium Level 1.3 mg/dL (1.8-2.4) Laboratory Tests Test 05/06/17 13:28 05/06/17 16:30 05/06/17 22:20 05/07/17 07:49 Glucose (Fingerstick) 146 mg/dL (70-99) 149 mg/dL (70-99) 131 mg/dL (70-99) 119 mg/dL (70-99) Test 05/07/17 07:55 White Blood Count 18.2 x10^3/uL (4.0-11.0) Red Blood Count 4.72 x10^6/uL (4.30-5.70) Hemoglobin 13.0 g/dL (13.0-17.5) Hematocrit 39.5 % (39.0-53.0) Mean Corpuscular Volume 84 fL (79-100) Mean Corpuscular Hemoglobin 28 pg (25-35) Mean Corpuscular Hemoglobin Concent 33 g/dL (31-37) Red Cell Distribution Width 14.1 % (11.5-14.5) Platelet Count 349 x10^3/uL (140-400) Neutrophils (%) (Auto) 79 % (31-73) Lymphocytes (%) (Auto) 12 % (24-48) Monocytes (%) (Auto) 9 % (0-9) Eosinophils (%) (Auto) 1 % (0-3) Basophils (%) (Auto) 0 % (0-3) Neutrophils # (Auto) 14.3 x10^3uL (1.8-7.7) Lymphocytes # (Auto) 2.2 x10^3/uL (1.0-4.8) Monocytes # (Auto) 1.6 x10^3/uL (0.0-1.1) Eosinophils # (Auto) 0.1 x10^3/uL (0.0-0.7) Basophils # (Auto) 0.0 x10^3/uL (0.0-0.2) Sodium Level 140 mmol/L (136-145) Potassium Level 4.4 mmol/L (3.5-5.1) Chloride Level 103 mmol/L (98-107) Carbon Dioxide Level 25 mmol/L (21-32) Anion Gap 12 (6-14) Blood Urea Nitrogen 10 mg/dL (8-26) Creatinine 0.4 mg/dL (0.7-1.3) Estimated GFR (Cockcroft-Gault) 218.7 Glucose Level 120 mg/dL (70-99) Calcium Level 8.5 mg/dL (8.5-10.1) Magnesium Level 1.3 mg/dL (1.8-2.4) Microbiology 05/06/17 Anaerobic/Aerobic Culture, Resulted Pending 05/06/17 Anaerobic Culture Result 1 (DEBBIE), Resulted Pending 05/06/17 Aerobic Culture - Preliminary, Resulted 05/06/17 Aerobic Culture Result 1 (DEBBIE) - Preliminary, Resulted Medications Current Medications Morphine Sulfate 4 mg 1X ONCE IV Last administered on 04/27/17 08:03; Start 04/27/17 at 07:30; Stop 04/27/17 at 07:52; Status DC Ondansetron HCl (Zofran) 4 mg 1X ONCE IV Last administered on 04/27/17 08:12 ; Start 04/27/17 at 08:15; Stop 04/27/17 at 08:16; Status DC Iohexol (Omnipaque 300 Mg/ml) 75 ml 1X ONCE IV Last administered on 04/27/17 08:41; Start 04/27/17 at 08:15; Stop 04/27/17 at 08:16; Status DC Info (Do NOT chart on this entry -- for MONITORING) 1 each PRN DAILY PRN MC SEE COMMENTS; Start 04/27/17 at 08:15; Stop 04/29/17 at 08:14; Status DC Sodium Chloride 1,000 ml @ 1,000 mls/hr 1X ONCE IV Last administered on 09:30; Start 04/27/17 at 09:30; Stop 04/27/17 at 10:29; Status DC Piperacillin Sod/ Tazobactam Sod (Zosyn Per Pharmacy) 1 each PRN DAILY PRN MC SEE COMMENTS; Start 04/27/17 at 09:45; Stop 05/05/17 at 10:29; Status DC Piperacillin Sod/ Tazobactam Sod 3.375 gm/Sodium Chloride 50 ml @ 100 mls/hr 1X ONCE IV Last administered on 04/27/17 10:05; Start 04/27/17 at 09:45; Stop 04/27/17 at 10:14; Status DC Fentanyl Citrate (Fentanyl 2ml Vial) 50 mcg 1X ONCE IV Last administered on 10:27; Start 04/27/17 at 10:00; Stop 04/27/17 at 10:01; Status DC Ondansetron HCl (Zofran) 4 mg PRN Q8HRS PRN IV NAUSEA/VOMITING; Start 04/27/17 at 10:00; Stop 04/28/17 at 09:59; Status DC Fentanyl Citrate (Fentanyl 2ml Vial) 50 mcg PRN Q1HR PRN IV PAIN Last administered on 04/28/17 08:08; Start 04/27/17 at 10:00; Stop 04/28/17 at 09:59 ; Status DC Piperacillin Sod/ Tazobactam Sod 3.375 gm/Sodium Chloride 50 ml @ 100 mls/hr Q6HRS IV Last administered on 05/07/17 06:00; Start 04/27/17 at 18:00 Digoxin (Lanoxin) 500 mcg 1X ONCE IV Last administered on 04/27/17 10:44; Start 04/27/17 at 10:30; Stop 04/27/17 at 10:31; Status DC Sodium Chloride 1,000 ml @ 1,000 mls/hr 1X ONCE IV Last administered on 10:53; Start 04/27/17 at 11:00; Stop 04/27/17 at 11:59; Status DC Magnesium Sulfate/ Dextrose 100 ml @ 25 mls/hr 1X ONCE IV Last administered on 04/27/17 12:21; Start 04/27/17 at 11:00; Stop 04/27/17 at 14:59; Status DC Metoprolol Tartrate (Lopressor) 5 mg Q6HRS IVP ; Start 04/27/17 at 13:00; Stop 04/27/17 at 15:57; Status DC Sodium Chloride 1,000 ml @ 100 mls/hr Q10H IV Last administered on 05/05/17 12:42; Start 04/27/17 at 14:15 Saliva Substitute (Biotene Moisturizing Mouth) 2 spray PRN Q15MIN PRN PO DRY MOUTH Last administered on 04/27/17 18:18; Start 04/27/17 at 14:15 Nicotine Polacrilex (Nicorette Gum) 1 each PRN Q1HR PRN BC SMOKING CESSATION; Start 04/27/17 at 14:15 Albuterol/ Ipratropium (Duoneb) 3 ml RTQID NEB Last administered on 05/07/17 07:55; Start 04/27/17 at 16:00 Albuterol/ Ipratropium (Duoneb) 3 ml 1X ONCE NEB ; Start 04/27/17 at 14:15; Stop 04/27/17 at 14:16; Status DC Aspirin (Ecotrin) 81 mg DAILY PO ; Start 04/27/17 at 14:30; Stop 04/28/17 at 11: 52; Status DC Insulin Aspart (NovoLOG) 0-9 UNITS TIDWMEALS SQ Last administered on 05/03/17 12:43; Start 04/27/17 at 17:00 Dextrose (Dextrose 50%-Water Syringe) 12.5 gm PRN Q15MIN PRN IV SEE COMMENTS; Start 04/27/17 at 14:15 Insulin Detemir (Levemir) 25 units QHS SQ Last administered on 05/04/17 21:31 ; Start 04/27/17 at 21:00 Metoprolol Tartrate (Lopressor) 2.5 mg Q6HRS IVP ; Start 04/27/17 at 18:00; Stop 04/28/17 at 11:53; Status DC Atorvastatin Calcium (Lipitor) 20 mg QHS PO Last administered on 04/27/17 20: 38; Start 04/27/17 at 21:00; Stop 04/28/17 at 11:52; Status DC Ondansetron HCl (Zofran) 4 mg PRN Q6HRS PRN IV NAUSEA/VOMITING Last administered on 04/29/17 02:55; Start 04/28/17 at 10:45; Stop 05/07/17 at 07:40 ; Status DC Fentanyl Citrate (Fentanyl 2ml Vial) 50 mcg PRN Q2HR PRN IV PAIN; Start at 10:45; Stop 04/28/17 at 11:50; Status DC Fentanyl Citrate (Fentanyl 2ml Vial) 100 mcg PRN Q2HR PRN IV PAIN SEVERE Last administered on 05/01/17 20:58; Start 04/28/17 at 12:00 Pantoprazole Sodium (Protonix Vial) 40 mg DAILYAC IVP Last administered on 05/04 09:35; Start 04/28/17 at 12:00; Stop 05/04/17 at 19:22; Status DC Metoprolol Tartrate (Lopressor) 2.5 mg PRN Q6HRS PRN IVP BP 160/100; Start at 12:00; Stop 05/04/17 at 19:22; Status DC Metoprolol Tartrate (Lopressor) 2.5 mg Q6HRS IVP Last administered on 18:20; Start 04/28/17 at 12:00; Stop 05/04/17 at 19:22; Status DC Aspirin (Ecotrin) 81 mg DAILYWBKFT PO Last administered on 05/05/17 09:04; Start 04/29/17 at 08:00 Atorvastatin Calcium (Lipitor) 20 mg QHS PO Last administered on 05/05/17 22: 21; Start 04/28/17 at 21:00; Status Future Hold Micafungin Sodium 100 mg/Dextrose 100 ml @ 100 mls/hr Q24H IV Last administered on 05/03/17 08:29; Start 04/29/17 at 09:00; Stop 05/04/17 at 08:38 ; Status DC Naloxone HCl (Narcan) 0.4 mg PRN Q2MIN PRN IV SEE INSTRUCTIONS; Start 04/29/17 at 09:45 Hydromorphone HCl 30 ml @ 0 mls/hr CONT PRN PRN IV PROTOCOL Last administered on 05/06/17 14:23; Start 04/29/17 at 09:45 Digoxin (Lanoxin) 125 mcg DAILY IV Last administered on 05/04/17 09:38; Start 04/29/17 at 11:00; Stop 05/04/17 at 19:22; Status DC Iohexol (Omnipaque 300 Mg/ml) 75 ml 1X ONCE IV ; Start 04/29/17 at 11:15; Stop 04/29/17 at 11:16; Status DC Info (Do NOT chart on this entry -- for MONITORING) 1 each PRN DAILY PRN MC SEE COMMENTS; Start 04/29/17 at 11:15; Stop 05/01/17 at 11:14; Status DC Potassium Chloride (Klor-Con) 20 meq 1X ONCE PO Last administered on 10:04; Start 04/30/17 at 10:00; Stop 04/30/17 at 10:01; Status DC Potassium Chloride/Dextrose 1,000 ml @ 75 mls/hr 1X ONCE IV Last administered on 04/30/17 12:54; Start 04/30/17 at 13:00; Stop 05/01/17 at 02:19 ; Status DC Enoxaparin Sodium (Lovenox 40mg Syringe) 40 mg Q24H SQ Last administered on 12:40; Start 05/01/17 at 11:00; Stop 05/06/17 at 13:42; Status DC Potassium Chloride (Klor-Con) 40 meq 1X ONCE PO Last administered on 10:00; Start 05/03/17 at 09:45; Stop 05/03/17 at 09:46; Status DC Metoprolol Tartrate (Lopressor) 12.5 mg BID PO Last administered on 05/06/17 08:42; Start 05/04/17 at 21:00; Stop 05/07/17 at 08:44; Status DC Pantoprazole Sodium (Protonix) 40 mg DAILYAC PO Last administered on 05/05/17 09:04; Start 05/05/17 at 07:30 Digoxin (Lanoxin) 125 mcg DAILY PO Last administered on 05/06/17 08:43; Start 05/05/17 at 09:00; Stop 05/07/17 at 08:44; Status DC Potassium Chloride 100 ml @ 100 mls/hr Q1H IV Last administered on 05/05/17 11:04; Start 05/05/17 at 05:30; Stop 05/05/17 at 09:29; Status DC Iohexol (Omnipaque 300 Mg/ml) 75 ml 1X ONCE IV Last administered on 05/05/17 08:47; Start 05/05/17 at 07:45; Stop 05/05/17 at 07:46; Status DC Gemfibrozil (Lopid) 600 mg BID PO Last administered on 05/05/17 22:21; Start 05/05/17 at 09:00 Lisinopril (Prinivil) 5 mg DAILY PO Last administered on 05/06/17 08:43; Start 05/05/17 at 09:00; Stop 05/07/17 at 08:44; Status DC Gabapentin (Neurontin) 600 mg TID PO Last administered on 05/05/17 22:21; Start 05/05/17 at 09:00 Fentanyl Citrate (Fentanyl 2ml Vial) 50 mcg PRN Q5MIN PRN IV Acute Pain Last administered on 05/06/17 14:19; Start 05/06/17 at 07:00; Stop 05/06/17 at 18:00 ; Status DC Morphine Sulfate 4 mg PRN Q10MIN PRN IV Moderate Pain; Start 05/06/17 at 07:00 ; Stop 05/06/17 at 18:00; Status DC Hydromorphone HCl (Dilaudid) 0.4 mg PRN Q10MIN PRN IV Moderate to severe pain Last administered on 05/06/17 15:00; Start 05/06/17 at 07:00; Stop 05/06/17 at 18:00; Status DC Meperidine HCl (Demerol) 12.5 mg PRN Q5MIN PRN IV SHIVERING; Start 05/06/17 at 07:00; Stop 05/06/17 at 18:00; Status DC Prochlorperazine Edisylate (Compazine) 5 mg PRN Q6HRS PRN IV Nausea/Vomiting, 1st Choice Last administered on 05/06/17 13:30; Start 05/06/17 at 07:00; Stop 05/06/17 at 18:00; Status DC Diphenhydramine HCl (Benadryl) 12.5 mg PRN Q2HR PRN IV ITCHING; Start 05/06/17 at 07:00; Stop 05/06/17 at 18:00; Status DC Midazolam HCl (Versed) 2 mg PRN 1X PRN IV PRIOR TO PROCEDURE; Start 05/06/17 at 07:00; Stop 05/06/17 at 18:00; Status DC Midazolam HCl (Versed) 1 mg PRN 1X PRN IV PRIOR TO PROCEDURE; Start 05/06/17 at 07:00; Stop 05/06/17 at 18:00; Status DC Fentanyl Citrate (Fentanyl 2ml Vial) 25 mcg PRN Q5MIN PRN IV X 2 DOSES FOR PAIN ; Start 05/06/17 at 07:00; Stop 05/06/17 at 18:00; Status DC Fentanyl Citrate (Fentanyl 2ml Vial) 50 mcg PRN Q5MIN PRN IV X 2 DOSES FOR PAIN ; Start 05/06/17 at 07:00; Stop 05/06/17 at 18:00; Status DC Ringer's Solution 1,000 ml @ 125 mls/hr Q8H IV ; Start 05/05/17 at 13:12; Stop 05/05/17 at 13:31; Status DC Lidocaine HCl 2 ml 1X PRN PRN ID IV START; Start 05/06/17 at 07:00; Stop at 18:00; Status DC Ringer's Solution 1,000 ml @ 125 mls/hr Q8H IV Last administered on 05/06/17t 13:29; Start 05/06/17 at 07:00; Stop 05/06/17 at 20:00; Status DC Lidocaine HCl (Lidocaine Pf 2% Vial) 5 ml STK-MED ONCE .ROUTE ; Start 05/06/17 at 07:47; Stop 05/06/17 at 07:48; Status DC Fentanyl Citrate (Fentanyl 2ml Vial) 100 mcg STK-MED ONCE .ROUTE ; Start at 07:47; Stop 05/06/17 at 07:48; Status DC Succinylcholine Chloride (Anectine) 200 mg STK-MED ONCE .ROUTE ; Start 05/06/17 at 07:47; Stop 05/06/17 at 07:48; Status DC Rocuronium [place] (Zemuron) 50 mg STK-MED ONCE .ROUTE ; Start 05/06/17 at 07:47 ; Stop 05/06/17 at 07:48; Status DC Propofol 20 ml @ As Directed STK-MED ONCE IV ; Start 05/06/17 at 10:00; Stop at 10:01; Status DC Dexamethasone Sodium Phosphate (Decadron) 20 mg STK-MED ONCE .ROUTE ; Start at 10:17; Stop 05/06/17 at 10:18; Status DC Sevoflurane (Ultane) 60 ml STK-MED ONCE IH ; Start 05/06/17 at 10:17; Stop 05/06 at 10:18; Status DC Ephedrine Sulfate 50 mg STK-MED ONCE IV ; Start 05/06/17 at 10:21; Stop at 10:22; Status DC Fentanyl Citrate (Fentanyl 2ml Vial) 100 mcg STK-MED ONCE .ROUTE ; Start at 10:37; Stop 05/06/17 at 10:38; Status DC Rocuronium [place] (Zemuron) 50 mg STK-MED ONCE .ROUTE ; Start 05/06/17 at 11:18 ; Stop 05/06/17 at 11:19; Status DC Neostigmine Methylsulfate 5 mg STK-MED ONCE .ROUTE ; Start 05/06/17 at 11:25; Stop 05/06/17 at 11:26; Status DC Ondansetron HCl (Zofran) 4 mg STK-MED ONCE .ROUTE ; Start 05/06/17 at 11:25; Stop 05/06/17 at 11:26; Status DC Glycopyrrolate (Robinul) 1 mg STK-MED ONCE .ROUTE ; Start 05/06/17 at 11:25; Stop 05/06/17 at 11:26; Status DC Fentanyl Citrate (Fentanyl 2ml Vial) 100 mcg STK-MED ONCE .ROUTE ; Start at 11:51; Stop 05/06/17 at 11:52; Status DC Diphenhydramine HCl (Benadryl) 25 mg PRN Q6HRS PRN IV ITCHING; Start 05/06/17 at 13:45 Enoxaparin Sodium (Lovenox 40mg Syringe) 40 mg Q24H SQ ; Start 05/06/17 at 21:00 Sodium Chloride (Normal Saline Flush) 3 ml QSHIFT PRN IV AFTER MEDS AND BLOOD DRAWS; Start 05/06/17 at 13:45 Potassium Chloride/Sodium Chloride 1,000 ml @ 100 mls/hr Q10H IV Last administered on 05/07/17 09:15; Start 05/06/17 at 14:00 Ondansetron HCl (Zofran) 4 mg PRN Q6HRS PRN IV NAUESA, 1ST CHOICE; Start at 13:45 Throat Lozenges (Chloraseptic) 1 spray PRN Q2HR PRN PO SORE THROAT; Start 05/06 at 13:45 Throat Lozenges (Cepacol Sore Throat Lozenge) 1 shalom PRN Q2HRS PRN PO SORE THROAT; Start 05/06/17 at 13:45 Digoxin (Lanoxin) 125 mcg DAILY IV Last administered on 05/07/17 09:13; Start 05/07/17 at 09:00 Metoprolol Tartrate (Lopressor) 5 mg Q6HRS IVP Last administered on 05/07/17 09:12; Start 05/07/17 at 08:45 Enalaprilat (Vasotec) 0.625 mg Q6HRS IV ; Start 05/07/17 at 12:00 Magnesium Sulfate/ Dextrose 100 ml @ 25 mls/hr 1X ONCE IV ; Start 05/07/17 at 10:30; Stop 05/07/17 at 14:29 Active Scripts Active Reported Lantus Solostar (Insulin Glargine,Hum.rec.anlog) 100 Unit/1 Ml Insuln.pen 65 Unit SQ BID Aleve (Naproxen Sodium) 220 Mg Capsule 440 Mg PO BID Aspir 81 (Aspirin) 81 Mg Tablet. 1 Tab PO DAILY Gabapentin 600 Mg Tablet 600 Mg PO TID Carvedilol 6.25 Mg Tablet 1 Tab PO BID Lisinopril 5 Mg Tablet 1 Tab PO DAILY Gemfibrozil 600 Mg Tablet 600 Mg PO BID Vitals/I & O Vital Sign - Last 24 Hours 05/06/17 05/06/17 05/06/17 05/06/17 13:06 13:06 13:21 13:30 Temp 97.2 97.2 Pulse 88 83 Resp 22 22 20 B/P (MAP) 145/66 145/96 Pulse Ox 99 98 99 O2 Delivery Mask Simple Mask Simple Mask Simple Mask O2 Flow Rate 10 10 10 10.0 05/06/17 05/06/17 05/06/17 05/06/17 13:36 13:42 13:45 13:51 Pulse 79 80 Resp 20 20 22 20 B/P (MAP) 142/86 144/80 Pulse Ox 99 99 99 100 O2 Delivery Simple Mask Aerosol Mask Simple Mask Simple Mask O2 Flow Rate 10 10.0 10.0 10 05/06/17 05/06/17 05/06/17 05/06/17 14:00 14:03 14:15 14:19 Pulse 82 85 Resp 20 20 20 20 B/P (MAP) 119/78 125/67 Pulse Ox 95 100 95 100 O2 Delivery Nasal Cannula Nasal Cannula Nasal Cannula Simple Mask O2 Flow Rate 2 2.0 2 2.0 05/06/17 05/06/17 05/06/17 05/06/17 14:23 14:30 14:30 14:45 Pulse 82 82 Resp 20 22 20 B/P (MAP) 122/69 121/71 Pulse Ox 100 96 96 O2 Delivery Nasal Cannula Nasal Cannula Nasal Cannula Nasal Cannula O2 Flow Rate 2.0 2 2 2 05/06/17 05/06/17 05/06/17 05/06/17 14:51 15:00 18:55 20:00 Temp 98.2 98.2 Pulse 81 Resp 20 20 18 B/P (MAP) 146/86 (106) Pulse Ox 100 99 97 O2 Delivery Nasal Cannula Nasal Cannula Nasal Cannula Nasal Cannula O2 Flow Rate 2.0 2.0 2.0 2.0 05/06/17 05/07/17 05/07/17 05/07/17 23:00 03:30 07:00 07:57 Temp 98.1 98.4 97.9 98.1 98.4 97.9 Pulse 77 83 110 Resp 22 B/P (MAP) 142/76 (98) 151/74 (99) 160/78 (105) Pulse Ox 98 99 100 97 O2 Delivery Nasal Cannula Nasal Cannula Nasal Cannula Nasal Cannula O2 Flow Rate 2.0 2.0 2.0 2.0 05/07/17 05/07/17 05/07/17 08:00 09:12 09:13 Pulse 110 85 B/P (MAP) 160/78 160/78 O2 Delivery Nasal Cannula O2 Flow Rate 2.0 Intake and Output 05/06/17 05/06/17 05/07/17 14:59 22:59 06:59 Intake Total 1450 ml 800 ml 1014 ml Output Total 1650 ml 40 ml 220 ml Balance -200 ml 760 ml 794 ml MURIEL FUENTES MD May 07, 2017 10:58
[2017-05-07 11:16] VITALS: BP 148/77
[2017-05-07 12:33] LABS: % EOS 1 % (0-5); PLT ESTIMATE ADEQUATE (ADEQUATE)
[2017-05-07] MEDS ORDERED: VANCOMYCIN 2 GM in IV NORMAL SALINE 500ML BAG 500 ML IV ONE (13:15)
[2017-05-07] MEDS: ENALAPRILAT 1.25 MG/ML VIAL. IV SCH ×2 (13:19→17:57)
[2017-05-07] MEDS: FAMOTIDINE 20 MG/2 ML VIAL IVP SCH ×2 (13:21→21:24)
[2017-05-07 15:00] VITALS: BP 152/71
[2017-05-07] MEDS: VANCOMYCIN PER PHARMACY MC PRN (15:06)
--- NOTE | 2017-05-07 15:26 | PDOC ---
Provider Note Provider Note pain controlled has had several hundred ml ng output today afeb vss appears well abd soft nd approp tender bandages dry a/p cont ng today. agree with hospitalist plan for tpn. NAHUN STOKES MD May 07, 2017 15:26
[2017-05-07] MEDS: AMINO AC 3%/ELECTROLYTE/GLYCER 1,000 ML IV SCH (17:55)
[2017-05-07 19:00] VITALS: BP 100/64
[2017-05-07] MEDS: ENOXAPARIN 40 MG/0.4 ML SYRINGE. SQ SCH (21:24)
[2017-05-07] MEDS: INSULIN DETEMIR 300 UNITS/3 ML INSULN.PEN. SQ SCH (21:33)
[2017-05-07 23:00] VITALS: BP 140/74
[2017-05-08] MEDS: METOPROLOL TARTRATE 5 MG/5 ML VIAL. IVP SCH ×5 (00:28→23:21)
[2017-05-08] MEDS: ENALAPRILAT 1.25 MG/ML VIAL. IV SCH ×5 (00:29→23:22)
[2017-05-08] MEDS: PIPERACILLIN/TAZOBACTAM 3.375 GM in IV NORMAL SALINE 50ML 50 ML IV SCH ×5 (00:30→23:18)
[2017-05-08 03:00] VITALS: BP 140/69
[2017-05-08] MEDS: AMINO AC 3%/ELECTROLYTE/GLYCER 1,000 ML IV SCH (03:48)
[2017-05-08] MEDS: IV NORMAL SALINE 1000ML BAG 1,000 ML IV SCH (04:51)
[2017-05-08] MEDS: VANCOMYCIN 1.75 GM in IV NORMAL SALINE 500ML BAG 500 ML IV SCH ×2 (05:19→16:47)
[2017-05-08] MEDS: POTASSIUM CL 20MEQ-0.45% NACL 1,000 ML IV SCH ×2 (06:29→16:00)
[2017-05-08 07:10] VITALS: BP 135/65
[2017-05-08] MEDS: INSULIN ASPART 300 UNITS/3 ML INSULN.PEN SQ SCH ×3 (08:00→16:51)
[2017-05-08] MEDS: IPRATRPIUM/ALBUTEROL 0.5/2.5MG 3 ML NEBU. NEB SCH ×4 (08:00→19:45)
--- NOTE | 2017-05-08 08:26 | RAD ---
AP PORTABLE CHEST Clinical Indication: PICC placement. Comparison: None. Findings: Enteric tube courses below the diaphragm there is right PICC, tip in the right atrium. The cardiomediastinal silhouette is normal. There are bibasilar and bilateral perihilar airspace opacities. There is no pneumothorax. No pleural effusion is appreciated. There is no acute bone abnormality. IMPRESSION: 1. Right PICC tip is in the right atrium. 2. Bibasilar and bilateral perihilar airspace disease.
[2017-05-08] MEDS: FAMOTIDINE 20 MG/2 ML VIAL IVP SCH ×2 (08:28→21:09)
[2017-05-08] MEDS: DIGOXIN IV 500 MCG/2 ML AMPUL. IV SCH (08:29)
--- NOTE | 2017-05-08 09:27 | PDOC ---
Infectious Disease Note Subjective Subjective s/p PICC placement Pain controlled Sat up in the chair yesterday c/o NGT uncomfortable Denies N/V TPN ROS ROS GEN: Denies fevers, chills, sweats CV: Denies chest pain RESP: Denies shortness of air, cough Vital Sign Vital Signs Vital Signs Date Time Temp Pulse Resp B/P (MAP) Pulse Ox O2 Delivery O2 Flow Rate FiO2 05/08/17 08:29 77 135/65 05/08/17 07:10 97.9 20 98 Nasal Cannula 2.0 97.9 Physical Exam PHYSICAL EXAM GENERAL: Propped up inbed, NAD HEENT: OC/OP dry, bacterial overgrowth. NGT NECK: Supple LUNGS: Clear HEART: S1 and S2, no gallop, no murmur ABD: Obese, BS quiet, soft, NT to light palpation. Dressings dry, KENNETH intact- serosanguineous drainage. ostomy- + air EXT: No edema, no cyanosis. 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 (05/07). clean Labs Lab Laboratory Tests Test 05/07/17 11:40 05/07/17 21:30 05/08/17 07:20 05/08/17 08:27 Glucose (Fingerstick) 118 mg/dL (70-99) 169 mg/dL (70-99) 156 mg/dL (70-99) Magnesium Level 1.6 mg/dL (1.8-2.4) Micro GRAM STAIN Final WBCS MODERATE RBCS MANY OCCASIONAL SMALL GRAM POSITIVE RODS ANAEROBIC-AEROBIC CULTURE PENDING ANAEROBIC RES 1 PENDING AEROBIC CULT Preliminary Preliminary report AEROBIC RES 1 Preliminary Enterococcus species AEROBIC RES 2 Preliminary Gram negative rods Objective Assessment Perforated sigmoid diverticulum. -s/p rigid procto, SBR with primary anastomosis, sigmoid resection with end colostomy, Agustin's pouch, 05/06. 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, Enterococcus, GNR Cipro allergy - ? seizure -has not had levoflox/Cipro since Leukocytosis- increased, likely reactive Afib RVR Plan Plan of Care Cont vanc & Zosyn f/u intra-op cx PT/OT Attending Co-Sign Attending Co-Sign The patient was seen and interviewed as well as examined at the bedside. The chart was reviewed. The case was discussed. Agree with the plan of care. ALLEN MCKINLEY APRN May 08, 2017 09:27 JULIA JURADO MD May 08, 2017 16:23
[2017-05-08 10:40] LABS: CREATININE 0.5 mg/dL (0.7-1.3); POTASSIUM 3.6 mmol/L (3.5-5.1)
[2017-05-08 10:41] LABS: PHOSPHORUS 1.6 mg/dL (2.6-4.7)
[2017-05-08] MEDS ORDERED: MAGNESIUM SULFATE 2GM 50 ML IV ONE (11:00)
--- NOTE | 2017-05-08 11:02 | PDOC ---
PROGRESS NOTES Chief Complaint Chief Complaint 1. Sigmoid diverticulitis with perforation s/p sx sigmoid resection with ileostomy (05/05/17) POD # 1 2. Paroxysmal atrial fivb s.p RVR now nSR 3. DM 2 on insulin 4. SIRS POA, no sepsis 5. 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 Sustained vtach (05/05/17) 7. LEukocytosis post op day # 1 8. Obesity BMI 33.9 History of Present Illness History of Present Illness s/p sx POD # 2 Up in chair NGT is bothering him BUt still draining a lot at least 200 cc in 4 hrs Pressing the [employer]PA[employer] Abd inspected, tender to light palp WBC 18, no fevers ID on case, following cx from [place] mag low 1.5 Now has R PICC NO arrhythmias overnight (last one was day of OR) PLAN: Cont CAMPA[employer] FUNDRAIS[facility] IS REplace mag IV again 2 gms LAbs [place] AM Would kEEp NGT TPN to start tonight COnt lovenox qD Dc PO meds STart PPI IV Recheck CBC [place] - leukocytosis Renew PT/OT order toshia RN Vitals Vitals Vital Signs Date Time Temp Pulse Resp B/P (MAP) Pulse Ox O2 Delivery O2 Flow Rate FiO2 05/08/17 08:29 77 135/65 05/08/17 08:15 Nasal Cannula 2.0 05/08/17 07:10 97.9 20 98 97.9 Physical Exam General: Alert, Oriented X3, Cooperative, No acute distress Heart: Regular rate, Normal S1, Normal S2, Other (2/6 systolic murmur to LLS border) Lungs: Clear Abdomen: Soft, Other (LLQ tenderness, moderate) Extremities: No clubbing Skin: No rashes, No breakdown Labs LABS Laboratory Tests Test 05/07/17 11:40 05/07/17 21:30 05/08/17 07:00 05/08/17 07:20 Glucose (Fingerstick) 118 mg/dL (70-99) 169 mg/dL (70-99) Sodium Level 140 mmol/L (136-145) Potassium Level 3.6 mmol/L (3.5-5.1) Chloride Level 104 mmol/L (98-107) Carbon Dioxide Level 26 mmol/L (21-32) Anion Gap 10 (6-14) Blood Urea Nitrogen 8 mg/dL (8-26) Creatinine 0.5 mg/dL (0.7-1.3) Estimated GFR (Cockcroft-Gault) 169.0 Glucose Level 143 mg/dL (70-99) Calcium Level 8.0 mg/dL (8.5-10.1) Phosphorus Level 1.6 mg/dL (2.6-4.7) Magnesium Level 1.6 mg/dL (1.8-2.4) Test 05/08/17 08:27 Glucose (Fingerstick) 156 mg/dL (70-99) Review of Systems Review of Systems abd pain, throat pain from NGT, otherwsie all else is neg Assessment and Plan Assessmemt and Plan Problems Medical Problems: (1) Diverticulitis Status: Acute (2) Perforated bowel Status: Acute Problems: Comment Review of Relevant I have reviewed the following items ebony (where applicable) has been applied. Labs Laboratory Tests Test 05/06/17 13:28 05/06/17 16:30 05/06/17 22:20 05/07/17 07:49 Glucose (Fingerstick) 146 mg/dL (70-99) 149 mg/dL (70-99) 131 mg/dL (70-99) 119 mg/dL (70-99) Test 05/07/17 07:55 05/07/17 11:40 05/07/17 21:30 05/08/17 07:00 White Blood Count 18.2 x10^3/uL (4.0-11.0) Red Blood Count 4.72 x10^6/uL (4.30-5.70) Hemoglobin 13.0 g/dL (13.0-17.5) Hematocrit 39.5 % (39.0-53.0) Mean Corpuscular Volume 84 fL (79-100) Mean Corpuscular Hemoglobin 28 pg (25-35) Mean Corpuscular Hemoglobin Concent 33 g/dL (31-37) Red Cell Distribution Width 14.1 % (11.5-14.5) Platelet Count 349 x10^3/uL (140-400) Neutrophils (%) (Auto) 79 % (31-73) Lymphocytes (%) (Auto) 12 % (24-48) Monocytes (%) (Auto) 9 % (0-9) Eosinophils (%) (Auto) 1 % (0-3) Basophils (%) (Auto) 0 % (0-3) Neutrophils # (Auto) 14.3 x10^3uL (1.8-7.7) Lymphocytes # (Auto) 2.2 x10^3/uL (1.0-4.8) Monocytes # (Auto) 1.6 x10^3/uL (0.0-1.1) Eosinophils # (Auto) 0.1 x10^3/uL (0.0-0.7) Basophils # (Auto) 0.0 x10^3/uL (0.0-0.2) Segmented Neutrophils % 80 % (35-66) Lymphocytes % 18 % (24-48) Monocytes % 1 % (0-10) Eosinophils % 1 % (0-5) Platelet Estimate Adequate (ADEQUATE) Sodium Level 140 mmol/L (136-145) 140 mmol/L (136-145) Potassium Level 4.4 mmol/L (3.5-5.1) 3.6 mmol/L (3.5-5.1) Chloride Level 103 mmol/L (98-107) 104 mmol/L (98-107) Carbon Dioxide Level 25 mmol/L (21-32) 26 mmol/L (21-32) Anion Gap 12 (6-14) 10 (6-14) Blood Urea Nitrogen 10 mg/dL (8-26) 8 mg/dL (8-26) Creatinine 0.4 mg/dL (0.7-1.3) 0.5 mg/dL (0.7-1.3) Estimated GFR (Cockcroft-Gault) 218.7 169.0 Glucose Level 120 mg/dL (70-99) 143 mg/dL (70-99) Calcium Level 8.5 mg/dL (8.5-10.1) 8.0 mg/dL (8.5-10.1) Magnesium Level 1.3 mg/dL (1.8-2.4) Glucose (Fingerstick) 118 mg/dL (70-99) 169 mg/dL (70-99) Phosphorus Level 1.6 mg/dL (2.6-4.7) Test 05/08/17 07:20 05/08/17 08:27 Magnesium Level 1.6 mg/dL (1.8-2.4) Glucose (Fingerstick) 156 mg/dL (70-99) Laboratory Tests Test 05/07/17 11:40 05/07/17 21:30 05/08/17 07:00 05/08/17 07:20 Glucose (Fingerstick) 118 mg/dL (70-99) 169 mg/dL (70-99) Sodium Level 140 mmol/L (136-145) Potassium Level 3.6 mmol/L (3.5-5.1) Chloride Level 104 mmol/L (98-107) Carbon Dioxide Level 26 mmol/L (21-32) Anion Gap 10 (6-14) Blood Urea Nitrogen 8 mg/dL (8-26) Creatinine 0.5 mg/dL (0.7-1.3) Estimated GFR (Cockcroft-Gault) 169.0 Glucose Level 143 mg/dL (70-99) Calcium Level 8.0 mg/dL (8.5-10.1) Phosphorus Level 1.6 mg/dL (2.6-4.7) Magnesium Level 1.6 mg/dL (1.8-2.4) Test 05/08/17 08:27 Glucose (Fingerstick) 156 mg/dL (70-99) Microbiology 05/06/17 Anaerobic/Aerobic Culture, Resulted Pending 05/06/17 Anaerobic Culture Result 1 (DEBBIE), Resulted Pending 05/06/17 Aerobic Culture - Preliminary, Resulted 05/06/17 Aerobic Culture Result 1 (DEBBIE) - Preliminary, Resulted 05/06/17 Aerobic Culture Result 2 (DEBBIE) - Preliminary, Resulted Medications Current Medications Morphine Sulfate 4 mg 1X ONCE IV Last administered on 04/27/17 08:03; Start 04/27/17 at 07:30; Stop 04/27/17 at 07:52; Status DC Ondansetron HCl (Zofran) 4 mg 1X ONCE IV Last administered on 04/27/17 08:12 ; Start 04/27/17 at 08:15; Stop 04/27/17 at 08:16; Status DC Iohexol (Omnipaque 300 Mg/ml) 75 ml 1X ONCE IV Last administered on 04/27/17 08:41; Start 04/27/17 at 08:15; Stop 04/27/17 at 08:16; Status DC Info (Do NOT chart on this entry -- for MONITORING) 1 each PRN DAILY PRN MC SEE COMMENTS; Start 04/27/17 at 08:15; Stop 04/29/17 at 08:14; Status DC Sodium Chloride 1,000 ml @ 1,000 mls/hr 1X ONCE IV Last administered on 09:30; Start 04/27/17 at 09:30; Stop 04/27/17 at 10:29; Status DC Piperacillin Sod/ Tazobactam Sod (Zosyn Per Pharmacy) 1 each PRN DAILY PRN MC SEE COMMENTS; Start 04/27/17 at 09:45; Stop 05/05/17 at 10:29; Status DC Piperacillin Sod/ Tazobactam Sod 3.375 gm/Sodium Chloride 50 ml @ 100 mls/hr 1X ONCE IV Last administered on 04/27/17 10:05; Start 04/27/17 at 09:45; Stop 04/27/17 at 10:14; Status DC Fentanyl Citrate (Fentanyl 2ml Vial) 50 mcg 1X ONCE IV Last administered on 10:27; Start 04/27/17 at 10:00; Stop 04/27/17 at 10:01; Status DC Ondansetron HCl (Zofran) 4 mg PRN Q8HRS PRN IV NAUSEA/VOMITING; Start 04/27/17 at 10:00; Stop 04/28/17 at 09:59; Status DC Fentanyl Citrate (Fentanyl 2ml Vial) 50 mcg PRN Q1HR PRN IV PAIN Last administered on 04/28/17 08:08; Start 04/27/17 at 10:00; Stop 04/28/17 at 09:59 ; Status DC Piperacillin Sod/ Tazobactam Sod 3.375 gm/Sodium Chloride 50 ml @ 100 mls/hr Q6HRS IV Last administered on 05/08/17 06:31; Start 04/27/17 at 18:00 Digoxin (Lanoxin) 500 mcg 1X ONCE IV Last administered on 04/27/17 10:44; Start 04/27/17 at 10:30; Stop 04/27/17 at 10:31; Status DC Sodium Chloride 1,000 ml @ 1,000 mls/hr 1X ONCE IV Last administered on 10:53; Start 04/27/17 at 11:00; Stop 04/27/17 at 11:59; Status DC Magnesium Sulfate/ Dextrose 100 ml @ 25 mls/hr 1X ONCE IV Last administered on 04/27/17 12:21; Start 04/27/17 at 11:00; Stop 04/27/17 at 14:59; Status DC Metoprolol Tartrate (Lopressor) 5 mg Q6HRS IVP ; Start 04/27/17 at 13:00; Stop 04/27/17 at 15:57; Status DC Sodium Chloride 1,000 ml @ 100 mls/hr Q10H IV Last administered on 05/05/17 12:42; Start 04/27/17 at 14:15 Saliva Substitute (Biotene Moisturizing Mouth) 2 spray PRN Q15MIN PRN PO DRY MOUTH Last administered on 04/27/17 18:18; Start 04/27/17 at 14:15 Nicotine Polacrilex (Nicorette Gum) 1 each PRN Q1HR PRN BC SMOKING CESSATION; Start 04/27/17 at 14:15 Albuterol/ Ipratropium (Duoneb) 3 ml RTQID NEB Last administered on 05/07/17 15:33; Start 04/27/17 at 16:00 Albuterol/ Ipratropium (Duoneb) 3 ml 1X ONCE NEB ; Start 04/27/17 at 14:15; Stop 04/27/17 at 14:16; Status DC Aspirin (Ecotrin) 81 mg DAILY PO ; Start 04/27/17 at 14:30; Stop 04/28/17 at 11: 52; Status DC Insulin Aspart (NovoLOG) 0-9 UNITS TIDWMEALS SQ Last administered on 05/03/17 12:43; Start 04/27/17 at 17:00 Dextrose (Dextrose 50%-Water Syringe) 12.5 gm PRN Q15MIN PRN IV SEE COMMENTS; Start 04/27/17 at 14:15 Insulin Detemir (Levemir) 25 units QHS SQ Last administered on 05/07/17 21:33 ; Start 04/27/17 at 21:00 Metoprolol Tartrate (Lopressor) 2.5 mg Q6HRS IVP ; Start 04/27/17 at 18:00; Stop 04/28/17 at 11:53; Status DC Atorvastatin Calcium (Lipitor) 20 mg QHS PO Last administered on 04/27/17 20: 38; Start 04/27/17 at 21:00; Stop 04/28/17 at 11:52; Status DC Ondansetron HCl (Zofran) 4 mg PRN Q6HRS PRN IV NAUSEA/VOMITING Last administered on 04/29/17 02:55; Start 04/28/17 at 10:45; Stop 05/07/17 at 07:40 ; Status DC Fentanyl Citrate (Fentanyl 2ml Vial) 50 mcg PRN Q2HR PRN IV PAIN; Start at 10:45; Stop 04/28/17 at 11:50; Status DC Fentanyl Citrate (Fentanyl 2ml Vial) 100 mcg PRN Q2HR PRN IV PAIN SEVERE Last administered on 05/01/17 20:58; Start 04/28/17 at 12:00 Pantoprazole Sodium (Protonix Vial) 40 mg DAILYAC IVP Last administered on 05/04 09:35; Start 04/28/17 at 12:00; Stop 05/04/17 at 19:22; Status DC Metoprolol Tartrate (Lopressor) 2.5 mg PRN Q6HRS PRN IVP BP 160/100; Start at 12:00; Stop 05/04/17 at 19:22; Status DC Metoprolol Tartrate (Lopressor) 2.5 mg Q6HRS IVP Last administered on 18:20; Start 04/28/17 at 12:00; Stop 05/04/17 at 19:22; Status DC Aspirin (Ecotrin) 81 mg [id number] PO Last administered on 05/05/17 09:04; Start 04/29/17 at 08:00; Stop 05/07/17 at 10:58; Status DC Atorvastatin Calcium (Lipitor) 20 mg QHS PO Last administered on 05/05/17 22: 21; Start 04/28/17 at 21:00; Stop 05/07/17 at 10:58; Status DC Micafungin Sodium 100 mg/Dextrose 100 ml @ 100 mls/hr Q24H IV Last administered on 05/03/17 08:29; Start 04/29/17 at 09:00; Stop 05/04/17 at 08:38 ; Status DC Naloxone HCl (Narcan) 0.4 mg PRN Q2MIN PRN IV SEE INSTRUCTIONS; Start 04/29/17 at 09:45 Hydromorphone HCl 30 ml @ 0 mls/hr CONT PRN PRN IV PROTOCOL Last administered on 05/07/17 21:34; Start 04/29/17 at 09:45 Digoxin (Lanoxin) 125 mcg DAILY IV Last administered on 05/04/17 09:38; Start 04/29/17 at 11:00; Stop 05/04/17 at 19:22; Status DC Iohexol (Omnipaque 300 Mg/ml) 75 ml 1X ONCE IV ; Start 04/29/17 at 11:15; Stop 04/29/17 at 11:16; Status DC Info (Do NOT chart on this entry -- for MONITORING) 1 each PRN DAILY PRN MC SEE COMMENTS; Start 04/29/17 at 11:15; Stop 05/01/17 at 11:14; Status DC Potassium Chloride (Klor-Con) 20 meq 1X ONCE PO Last administered on 10:04; Start 04/30/17 at 10:00; Stop 04/30/17 at 10:01; Status DC Potassium Chloride/Dextrose 1,000 ml @ 75 mls/hr 1X ONCE IV Last administered on 04/30/17 12:54; Start 04/30/17 at 13:00; Stop 05/01/17 at 02:19 ; Status DC Enoxaparin Sodium (Lovenox 40mg Syringe) 40 mg Q24H SQ Last administered on 12:40; Start 05/01/17 at 11:00; Stop 05/06/17 at 13:42; Status DC Potassium Chloride (Klor-Con) 40 meq 1X ONCE PO Last administered on 10:00; Start 05/03/17 at 09:45; Stop 05/03/17 at 09:46; Status DC Metoprolol Tartrate (Lopressor) 12.5 mg BID PO Last administered on 05/06/17 08:42; Start 05/04/17 at 21:00; Stop 05/07/17 at 08:44; Status DC Pantoprazole Sodium (Protonix) 40 mg DAILYAC PO Last administered on 05/05/17 09:04; Start 05/05/17 at 07:30; Stop 05/07/17 at 10:58; Status DC Digoxin (Lanoxin) 125 mcg DAILY PO Last administered on 05/06/17 08:43; Start 05/05/17 at 09:00; Stop 05/07/17 at 08:44; Status DC Potassium Chloride 100 ml @ 100 mls/hr Q1H IV Last administered on 05/05/17 11:04; Start 05/05/17 at 05:30; Stop 05/05/17 at 09:29; Status DC Iohexol (Omnipaque 300 Mg/ml) 75 ml 1X ONCE IV Last administered on 05/05/17 08:47; Start 05/05/17 at 07:45; Stop 05/05/17 at 07:46; Status DC Gemfibrozil (Lopid) 600 mg BID PO Last administered on 05/05/17 22:21; Start 05/05/17 at 09:00; Stop 05/07/17 at 10:58; Status DC Lisinopril (Prinivil) 5 mg DAILY PO Last administered on 05/06/17 08:43; Start 05/05/17 at 09:00; Stop 05/07/17 at 08:44; Status DC Gabapentin (Neurontin) 600 mg TID PO Last administered on 05/05/17 22:21; Start 05/05/17 at 09:00; Stop 05/07/17 at 10:58; Status DC Fentanyl Citrate (Fentanyl 2ml Vial) 50 mcg PRN Q5MIN PRN IV Acute Pain Last administered on 05/06/17 14:19; Start 05/06/17 at 07:00; Stop 05/06/17 at 18:00 ; Status DC Morphine Sulfate 4 mg PRN Q10MIN PRN IV Moderate Pain; Start 05/06/17 at 07:00 ; Stop 05/06/17 at 18:00; Status DC Hydromorphone HCl (Dilaudid) 0.4 mg PRN Q10MIN PRN IV Moderate to severe pain Last administered on 05/06/17 15:00; Start 05/06/17 at 07:00; Stop 05/06/17 at 18:00; Status DC Meperidine HCl (Demerol) 12.5 mg PRN Q5MIN PRN IV SHIVERING; Start 05/06/17 at 07:00; Stop 05/06/17 at 18:00; Status DC Prochlorperazine Edisylate (Compazine) 5 mg PRN Q6HRS PRN IV Nausea/Vomiting, 1st Choice Last administered on 05/06/17 13:30; Start 05/06/17 at 07:00; Stop 05/06/17 at 18:00; Status DC Diphenhydramine HCl (Benadryl) 12.5 mg PRN Q2HR PRN IV ITCHING; Start 05/06/17 at 07:00; Stop 05/06/17 at 18:00; Status DC Midazolam HCl (Versed) 2 mg PRN 1X PRN IV PRIOR TO PROCEDURE; Start 05/06/17 at 07:00; Stop 05/06/17 at 18:00; Status DC Midazolam HCl (Versed) 1 mg PRN 1X PRN IV PRIOR TO PROCEDURE; Start 05/06/17 at 07:00; Stop 05/06/17 at 18:00; Status DC Fentanyl Citrate (Fentanyl 2ml Vial) 25 mcg PRN Q5MIN PRN IV X 2 DOSES FOR PAIN ; Start 05/06/17 at 07:00; Stop 05/06/17 at 18:00; Status DC Fentanyl Citrate (Fentanyl 2ml Vial) 50 mcg PRN Q5MIN PRN IV X 2 DOSES FOR PAIN ; Start 05/06/17 at 07:00; Stop 05/06/17 at 18:00; Status DC Ringer's Solution 1,000 ml @ 125 mls/hr Q8H IV ; Start 05/05/17 at 13:12; Stop 05/05/17 at 13:31; Status DC Lidocaine HCl 2 ml 1X PRN PRN ID IV START; Start 05/06/17 at 07:00; Stop at 18:00; Status DC Ringer's Solution 1,000 ml @ 125 mls/hr Q8H IV Last administered on 05/06/17 13:29; Start 05/06/17 at 07:00; Stop 05/06/17 at 20:00; Status DC Lidocaine HCl (Lidocaine Pf 2% Vial) 5 ml STK-MED ONCE .ROUTE ; Start 05/06/17 at 07:47; Stop 05/06/17 at 07:48; Status DC Fentanyl Citrate (Fentanyl 2ml Vial) 100 mcg STK-MED ONCE .ROUTE ; Start at 07:47; Stop 05/06/17 at 07:48; Status DC Succinylcholine Chloride (Anectine) 200 mg STK-MED ONCE .ROUTE ; Start 05/06/17 at 07:47; Stop 05/06/17 at 07:48; Status DC Rocuronium Ronan (Zemuron) 50 mg STK-MED ONCE .ROUTE ; Start 05/06/17 at 07:47 ; Stop 05/06/17 at 07:48; Status DC Propofol 20 ml @ As Directed STK-MED ONCE IV ; Start 05/06/17 at 10:00; Stop at 10:01; Status DC Dexamethasone Sodium Phosphate (Decadron) 20 mg STK-MED ONCE .ROUTE ; Start at 10:17; Stop 05/06/17 at 10:18; Status DC Sevoflurane (Ultane) 60 ml STK-MED ONCE IH ; Start 05/06/17 at 10:17; Stop 05/06 at 10:18; Status DC Ephedrine Sulfate 50 mg STK-MED ONCE IV ; Start 05/06/17 at 10:21; Stop at 10:22; Status DC Fentanyl Citrate (Fentanyl 2ml Vial) 100 mcg STK-MED ONCE .ROUTE ; Start at 10:37; Stop 05/06/17 at 10:38; Status DC Rocuronium Ronan (Zemuron) 50 mg STK-MED ONCE .ROUTE ; Start 05/06/17 at 11:18 ; Stop 05/06/17 at 11:19; Status DC Neostigmine Methylsulfate 5 mg STK-MED ONCE .ROUTE ; Start 05/06/17 at 11:25; Stop 05/06/17 at 11:26; Status DC Ondansetron HCl (Zofran) 4 mg STK-MED ONCE .ROUTE ; Start 05/06/17 at 11:25; Stop 05/06/17 at 11:26; Status DC Glycopyrrolate (Robinul) 1 mg STK-MED ONCE .ROUTE ; Start 05/06/17 at 11:25; Stop 05/06/17 at 11:26; Status DC Fentanyl Citrate (Fentanyl 2ml Vial) 100 mcg STK-MED ONCE .ROUTE ; Start at 11:51; Stop 05/06/17 at 11:52; Status DC Diphenhydramine HCl (Benadryl) 25 mg PRN Q6HRS PRN IV ITCHING; Start 05/06/17 at 13:45 Enoxaparin Sodium (Lovenox 40mg Syringe) 40 mg Q24H SQ Last administered on 21:24; Start 05/06/17 at 21:00 Sodium Chloride (Normal Saline Flush) 3 ml QSHIFT PRN IV AFTER MEDS AND BLOOD DRAWS; Start 05/06/17 at 13:45 Potassium Chloride/Sodium Chloride 1,000 ml @ 100 mls/hr Q10H IV Last administered on 05/08/17 06:29; Start 05/06/17 at 14:00 Ondansetron HCl (Zofran) 4 mg PRN Q6HRS PRN IV NAUESA, 1ST CHOICE; Start at 13:45 Throat Lozenges (Chloraseptic) 1 spray PRN Q2HR PRN PO SORE THROAT; Start 05/06 at 13:45 Throat Lozenges (Cepacol Sore Throat Lozenge) 1 shalom PRN Q2HRS PRN PO SORE THROAT; Start 05/06/17 at 13:45 Digoxin (Lanoxin) 125 mcg DAILY IV Last administered on 05/08/17 08:29; Start 05/07/17 at 09:00 Metoprolol Tartrate (Lopressor) 5 mg Q6HRS IVP Last administered on 05/08/17 06:30; Start 05/07/17 at 08:45 Enalaprilat (Vasotec) 0.625 mg Q6HRS IV Last administered on 05/08/17 06:31; Start 05/07/17 at 12:00 Magnesium Sulfate/ Dextrose 100 ml @ 25 mls/hr 1X ONCE IV Last administered on 05/07/17 10:58; Start 05/07/17 at 10:30; Stop 05/07/17 at 14:29; Status DC Info 1 each PRN DAILY PRN MC SEE COMMENTS; Start 05/07/17 at 11:00 Famotidine (Pepcid) 20 mg BID IVP Last administered on 05/08/17 08:28; Start 05/07/17 at 11:00 Vancomycin HCl (Vanco Per Pharmacy) 1 each PRN DAILY PRN MC SEE COMMENTS Last administered on 05/07/17 15:06; Start 05/07/17 at 13:15 Vancomycin HCl 2 gm/Sodium Chloride 500 ml @ 250 mls/hr 1X ONCE IV Last administered on 05/07/17 17:54; Start 05/07/17 at 13:15; Stop 05/07/17 at 15:14 ; Status DC Vancomycin HCl 1 each 1X ONCE MC ; Start 05/09/17 at 04:30; Stop 05/09/17 at 04 :31 Vancomycin HCl 1.75 gm/Sodium Chloride 500 ml @ 250 mls/hr Q12H IV Last administered on 05/08/17 05:19; Start 05/08/17 at 05:00 Amino Acids/ Glycerin/ Electrolytes 1,000 ml @ 80 mls/hr [id number] IV Last administered on 05/08/17 03:48; Start 05/07/17 at 15:30; Stop 05/08/17 at 21:59 Magnesium Sulfate/ Dextrose 50 ml @ 25 mls/hr 1X ONCE IV ; Start 05/08/17 at 11 :00; Stop 05/08/17 at 12:59 Active Scripts Active Reported Lantus Solostar (Insulin Glargine,Hum.rec.anlog) 100 Unit/1 Ml Insuln.pen 65 Unit SQ BID Aleve (Naproxen Sodium) 220 Mg Capsule 440 Mg PO BID Aspir 81 (Aspirin) 81 Mg Tablet. 1 Tab PO DAILY Gabapentin 600 Mg Tablet 600 Mg PO TID Carvedilol 6.25 Mg Tablet 1 Tab PO BID Lisinopril 5 Mg Tablet 1 Tab PO DAILY Gemfibrozil 600 Mg Tablet 600 Mg PO BID Vitals/I & O Vital Sign - Last 24 Hours 05/07/17 05/07/17 05/07/17 05/07/17 11:16 12:12 12:13 13:19 Temp 98.3 98.3 Pulse 105 105 Resp 21 B/P (MAP) 148/77 (100) 148/77 Pulse Ox 99 98 98 O2 Delivery Nasal Cannula Nasal Cannula Nasal Cannula O2 Flow Rate 2.0 2.0 2.0 05/07/17 05/07/17 05/07/17 05/07/17 13:20 15:00 15:35 17:56 Temp 98.2 98.2 Pulse 105 100 100 Resp 16 B/P (MAP) 148/77 152/71 (98) 152/71 Pulse Ox 97 97 O2 Delivery Nasal Cannula Nasal Cannula O2 Flow Rate 2.0 1.0 05/07/17 05/07/17 05/07/17 05/07/17 17:57 19:00 20:00 22:04 Temp 98.2 98.2 Pulse 100 79 Resp 16 16 B/P (MAP) 152/71 100/64 (76) Pulse Ox 97 O2 Delivery Nasal Cannula Nasal Cannula Nasal Cannula O2 Flow Rate 2.0 2.0 05/07/17 05/08/17 05/08/17 05/08/17 23:00 00:28 00:29 03:00 Temp 98.5 98.2 98.5 98.2 Pulse 81 81 81 79 Resp 16 16 B/P (MAP) 140/74 (96) 140/74 140/74 140/69 (92) Pulse Ox 97 O2 Delivery Nasal Cannula Nasal Cannula O2 Flow Rate 2.0 2.0 05/08/17 05/08/17 05/08/17 05/08/17 06:30 06:31 07:10 08:15 Temp 97.9 97.9 Pulse 79 79 72 Resp 20 B/P (MAP) 140/69 140/69 135/65 (88) Pulse Ox 98 O2 Delivery Nasal Cannula Nasal Cannula O2 Flow Rate 2.0 2.0 05/08/17 08:29 Pulse 77 B/P (MAP) 135/65 Intake and Output 05/07/17 05/07/17 05/08/17 15:00 23:00 07:00 Output Total 1855 ml 1880 ml Balance -1855 ml -1880 ml MURIEL FUENTES MD May 08, 2017 11:02
[2017-05-08 11:03] VITALS: BP 143/71
[2017-05-08] MEDS: TPN PER PHARMACY MC PRN (11:45)
[2017-05-08] MEDS ORDERED: POTASSIUM PHOSPHATE DIBASIC 15 MMOL in IV NORMAL SALINE 250ML 250 ML IV ONE (12:00)
[2017-05-08] MEDS: VANCOMYCIN PER PHARMACY MC PRN (12:19)
[2017-05-08 15:15] VITALS: BP 144/70
--- NOTE | 2017-05-08 18:59 | PDOC ---
Provider Note Provider Note no ostomy output. pain controlled afeb vss ng output still significant abd soft nd nt bandage dry ting serous ostomy viable a/p cont ng. NAHUN STOKES MD May 08, 2017 18:59
[2017-05-08 19:00] VITALS: BP 130/66
[2017-05-08] MEDS: ENOXAPARIN 40 MG/0.4 ML SYRINGE. SQ SCH (21:11)
[2017-05-08] MEDS: INSULIN DETEMIR 300 UNITS/3 ML INSULN.PEN. SQ SCH (21:14)
[2017-05-08] MEDS ORDERED: TOTAL PARENTERAL NUTRITION 1,424.9987 ML, AMINO ACIDS 10 % 60 GM, DEXTROSE 70 % IN WATE... IV SCH ×10 (22:00)
[2017-05-08 23:15] VITALS: BP 145/69
[2017-05-09 03:00] VITALS: BP 153/83
[2017-05-09] MEDS: PIPERACILLIN/TAZOBACTAM 3.375 GM in IV NORMAL SALINE 50ML 50 ML IV SCH ×3 (05:39→19:36)
[2017-05-09] MEDS: ENALAPRILAT 1.25 MG/ML VIAL. IV SCH ×3 (05:40→17:50)
[2017-05-09] MEDS: METOPROLOL TARTRATE 5 MG/5 ML VIAL. IVP SCH ×3 (05:40→17:50)
[2017-05-09 05:47] LABS: ALBUMIN 1.9 g/dL (3.4-5.0); ALBUMIN/GLOBULIN RATIO 0.4 (1.0-1.7); CALCIUM 8.2 mg/dL (8.5-10.1); CREATININE 0.4 mg/dL (0.7-1.3); GFR 218.7; MAGNESIUM 1.5 mg/dL (1.8-2.4); PHOSPHORUS 1.6 mg/dL (2.6-4.7); POTASSIUM 3.1 mmol/L (3.5-5.1); TOTAL BILIRUBIN 0.3 mg/dL (0.2-1.0); TOTAL PROTEIN 6.3 g/dL (6.4-8.2)
[2017-05-09] MEDS: VANCOMYCIN 1.75 GM in IV NORMAL SALINE 500ML BAG 500 ML IV SCH ×3 (06:08→22:07)
[2017-05-09] MEDS: VANCOMYCIN PER PHARMACY MC PRN (06:09)
[2017-05-09 06:29] LABS: BASO # 0.1 x10^3/uL (0.0-0.2); BASO % 1 % (0-3); EOS % 3 % (0-3); HEMATOCRIT 34.1 % (39.0-53.0); HEMOGLOBIN 11.6 g/dL (13.0-17.5); LYMPH % 15 % (24-48); MEAN CORPUSCULAR HEMOGLOBIN 28 pg (25-35); MEAN CORPUSCULAR HGB CONC 34 g/dL (31-37); MEAN CORPUSCULAR VOLUME 81 fL (79-100); MONO % 8 % (0-9); NEUT % 73 % (31-73); PLATELET COUNT 326 x10^3/uL (140-400); RED CELL DISTRIBUTION WIDTH 14.2 % (11.5-14.5); WHITE BLOOD COUNT 13.4 x10^3/uL (4.0-11.0)
[2017-05-09 07:05] VITALS: BP 135/70
[2017-05-09] MEDS: IPRATRPIUM/ALBUTEROL 0.5/2.5MG 3 ML NEBU. NEB SCH ×3 (07:31→16:01)
--- NOTE | 2017-05-09 07:54 | PDOC ---
Infectious Disease Note Subjective Subjective Better today Pain controlled Denies N/V TPN ROS ROS GEN: Denies fevers, chills, sweats HEENT: Denies blurred vision, sore throat CV: Denies chest pain RESP: Denies shortness of air, cough GI: Denies n/v/d NEURO: Denies confusion, dizziness MSK: Denies weakness, joint pain/swelling Vital Sign Vital Signs Vital Signs Date Time Temp Pulse Resp B/P (MAP) Pulse Ox O2 Delivery O2 Flow Rate FiO2 05/09/17 07:32 97 Nasal Cannula 1.0 05/09/17 05:40 72 153/83 05/09/17 03:00 98.3 18 98.3 Physical Exam PHYSICAL EXAM GENERAL: In chair, NAD, looks better HEENT: OC/OP dry, bacterial overgrowth. NGT NECK: Supple LUNGS: Clear HEART: S1 and S2, no gallop, no murmur ABD: Obese, BS quiet, soft, NT to light palpation. Dressings dry, KENNETH intact- serosanguineous drainage. ostomy- + air. less distended EXT: No edema, no cyanosis. 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 (05/07). clean Labs Lab Laboratory Tests Test 05/08/17 08:27 05/08/17 12:35 05/08/17 16:50 05/08/17 21:12 Glucose (Fingerstick) 156 mg/dL (70-99) 146 mg/dL (70-99) 123 mg/dL (70-99) 108 mg/dL (70-99) Test 05/09/17 04:30 White Blood Count 13.4 x10^3/uL (4.0-11.0) Red Blood Count 4.20 x10^6/uL (4.30-5.70) Hemoglobin 11.6 g/dL (13.0-17.5) Hematocrit 34.1 % (39.0-53.0) Mean Corpuscular Volume 81 fL (79-100) Mean Corpuscular Hemoglobin 28 pg (25-35) Mean Corpuscular Hemoglobin Concent 34 g/dL (31-37) Red Cell Distribution Width 14.2 % (11.5-14.5) Platelet Count 326 x10^3/uL (140-400) Neutrophils (%) (Auto) 73 % (31-73) Lymphocytes (%) (Auto) 15 % (24-48) Monocytes (%) (Auto) 8 % (0-9) Eosinophils (%) (Auto) 3 % (0-3) Basophils (%) (Auto) 1 % (0-3) Neutrophils # (Auto) 9.8 x10^3uL (1.8-7.7) Lymphocytes # (Auto) 2.0 x10^3/uL (1.0-4.8) Monocytes # (Auto) 1.1 x10^3/uL (0.0-1.1) Eosinophils # (Auto) 0.4 x10^3/uL (0.0-0.7) Basophils # (Auto) 0.1 x10^3/uL (0.0-0.2) Sodium Level 142 mmol/L (136-145) Potassium Level 3.1 mmol/L (3.5-5.1) Chloride Level 104 mmol/L (98-107) Carbon Dioxide Level 28 mmol/L (21-32) Anion Gap 10 (6-14) Blood Urea Nitrogen 6 mg/dL (8-26) Creatinine 0.4 mg/dL (0.7-1.3) Estimated GFR (Cockcroft-Gault) 218.7 BUN/Creatinine Ratio 15 (6-20) Glucose Level 181 mg/dL (70-99) Calcium Level 8.2 mg/dL (8.5-10.1) Phosphorus Level 1.6 mg/dL (2.6-4.7) Magnesium Level 1.5 mg/dL (1.8-2.4) Total Bilirubin 0.3 mg/dL (0.2-1.0) Aspartate Amino Transf (AST/SGOT) 17 U/L (15-37) Alanine Aminotransferase (ALT/SGPT) 16 U/L (16-63) Alkaline Phosphatase 64 U/L (46-116) Total Protein 6.3 g/dL (6.4-8.2) Albumin 1.9 g/dL (3.4-5.0) Albumin/Globulin Ratio 0.4 (1.0-1.7) Vancomycin Level Trough 5.7 mcg/mL (10.0-20.0) Vancomycin Last Dose Date 05/08/17 Vancomycin Last Dose Time 1700 Objective Assessment Perforated sigmoid diverticulum. -s/p rigid procto, SBR with primary anastomosis, sigmoid resection with end colostomy, Agustin's pouch, 05/06. 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 and Enterococcus Cipro allergy - ? seizure -has not had levoflox/Cipro since Leukocytosis - better Afib RVR Plan Plan of Care Cont vanc & Zosyn f/u intra-op cx PT/OT F/u labs JULIA JURADO MD May 09, 2017 07:54
[2017-05-09] MEDS: FAMOTIDINE 20 MG/2 ML VIAL IVP SCH ×2 (09:08→21:51)
[2017-05-09] MEDS: DIGOXIN IV 500 MCG/2 ML AMPUL. IV SCH (09:08)
[2017-05-09] MEDS: POTASSIUM CHLORIDE 20MEQ 50 ML IV SCH ×2 (09:10→10:21)
[2017-05-09] MEDS: INSULIN ASPART 300 UNITS/3 ML INSULN.PEN SQ SCH ×3 (09:23→18:00)
--- NOTE | 2017-05-09 09:30 | PDOC ---
PROGRESS NOTES Chief Complaint Chief Complaint 1. Sigmoid diverticulitis with perforation s/p sx sigmoid resection with ileostomy (05/05/17) POD # \2 2. Paroxysmal atrial fivb s.p RVR now nSR 3. DM 2 on insulin 4. SIRS POA, no sepsis 5. Acute abd pain sec to # 1 on NURSE TRANSITIONAL 6. Sustained vtach (05/05/17) 7. LEukocytosis post op day # 1 8. Obesity BMI 33.9 9. 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 and Enterococcus History of Present Illness History of Present Illness s/p sx POD # 3 Up in chair NGT approx 125 cc output in 2,.5 hrs PAin better today than yesterday - maintains on NURSE TRANSITIONAL pump TPN started last night via R PICC NO arrhythmias past few nights now (last one was day of OR) PLAN: Cont NURSE TRANSITIONAL - 1 more day - did talk about possibly starting to taper it tomorrow - he nods (this is the first day that pain is rather decently controlled) cont IS MAg better today after 2x replacement past 2 days LAbs [place] AM Would kEEp NGT (still signif output) COnt TPN COnt lovenox qD Strictly NPO Cont PPI IV Recheck CBC [place] - leukocytosis (Better 13 today from 18, no fevers) dw RN, pt and at bedside Vitals Vitals Vital Signs Date Time Temp Pulse Resp B/P (MAP) Pulse Ox O2 Delivery O2 Flow Rate FiO2 05/09/17 09:08 73 05/09/17 08:04 Nasal Cannula 05/09/17 07:32 97 1.0 05/09/17 07:05 97.7 16 135/70 (91) 97.7 Physical Exam General: Alert, Oriented X3, Cooperative, No acute distress Heart: Regular rate, Normal S1, Normal S2, Other (2/6 systolic murmur to LLS border) Lungs: Clear Abdomen: Soft, Other (LLQ tenderness, moderate) Extremities: No clubbing Skin: No rashes, No breakdown Labs LABS Laboratory Tests Test 05/08/17 12:35 05/08/17 16:50 05/08/17 21:12 05/09/17 04:30 Glucose (Fingerstick) 146 mg/dL (70-99) 123 mg/dL (70-99) 108 mg/dL (70-99) White Blood Count 13.4 x10^3/uL (4.0-11.0) Red Blood Count 4.20 x10^6/uL (4.30-5.70) Hemoglobin 11.6 g/dL (13.0-17.5) Hematocrit 34.1 % (39.0-53.0) Mean Corpuscular Volume 81 fL (79-100) Mean Corpuscular Hemoglobin 28 pg (25-35) Mean Corpuscular Hemoglobin Concent 34 g/dL (31-37) Red Cell Distribution Width 14.2 % (11.5-14.5) Platelet Count 326 x10^3/uL (140-400) Neutrophils (%) (Auto) 73 % (31-73) Lymphocytes (%) (Auto) 15 % (24-48) Monocytes (%) (Auto) 8 % (0-9) Eosinophils (%) (Auto) 3 % (0-3) Basophils (%) (Auto) 1 % (0-3) Neutrophils # (Auto) 9.8 x10^3uL (1.8-7.7) Lymphocytes # (Auto) 2.0 x10^3/uL (1.0-4.8) Monocytes # (Auto) 1.1 x10^3/uL (0.0-1.1) Eosinophils # (Auto) 0.4 x10^3/uL (0.0-0.7) Basophils # (Auto) 0.1 x10^3/uL (0.0-0.2) Sodium Level 142 mmol/L (136-145) Potassium Level 3.1 mmol/L (3.5-5.1) Chloride Level 104 mmol/L (98-107) Carbon Dioxide Level 28 mmol/L (21-32) Anion Gap 10 (6-14) Blood Urea Nitrogen 6 mg/dL (8-26) Creatinine 0.4 mg/dL (0.7-1.3) Estimated GFR (Cockcroft-Gault) 218.7 BUN/Creatinine Ratio 15 (6-20) Glucose Level 181 mg/dL (70-99) Calcium Level 8.2 mg/dL (8.5-10.1) Phosphorus Level 1.6 mg/dL (2.6-4.7) Magnesium Level 1.5 mg/dL (1.8-2.4) Total Bilirubin 0.3 mg/dL (0.2-1.0) Aspartate Amino Transf (AST/SGOT) 17 U/L (15-37) Alanine Aminotransferase (ALT/SGPT) 16 U/L (16-63) Alkaline Phosphatase 64 U/L (46-116) Total Protein 6.3 g/dL (6.4-8.2) Albumin 1.9 g/dL (3.4-5.0) Albumin/Globulin Ratio 0.4 (1.0-1.7) Vancomycin Level Trough 5.7 mcg/mL (10.0-20.0) Vancomycin Last Dose Date 05/08/17 Vancomycin Last Dose Time 1700 Test 05/09/17 07:47 Glucose (Fingerstick) 203 mg/dL (70-99) Review of Systems Review of Systems post op soreness, no soa, cp, emesis Assessment and Plan Assessmemt and Plan Problems Medical Problems: (1) Diverticulitis Status: Acute (2) Perforated bowel Status: Acute Problems: Comment Review of Relevant I have reviewed the following items ebony (where applicable) has been applied. Labs Laboratory Tests Test 05/07/17 11:40 05/07/17 21:30 05/08/17 07:00 05/08/17 07:20 Glucose (Fingerstick) 118 mg/dL (70-99) 169 mg/dL (70-99) Sodium Level 140 mmol/L (136-145) Potassium Level 3.6 mmol/L (3.5-5.1) Chloride Level 104 mmol/L (98-107) Carbon Dioxide Level 26 mmol/L (21-32) Anion Gap 10 (6-14) Blood Urea Nitrogen 8 mg/dL (8-26) Creatinine 0.5 mg/dL (0.7-1.3) Estimated GFR (Cockcroft-Gault) 169.0 Glucose Level 143 mg/dL (70-99) Calcium Level 8.0 mg/dL (8.5-10.1) Phosphorus Level 1.6 mg/dL (2.6-4.7) Magnesium Level 1.6 mg/dL (1.8-2.4) Test 05/08/17 08:27 05/08/17 12:35 05/08/17 16:50 05/08/17 21:12 Glucose (Fingerstick) 156 mg/dL (70-99) 146 mg/dL (70-99) 123 mg/dL (70-99) 108 mg/dL (70-99) Test 05/09/17 04:30 05/09/17 07:47 White Blood Count 13.4 x10^3/uL (4.0-11.0) Red Blood Count 4.20 x10^6/uL (4.30-5.70) Hemoglobin 11.6 g/dL (13.0-17.5) Hematocrit 34.1 % (39.0-53.0) Mean Corpuscular Volume 81 fL (79-100) Mean Corpuscular Hemoglobin 28 pg (25-35) Mean Corpuscular Hemoglobin Concent 34 g/dL (31-37) Red Cell Distribution Width 14.2 % (11.5-14.5) Platelet Count 326 x10^3/uL (140-400) Neutrophils (%) (Auto) 73 % (31-73) Lymphocytes (%) (Auto) 15 % (24-48) Monocytes (%) (Auto) 8 % (0-9) Eosinophils (%) (Auto) 3 % (0-3) Basophils (%) (Auto) 1 % (0-3) Neutrophils # (Auto) 9.8 x10^3uL (1.8-7.7) Lymphocytes # (Auto) 2.0 x10^3/uL (1.0-4.8) Monocytes # (Auto) 1.1 x10^3/uL (0.0-1.1) Eosinophils # (Auto) 0.4 x10^3/uL (0.0-0.7) Basophils # (Auto) 0.1 x10^3/uL (0.0-0.2) Sodium Level 142 mmol/L (136-145) Potassium Level 3.1 mmol/L (3.5-5.1) Chloride Level 104 mmol/L (98-107) Carbon Dioxide Level 28 mmol/L (21-32) Anion Gap 10 (6-14) Blood Urea Nitrogen 6 mg/dL (8-26) Creatinine 0.4 mg/dL (0.7-1.3) Estimated GFR (Cockcroft-Gault) 218.7 BUN/Creatinine Ratio 15 (6-20) Glucose Level 181 mg/dL (70-99) Calcium Level 8.2 mg/dL (8.5-10.1) Phosphorus Level 1.6 mg/dL (2.6-4.7) Magnesium Level 1.5 mg/dL (1.8-2.4) Total Bilirubin 0.3 mg/dL (0.2-1.0) Aspartate Amino Transf (AST/SGOT) 17 U/L (15-37) Alanine Aminotransferase (ALT/SGPT) 16 U/L (16-63) Alkaline Phosphatase 64 U/L (46-116) Total Protein 6.3 g/dL (6.4-8.2) Albumin 1.9 g/dL (3.4-5.0) Albumin/Globulin Ratio 0.4 (1.0-1.7) Vancomycin Level Trough 5.7 mcg/mL (10.0-20.0) Vancomycin Last Dose Date 05/08/17 Vancomycin Last Dose Time 1700 Glucose (Fingerstick) 203 mg/dL (70-99) Laboratory Tests Test 05/08/17 12:35 05/08/17 16:50 05/08/17 21:12 05/09/17 04:30 Glucose (Fingerstick) 146 mg/dL (70-99) 123 mg/dL (70-99) 108 mg/dL (70-99) White Blood Count 13.4 x10^3/uL (4.0-11.0) Red Blood Count 4.20 x10^6/uL (4.30-5.70) Hemoglobin 11.6 g/dL (13.0-17.5) Hematocrit 34.1 % (39.0-53.0) Mean Corpuscular Volume 81 fL (79-100) Mean Corpuscular Hemoglobin 28 pg (25-35) Mean Corpuscular Hemoglobin Concent 34 g/dL (31-37) Red Cell Distribution Width 14.2 % (11.5-14.5) Platelet Count 326 x10^3/uL (140-400) Neutrophils (%) (Auto) 73 % (31-73) Lymphocytes (%) (Auto) 15 % (24-48) Monocytes (%) (Auto) 8 % (0-9) Eosinophils (%) (Auto) 3 % (0-3) Basophils (%) (Auto) 1 % (0-3) Neutrophils # (Auto) 9.8 x10^3uL (1.8-7.7) Lymphocytes # (Auto) 2.0 x10^3/uL (1.0-4.8) Monocytes # (Auto) 1.1 x10^3/uL (0.0-1.1) Eosinophils # (Auto) 0.4 x10^3/uL (0.0-0.7) Basophils # (Auto) 0.1 x10^3/uL (0.0-0.2) Sodium Level 142 mmol/L (136-145) Potassium Level 3.1 mmol/L (3.5-5.1) Chloride Level 104 mmol/L (98-107) Carbon Dioxide Level 28 mmol/L (21-32) Anion Gap 10 (6-14) Blood Urea Nitrogen 6 mg/dL (8-26) Creatinine 0.4 mg/dL (0.7-1.3) Estimated GFR (Cockcroft-Gault) 218.7 BUN/Creatinine Ratio 15 (6-20) Glucose Level 181 mg/dL (70-99) Calcium Level 8.2 mg/dL (8.5-10.1) Phosphorus Level 1.6 mg/dL (2.6-4.7) Magnesium Level 1.5 mg/dL (1.8-2.4) Total Bilirubin 0.3 mg/dL (0.2-1.0) Aspartate Amino Transf (AST/SGOT) 17 U/L (15-37) Alanine Aminotransferase (ALT/SGPT) 16 U/L (16-63) Alkaline Phosphatase 64 U/L (46-116) Total Protein 6.3 g/dL (6.4-8.2) Albumin 1.9 g/dL (3.4-5.0) Albumin/Globulin Ratio 0.4 (1.0-1.7) Vancomycin Level Trough 5.7 mcg/mL (10.0-20.0) Vancomycin Last Dose Date 05/08/17 Vancomycin Last Dose Time 1700 Test 05/09/17 07:47 Glucose (Fingerstick) 203 mg/dL (70-99) Microbiology 05/06/17 Anaerobic/Aerobic Culture, Resulted Pending 05/06/17 Anaerobic Culture Result 1 (DEBBIE), Resulted Pending 05/06/17 Aerobic Culture - Preliminary, Resulted 05/06/17 Aerobic Culture Result 1 (DEBBIE) - Preliminary, Resulted 05/06/17 Aerobic Culture Result 2 (DEBBIE) - Preliminary, Resulted Medications Current Medications Morphine Sulfate 4 mg 1X ONCE IV Last administered on 04/27/17 08:03; Start 04/27/17 at 07:30; Stop 04/27/17 at 07:52; Status DC Ondansetron HCl (Zofran) 4 mg 1X ONCE IV Last administered on 04/27/17 08:12 ; Start 04/27/17 at 08:15; Stop 04/27/17 at 08:16; Status DC Iohexol (Omnipaque 300 Mg/ml) 75 ml 1X ONCE IV Last administered on 04/27/17 08:41; Start 04/27/17 at 08:15; Stop 04/27/17 at 08:16; Status DC Info (Do NOT chart on this entry -- for MONITORING) 1 each PRN DAILY PRN MC SEE COMMENTS; Start 04/27/17 at 08:15; Stop 04/29/17 at 08:14; Status DC Sodium Chloride 1,000 ml @ 1,000 mls/hr 1X ONCE IV Last administered on 09:30; Start 04/27/17 at 09:30; Stop 04/27/17 at 10:29; Status DC Piperacillin Sod/ Tazobactam Sod (Zosyn Per Pharmacy) 1 each PRN DAILY PRN MC SEE COMMENTS; Start 04/27/17 at 09:45; Stop 05/05/17 at 10:29; Status DC Piperacillin Sod/ Tazobactam Sod 3.375 gm/Sodium Chloride 50 ml @ 100 mls/hr 1X ONCE IV Last administered on 04/27/17 10:05; Start 04/27/17 at 09:45; Stop 04/27/17 at 10:14; Status DC Fentanyl Citrate (Fentanyl 2ml Vial) 50 mcg 1X ONCE IV Last administered on 10:27; Start 04/27/17 at 10:00; Stop 04/27/17 at 10:01; Status DC Ondansetron HCl (Zofran) 4 mg PRN Q8HRS PRN IV NAUSEA/VOMITING; Start 04/27/17 at 10:00; Stop 04/28/17 at 09:59; Status DC Fentanyl Citrate (Fentanyl 2ml Vial) 50 mcg PRN Q1HR PRN IV PAIN Last administered on 04/28/17 08:08; Start 04/27/17 at 10:00; Stop 04/28/17 at 09:59 ; Status DC Piperacillin Sod/ Tazobactam Sod 3.375 gm/Sodium Chloride 50 ml @ 100 mls/hr Q6HRS IV Last administered on 05/09/17 05:39; Start 04/27/17 at 18:00 Digoxin (Lanoxin) 500 mcg 1X ONCE IV Last administered on 04/27/17 10:44; Start 04/27/17 at 10:30; Stop 04/27/17 at 10:31; Status DC Sodium Chloride 1,000 ml @ 1,000 mls/hr 1X ONCE IV Last administered on 10:53; Start 04/27/17 at 11:00; Stop 04/27/17 at 11:59; Status DC Magnesium Sulfate/ Dextrose 100 ml @ 25 mls/hr 1X ONCE IV Last administered on 04/27/17 12:21; Start 04/27/17 at 11:00; Stop 04/27/17 at 14:59; Status DC Metoprolol Tartrate (Lopressor) 5 mg Q6HRS IVP ; Start 04/27/17 at 13:00; Stop 04/27/17 at 15:57; Status DC Sodium Chloride 1,000 ml @ 100 mls/hr Q10H IV Last administered on 05/05/17 12:42; Start 04/27/17 at 14:15; Stop 05/08/17 at 12:12; Status DC Saliva Substitute (Biotene Moisturizing Mouth) 2 spray PRN Q15MIN PRN PO DRY MOUTH Last administered on 04/27/17 18:18; Start 04/27/17 at 14:15 Nicotine Polacrilex (Nicorette Gum) 1 each PRN Q1HR PRN BC SMOKING CESSATION; Start 04/27/17 at 14:15 Albuterol/ Ipratropium (Duoneb) 3 ml RTQID NEB Last administered on 05/09/17 07:31; Start 04/27/17 at 16:00 Albuterol/ Ipratropium (Duoneb) 3 ml 1X ONCE NEB ; Start 04/27/17 at 14:15; Stop 04/27/17 at 14:16; Status DC Aspirin (Ecotrin) 81 mg DAILY PO ; Start 04/27/17 at 14:30; Stop 04/28/17 at 11: 52; Status DC Insulin Aspart (NovoLOG) 0-9 UNITS TIDWMEALS SQ Last administered on 05/09/17 09:23; Start 04/27/17 at 17:00 Dextrose (Dextrose 50%-Water Syringe) 12.5 gm PRN Q15MIN PRN IV SEE COMMENTS; Start 04/27/17 at 14:15 Insulin Detemir (Levemir) 25 units QHS SQ Last administered on 05/08/17 21:14 ; Start 04/27/17 at 21:00 Metoprolol Tartrate (Lopressor) 2.5 mg Q6HRS IVP ; Start 04/27/17 at 18:00; Stop 04/28/17 at 11:53; Status DC Atorvastatin Calcium (Lipitor) 20 mg QHS PO Last administered on 04/27/17 20: 38; Start 04/27/17 at 21:00; Stop 04/28/17 at 11:52; Status DC Ondansetron HCl (Zofran) 4 mg PRN Q6HRS PRN IV NAUSEA/VOMITING Last administered on 04/29/17 02:55; Start 04/28/17 at 10:45; Stop 05/07/17 at 07:40 ; Status DC Fentanyl Citrate (Fentanyl 2ml Vial) 50 mcg PRN Q2HR PRN IV PAIN; Start at 10:45; Stop 04/28/17 at 11:50; Status DC Fentanyl Citrate (Fentanyl 2ml Vial) 100 mcg PRN Q2HR PRN IV PAIN SEVERE Last administered on 05/01/17 20:58; Start 04/28/17 at 12:00 Pantoprazole Sodium (Protonix Vial) 40 mg DAILYAC IVP Last administered on 05/04 09:35; Start 04/28/17 at 12:00; Stop 05/04/17 at 19:22; Status DC Metoprolol Tartrate (Lopressor) 2.5 mg PRN Q6HRS PRN IVP BP 160/100; Start at 12:00; Stop 05/04/17 at 19:22; Status DC Metoprolol Tartrate (Lopressor) 2.5 mg Q6HRS IVP Last administered on 18:20; Start 04/28/17 at 12:00; Stop 05/04/17 at 19:22; Status DC Aspirin (Ecotrin) 81 mg [id number] PO Last administered on 05/05/17 09:04; Start 04/29/17 at 08:00; Stop 05/07/17 at 10:58; Status DC Atorvastatin Calcium (Lipitor) 20 mg QHS PO Last administered on 05/05/17 22: 21; Start 04/28/17 at 21:00; Stop 05/07/17 at 10:58; Status DC Micafungin Sodium 100 mg/Dextrose 100 ml @ 100 mls/hr Q24H IV Last administered on 05/03/17 08:29; Start 04/29/17 at 09:00; Stop 05/04/17 at 08:38 ; Status DC Naloxone HCl (Narcan) 0.4 mg PRN Q2MIN PRN IV SEE INSTRUCTIONS; Start 04/29/17 at 09:45 Hydromorphone HCl 30 ml @ 0 mls/hr CONT PRN PRN IV PROTOCOL Last administered on 05/07/17 21:34; Start 04/29/17 at 09:45 Digoxin (Lanoxin) 125 mcg DAILY IV Last administered on 05/04/17 09:38; Start 04/29/17 at 11:00; Stop 05/04/17 at 19:22; Status DC Iohexol (Omnipaque 300 Mg/ml) 75 ml 1X ONCE IV ; Start 04/29/17 at 11:15; Stop 04/29/17 at 11:16; Status DC Info (Do NOT chart on this entry -- for MONITORING) 1 each PRN DAILY PRN MC SEE COMMENTS; Start 04/29/17 at 11:15; Stop 05/01/17 at 11:14; Status DC Potassium Chloride (Klor-Con) 20 meq 1X ONCE PO Last administered on 10:04; Start 04/30/17 at 10:00; Stop 04/30/17 at 10:01; Status DC Potassium Chloride/Dextrose 1,000 ml @ 75 mls/hr 1X ONCE IV Last administered on 04/30/17 12:54; Start 04/30/17 at 13:00; Stop 05/01/17 at 02:19 ; Status DC Enoxaparin Sodium (Lovenox 40mg Syringe) 40 mg Q24H SQ Last administered on 12:40; Start 05/01/17 at 11:00; Stop 05/06/17 at 13:42; Status DC Potassium Chloride (Klor-Con) 40 meq 1X ONCE PO Last administered on 10:00; Start 05/03/17 at 09:45; Stop 05/03/17 at 09:46; Status DC Metoprolol Tartrate (Lopressor) 12.5 mg BID PO Last administered on 05/06/17 08:42; Start 05/04/17 at 21:00; Stop 05/07/17 at 08:44; Status DC Pantoprazole Sodium (Protonix) 40 mg DAILYAC PO Last administered on 05/05/17 09:04; Start 05/05/17 at 07:30; Stop 05/07/17 at 10:58; Status DC Digoxin (Lanoxin) 125 mcg DAILY PO Last administered on 05/06/17 08:43; Start 05/05/17 at 09:00; Stop 05/07/17 at 08:44; Status DC Potassium Chloride 100 ml @ 100 mls/hr Q1H IV Last administered on 05/05/17 11:04; Start 05/05/17 at 05:30; Stop 05/05/17 at 09:29; Status DC Iohexol (Omnipaque 300 Mg/ml) 75 ml 1X ONCE IV Last administered on 05/05/17 08:47; Start 05/05/17 at 07:45; Stop 05/05/17 at 07:46; Status DC Gemfibrozil (Lopid) 600 mg BID PO Last administered on 05/05/17 22:21; Start 05/05/17 at 09:00; Stop 05/07/17 at 10:58; Status DC Lisinopril (Prinivil) 5 mg DAILY PO Last administered on 05/06/17 08:43; Start 05/05/17 at 09:00; Stop 05/07/17 at 08:44; Status DC Gabapentin (Neurontin) 600 mg TID PO Last administered on 05/05/17 22:21; Start 05/05/17 at 09:00; Stop 05/07/17 at 10:58; Status DC Fentanyl Citrate (Fentanyl 2ml Vial) 50 mcg PRN Q5MIN PRN IV Acute Pain Last administered on 05/06/17 14:19; Start 05/06/17 at 07:00; Stop 05/06/17 at 18:00 ; Status DC Morphine Sulfate 4 mg PRN Q10MIN PRN IV Moderate Pain; Start 05/06/17 at 07:00 ; Stop 05/06/17 at 18:00; Status DC Hydromorphone HCl (Dilaudid) 0.4 mg PRN Q10MIN PRN IV Moderate to severe pain Last administered on 05/06/17 15:00; Start 05/06/17 at 07:00; Stop 05/06/17 at 18:00; Status DC Meperidine HCl (Demerol) 12.5 mg PRN Q5MIN PRN IV SHIVERING; Start 05/06/17 at 07:00; Stop 05/06/17 at 18:00; Status DC Prochlorperazine Edisylate (Compazine) 5 mg PRN Q6HRS PRN IV Nausea/Vomiting, 1st Choice Last administered on 05/06/17 13:30; Start 05/06/17 at 07:00; Stop 05/06/17 at 18:00; Status DC Diphenhydramine HCl (Benadryl) 12.5 mg PRN Q2HR PRN IV ITCHING; Start 05/06/17 at 07:00; Stop 05/06/17 at 18:00; Status DC Midazolam HCl (Versed) 2 mg PRN 1X PRN IV PRIOR TO PROCEDURE; Start 05/06/17 at 07:00; Stop 05/06/17 at 18:00; Status DC Midazolam HCl (Versed) 1 mg PRN 1X PRN IV PRIOR TO PROCEDURE; Start 05/06/17 at 07:00; Stop 05/06/17 at 18:00; Status DC Fentanyl Citrate (Fentanyl 2ml Vial) 25 mcg PRN Q5MIN PRN IV X 2 DOSES FOR PAIN ; Start 05/06/17 at 07:00; Stop 05/06/17 at 18:00; Status DC Fentanyl Citrate (Fentanyl 2ml Vial) 50 mcg PRN Q5MIN PRN IV X 2 DOSES FOR PAIN ; Start 05/06/17 at 07:00; Stop 05/06/17 at 18:00; Status DC Ringer's Solution 1,000 ml @ 125 mls/hr Q8H IV ; Start 05/05/17 at 13:12; Stop 05/05/17 at 13:31; Status DC Lidocaine HCl 2 ml 1X PRN PRN ID IV START; Start 05/06/17 at 07:00; Stop at 18:00; Status DC Ringer's Solution 1,000 ml @ 125 mls/hr Q8H IV Last administered on 05/06/17t 13:29; Start 05/06/17 at 07:00; Stop 05/06/17 at 20:00; Status DC Lidocaine HCl (Lidocaine Pf 2% Vial) 5 ml STK-MED ONCE .ROUTE ; Start 05/06/17 at 07:47; Stop 05/06/17 at 07:48; Status DC Fentanyl Citrate (Fentanyl 2ml Vial) 100 mcg STK-MED ONCE .ROUTE ; Start at 07:47; Stop 05/06/17 at 07:48; Status DC Succinylcholine Chloride (Anectine) 200 mg STK-MED ONCE .ROUTE ; Start 05/06/17 at 07:47; Stop 05/06/17 at 07:48; Status DC Rocuronium [place] (Zemuron) 50 mg STK-MED ONCE .ROUTE ; Start 05/06/17 at 07:47 ; Stop 05/06/17 at 07:48; Status DC Propofol 20 ml @ As Directed STK-MED ONCE IV ; Start 05/06/17 at 10:00; Stop at 10:01; Status DC Dexamethasone Sodium Phosphate (Decadron) 20 mg STK-MED ONCE .ROUTE ; Start at 10:17; Stop 05/06/17 at 10:18; Status DC Sevoflurane (Ultane) 60 ml STK-MED ONCE IH ; Start 05/06/17 at 10:17; Stop 05/06 at 10:18; Status DC Ephedrine Sulfate 50 mg STK-MED ONCE IV ; Start 05/06/17 at 10:21; Stop at 10:22; Status DC Fentanyl Citrate (Fentanyl 2ml Vial) 100 mcg STK-MED ONCE .ROUTE ; Start at 10:37; Stop 05/06/17 at 10:38; Status DC Rocuronium [place] (Zemuron) 50 mg STK-MED ONCE .ROUTE ; Start 05/06/17 at 11:18 ; Stop 05/06/17 at 11:19; Status DC Neostigmine Methylsulfate 5 mg STK-MED ONCE .ROUTE ; Start 05/06/17 at 11:25; Stop 05/06/17 at 11:26; Status DC Ondansetron HCl (Zofran) 4 mg STK-MED ONCE .ROUTE ; Start 05/06/17 at 11:25; Stop 05/06/17 at 11:26; Status DC Glycopyrrolate (Robinul) 1 mg STK-MED ONCE .ROUTE ; Start 05/06/17 at 11:25; Stop 05/06/17 at 11:26; Status DC Fentanyl Citrate (Fentanyl 2ml Vial) 100 mcg STK-MED ONCE .ROUTE ; Start at 11:51; Stop 05/06/17 at 11:52; Status DC Diphenhydramine HCl (Benadryl) 25 mg PRN Q6HRS PRN IV ITCHING; Start 05/06/17 at 13:45 Enoxaparin Sodium (Lovenox 40mg Syringe) 40 mg Q24H SQ Last administered on 21:11; Start 05/06/17 at 21:00 Sodium Chloride (Normal Saline Flush) 3 ml QSHIFT PRN IV AFTER MEDS AND BLOOD DRAWS; Start 05/06/17 at 13:45 Potassium Chloride/Sodium Chloride 1,000 ml @ 100 mls/hr Q10H IV Last administered on 05/08/17 16:00; Start 05/06/17 at 14:00; Stop 05/08/17 at 21:59 ; Status DC Ondansetron HCl (Zofran) 4 mg PRN Q6HRS PRN IV NAUESA, 1ST CHOICE; Start at 13:45 Throat Lozenges (Chloraseptic) 1 spray PRN Q2HR PRN PO SORE THROAT; Start 05/06 at 13:45 Throat Lozenges (Cepacol Sore Throat Lozenge) 1 shalom PRN Q2HRS PRN PO SORE THROAT; Start 05/06/17 at 13:45 Digoxin (Lanoxin) 125 mcg DAILY IV Last administered on 05/09/17 09:08; Start 05/07/17 at 09:00 Metoprolol Tartrate (Lopressor) 5 mg Q6HRS IVP Last administered on 05/09/17 05:40; Start 05/07/17 at 08:45 Enalaprilat (Vasotec) 0.625 mg Q6HRS IV Last administered on 05/09/17 05:40; Start 05/07/17 at 12:00 Magnesium Sulfate/ Dextrose 100 ml @ 25 mls/hr 1X ONCE IV Last administered on 05/07/17 10:58; Start 05/07/17 at 10:30; Stop 05/07/17 at 14:29; Status DC Info 1 each PRN DAILY PRN MC SEE COMMENTS Last administered on 05/08/17 11:45 ; Start 05/07/17 at 11:00 Famotidine (Pepcid) 20 mg BID IVP Last administered on 05/09/17 09:08; Start 05/07/17 at 11:00 Vancomycin HCl (Vanco Per Pharmacy) 1 each PRN DAILY PRN MC SEE COMMENTS Last administered on 05/09/17 06:09; Start 05/07/17 at 13:15 Vancomycin HCl 2 gm/Sodium Chloride 500 ml @ 250 mls/hr 1X ONCE IV Last administered on 05/07/17 17:54; Start 05/07/17 at 13:15; Stop 05/07/17 at 15:14 ; Status DC Vancomycin HCl 1 each 1X ONCE MC Last administered on 05/09/17 04:30; Start 05/09/17 at 04:30; Stop 05/09/17 at 04:31; Status DC Vancomycin HCl 1.75 gm/Sodium Chloride 500 ml @ 250 mls/hr Q12H IV Last administered on 05/08/17 16:47; Start 05/08/17 at 05:00; Stop 05/09/17 at 06:01 ; Status DC Amino Acids/ Glycerin/ Electrolytes 1,000 ml @ 80 mls/hr [id number] IV Last administered on 05/08/17 03:48; Start 05/07/17 at 15:30; Stop 05/08/17 at 12:12 ; Status DC Magnesium Sulfate/ Dextrose 50 ml @ 25 mls/hr 1X ONCE IV Last administered on 05/08/17 11:13; Start 05/08/17 at 11:00; Stop 05/08/17 at 12:59; Status DC Potassium Phosphate 15 mmol/ Sodium Chloride 255 ml @ 127.5 mls/ hr 1X ONCE IV Last administered on 05/08/17 12:48; Start 05/08/17 at 12:00; Stop at 13:59; Status DC Sodium Chloride 90 meq/Potassium Chloride 50 meq/ Potassium Phosphate 13.6 mmol/ Magnesium Sulfate 10 meq/ Calcium Gluconate 10 meq/ Multivitamins 10 ml/Chromium / Copper/Manganese/ Seleni/Zn 1 ml/ Total Parenteral Nutrition/Amino Acids/ Dextrose/ Fat Emulsion Intravenous 1,512 ml @ 63 mls/hr TPN CONT IV Last administered on 05/08/17 21:15; Start 05/08/17 at 22:00; Stop 05/09/17 at 21:59 Vancomycin HCl 1.75 gm/Sodium Chloride 500 ml @ 250 mls/hr Q8HRS IV Last administered on 05/09/17 06:08; Start 05/09/17 at 06:30 Vancomycin HCl 1 each 1X ONCE MC ; Start 05/10/17 at 05:30; Stop 05/10/17 at 05 :31 Potassium Chloride 50 ml @ 50 mls/hr Q1H IV Last administered on 05/09/17 09: 10; Start 05/09/17 at 09:00; Stop 05/09/17 at 10:59 Active Scripts Active Reported Lantus Solostar (Insulin Glargine,Hum.rec.anlog) 100 Unit/1 Ml Insuln.pen 65 Unit SQ BID Aleve (Naproxen Sodium) 220 Mg Capsule 440 Mg PO BID Aspir 81 (Aspirin) 81 Mg Tablet. 1 Tab PO DAILY Gabapentin 600 Mg Tablet 600 Mg PO TID Carvedilol 6.25 Mg Tablet 1 Tab PO BID Lisinopril 5 Mg Tablet 1 Tab PO DAILY Gemfibrozil 600 Mg Tablet 600 Mg PO BID Vitals/I & O Vital Sign - Last 24 Hours 05/08/17 05/08/17 05/08/1717 11:03 12:39 12:49 12:50 Temp 98.3 98.3 Pulse 79 80 80 Resp 18 B/P (MAP) 143/71 (95) 138/63 138/63 Pulse Ox 96 96 O2 Delivery Nasal Cannula Nasal Cannula O2 Flow Rate 1.0 1.0 05/08/17 05/08/17 05/08/17 05/08/17 15:15 16:05 18:10 18:12 Temp 98.2 98.2 Pulse 86 81 81 Resp 16 B/P (MAP) 144/70 (94) 145/74 145/74 Pulse Ox 96 97 O2 Delivery Nasal Cannula Nasal Cannula O2 Flow Rate 1.0 1.0 05/08/17 05/08/17 05/08/17 05/08/17 19:00 19:46 20:10 23:15 Temp 98.3 97.8 98.3 97.8 Pulse 77 79 Resp 18 18 B/P (MAP) 130/66 (87) 145/69 (94) Pulse Ox 97 98 97 O2 Delivery Nasal Cannula Nasal Cannula Nasal Cannula Nasal Cannula O2 Flow Rate 1.5 1.0 1.5 1.5 05/08/17 05/08/17 05/09/17 05/09/17 23:21 23:22 03:00 05:40 Temp 98.3 98.3 Pulse 79 79 72 72 Resp 18 B/P (MAP) 145/69 145/69 153/83 (106) 153/83 Pulse Ox 97 O2 Delivery Nasal Cannula O2 Flow Rate 1.5 05/09/17 05/09/17 05/09/17 05/09/17 05:40 07:05 07:32 08:04 Temp 97.7 97.7 Pulse 72 73 Resp 16 B/P (MAP) 153/83 135/70 (91) Pulse Ox 93 97 O2 Delivery Room Air Nasal Cannula Nasal Cannula O2 Flow Rate 1.0 05/09/17 09:08 Pulse 73 Intake and Output 05/08/17 05/08/17 05/09/17 15:00 23:00 07:00 Intake Total 1255 ml 1750 ml 100 ml Output Total 2395 ml 995 ml Balance 1255 ml -645 ml -895 ml MURIEL FUENTES MD May 09, 2017 09:30
--- NOTE | 2017-05-09 10:25 | PDOC ---
CONOR MILLER LUGGAGE REPAIRER 05/09/17 1025: SURGICAL PROGRESS NOTE Subjective up to chair slowly feeling better Vital Signs Vital Signs Date Time Temp Pulse Resp B/P (MAP) Pulse Ox O2 Delivery O2 Flow Rate FiO2 05/09/17 09:08 73 05/09/17 08:04 Nasal Cannula 05/09/17 07:32 97 1.0 05/09/17 07:05 97.7 16 135/70 (91) 97.7 I&O Intake and Output 05/09/17 07:00 Intake Total 3105 ml Output Total 3390 ml Balance -285 ml Intake Oral 0 ml IV Total 3105 ml Output Urine Total 3200 ml Drainage Total 190 ml General: Alert, Oriented X3, Cooperative, No acute distress HEENT: Other (NG still significant drainage, 300cc this AM) Abdomen: Soft, Other (stoma pink, no bowel function, dressing dry, ting serosang ) Labs Laboratory Tests Test 05/07/17 11:40 05/07/17 21:30 05/08/17 07:00 05/08/17 07:20 Glucose (Fingerstick) 118 mg/dL (70-99) 169 mg/dL (70-99) Sodium Level 140 mmol/L (136-145) Potassium Level 3.6 mmol/L (3.5-5.1) Chloride Level 104 mmol/L (98-107) Carbon Dioxide Level 26 mmol/L (21-32) Anion Gap 10 (6-14) Blood Urea Nitrogen 8 mg/dL (8-26) Creatinine 0.5 mg/dL (0.7-1.3) Estimated GFR (Cockcroft-Gault) 169.0 Glucose Level 143 mg/dL (70-99) Calcium Level 8.0 mg/dL (8.5-10.1) Phosphorus Level 1.6 mg/dL (2.6-4.7) Magnesium Level 1.6 mg/dL (1.8-2.4) Test 05/08/17 08:27 05/08/17 12:35 05/08/17 16:50 05/08/17 21:12 Glucose (Fingerstick) 156 mg/dL (70-99) 146 mg/dL (70-99) 123 mg/dL (70-99) 108 mg/dL (70-99) Test 05/09/17 04:30 05/09/17 07:47 White Blood Count 13.4 x10^3/uL (4.0-11.0) Red Blood Count 4.20 x10^6/uL (4.30-5.70) Hemoglobin 11.6 g/dL (13.0-17.5) Hematocrit 34.1 % (39.0-53.0) Mean Corpuscular Volume 81 fL (79-100) Mean Corpuscular Hemoglobin 28 pg (25-35) Mean Corpuscular Hemoglobin Concent 34 g/dL (31-37) Red Cell Distribution Width 14.2 % (11.5-14.5) Platelet Count 326 x10^3/uL (140-400) Neutrophils (%) (Auto) 73 % (31-73) Lymphocytes (%) (Auto) 15 % (24-48) Monocytes (%) (Auto) 8 % (0-9) Eosinophils (%) (Auto) 3 % (0-3) Basophils (%) (Auto) 1 % (0-3) Neutrophils # (Auto) 9.8 x10^3uL (1.8-7.7) Lymphocytes # (Auto) 2.0 x10^3/uL (1.0-4.8) Monocytes # (Auto) 1.1 x10^3/uL (0.0-1.1) Eosinophils # (Auto) 0.4 x10^3/uL (0.0-0.7) Basophils # (Auto) 0.1 x10^3/uL (0.0-0.2) Sodium Level 142 mmol/L (136-145) Potassium Level 3.1 mmol/L (3.5-5.1) Chloride Level 104 mmol/L (98-107) Carbon Dioxide Level 28 mmol/L (21-32) Anion Gap 10 (6-14) Blood Urea Nitrogen 6 mg/dL (8-26) Creatinine 0.4 mg/dL (0.7-1.3) Estimated GFR (Cockcroft-Gault) 218.7 BUN/Creatinine Ratio 15 (6-20) Glucose Level 181 mg/dL (70-99) Calcium Level 8.2 mg/dL (8.5-10.1) Phosphorus Level 1.6 mg/dL (2.6-4.7) Magnesium Level 1.5 mg/dL (1.8-2.4) Total Bilirubin 0.3 mg/dL (0.2-1.0) Aspartate Amino Transf (AST/SGOT) 17 U/L (15-37) Alanine Aminotransferase (ALT/SGPT) 16 U/L (16-63) Alkaline Phosphatase 64 U/L (46-116) Total Protein 6.3 g/dL (6.4-8.2) Albumin 1.9 g/dL (3.4-5.0) Albumin/Globulin Ratio 0.4 (1.0-1.7) Vancomycin Level Trough 5.7 mcg/mL (10.0-20.0) Vancomycin Last Dose Date 05/08/17 Vancomycin Last Dose Time 1700 Glucose (Fingerstick) 203 mg/dL (70-99) Laboratory Tests Test 05/08/17 12:35 05/08/17 16:50 05/08/17 21:12 05/09/17 04:30 Glucose (Fingerstick) 146 mg/dL (70-99) 123 mg/dL (70-99) 108 mg/dL (70-99) White Blood Count 13.4 x10^3/uL (4.0-11.0) Red Blood Count 4.20 x10^6/uL (4.30-5.70) Hemoglobin 11.6 g/dL (13.0-17.5) Hematocrit 34.1 % (39.0-53.0) Mean Corpuscular Volume 81 fL (79-100) Mean Corpuscular Hemoglobin 28 pg (25-35) Mean Corpuscular Hemoglobin Concent 34 g/dL (31-37) Red Cell Distribution Width 14.2 % (11.5-14.5) Platelet Count 326 x10^3/uL (140-400) Neutrophils (%) (Auto) 73 % (31-73) Lymphocytes (%) (Auto) 15 % (24-48) Monocytes (%) (Auto) 8 % (0-9) Eosinophils (%) (Auto) 3 % (0-3) Basophils (%) (Auto) 1 % (0-3) Neutrophils # (Auto) 9.8 x10^3uL (1.8-7.7) Lymphocytes # (Auto) 2.0 x10^3/uL (1.0-4.8) Monocytes # (Auto) 1.1 x10^3/uL (0.0-1.1) Eosinophils # (Auto) 0.4 x10^3/uL (0.0-0.7) Basophils # (Auto) 0.1 x10^3/uL (0.0-0.2) Sodium Level 142 mmol/L (136-145) Potassium Level 3.1 mmol/L (3.5-5.1) Chloride Level 104 mmol/L (98-107) Carbon Dioxide Level 28 mmol/L (21-32) Anion Gap 10 (6-14) Blood Urea Nitrogen 6 mg/dL (8-26) Creatinine 0.4 mg/dL (0.7-1.3) Estimated GFR (Cockcroft-Gault) 218.7 BUN/Creatinine Ratio 15 (6-20) Glucose Level 181 mg/dL (70-99) Calcium Level 8.2 mg/dL (8.5-10.1) Phosphorus Level 1.6 mg/dL (2.6-4.7) Magnesium Level 1.5 mg/dL (1.8-2.4) Total Bilirubin 0.3 mg/dL (0.2-1.0) Aspartate Amino Transf (AST/SGOT) 17 U/L (15-37) Alanine Aminotransferase (ALT/SGPT) 16 U/L (16-63) Alkaline Phosphatase 64 U/L (46-116) Total Protein 6.3 g/dL (6.4-8.2) Albumin 1.9 g/dL (3.4-5.0) Albumin/Globulin Ratio 0.4 (1.0-1.7) Vancomycin Level Trough 5.7 mcg/mL (10.0-20.0) Vancomycin Last Dose Date 05/08/17 Vancomycin Last Dose Time 1700 Test 05/09/17 07:47 Glucose (Fingerstick) 203 mg/dL (70-99) Problem List Problems Medical Problems: (1) Diverticulitis Status: Acute (2) Perforated bowel Status: Acute Assessment/Plan s/p resection will continue NG now, still having significant output increase activity await bowel function wound/ostomy nurse consult Problems: JUAN LUIS HUANG MD 05/09/17 1309: SURGICAL PROGRESS NOTE Assessment/Plan pt seen and examined agree with above NG trial in AM Problems: CONOR MILLER APRN May 09, 2017 10:25 JUAN LUIS HUANG MD May 09, 2017 13:09
[2017-05-09 11:00] VITALS: BP 147/81
[2017-05-09] MEDS ORDERED: SODIUM PHOSPHATE 20 MMOL in IV DEXTROSE 5% 250 ML IV ONE (14:00)
[2017-05-09] MEDS: TPN PER PHARMACY MC PRN (14:01)
[2017-05-09] MEDS ORDERED: DEXTROSE 50% 25 GM / 50ML DISP.SYRIN. IV PRN (14:30)
[2017-05-09 15:00] VITALS: BP 128/68
[2017-05-09] MEDS ORDERED: MAGNESIUM SULFATE 2GM 50 ML IV ONE (16:30)
[2017-05-09] MEDS ORDERED: ALBUTEROL SULFATE 2.5 MG/3 ML NEBU. NEB PRN (16:45)
[2017-05-09] MEDS ORDERED: INSULIN ASPART 300 UNITS/3 ML INSULN.PEN SQ SCH (17:00)
[2017-05-09 19:40] VITALS: BP 132/63
[2017-05-09] MEDS ORDERED: DEXTROSE 70% IV SCH ×10 (22:00)
[2017-05-09] MEDS ORDERED: [UNRECOGNIZED DRUG - OTHER] IV SCH ×10 (22:00)
[2017-05-09] MEDS ORDERED: TOTAL PARENTERAL NUTRITION IV SCH ×10 (22:00)
[2017-05-09] MEDS ORDERED: AMINO ACIDS IV SCH ×10 (22:00)
[2017-05-09] MEDS: ENOXAPARIN 40 MG/0.4 ML SYRINGE. SQ SCH (22:03)
[2017-05-09] MEDS: INSULIN DETEMIR 300 UNITS/3 ML INSULN.PEN. SQ SCH (22:18)
[2017-05-09 23:15] VITALS: BP 127/64
--- NOTE | 2017-05-10 00:31 | OP ---
DATE OF SURGERY: 05/06/2017 PREOPERATIVE DIAGNOSIS: Perforated diverticulitis with abscess and small-bowel obstruction. POSTOPERATIVE DIAGNOSIS: Perforated diverticulitis with abscess and small-bowel obstruction. PROCEDURE: Rigid proctoscopy, small bowel resection with primary anastomosis, sigmoid resection with end colostomy, Agustin's pouch. SURGEON: Asad Huang MD CORE DRILL OPERATOR: ARUN Wallace ANESTHESIA: General endotracheal. ESTIMATED BLOOD LOSS: 250 IV FLUIDS: 1400 URINE OUTPUT: 700. NG OUTPUT: 1900. JEJUNAL DECOMPRESSION: 1500 INDICATIONS: The patient is a 61-year-old with perforated diverticulitis with abscess, now creating a small-bowel obstruction, brought for exploration. OPERATIVE FINDINGS: The liver was smooth and sharp. The gallbladder was surgically absent. The stomach was distended and NG tube was placed. The small bowel was run from ligament of Treitz to ileocecal valve. In the mid small bowel, an area of inflammation was tethering it down to the abscess associated with a perforated diverticulitis. The appendix was fibrotic. The ascending, transverse and descending colon were palpably unremarkable. In the mid sigmoid was an area of inflammatory change and pericolonic abscess. The distal bowel was unremarkable. DESCRIPTION OF PROCEDURE: The patient brought to the operating suite, given a general endotracheal anesthetic. Ashley catheter placed to dependent drainage and the abdomen prepped and draped in usual sterile fashion. Rigid proctoscopy was carried out with the patient in lithotomy prior to initiating the abdominal procedure. The patient was then taken out of lithotomy. The rigid procto was limited in that there was no preoperative bowel cleansing. Inspection to 20 cm from the anal verge did not show obvious abnormality. A midline incision was then made through the skin and subcutaneous tissue down the anterior sheath. This was opened in the midline. Peritoneum elevated, opened sharply, extended with cautery avoiding injury to abdominal contents. Omental and small bowel adhesions to the abdominal wall were taken down to allow inspection of the abdomen with results as noted above. With the Omni self-retaining retractor for exposure, the area of the small bowel, which had been causing the obstruction, was mobilized off the inflammatory process of the colon. Some changes in the small bowel as a result of the process prompted a limited small bowel resection. Prior to resection, a small enterotomy was made and an NG tube passed retrograde to decompress the proximal small bowel of approximately 1500 mL of succus. The segment of concern was then resected by skeletonizing the bowel proximally and distally to the process and dividing that with a MARQUITA stapler. Small bowel mesentery serially clamped, divided and ligated with Vicryl ties and the specimen passed off. An end-to-end anastomosis of the small bowel was created by placing a posterior row of interrupted 3-0 Vicryl sutures. Bowel was occluded proximally and distally with atraumatic clamps. Staple lines excised. Mucosal anastomosis created with a running locked 3-0 chromic first posteriorly, then anteriorly. Clamps removed. Anastomosis completed with a row of interrupted 3-0 Vicryl anteriorly. There was competency and patency of the anastomosis at completion. The small rent in the mesentery was approximated with 2-0 chromic, taking care to avoid compromise of blood supply to the anastomosis. We then turned our attention to the sigmoid colon process. The descending colon and sigmoid were mobilized towards the midline by taking down the white line of Toldt. Bowel distal to the process was similarly mobilized. A level for transection proximal to the inflamed bowel was selected, skeletonized and divided with a MARQUITA stapler. The mesocolon was serially clamped, divided and ligated down to a point beyond the area of acute inflammation and a contour stapler used to divide the bowel and specimen passed off. The abdomen was irrigated, evacuated and checked for hemostasis. When present, a 19-[place] round Inocente drain was brought through a right-sided stab wound, left in the pelvis for postoperative drainage. An 0 Prolene suture was placed at the corners of the staple line on the distal bowel for future reference. The descending colon was then mobilized to allow delivery out onto the abdominal wall for the colostomy. A site for the colostomy was chosen and a rent created in the abdominal wall to allow delivery of the colon up onto the abdomen. Bowel was tacked to the anterior sheath with interrupted 3-0 chromic sutures at 12, 3, 6 and 9 o'clock. We again checked the abdomen for hemostasis and when present and a correct sponge count had been obtained, the abdominal incision was closed in a single layer using looped 0 PDS in running fashion, tied in the middle. SubQ was irrigated and checked for hemostasis. A Purmela drain was brought through an inferolateral stab wound and left in the subcutaneous space. Wound closed loosely with alonso and a sterile occlusive dressing placed. Postop foreign body film was negative for unexplained foreign body. Colostomy matured with 3-0 chromic and appliance was placed. Sterile dressings applied. The patient awakened from his anesthetic and taken to the recovery room in satisfactory condition. ASAD HUANG MD DR: ENRICO/frank JOB#: [id number] / [id number]
[2017-05-10] MEDS: METOPROLOL TARTRATE 5 MG/5 ML VIAL. IVP SCH ×4 (01:16→19:31)
[2017-05-10] MEDS: PIPERACILLIN/TAZOBACTAM 3.375 GM in IV NORMAL SALINE 50ML 50 ML IV SCH ×2 (01:17→06:32)
[2017-05-10] MEDS: ENALAPRILAT 1.25 MG/ML VIAL. IV SCH ×4 (01:22→19:29)
[2017-05-10 03:50] VITALS: BP 134/67
[2017-05-10] MEDS: VANCOMYCIN 1.75 GM in IV NORMAL SALINE 500ML BAG 500 ML IV SCH (06:00)
[2017-05-10 07:00] VITALS: BP 150/82
[2017-05-10] MEDS ORDERED: ALTEPLASE 2 MG VIAL INT CAT ONE (07:45)
[2017-05-10 08:25] LABS: BASO # 0.1 x10^3/uL (0.0-0.2); BASO % 1 % (0-3); EOS % 5 % (0-3); HEMATOCRIT 36.1 % (39.0-53.0); HEMOGLOBIN 12.5 g/dL (13.0-17.5); LYMPH # 2.1 x10^3/uL (1.0-4.8); LYMPH % 17 % (24-48); MEAN CORPUSCULAR HEMOGLOBIN 28 pg (25-35); MEAN CORPUSCULAR HGB CONC 35 g/dL (31-37); MEAN CORPUSCULAR VOLUME 80 fL (79-100); MONO % 8 % (0-9); NEUT % 70 % (31-73); PLATELET COUNT 353 x10^3/uL (140-400); RED BLOOD COUNT 4.51 x10^6/uL (4.30-5.70); RED CELL DISTRIBUTION WIDTH 13.9 % (11.5-14.5); WHITE BLOOD COUNT 12.6 x10^3/uL (4.0-11.0)
--- NOTE | 2017-05-10 08:36 | PDOC ---
Infectious Disease Note Subjective Subjective Suction off since 6 am Better today Pain controlled Denies N/V TPN ROS ROS GEN: Denies fevers, chills, sweats HEENT: Denies blurred vision, sore throat CV: Denies chest pain RESP: Denies shortness of air, cough GI: Denies n/v/d NEURO: Denies confusion, dizziness MSK: Denies weakness, joint pain/swelling Vital Sign Vital Signs Vital Signs Date Time Temp Pulse Resp B/P (MAP) Pulse Ox O2 Delivery O2 Flow Rate FiO2 05/10/17 07:00 97.8 68 18 150/82 (104) 95 Room Air 97.8 05/09/17 07:32 1.0 Physical Exam PHYSICAL EXAM GENERAL: In bed, NAD, looks better HEENT: OC/OP dry, bacterial overgrowth. NGT NECK: Supple LUNGS: Clear HEART: S1 and S2, no gallop, no murmur ABD: Obese, BS quiet, soft, NT to light palpation. Dressings dry, KENNETH intact- serosanguineous drainage. ostomy- + air. less distended EXT: No edema, no cyanosis. Gio hose MANAGER RAIL: Alert, oriented x 3, no focal neurologic deficit SKIN: No rash RUE-PICC. (05/07). clean Labs Lab Laboratory Tests Test 05/09/17 11:28 05/09/17 16:13 05/09/17 20:46 05/10/17 08:10 Glucose (Fingerstick) 211 mg/dL (70-99) 187 mg/dL (70-99) 199 mg/dL (70-99) 214 mg/dL (70-99) Micro 05/06 Enterococcus faecalis Light growth AEROBIC RES 2 Final Escherichia coli Scant growth ANTIMICROBIAL SUSCEPTIBILITY Final Comment S = Susceptible; I = Intermediate; R = Resistant P = Positive; N = Negative MICS are expressed in micrograms per mL Antibiotic RSLT#1 RSLT#2 RSLT#3 RSLT#4 Amoxicillin/Clavulanic Acid S Ampicillin R Cefepime S Ceftriaxone S Cefuroxime S Ciprofloxacin S Ertapenem S Gentamicin S Imipenem S Levofloxacin S CONTINUED ON NEXT PAGE RUN DATE: 05/09/17 PAGE 2 RUN TIME: 1632 [facility] [address] [place] [address] Donny Johnson M.D., Firearms Specialist SPEC: [id number] PATIENT: DAYAN TORRES [id number] ( Continued) Procedure Result ANTIMICROBIAL SUSCEPTIBILITY Final (continued) Penicillin S Piperacillin R Tetracycline S Tobramycin S Trimethoprim/Sulfa R Vancomycin S Objective Assessment Perforated sigmoid diverticulum. -s/p rigid procto, SBR with primary anastomosis, sigmoid resection with end colostomy, Agustin's pouch, 05/06. 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 and Enterococcus Cipro allergy - ? seizure -has not had levoflox/Cipro since Leukocytosis - better Afib RVR Plan Plan of Care Labs not available this am Discont vanc & Zosyn (Ecoli res to Pip but may be sen to Zosyn but not available ) change to Meropenem f/u intra-op cx PT/OT F/u labs JULIA JURADO MD May 10, 2017 08:36
[2017-05-10 08:46] LABS: CALCIUM 8.9 mg/dL (8.5-10.1); CREATININE 0.5 mg/dL (0.7-1.3); MAGNESIUM 1.5 mg/dL (1.8-2.4); PHOSPHORUS 2.2 mg/dL (2.6-4.7); POTASSIUM 3.5 mmol/L (3.5-5.1)
[2017-05-10] MEDS: FAMOTIDINE 20 MG/2 ML VIAL IVP SCH ×2 (09:12→22:19)
[2017-05-10] MEDS: DIGOXIN IV 500 MCG/2 ML AMPUL. IV SCH (09:17)
[2017-05-10] MEDS: MEROPENEM 1 GM in IV NORMAL SALINE 100ML 100 ML IV SCH ×3 (09:18→22:37)
[2017-05-10] MEDS: INSULIN ASPART 300 UNITS/3 ML INSULN.PEN SQ SCH ×3 (09:23→17:00)
[2017-05-10] MEDS ORDERED: MAGNESIUM SULFATE 2GM 50 ML IV ONE (10:00)
--- NOTE | 2017-05-10 10:54 | PDOC ---
CARDIO Progress Notes Date and Time Date of Service 05/10/2017 Time of Evaluation 1050 Subjective Subjective: No Chest Pain, No shortness of breath, No Palpitations, No Dizziness, Other Vitals Vitals Vital Signs Date Time Temp Pulse Resp B/P (MAP) Pulse Ox O2 Delivery O2 Flow Rate FiO2 05/10/17 09:17 75 05/10/17 08:00 Nasal Cannula 2.0 05/10/17 07:00 97.8 18 150/82 (104) 95 97.8 Weight Weight [ ] Input and Output Intake and Output Intake and Output 05/10/17 07:00 Intake Total 1490 ml Output Total 2450 ml Balance -960 ml Intake Oral 200 ml IV Total 1290 ml Output Urine Total 1425 ml Gastric Drainage Total 900 ml Drainage Total 125 ml Laboratory Labs Laboratory Tests Test 05/09/17 11:28 05/09/17 16:13 05/09/17 20:46 05/10/17 08:10 Glucose (Fingerstick) 211 mg/dL (70-99) 187 mg/dL (70-99) 199 mg/dL (70-99) 214 mg/dL (70-99) Test 05/10/17 08:16 White Blood Count 12.6 x10^3/uL (4.0-11.0) Red Blood Count 4.51 x10^6/uL (4.30-5.70) Hemoglobin 12.5 g/dL (13.0-17.5) Hematocrit 36.1 % (39.0-53.0) Mean Corpuscular Volume 80 fL (79-100) Mean Corpuscular Hemoglobin 28 pg (25-35) Mean Corpuscular Hemoglobin Concent 35 g/dL (31-37) Red Cell Distribution Width 13.9 % (11.5-14.5) Platelet Count 353 x10^3/uL (140-400) Neutrophils (%) (Auto) 70 % (31-73) Lymphocytes (%) (Auto) 17 % (24-48) Monocytes (%) (Auto) 8 % (0-9) Eosinophils (%) (Auto) 5 % (0-3) Basophils (%) (Auto) 1 % (0-3) Neutrophils # (Auto) 8.8 x10^3uL (1.8-7.7) Lymphocytes # (Auto) 2.1 x10^3/uL (1.0-4.8) Monocytes # (Auto) 1.0 x10^3/uL (0.0-1.1) Eosinophils # (Auto) 0.6 x10^3/uL (0.0-0.7) Basophils # (Auto) 0.1 x10^3/uL (0.0-0.2) Sodium Level 141 mmol/L (136-145) Potassium Level 3.5 mmol/L (3.5-5.1) Chloride Level 105 mmol/L (98-107) Carbon Dioxide Level 28 mmol/L (21-32) Anion Gap 8 (6-14) Blood Urea Nitrogen 6 mg/dL (8-26) Creatinine 0.5 mg/dL (0.7-1.3) Estimated GFR (Cockcroft-Gault) 169.0 Glucose Level 251 mg/dL (70-99) Calcium Level 8.9 mg/dL (8.5-10.1) Phosphorus Level 2.2 mg/dL (2.6-4.7) Magnesium Level 1.5 mg/dL (1.8-2.4) Vancomycin Level Trough 10.8 mcg/mL (10.0-20.0) Vancomycin Last Dose Date Unknown Vancomycin Last Dose Time Unknown Microbiology Micro Microbiology 05/06/17 Anaerobic/Aerobic Culture, Resulted Pending 05/06/17 Anaerobic Culture Result 1 (DEBBIE), Resulted Pending 05/06/17 Aerobic Culture - Final, Resulted 05/06/17 Aerobic Culture Result 1 (DEBBIE) - Final, Resulted 05/06/17 Aerobic Culture Result 2 (DEBBIE) - Final, Resulted 05/06/17 Antimicrobic Susceptibility - Final, Resulted Physical Exam HEENT: Neck Supple W Full Motion Chest: Symmetric LUNGS: Clear to Auscultation Heart: S1S2, RRR (SR no signnificant ectopies overnight) Abdomen: Soft N/T Extremities: No Edema, No Calf Tenderness Neurology: alert, oriented, follow commands Assessment Assessment 1. PAFIB: SR with occasional burst of RVR and aberrancy as well 2. S/P POD#4 sigmoid resection, small bowel resection with colostomy 3. HTN: controlled 4. HLP 5. DM2: insulin dependent 6. Possible COPD with 50 pk yr tobaccoism Recommendations 1. Continue with Dig and will resume low dose lopressor IV. 2. Will need NOAC for stroke prevention once cleared by general surgery and tolerating PO otherwise will continue ECASA 81 mg for now when PO allowed. 3. Replace Mg 4. Continue supportive care. GINA ONEILL STEAM CLOTHES PRESS OPERATOR May 10, 2017 10:54
--- NOTE | 2017-05-10 10:56 | PDOC ---
SURGICAL PROGRESS NOTE Subjective POD 4 adequate pain control no n/v with NG off suction Vital Signs Vital Signs Date Time Temp Pulse Resp B/P (MAP) Pulse Ox O2 Delivery O2 Flow Rate FiO2 05/10/17 09:17 75 05/10/17 08:00 Nasal Cannula 2.0 05/10/17 07:00 97.8 18 150/82 (104) 95 97.8 I&O Intake and Output 05/10/17 07:00 Intake Total 1490 ml Output Total 2450 ml Balance -960 ml Intake Oral 200 ml IV Total 1290 ml Output Urine Total 1425 ml Gastric Drainage Total 900 ml Drainage Total 125 ml PATIENT HAS A ZIEGLER: No General: Alert, Oriented X3, Cooperative, No acute distress Abdomen: Soft, Other (stoma viable) Labs Laboratory Tests Test 05/08/17 12:35 05/08/17 16:50 05/08/17 21:12 05/09/17 04:30 Glucose (Fingerstick) 146 mg/dL (70-99) 123 mg/dL (70-99) 108 mg/dL (70-99) White Blood Count 13.4 x10^3/uL (4.0-11.0) Red Blood Count 4.20 x10^6/uL (4.30-5.70) Hemoglobin 11.6 g/dL (13.0-17.5) Hematocrit 34.1 % (39.0-53.0) Mean Corpuscular Volume 81 fL (79-100) Mean Corpuscular Hemoglobin 28 pg (25-35) Mean Corpuscular Hemoglobin Concent 34 g/dL (31-37) Red Cell Distribution Width 14.2 % (11.5-14.5) Platelet Count 326 x10^3/uL (140-400) Neutrophils (%) (Auto) 73 % (31-73) Lymphocytes (%) (Auto) 15 % (24-48) Monocytes (%) (Auto) 8 % (0-9) Eosinophils (%) (Auto) 3 % (0-3) Basophils (%) (Auto) 1 % (0-3) Neutrophils # (Auto) 9.8 x10^3uL (1.8-7.7) Lymphocytes # (Auto) 2.0 x10^3/uL (1.0-4.8) Monocytes # (Auto) 1.1 x10^3/uL (0.0-1.1) Eosinophils # (Auto) 0.4 x10^3/uL (0.0-0.7) Basophils # (Auto) 0.1 x10^3/uL (0.0-0.2) Sodium Level 142 mmol/L (136-145) Potassium Level 3.1 mmol/L (3.5-5.1) Chloride Level 104 mmol/L (98-107) Carbon Dioxide Level 28 mmol/L (21-32) Anion Gap 10 (6-14) Blood Urea Nitrogen 6 mg/dL (8-26) Creatinine 0.4 mg/dL (0.7-1.3) Estimated GFR (Cockcroft-Gault) 218.7 BUN/Creatinine Ratio 15 (6-20) Glucose Level 181 mg/dL (70-99) Calcium Level 8.2 mg/dL (8.5-10.1) Phosphorus Level 1.6 mg/dL (2.6-4.7) Magnesium Level 1.5 mg/dL (1.8-2.4) Total Bilirubin 0.3 mg/dL (0.2-1.0) Aspartate Amino Transf (AST/SGOT) 17 U/L (15-37) Alanine Aminotransferase (ALT/SGPT) 16 U/L (16-63) Alkaline Phosphatase 64 U/L (46-116) Total Protein 6.3 g/dL (6.4-8.2) Albumin 1.9 g/dL (3.4-5.0) Albumin/Globulin Ratio 0.4 (1.0-1.7) Vancomycin Level Trough 5.7 mcg/mL (10.0-20.0) Vancomycin Last Dose Date 05/08/17 Vancomycin Last Dose Time 1700 Test 05/09/17 07:47 05/09/17 11:28 05/09/17 16:13 05/09/17 20:46 Glucose (Fingerstick) 203 mg/dL (70-99) 211 mg/dL (70-99) 187 mg/dL (70-99) 199 mg/dL (70-99) Test 05/10/17 08:10 05/10/17 08:16 Glucose (Fingerstick) 214 mg/dL (70-99) White Blood Count 12.6 x10^3/uL (4.0-11.0) Red Blood Count 4.51 x10^6/uL (4.30-5.70) Hemoglobin 12.5 g/dL (13.0-17.5) Hematocrit 36.1 % (39.0-53.0) Mean Corpuscular Volume 80 fL (79-100) Mean Corpuscular Hemoglobin 28 pg (25-35) Mean Corpuscular Hemoglobin Concent 35 g/dL (31-37) Red Cell Distribution Width 13.9 % (11.5-14.5) Platelet Count 353 x10^3/uL (140-400) Neutrophils (%) (Auto) 70 % (31-73) Lymphocytes (%) (Auto) 17 % (24-48) Monocytes (%) (Auto) 8 % (0-9) Eosinophils (%) (Auto) 5 % (0-3) Basophils (%) (Auto) 1 % (0-3) Neutrophils # (Auto) 8.8 x10^3uL (1.8-7.7) Lymphocytes # (Auto) 2.1 x10^3/uL (1.0-4.8) Monocytes # (Auto) 1.0 x10^3/uL (0.0-1.1) Eosinophils # (Auto) 0.6 x10^3/uL (0.0-0.7) Basophils # (Auto) 0.1 x10^3/uL (0.0-0.2) Sodium Level 141 mmol/L (136-145) Potassium Level 3.5 mmol/L (3.5-5.1) Chloride Level 105 mmol/L (98-107) Carbon Dioxide Level 28 mmol/L (21-32) Anion Gap 8 (6-14) Blood Urea Nitrogen 6 mg/dL (8-26) Creatinine 0.5 mg/dL (0.7-1.3) Estimated GFR (Cockcroft-Gault) 169.0 Glucose Level 251 mg/dL (70-99) Calcium Level 8.9 mg/dL (8.5-10.1) Phosphorus Level 2.2 mg/dL (2.6-4.7) Magnesium Level 1.5 mg/dL (1.8-2.4) Vancomycin Level Trough 10.8 mcg/mL (10.0-20.0) Vancomycin Last Dose Date Unknown Vancomycin Last Dose Time Unknown Laboratory Tests Test 05/09/17 11:28 05/09/17 16:13 05/09/17 20:46 05/10/17 08:10 Glucose (Fingerstick) 211 mg/dL (70-99) 187 mg/dL (70-99) 199 mg/dL (70-99) 214 mg/dL (70-99) Test 05/10/17 08:16 White Blood Count 12.6 x10^3/uL (4.0-11.0) Red Blood Count 4.51 x10^6/uL (4.30-5.70) Hemoglobin 12.5 g/dL (13.0-17.5) Hematocrit 36.1 % (39.0-53.0) Mean Corpuscular Volume 80 fL (79-100) Mean Corpuscular Hemoglobin 28 pg (25-35) Mean Corpuscular Hemoglobin Concent 35 g/dL (31-37) Red Cell Distribution Width 13.9 % (11.5-14.5) Platelet Count 353 x10^3/uL (140-400) Neutrophils (%) (Auto) 70 % (31-73) Lymphocytes (%) (Auto) 17 % (24-48) Monocytes (%) (Auto) 8 % (0-9) Eosinophils (%) (Auto) 5 % (0-3) Basophils (%) (Auto) 1 % (0-3) Neutrophils # (Auto) 8.8 x10^3uL (1.8-7.7) Lymphocytes # (Auto) 2.1 x10^3/uL (1.0-4.8) Monocytes # (Auto) 1.0 x10^3/uL (0.0-1.1) Eosinophils # (Auto) 0.6 x10^3/uL (0.0-0.7) Basophils # (Auto) 0.1 x10^3/uL (0.0-0.2) Sodium Level 141 mmol/L (136-145) Potassium Level 3.5 mmol/L (3.5-5.1) Chloride Level 105 mmol/L (98-107) Carbon Dioxide Level 28 mmol/L (21-32) Anion Gap 8 (6-14) Blood Urea Nitrogen 6 mg/dL (8-26) Creatinine 0.5 mg/dL (0.7-1.3) Estimated GFR (Cockcroft-Gault) 169.0 Glucose Level 251 mg/dL (70-99) Calcium Level 8.9 mg/dL (8.5-10.1) Phosphorus Level 2.2 mg/dL (2.6-4.7) Magnesium Level 1.5 mg/dL (1.8-2.4) Vancomycin Level Trough 10.8 mcg/mL (10.0-20.0) Vancomycin Last Dose Date Unknown Vancomycin Last Dose Time Unknown I have reviewed the following minimal residual with return to suction of NG Problem List Problems Medical Problems: (1) Diverticulitis Status: Acute (2) Perforated bowel Status: Acute Assessment/Plan s/p SBR, sigmoid with Agustin's d/c NG continue TPN continue ambulation Problems: JUAN LUIS HUANG MD May 10, 2017 10:56
[2017-05-10 11:00] VITALS: BP 136/70
[2017-05-10] MEDS ORDERED: POTASSIUM PHOSPHATE DIBASIC 13.6 MMOL in IV NORMAL SALINE 100ML 100 ML IV SCH (11:00)
[2017-05-10] MEDS: TPN PER PHARMACY MC PRN (13:39)
--- NOTE | 2017-05-10 13:56 | PDOC ---
PROGRESS NOTES Chief Complaint Chief Complaint 1. Sigmoid diverticulitis with perforation s/p sx sigmoid resection with ileostomy (05/05/17) POD # 2. Paroxysmal atrial fivb s.p RVR now nSR 3. DM 2 on insulin 4. SIRS POA, no sepsis 5. 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 Sustained vtach (05/05/17) 7. LEukocytosis post op day # 1 8. Obesity BMI 33.9 9. 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 Dw GS - ok to use gut for PO meds TPN running BS ok PLAN: Dc [employer]GRATION DEVELOPER STart MS contin BID Start IV dialudid prn and PO percocet 1-2 tabs depending pain level Dw RN norman and pt ok to t/o CVC Vitals Vitals Vital Signs Date Time Temp Pulse Resp B/P (MAP) Pulse Ox O2 Delivery O2 Flow Rate FiO2 05/10/17 13:06 136/70 05/10/17 11:00 97.9 72 18 94 Room Air 97.9 05/10/17 08:00 2.0 Physical Exam General: Alert, Oriented X3, Cooperative, No acute distress Heart: Regular rate, Normal S1, Normal S2, Other (2/6 systolic murmur to LLS border) Lungs: Clear Abdomen: Soft, Other (stoma viable) Extremities: No clubbing Skin: No rashes, No breakdown Labs LABS Laboratory Tests Test 05/09/17 16:13 05/09/17 20:46 05/10/17 08:10 05/10/17 08:16 Glucose (Fingerstick) 187 mg/dL (70-99) 199 mg/dL (70-99) 214 mg/dL (70-99) White Blood Count 12.6 x10^3/uL (4.0-11.0) Red Blood Count 4.51 x10^6/uL (4.30-5.70) Hemoglobin 12.5 g/dL (13.0-17.5) Hematocrit 36.1 % (39.0-53.0) Mean Corpuscular Volume 80 fL (79-100) Mean Corpuscular Hemoglobin 28 pg (25-35) Mean Corpuscular Hemoglobin Concent 35 g/dL (31-37) Red Cell Distribution Width 13.9 % (11.5-14.5) Platelet Count 353 x10^3/uL (140-400) Neutrophils (%) (Auto) 70 % (31-73) Lymphocytes (%) (Auto) 17 % (24-48) Monocytes (%) (Auto) 8 % (0-9) Eosinophils (%) (Auto) 5 % (0-3) Basophils (%) (Auto) 1 % (0-3) Neutrophils # (Auto) 8.8 x10^3uL (1.8-7.7) Lymphocytes # (Auto) 2.1 x10^3/uL (1.0-4.8) Monocytes # (Auto) 1.0 x10^3/uL (0.0-1.1) Eosinophils # (Auto) 0.6 x10^3/uL (0.0-0.7) Basophils # (Auto) 0.1 x10^3/uL (0.0-0.2) Sodium Level 141 mmol/L (136-145) Potassium Level 3.5 mmol/L (3.5-5.1) Chloride Level 105 mmol/L (98-107) Carbon Dioxide Level 28 mmol/L (21-32) Anion Gap 8 (6-14) Blood Urea Nitrogen 6 mg/dL (8-26) Creatinine 0.5 mg/dL (0.7-1.3) Estimated GFR (Cockcroft-Gault) 169.0 Glucose Level 251 mg/dL (70-99) Calcium Level 8.9 mg/dL (8.5-10.1) Phosphorus Level 2.2 mg/dL (2.6-4.7) Magnesium Level 1.5 mg/dL (1.8-2.4) Vancomycin Level Trough 10.8 mcg/mL (10.0-20.0) Vancomycin Last Dose Date Unknown Vancomycin Last Dose Time Unknown Test 05/10/17 12:19 Glucose (Fingerstick) 208 mg/dL (70-99) Review of Systems Review of Systems no inc in abd pain, passing gas, all else is neg Assessment and Plan Assessmemt and Plan Problems Medical Problems: (1) Diverticulitis Status: Acute (2) Perforated bowel Status: Acute Problems: Comment Review of Relevant I have reviewed the following items ebony (where applicable) has been applied. Labs Laboratory Tests Test 05/08/17 16:50 05/08/17 21:12 05/09/17 04:30 05/09/17 07:47 Glucose (Fingerstick) 123 mg/dL (70-99) 108 mg/dL (70-99) 203 mg/dL (70-99) White Blood Count 13.4 x10^3/uL (4.0-11.0) Red Blood Count 4.20 x10^6/uL (4.30-5.70) Hemoglobin 11.6 g/dL (13.0-17.5) Hematocrit 34.1 % (39.0-53.0) Mean Corpuscular Volume 81 fL (79-100) Mean Corpuscular Hemoglobin 28 pg (25-35) Mean Corpuscular Hemoglobin Concent 34 g/dL (31-37) Red Cell Distribution Width 14.2 % (11.5-14.5) Platelet Count 326 x10^3/uL (140-400) Neutrophils (%) (Auto) 73 % (31-73) Lymphocytes (%) (Auto) 15 % (24-48) Monocytes (%) (Auto) 8 % (0-9) Eosinophils (%) (Auto) 3 % (0-3) Basophils (%) (Auto) 1 % (0-3) Neutrophils # (Auto) 9.8 x10^3uL (1.8-7.7) Lymphocytes # (Auto) 2.0 x10^3/uL (1.0-4.8) Monocytes # (Auto) 1.1 x10^3/uL (0.0-1.1) Eosinophils # (Auto) 0.4 x10^3/uL (0.0-0.7) Basophils # (Auto) 0.1 x10^3/uL (0.0-0.2) Sodium Level 142 mmol/L (136-145) Potassium Level 3.1 mmol/L (3.5-5.1) Chloride Level 104 mmol/L (98-107) Carbon Dioxide Level 28 mmol/L (21-32) Anion Gap 10 (6-14) Blood Urea Nitrogen 6 mg/dL (8-26) Creatinine 0.4 mg/dL (0.7-1.3) Estimated GFR (Cockcroft-Gault) 218.7 BUN/Creatinine Ratio 15 (6-20) Glucose Level 181 mg/dL (70-99) Calcium Level 8.2 mg/dL (8.5-10.1) Phosphorus Level 1.6 mg/dL (2.6-4.7) Magnesium Level 1.5 mg/dL (1.8-2.4) Total Bilirubin 0.3 mg/dL (0.2-1.0) Aspartate Amino Transf (AST/SGOT) 17 U/L (15-37) Alanine Aminotransferase (ALT/SGPT) 16 U/L (16-63) Alkaline Phosphatase 64 U/L (46-116) Total Protein 6.3 g/dL (6.4-8.2) Albumin 1.9 g/dL (3.4-5.0) Albumin/Globulin Ratio 0.4 (1.0-1.7) Vancomycin Level Trough 5.7 mcg/mL (10.0-20.0) Vancomycin Last Dose Date 05/08/17 Vancomycin Last Dose Time 1700 Test 05/09/17 11:28 05/09/17 16:13 05/09/17 20:46 05/10/17 08:10 Glucose (Fingerstick) 211 mg/dL (70-99) 187 mg/dL (70-99) 199 mg/dL (70-99) 214 mg/dL (70-99) Test 05/10/17 08:16 05/10/17 12:19 White Blood Count 12.6 x10^3/uL (4.0-11.0) Red Blood Count 4.51 x10^6/uL (4.30-5.70) Hemoglobin 12.5 g/dL (13.0-17.5) Hematocrit 36.1 % (39.0-53.0) Mean Corpuscular Volume 80 fL (79-100) Mean Corpuscular Hemoglobin 28 pg (25-35) Mean Corpuscular Hemoglobin Concent 35 g/dL (31-37) Red Cell Distribution Width 13.9 % (11.5-14.5) Platelet Count 353 x10^3/uL (140-400) Neutrophils (%) (Auto) 70 % (31-73) Lymphocytes (%) (Auto) 17 % (24-48) Monocytes (%) (Auto) 8 % (0-9) Eosinophils (%) (Auto) 5 % (0-3) Basophils (%) (Auto) 1 % (0-3) Neutrophils # (Auto) 8.8 x10^3uL (1.8-7.7) Lymphocytes # (Auto) 2.1 x10^3/uL (1.0-4.8) Monocytes # (Auto) 1.0 x10^3/uL (0.0-1.1) Eosinophils # (Auto) 0.6 x10^3/uL (0.0-0.7) Basophils # (Auto) 0.1 x10^3/uL (0.0-0.2) Sodium Level 141 mmol/L (136-145) Potassium Level 3.5 mmol/L (3.5-5.1) Chloride Level 105 mmol/L (98-107) Carbon Dioxide Level 28 mmol/L (21-32) Anion Gap 8 (6-14) Blood Urea Nitrogen 6 mg/dL (8-26) Creatinine 0.5 mg/dL (0.7-1.3) Estimated GFR (Cockcroft-Gault) 169.0 Glucose Level 251 mg/dL (70-99) Calcium Level 8.9 mg/dL (8.5-10.1) Phosphorus Level 2.2 mg/dL (2.6-4.7) Magnesium Level 1.5 mg/dL (1.8-2.4) Vancomycin Level Trough 10.8 mcg/mL (10.0-20.0) Vancomycin Last Dose Date Unknown Vancomycin Last Dose Time Unknown Glucose (Fingerstick) 208 mg/dL (70-99) Laboratory Tests Test 05/09/17 16:13 05/09/17 20:46 05/10/17 08:10 05/10/17 08:16 Glucose (Fingerstick) 187 mg/dL (70-99) 199 mg/dL (70-99) 214 mg/dL (70-99) White Blood Count 12.6 x10^3/uL (4.0-11.0) Red Blood Count 4.51 x10^6/uL (4.30-5.70) Hemoglobin 12.5 g/dL (13.0-17.5) Hematocrit 36.1 % (39.0-53.0) Mean Corpuscular Volume 80 fL (79-100) Mean Corpuscular Hemoglobin 28 pg (25-35) Mean Corpuscular Hemoglobin Concent 35 g/dL (31-37) Red Cell Distribution Width 13.9 % (11.5-14.5) Platelet Count 353 x10^3/uL (140-400) Neutrophils (%) (Auto) 70 % (31-73) Lymphocytes (%) (Auto) 17 % (24-48) Monocytes (%) (Auto) 8 % (0-9) Eosinophils (%) (Auto) 5 % (0-3) Basophils (%) (Auto) 1 % (0-3) Neutrophils # (Auto) 8.8 x10^3uL (1.8-7.7) Lymphocytes # (Auto) 2.1 x10^3/uL (1.0-4.8) Monocytes # (Auto) 1.0 x10^3/uL (0.0-1.1) Eosinophils # (Auto) 0.6 x10^3/uL (0.0-0.7) Basophils # (Auto) 0.1 x10^3/uL (0.0-0.2) Sodium Level 141 mmol/L (136-145) Potassium Level 3.5 mmol/L (3.5-5.1) Chloride Level 105 mmol/L (98-107) Carbon Dioxide Level 28 mmol/L (21-32) Anion Gap 8 (6-14) Blood Urea Nitrogen 6 mg/dL (8-26) Creatinine 0.5 mg/dL (0.7-1.3) Estimated GFR (Cockcroft-Gault) 169.0 Glucose Level 251 mg/dL (70-99) Calcium Level 8.9 mg/dL (8.5-10.1) Phosphorus Level 2.2 mg/dL (2.6-4.7) Magnesium Level 1.5 mg/dL (1.8-2.4) Vancomycin Level Trough 10.8 mcg/mL (10.0-20.0) Vancomycin Last Dose Date Unknown Vancomycin Last Dose Time Unknown Test 05/10/17 12:19 Glucose (Fingerstick) 208 mg/dL (70-99) Microbiology 05/06/17 Anaerobic/Aerobic Culture - Final, Complete 05/06/17 Anaerobic Culture Result 1 (DEBBIE) - Final, Complete 05/06/17 Aerobic Culture - Final, Complete 05/06/17 Aerobic Culture Result 1 (DEBBIE) - Final, Complete 05/06/17 Aerobic Culture Result 2 (DEBBIE) - Final, Complete 05/06/17 Antimicrobic Susceptibility - Final, Complete Medications Current Medications Morphine Sulfate 4 mg 1X ONCE IV Last administered on 04/27/17 08:03; Start 04/27/17 at 07:30; Stop 04/27/17 at 07:52; Status DC Ondansetron HCl (Zofran) 4 mg 1X ONCE IV Last administered on 04/27/17 08:12 ; Start 04/27/17 at 08:15; Stop 04/27/17 at 08:16; Status DC Iohexol (Omnipaque 300 Mg/ml) 75 ml 1X ONCE IV Last administered on 04/27/17 08:41; Start 04/27/17 at 08:15; Stop 04/27/17 at 08:16; Status DC Info (Do NOT chart on this entry -- for MONITORING) 1 each PRN DAILY PRN MC SEE COMMENTS; Start 04/27/17 at 08:15; Stop 04/29/17 at 08:14; Status DC Sodium Chloride 1,000 ml @ 1,000 mls/hr 1X ONCE IV Last administered on 09:30; Start 04/27/17 at 09:30; Stop 04/27/17 at 10:29; Status DC Piperacillin Sod/ Tazobactam Sod (Zosyn Per Pharmacy) 1 each PRN DAILY PRN MC SEE COMMENTS; Start 04/27/17 at 09:45; Stop 05/05/17 at 10:29; Status DC Piperacillin Sod/ Tazobactam Sod 3.375 gm/Sodium Chloride 50 ml @ 100 mls/hr 1X ONCE IV Last administered on 04/27/17 10:05; Start 04/27/17 at 09:45; Stop 04/27/17 at 10:14; Status DC Fentanyl Citrate (Fentanyl 2ml Vial) 50 mcg 1X ONCE IV Last administered on 10:27; Start 04/27/17 at 10:00; Stop 04/27/17 at 10:01; Status DC Ondansetron HCl (Zofran) 4 mg PRN Q8HRS PRN IV NAUSEA/VOMITING; Start 04/27/17 at 10:00; Stop 04/28/17 at 09:59; Status DC Fentanyl Citrate (Fentanyl 2ml Vial) 50 mcg PRN Q1HR PRN IV PAIN Last administered on 04/28/17 08:08; Start 04/27/17 at 10:00; Stop 04/28/17 at 09:59 ; Status DC Piperacillin Sod/ Tazobactam Sod 3.375 gm/Sodium Chloride 50 ml @ 100 mls/hr Q6HRS IV Last administered on 05/10/17 06:32; Start 04/27/17 at 18:00; Stop at 08:36; Status DC Digoxin (Lanoxin) 500 mcg 1X ONCE IV Last administered on 04/27/17 10:44; Start 04/27/17 at 10:30; Stop 04/27/17 at 10:31; Status DC Sodium Chloride 1,000 ml @ 1,000 mls/hr 1X ONCE IV Last administered on 10:53; Start 04/27/17 at 11:00; Stop 04/27/17 at 11:59; Status DC Magnesium Sulfate/ Dextrose 100 ml @ 25 mls/hr 1X ONCE IV Last administered on 04/27/17 12:21; Start 04/27/17 at 11:00; Stop 04/27/17 at 14:59; Status DC Metoprolol Tartrate (Lopressor) 5 mg Q6HRS IVP ; Start 04/27/17 at 13:00; Stop 04/27/17 at 15:57; Status DC Sodium Chloride 1,000 ml @ 100 mls/hr Q10H IV Last administered on 05/05/17 12:42; Start 04/27/17 at 14:15; Stop 05/08/17 at 12:12; Status DC Saliva Substitute (Biotene Moisturizing Mouth) 2 spray PRN Q15MIN PRN PO DRY MOUTH Last administered on 04/27/17 18:18; Start 04/27/17 at 14:15 Nicotine Polacrilex (Nicorette Gum) 1 each PRN Q1HR PRN BC SMOKING CESSATION; Start 04/27/17 at 14:15 Albuterol/ Ipratropium (Duoneb) 3 ml RTQID NEB Last administered on 05/09/17 16:01; Start 04/27/17 at 16:00; Stop 05/09/17 at 16:41; Status DC Albuterol/ Ipratropium (Duoneb) 3 ml 1X ONCE NEB ; Start 04/27/17 at 14:15; Stop 04/27/17 at 14:16; Status DC Aspirin (Ecotrin) 81 mg DAILY PO ; Start 04/27/17 at 14:30; Stop 04/28/17 at 11: 52; Status DC Insulin Aspart (NovoLOG) 0-9 UNITS TIDWMEALS SQ Last administered on 05/10/17 13:12; Start 04/27/17 at 17:00 Dextrose (Dextrose 50%-Water Syringe) 12.5 gm PRN Q15MIN PRN IV SEE COMMENTS; Start 04/27/17 at 14:15 Insulin Detemir (Levemir) 25 units QHS SQ Last administered on 05/09/17 22:18 ; Start 04/27/17 at 21:00; Stop 05/10/17 at 09:00; Status DC Metoprolol Tartrate (Lopressor) 2.5 mg Q6HRS IVP ; Start 04/27/17 at 18:00; Stop 04/28/17 at 11:53; Status DC Atorvastatin Calcium (Lipitor) 20 mg QHS PO Last administered on 04/27/17 20: 38; Start 04/27/17 at 21:00; Stop 04/28/17 at 11:52; Status DC Ondansetron HCl (Zofran) 4 mg PRN Q6HRS PRN IV NAUSEA/VOMITING Last administered on 04/29/17 02:55; Start 04/28/17 at 10:45; Stop 05/07/17 at 07:40 ; Status DC Fentanyl Citrate (Fentanyl 2ml Vial) 50 mcg PRN Q2HR PRN IV PAIN; Start at 10:45; Stop 04/28/17 at 11:50; Status DC Fentanyl Citrate (Fentanyl 2ml Vial) 100 mcg PRN Q2HR PRN IV PAIN SEVERE Last administered on 05/01/17 20:58; Start 04/28/17 at 12:00 Pantoprazole Sodium (Protonix Vial) 40 mg DAILYAC IVP Last administered on 05/04 09:35; Start 04/28/17 at 12:00; Stop 05/04/17 at 19:22; Status DC Metoprolol Tartrate (Lopressor) 2.5 mg PRN Q6HRS PRN IVP BP 160/100; Start at 12:00; Stop 05/04/17 at 19:22; Status DC Metoprolol Tartrate (Lopressor) 2.5 mg Q6HRS IVP Last administered on 18:20; Start 04/28/17 at 12:00; Stop 05/04/17 at 19:22; Status DC Aspirin (Ecotrin) 81 mg [id number] PO Last administered on 05/05/17 09:04; Start 04/29/17 at 08:00; Stop 05/07/17 at 10:58; Status DC Atorvastatin Calcium (Lipitor) 20 mg QHS PO Last administered on 05/05/17 22: 21; Start 04/28/17 at 21:00; Stop 05/07/17 at 10:58; Status DC Micafungin Sodium 100 mg/Dextrose 100 ml @ 100 mls/hr Q24H IV Last administered on 05/03/17 08:29; Start 04/29/17 at 09:00; Stop 05/04/17 at 08:38 ; Status DC Naloxone HCl (Narcan) 0.4 mg PRN Q2MIN PRN IV SEE INSTRUCTIONS; Start 04/29/17 at 09:45 Hydromorphone HCl 30 ml @ 0 mls/hr CONT PRN PRN IV PROTOCOL Last administered on 05/07/17 21:34; Start 04/29/17 at 09:45 Digoxin (Lanoxin) 125 mcg DAILY IV Last administered on 05/04/17 09:38; Start 04/29/17 at 11:00; Stop 05/04/17 at 19:22; Status DC Iohexol (Omnipaque 300 Mg/ml) 75 ml 1X ONCE IV ; Start 04/29/17 at 11:15; Stop 04/29/17 at 11:16; Status DC Info (Do NOT chart on this entry -- for MONITORING) 1 each PRN DAILY PRN MC SEE COMMENTS; Start 04/29/17 at 11:15; Stop 05/01/17 at 11:14; Status DC Potassium Chloride (Klor-Con) 20 meq 1X ONCE PO Last administered on 10:04; Start 04/30/17 at 10:00; Stop 04/30/17 at 10:01; Status DC Potassium Chloride/Dextrose 1,000 ml @ 75 mls/hr 1X ONCE IV Last administered on 04/30/17 12:54; Start 04/30/17 at 13:00; Stop 05/01/17 at 02:19 ; Status DC Enoxaparin Sodium (Lovenox 40mg Syringe) 40 mg Q24H SQ Last administered on 12:40; Start 05/01/17 at 11:00; Stop 05/06/17 at 13:42; Status DC Potassium Chloride (Klor-Con) 40 meq 1X ONCE PO Last administered on 10:00; Start 05/03/17 at 09:45; Stop 05/03/17 at 09:46; Status DC Metoprolol Tartrate (Lopressor) 12.5 mg BID PO Last administered on 05/06/17 08:42; Start 05/04/17 at 21:00; Stop 05/07/17 at 08:44; Status DC Pantoprazole Sodium (Protonix) 40 mg DAILYAC PO Last administered on 05/05/17 09:04; Start 05/05/17 at 07:30; Stop 05/07/17 at 10:58; Status DC Digoxin (Lanoxin) 125 mcg DAILY PO Last administered on 05/06/17 08:43; Start 05/05/17 at 09:00; Stop 05/07/17 at 08:44; Status DC Potassium Chloride 100 ml @ 100 mls/hr Q1H IV Last administered on 05/05/17 11:04; Start 05/05/17 at 05:30; Stop 05/05/17 at 09:29; Status DC Iohexol (Omnipaque 300 Mg/ml) 75 ml 1X ONCE IV Last administered on 05/05/17 08:47; Start 05/05/17 at 07:45; Stop 05/05/17 at 07:46; Status DC Gemfibrozil (Lopid) 600 mg BID PO Last administered on 05/05/17 22:21; Start 05/05/17 at 09:00; Stop 05/07/17 at 10:58; Status DC Lisinopril (Prinivil) 5 mg DAILY PO Last administered on 05/06/17 08:43; Start 05/05/17 at 09:00; Stop 05/07/17 at 08:44; Status DC Gabapentin (Neurontin) 600 mg TID PO Last administered on 05/05/17 22:21; Start 05/05/17 at 09:00; Stop 05/07/17 at 10:58; Status DC Fentanyl Citrate (Fentanyl 2ml Vial) 50 mcg PRN Q5MIN PRN IV Acute Pain Last administered on 05/06/17 14:19; Start 05/06/17 at 07:00; Stop 05/06/17 at 18:00 ; Status DC Morphine Sulfate 4 mg PRN Q10MIN PRN IV Moderate Pain; Start 05/06/17 at 07:00 ; Stop 05/06/17 at 18:00; Status DC Hydromorphone HCl (Dilaudid) 0.4 mg PRN Q10MIN PRN IV Moderate to severe pain Last administered on 05/06/17 15:00; Start 05/06/17 at 07:00; Stop 05/06/17 at 18:00; Status DC Meperidine HCl (Demerol) 12.5 mg PRN Q5MIN PRN IV SHIVERING; Start 05/06/17 at 07:00; Stop 05/06/17 at 18:00; Status DC Prochlorperazine Edisylate (Compazine) 5 mg PRN Q6HRS PRN IV Nausea/Vomiting, 1st Choice Last administered on 05/06/17 13:30; Start 05/06/17 at 07:00; Stop 05/06/17 at 18:00; Status DC Diphenhydramine HCl (Benadryl) 12.5 mg PRN Q2HR PRN IV ITCHING; Start 05/06/17 at 07:00; Stop 05/06/17 at 18:00; Status DC Midazolam HCl (Versed) 2 mg PRN 1X PRN IV PRIOR TO PROCEDURE; Start 05/06/17 at 07:00; Stop 05/06/17 at 18:00; Status DC Midazolam HCl (Versed) 1 mg PRN 1X PRN IV PRIOR TO PROCEDURE; Start 05/06/17 at 07:00; Stop 05/06/17 at 18:00; Status DC Fentanyl Citrate (Fentanyl 2ml Vial) 25 mcg PRN Q5MIN PRN IV X 2 DOSES FOR PAIN ; Start 05/06/17 at 07:00; Stop 05/06/17 at 18:00; Status DC Fentanyl Citrate (Fentanyl 2ml Vial) 50 mcg PRN Q5MIN PRN IV X 2 DOSES FOR PAIN ; Start 05/06/17 at 07:00; Stop 05/06/17 at 18:00; Status DC Ringer's Solution 1,000 ml @ 125 mls/hr Q8H IV ; Start 05/05/17 at 13:12; Stop 05/05/17 at 13:31; Status DC Lidocaine HCl 2 ml 1X PRN PRN ID IV START; Start 05/06/17 at 07:00; Stop at 18:00; Status DC Ringer's Solution 1,000 ml @ 125 mls/hr Q8H IV Last administered on 05/06/17t 13:29; Start 05/06/17 at 07:00; Stop 05/06/17 at 20:00; Status DC Lidocaine HCl (Lidocaine Pf 2% Vial) 5 ml STK-MED ONCE .ROUTE ; Start 05/06/17 at 07:47; Stop 05/06/17 at 07:48; Status DC Fentanyl Citrate (Fentanyl 2ml Vial) 100 mcg STK-MED ONCE .ROUTE ; Start at 07:47; Stop 05/06/17 at 07:48; Status DC Succinylcholine Chloride (Anectine) 200 mg STK-MED ONCE .ROUTE ; Start 05/06/17 at 07:47; Stop 05/06/17 at 07:48; Status DC Rocuronium [place] (Zemuron) 50 mg STK-MED ONCE .ROUTE ; Start 05/06/17 at 07:47 ; Stop 05/06/17 at 07:48; Status DC Propofol 20 ml @ As Directed STK-MED ONCE IV ; Start 05/06/17 at 10:00; Stop at 10:01; Status DC Dexamethasone Sodium Phosphate (Decadron) 20 mg STK-MED ONCE .ROUTE ; Start at 10:17; Stop 05/06/17 at 10:18; Status DC Sevoflurane (Ultane) 60 ml STK-MED ONCE IH ; Start 05/06/17 at 10:17; Stop 05/06 at 10:18; Status DC Ephedrine Sulfate 50 mg STK-MED ONCE IV ; Start 05/06/17 at 10:21; Stop at 10:22; Status DC Fentanyl Citrate (Fentanyl 2ml Vial) 100 mcg STK-MED ONCE .ROUTE ; Start at 10:37; Stop 05/06/17 at 10:38; Status DC Rocuronium [place] (Zemuron) 50 mg STK-MED ONCE .ROUTE ; Start 05/06/17 at 11:18 ; Stop 05/06/17 at 11:19; Status DC Neostigmine Methylsulfate 5 mg STK-MED ONCE .ROUTE ; Start 05/06/17 at 11:25; Stop 05/06/17 at 11:26; Status DC Ondansetron HCl (Zofran) 4 mg STK-MED ONCE .ROUTE ; Start 05/06/17 at 11:25; Stop 05/06/17 at 11:26; Status DC Glycopyrrolate (Robinul) 1 mg STK-MED ONCE .ROUTE ; Start 05/06/17 at 11:25; Stop 05/06/17 at 11:26; Status DC Fentanyl Citrate (Fentanyl 2ml Vial) 100 mcg STK-MED ONCE .ROUTE ; Start at 11:51; Stop 05/06/17 at 11:52; Status DC Diphenhydramine HCl (Benadryl) 25 mg PRN Q6HRS PRN IV ITCHING; Start 05/06/17 at 13:45 Enoxaparin Sodium (Lovenox 40mg Syringe) 40 mg Q24H SQ Last administered on 22:03; Start 05/06/17 at 21:00 Sodium Chloride (Normal Saline Flush) 3 ml QSHIFT PRN IV AFTER MEDS AND BLOOD DRAWS; Start 05/06/17 at 13:45 Potassium Chloride/Sodium Chloride 1,000 ml @ 100 mls/hr Q10H IV Last administered on 05/08/17t 16:00; Start 05/06/17 at 14:00; Stop 05/08/17 at 21:59 ; Status DC Ondansetron HCl (Zofran) 4 mg PRN Q6HRS PRN IV NAUESA, 1ST CHOICE; Start at 13:45 Throat Lozenges (Chloraseptic) 1 spray PRN Q2HR PRN PO SORE THROAT; Start 05/06 at 13:45 Throat Lozenges (Cepacol Sore Throat Lozenge) 1 shalom PRN Q2HRS PRN PO SORE THROAT; Start 05/06/17 at 13:45 Digoxin (Lanoxin) 125 mcg DAILY IV Last administered on 05/10/17 09:17; Start 05/07/17 at 09:00 Metoprolol Tartrate (Lopressor) 5 mg Q6HRS IVP Last administered on 05/10/17 06:32; Start 05/07/17 at 08:45; Stop 05/10/17 at 10:02; Status DC Enalaprilat (Vasotec) 0.625 mg Q6HRS IV Last administered on 05/10/17 13:06; Start 05/07/17 at 12:00 Magnesium Sulfate/ Dextrose 100 ml @ 25 mls/hr 1X ONCE IV Last administered on 05/07/17 10:58; Start 05/07/17 at 10:30; Stop 05/07/17 at 14:29; Status DC Info 1 each PRN DAILY PRN MC SEE COMMENTS Last administered on 05/10/17 13:39 ; Start 05/07/17 at 11:00 Famotidine (Pepcid) 20 mg BID IVP Last administered on 05/10/17 09:12; Start 05/07/17 at 11:00 Vancomycin HCl (Vanco Per Pharmacy) 1 each PRN DAILY PRN MC SEE COMMENTS Last administered on 05/09/17 06:09; Start 05/07/17 at 13:15; Stop 05/10/17 at 08:36 ; Status DC Vancomycin HCl 2 gm/Sodium Chloride 500 ml @ 250 mls/hr 1X ONCE IV Last administered on 05/07/17 17:54; Start 05/07/17 at 13:15; Stop 05/07/17 at 15:14 ; Status DC Vancomycin HCl 1 each 1X ONCE MC Last administered on 05/09/17 04:30; Start 05/09/17 at 04:30; Stop 05/09/17 at 04:31; Status DC Vancomycin HCl 1.75 gm/Sodium Chloride 500 ml @ 250 mls/hr Q12H IV Last administered on 05/08/17 16:47; Start 05/08/17 at 05:00; Stop 05/09/17 at 06:01 ; Status DC Amino Acids/ Glycerin/ Electrolytes 1,000 ml @ 80 mls/hr [id number] IV Last administered on 05/08/17 03:48; Start 05/07/17 at 15:30; Stop 05/08/17 at 12:12 ; Status DC Magnesium Sulfate/ Dextrose 50 ml @ 25 mls/hr 1X ONCE IV Last administered on 05/08/17 11:13; Start 05/08/17 at 11:00; Stop 05/08/17 at 12:59; Status DC Potassium Phosphate 15 mmol/ Sodium Chloride 255 ml @ 127.5 mls/ hr 1X ONCE IV Last administered on 05/08/17 12:48; Start 05/08/17 at 12:00; Stop at 13:59; Status DC Sodium Chloride 90 meq/Potassium Chloride 50 meq/ Potassium Phosphate 13.6 mmol/ Magnesium Sulfate 10 meq/ Calcium Gluconate 10 meq/ Multivitamins 10 ml/Chromium / Copper/Manganese/ Seleni/Zn 1 ml/ Total Parenteral Nutrition/Amino Acids/ Dextrose/ Fat Emulsion Intravenous 1,512 ml @ 63 mls/hr TPN CONT IV Last administered on 05/08/17 21:15; Start 05/08/17 at 22:00; Stop 05/09/17 at 21:59 ; Status DC Vancomycin HCl 1.75 gm/Sodium Chloride 500 ml @ 250 mls/hr Q8HRS IV Last administered on 05/09/17 22:07; Start 05/09/17 at 06:30; Stop 05/10/17 at 08:36 ; Status DC Vancomycin HCl 1 each 1X ONCE MC ; Start 05/10/17 at 05:30; Stop 05/10/17 at 08 :36; Status DC Potassium Chloride 50 ml @ 50 mls/hr Q1H IV Last administered on 05/09/17 10: 21; Start 05/09/17 at 09:00; Stop 05/09/17 at 10:59; Status DC Sodium Phosphate 20 mmol/Dextrose 256.6667 ml @ 64.167 m... 1X ONCE IV Last administered on 05/09/17 18:27; Start 05/09/17 at 14:00; Stop 05/09/17 at 17:59 ; Status DC Sodium Chloride 90 meq/Potassium Chloride 70 meq/ Potassium Phosphate 20.4 mmol/ Magnesium Sulfate 16 meq/ Calcium Gluconate 10 meq/ Multivitamins 10 ml/Chromium / Copper/Manganese/ Seleni/Zn 1 ml/ Total Parenteral Nutrition/Amino Acids/ Dextrose/ Fat Emulsion Intravenous 1,512 ml @ 63 mls/hr TPN CONT IV Last administered on 05/09/17 22:05; Start 05/09/17 at 22:00; Stop 05/10/17 at 21:59 Insulin Aspart (NovoLOG) 0-9 UNITS TIDWMEALS SQ ; Start 05/09/17 at 17:00; Status UNV Dextrose (Dextrose 50%-Water Syringe) 12.5 gm PRN Q15MIN PRN IV SEE COMMENTS; Start 05/09/17 at 14:30; Status UNV Magnesium Sulfate/ Dextrose 50 ml @ 25 mls/hr 1X ONCE IV Last administered on 05/09/17 17:03; Start 05/09/17 at 16:30; Stop 05/09/17 at 18:29; Status DC Albuterol Sulfate (Ventolin Neb Soln) 2.5 mg PRN QID PRN NEB SOA; Start at 16:45 Alteplase, Recombinant (Cathflo) 2 mg 1X ONCE INT CAT Last administered on 09:34; Start 05/10/17 at 07:45; Stop 05/10/17 at 07:46; Status DC Meropenem 1 gm/ Sodium Chloride 100 ml @ 200 mls/hr Q8HRS IV Last administered on 05/10/17 09:18; Start 05/10/17 at 08:45 Insulin Detemir (Levemir) 30 units QHS SQ ; Start 05/10/17 at 21:00 Magnesium Sulfate/ Dextrose 50 ml @ 25 mls/hr 1X ONCE IV Last administered on 05/10/17 10:27; Start 05/10/17 at 10:00; Stop 05/10/17 at 11:59; Status DC Metoprolol Tartrate (Lopressor) 2.5 mg Q6HRS IVP Last administered on 10:30; Start 05/10/17 at 10:30 Potassium Phosphate 13.6 mmol/Sodium Chloride 104.5333 ml @ 52.267 m... Q2H IV Last administered on 05/10/17 13:05; Start 05/10/17 at 11:00; Stop 05/10/17 at 12:59; Status DC Sodium Chloride 90 meq/Potassium Chloride 70 meq/ Potassium Phosphate 23.8 mmol/ Magnesium Sulfate 20 meq/ Multivitamins 10 ml/Chromium/ Copper/Manganese/ Seleni /Zn 1 ml/ Total Parenteral Nutrition/Amino Acids/Dextrose/ Fat Emulsion Intravenous 1,512 ml @ 63 mls/hr TPN CONT IV ; Start 05/10/17 at 22:00; Stop 05/11/17 at 21:59 Active Scripts Active Reported Lantus Solostar (Insulin Glargine,Hum.rec.anlog) 100 Unit/1 Ml Insuln.pen 65 Unit SQ BID Aleve (Naproxen Sodium) 220 Mg Capsule 440 Mg PO BID Aspir 81 (Aspirin) 81 Mg Tablet.dr 1 Tab PO DAILY Gabapentin 600 Mg Tablet 600 Mg PO TID Carvedilol 6.25 Mg Tablet 1 Tab PO BID Lisinopril 5 Mg Tablet 1 Tab PO DAILY Gemfibrozil 600 Mg Tablet 600 Mg PO BID Vitals/I & O Vital Sign - Last 24 Hours 05/09/17 05/09/17 05/09/17 05/09/17 15:00 16:02 17:50 17:50 Temp 97.9 97.9 Pulse 71 77 74 Resp 18 B/P (MAP) 128/68 (88) 134/70 134/70 Pulse Ox 96 O2 Delivery Room Air Room Air 05/09/17 05/09/17 05/09/17 05/10/17 19:40 20:00 23:15 01:16 Temp 98.1 98.1 98.1 98.1 Pulse 69 68 68 Resp 18 20 B/P (MAP) 132/63 (86) 127/64 (85) 127/64 Pulse Ox 95 97 O2 Delivery Room Air Room Air Room Air 05/10/17 05/10/17 05/10/17 05/10/17 01:22 03:50 06:29 06:32 Temp 97.7 97.7 Pulse 68 76 76 76 Resp 20 B/P (MAP) 127/64 134/67 (89) 134/67 134/67 Pulse Ox 94 O2 Delivery Room Air 05/10/17 05/10/17 05/10/17 05/10/17 07:00 08:00 09:17 10:30 Temp 97.8 97.8 Pulse 68 75 98 Resp 18 B/P (MAP) 150/82 (104) Pulse Ox 95 O2 Delivery Room Air Nasal Cannula O2 Flow Rate 2.0 05/10/17 05/10/17 11:00 13:06 Temp 97.9 97.9 Pulse 72 Resp 18 B/P (MAP) 136/70 (92) 136/70 Pulse Ox 94 O2 Delivery Room Air Intake and Output 05/09/17 05/09/17 05/10/17 15:00 23:00 07:00 Intake Total 200 ml 1290 ml Output Total 200 ml 825 ml 1425 ml Balance -200 ml -625 ml -135 ml MURIEL FUENTES MD May 10, 2017 13:56
[2017-05-10] MEDS ORDERED: oxyCODONE/APAP 5/325 1 TAB TABLET PO PRN (14:00)
[2017-05-10] MEDS ORDERED: HYDROmorphone 2 MG/ML VIAL IV PRN (14:00)
[2017-05-10 15:00] VITALS: BP 142/75
[2017-05-10] MEDS: oxyCODONE/APAP 10/325 1 TAB TABLET PO PRN (16:41)
[2017-05-10 19:30] VITALS: BP 131/72
[2017-05-10] MEDS ORDERED: INSULIN DETEMIR 300 UNITS/3 ML INSULN.PEN. SQ SCH (21:00)
[2017-05-10] MEDS ORDERED: AMINO ACIDS IV SCH ×9 (22:00)
[2017-05-10] MEDS ORDERED: TOTAL PARENTERAL NUTRITION IV SCH ×9 (22:00)
[2017-05-10] MEDS ORDERED: [UNRECOGNIZED DRUG - OTHER] IV SCH ×9 (22:00)
[2017-05-10] MEDS ORDERED: DEXTROSE 70% IV SCH ×9 (22:00)
[2017-05-10] MEDS: MORPHINE ER 15 MG TABLET.ER PO SCH (22:18)
[2017-05-10] MEDS: ENOXAPARIN 40 MG/0.4 ML SYRINGE. SQ SCH (22:19)
[2017-05-10 23:00] VITALS: BP 147/77
[2017-05-11 03:15] VITALS: BP 125/73
[2017-05-11 05:28] LABS: CALCIUM 8.9 mg/dL (8.5-10.1); CREATININE 0.5 mg/dL (0.7-1.3); MAGNESIUM 1.7 mg/dL (1.8-2.4); POTASSIUM 3.4 mmol/L (3.5-5.1)
[2017-05-11] MEDS: MEROPENEM 1 GM in IV NORMAL SALINE 100ML 100 ML IV SCH ×3 (06:33→22:17)
[2017-05-11] MEDS: ENALAPRILAT 1.25 MG/ML VIAL. IV SCH ×5 (06:35→23:40)
[2017-05-11] MEDS: METOPROLOL TARTRATE 5 MG/5 ML VIAL. IVP SCH ×5 (06:41→23:41)
[2017-05-11 07:00] VITALS: BP 140/78
[2017-05-11] MEDS: MORPHINE ER 15 MG TABLET.ER PO SCH (08:43)
[2017-05-11] MEDS: FAMOTIDINE 20 MG/2 ML VIAL IVP SCH ×2 (08:44→21:18)
[2017-05-11] MEDS: DIGOXIN IV 500 MCG/2 ML AMPUL. IV SCH (08:46)
[2017-05-11] MEDS: INSULIN ASPART 300 UNITS/3 ML INSULN.PEN SQ SCH ×3 (08:56→18:14)
--- NOTE | 2017-05-11 09:35 | PDOC ---
Infectious Disease Note Subjective Subjective ? feeling of bowel gas moving Better today Pain controlled Denies N/V TPN ROS ROS GEN: Denies fevers, chills, sweats HEENT: Denies blurred vision, sore throat CV: Denies chest pain RESP: Denies shortness of air, cough GI: Denies n/v/d NEURO: Denies confusion, dizziness MSK: Denies weakness, joint pain/swelling Vital Sign Vital Signs Vital Signs Date Time Temp Pulse Resp B/P (MAP) Pulse Ox O2 Delivery O2 Flow Rate FiO2 05/11/17 08:46 80 05/11/17 08:43 18 Room Air 05/11/17 07:00 98.1 140/78 (98) 93 98.1 05/10/17 08:00 2.0 Physical Exam PHYSICAL EXAM GENERAL: In bed, NAD, looks better HEENT: PERRL, OC/OP dry NECK: Supple LUNGS: Clear HEART: S1 and S2, no gallop, no murmur ABD: Obese, BS quiet, soft, NT to light palpation. Dressings dry, KENNETH intact- serosanguineous drainage. ostomy- + air. less distended EXT: No edema, no cyanosis. Gio lebron PROGRAM DIRECTOR SCOUTING: Alert, oriented x 3, no focal neurologic deficit SKIN: No rash RUE-PICC. (05/07). clean Labs Lab Laboratory Tests Test 05/10/17 12:19 05/10/17 16:48 05/10/17 21:13 05/11/17 04:14 Glucose (Fingerstick) 208 mg/dL (70-99) 177 mg/dL (70-99) 265 mg/dL (70-99) Sodium Level 144 mmol/L (136-145) Potassium Level 3.4 mmol/L (3.5-5.1) Chloride Level 107 mmol/L (98-107) Carbon Dioxide Level 28 mmol/L (21-32) Anion Gap 9 (6-14) Blood Urea Nitrogen 8 mg/dL (8-26) Creatinine 0.5 mg/dL (0.7-1.3) Estimated GFR (Cockcroft-Gault) 169.0 Glucose Level 242 mg/dL (70-99) Calcium Level 8.9 mg/dL (8.5-10.1) Phosphorus Level 3.0 mg/dL (2.6-4.7) Magnesium Level 1.7 mg/dL (1.8-2.4) Test 05/11/17 08:10 Glucose (Fingerstick) 287 mg/dL (70-99) Micro 05/06 Enterococcus faecalis Light growth AEROBIC RES 2 Final Escherichia coli Scant growth ANTIMICROBIAL SUSCEPTIBILITY Final Comment S = Susceptible; I = Intermediate; R = Resistant P = Positive; N = Negative MICS are expressed in micrograms per mL Antibiotic RSLT#1 RSLT#2 RSLT#3 RSLT#4 Amoxicillin/Clavulanic Acid S Ampicillin R Cefepime S Ceftriaxone S Cefuroxime S Ciprofloxacin S Ertapenem S Gentamicin S Imipenem S Levofloxacin S CONTINUED ON NEXT PAGE RUN DATE: 05/09/17 PAGE 2 RUN TIME: 163 [facility] [address] [place] [address] Donny Johnson M.D., Wrap Turner SPEC: [id number] PATIENT: DAYAN TORRES [id number] ( Continued) Procedure Result ANTIMICROBIAL SUSCEPTIBILITY Final (continued) Penicillin S Piperacillin R Tetracycline S Tobramycin S Trimethoprim/Sulfa R Vancomycin S Objective Assessment Perforated sigmoid diverticulum. -s/p rigid procto, SBR with primary anastomosis, sigmoid resection with end colostomy, Agustin's pouch, 05/06. 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 and Enterococcus Cipro allergy - ? seizure -has not had levoflox/Cipro since Leukocytosis - better Afib RVR Plan Plan of Care Cont Meropenem f/u intra-op cx PT/OT F/u labs JULIA JURADO MD May 11, 2017 09:35
[2017-05-11 11:00] VITALS: BP 144/90
--- NOTE | 2017-05-11 12:00 | PATHOLOGY ---
PATHOLOGY REPORT * * * * * * * * FINAL DIAGNOSIS: A. Segment of small bowel and attached mesentery, small bowel segmental resection: - Focal serosal edema, congestion, reactive fibrosis, and acute and chronic inflammation. B. Segment of colon and attached mesocolon, sigmoid colon segmental resection: - Diverticulosis. - Acute and chronic diverticulitis with pericolic abscesses and serosal acute and chronic inflammation. Comment: There is no evidence of malignancy. (JPM/db; d/t: 05/09/2017) REPORT ELECTRONICALLY SIGNED BY: Donny Johnson M.D. DATE/TIME: 05/11/2017 11:59 * * * * * * * * GROSS PATHOLOGY: A. The specimen is received in formalin labeled "Gee Lacy, segment of small bowel, stitch-proximal". Received is an oriented segment of small bowel measuring 23.2 cm in length and ranging in diameter from 2.5 to 3.4 cm. Both margins are stapled closed and a suture is present at one margin designating this as the proximal aspect. The serosal surface is pink-parker to dusky pink-pacheco in appearance with a slight amount of overlying adhesions. The attached mesenteric fat measures 2.5 cm in thickness. The specimen is opened along the antimesenteric line to reveal pacheco-parker mucosa with edematous architectural folds. No distinct nodules or lesions are noted grossly. Sectioning through the attached mesenteric fat reveals no readily identifiable lymph nodes. The specimen is submitted representatively as follows: A1 proximal margin A2 distal margin A3-A4 business process representative cross-sections of mucosa. B. The specimen is received in formalin labeled "Gee Regino, sigmoid colon, suture at proximal end". Received is an oriented segment of colon measuring 10.9 cm in length by 3.2 cm in diameter. Both margins are stapled closed and a suture is present at one margin designating this as the proximal aspect. The serosal surface is dusky pink-parker in appearance. The attached pericolic fat measures up to 5.0 cm in thickness. The specimen is opened along the antimesenteric line to reveal light parker mucosa with normal architectural folds. The colon wall is thickened in appearance. Multiple diverticula are present. There are no distinct lesions or perforations noted grossly. The majority of the attached pericolic fat is indurated in appearance. Sectioning through the attached pericolic fat reveals no readily identifiable lymph nodes or further evidence of perforation. The specimen is submitted representatively as follows: B1 proximal margin B2 distal margin B3-B4 business process representative sections of diverticula. (CAA; 05/08/2017) INITIAL CPT CODE(S): A; 27201 B; 02016 Professional services performed by [facility] at [address] [address] Technical services performed by [facility] at [address] [place] [address], [address], [place] [address]. SPECIMEN(S) RECEIVED: A.Segment of small bowel B.Sigmoid colon CLINICAL HISTORY: Perforated viscous, diverticulitis PATIENT: GEE LACY /AGE: 7 1955 (Age: 61) PATIENT #: [id number] ALT CASE #: SPECIMEN COLLECTION DATE: 05/06/2017 SPECIMEN RECEIVED DATE: 05/06/2017 [facility] - [address] [place] [address] - PHONE: [phone] * * * END OF REPORT * * *
[2017-05-11] MEDS ORDERED: POTASSIUM CHLORIDE 20 MEQ/15 ML ORAL LIQUID. PO ONE (12:15)
[2017-05-11] MEDS: oxyCODONE/APAP 10/325 1 TAB TABLET PO PRN ×3 (12:57→23:36)
[2017-05-11] MEDS: TPN PER PHARMACY MC PRN (12:59)
[2017-05-11 15:00] VITALS: BP 140/69
[2017-05-11] MEDS ORDERED: ENOXAPARIN 40 MG/0.4 ML SYRINGE. SQ SCH (16:00)
[2017-05-11] MEDS ORDERED: DEXTROSE 50% 25 GM / 50ML DISP.SYRIN. IV PRN (16:00)
--- NOTE | 2017-05-11 16:02 | PDOC ---
PROGRESS NOTES Chief Complaint Chief Complaint Sigmoid diverticulitis with perf ASSESSMENT AND PLAN: 1. Sigmoid diverticulitis with perforation: s/p sx sigmoid resection with ileostomy (05/05/17). recovering appropriately. NGT d/c.ed 2. SIRS: POA, now resolved 3. Intraperit abscess: E.coli, bacteroides, enterococcus. on merrem. ID following 4. Leukocytosis: reactive, slowly drifting down 5. Pain control: on percocet PRN, dilaudid IV. stop MScontin 6. Pafib w/RVR: converted back to NSR. on metoprolol, stop dig. room to increase BB 7. Sustained vtach (05/05/17): resolved 8. DM2: poorly controlled. adjust insulin regimen 9. Nutrition: on TPN; meds ok PO. advance as per surgery 10. Prophylaxis: lovenox, H2B 11. Obesity BMI 33.9 History of Present Illness History of Present Illness feels good; ambulating w/o difficulties Vitals Vitals Vital Signs Date Time Temp Pulse Resp B/P (MAP) Pulse Ox O2 Delivery O2 Flow Rate FiO2 05/11/17 13:57 16 Room Air 05/11/17 12:41 81 144/90 05/11/17 11:00 98.4 95 98.4 05/10/17 08:00 2.0 Physical Exam General: Alert, Oriented X3, Cooperative, No acute distress Heart: Regular rate, Other (2/6 systolic murmur to LLS border) Lungs: Clear Abdomen: Soft, Other (stoma pink) Extremities: No clubbing Skin: No rashes Labs LABS Laboratory Tests Test 05/10/17 16:48 05/10/17 21:13 05/11/17 04:14 05/11/17 08:10 Glucose (Fingerstick) 177 mg/dL (70-99) 265 mg/dL (70-99) 287 mg/dL (70-99) Sodium Level 144 mmol/L (136-145) Potassium Level 3.4 mmol/L (3.5-5.1) Chloride Level 107 mmol/L (98-107) Carbon Dioxide Level 28 mmol/L (21-32) Anion Gap 9 (6-14) Blood Urea Nitrogen 8 mg/dL (8-26) Creatinine 0.5 mg/dL (0.7-1.3) Estimated GFR (Cockcroft-Gault) 169.0 Glucose Level 242 mg/dL (70-99) Calcium Level 8.9 mg/dL (8.5-10.1) Phosphorus Level 3.0 mg/dL (2.6-4.7) Magnesium Level 1.7 mg/dL (1.8-2.4) Test 05/11/17 12:16 Glucose (Fingerstick) 256 mg/dL (70-99) DUNG CASH MD May 11, 2017 16:02
--- NOTE | 2017-05-11 16:26 | PDOC ---
SURGICAL PROGRESS NOTE Subjective POD 5,doing well Vital Signs Vital Signs Date Time Temp Pulse Resp B/P (MAP) Pulse Ox O2 Delivery O2 Flow Rate FiO2 05/11/17 15:00 98.2 73 20 140/69 (92) 92 Room Air 98.2 05/10/17 08:00 2.0 I&O Intake and Output 05/11/17 07:00 Intake Total 1270 ml Output Total 3210 ml Balance -1940 ml Intake Oral 370 ml IV Total 900 ml Output Urine Total 3150 ml Drainage Total 60 ml PATIENT HAS A ZIEGLER: No General: Alert, Oriented X3, Cooperative Abdomen: Soft, Other (stoma viable, functioning) Labs Laboratory Tests Test 05/09/17 20:46 05/10/17 08:10 05/10/17 08:16 05/10/17 12:19 Glucose (Fingerstick) 199 mg/dL (70-99) 214 mg/dL (70-99) 208 mg/dL (70-99) White Blood Count 12.6 x10^3/uL (4.0-11.0) Red Blood Count 4.51 x10^6/uL (4.30-5.70) Hemoglobin 12.5 g/dL (13.0-17.5) Hematocrit 36.1 % (39.0-53.0) Mean Corpuscular Volume 80 fL (79-100) Mean Corpuscular Hemoglobin 28 pg (25-35) Mean Corpuscular Hemoglobin Concent 35 g/dL (31-37) Red Cell Distribution Width 13.9 % (11.5-14.5) Platelet Count 353 x10^3/uL (140-400) Neutrophils (%) (Auto) 70 % (31-73) Lymphocytes (%) (Auto) 17 % (24-48) Monocytes (%) (Auto) 8 % (0-9) Eosinophils (%) (Auto) 5 % (0-3) Basophils (%) (Auto) 1 % (0-3) Neutrophils # (Auto) 8.8 x10^3uL (1.8-7.7) Lymphocytes # (Auto) 2.1 x10^3/uL (1.0-4.8) Monocytes # (Auto) 1.0 x10^3/uL (0.0-1.1) Eosinophils # (Auto) 0.6 x10^3/uL (0.0-0.7) Basophils # (Auto) 0.1 x10^3/uL (0.0-0.2) Sodium Level 141 mmol/L (136-145) Potassium Level 3.5 mmol/L (3.5-5.1) Chloride Level 105 mmol/L (98-107) Carbon Dioxide Level 28 mmol/L (21-32) Anion Gap 8 (6-14) Blood Urea Nitrogen 6 mg/dL (8-26) Creatinine 0.5 mg/dL (0.7-1.3) Estimated GFR (Cockcroft-Gault) 169.0 Glucose Level 251 mg/dL (70-99) Calcium Level 8.9 mg/dL (8.5-10.1) Phosphorus Level 2.2 mg/dL (2.6-4.7) Magnesium Level 1.5 mg/dL (1.8-2.4) Vancomycin Level Trough 10.8 mcg/mL (10.0-20.0) Vancomycin Last Dose Date Unknown Vancomycin Last Dose Time Unknown Test 05/10/17 16:48 05/10/17 21:13 05/11/17 04:14 05/11/17 08:10 Glucose (Fingerstick) 177 mg/dL (70-99) 265 mg/dL (70-99) 287 mg/dL (70-99) Sodium Level 144 mmol/L (136-145) Potassium Level 3.4 mmol/L (3.5-5.1) Chloride Level 107 mmol/L (98-107) Carbon Dioxide Level 28 mmol/L (21-32) Anion Gap 9 (6-14) Blood Urea Nitrogen 8 mg/dL (8-26) Creatinine 0.5 mg/dL (0.7-1.3) Estimated GFR (Cockcroft-Gault) 169.0 Glucose Level 242 mg/dL (70-99) Calcium Level 8.9 mg/dL (8.5-10.1) Phosphorus Level 3.0 mg/dL (2.6-4.7) Magnesium Level 1.7 mg/dL (1.8-2.4) Test 05/11/17 12:16 Glucose (Fingerstick) 256 mg/dL (70-99) Laboratory Tests Test 05/10/17 16:48 05/10/17 21:13 05/11/17 04:14 05/11/17 08:10 Glucose (Fingerstick) 177 mg/dL (70-99) 265 mg/dL (70-99) 287 mg/dL (70-99) Sodium Level 144 mmol/L (136-145) Potassium Level 3.4 mmol/L (3.5-5.1) Chloride Level 107 mmol/L (98-107) Carbon Dioxide Level 28 mmol/L (21-32) Anion Gap 9 (6-14) Blood Urea Nitrogen 8 mg/dL (8-26) Creatinine 0.5 mg/dL (0.7-1.3) Estimated GFR (Cockcroft-Gault) 169.0 Glucose Level 242 mg/dL (70-99) Calcium Level 8.9 mg/dL (8.5-10.1) Phosphorus Level 3.0 mg/dL (2.6-4.7) Magnesium Level 1.7 mg/dL (1.8-2.4) Test 05/11/17 12:16 Glucose (Fingerstick) 256 mg/dL (70-99) Problem List Problems Medical Problems: (1) Diverticulitis Status: Acute (2) Perforated bowel Status: Acute Assessment/Plan improved advance diet wean TPN switch to PO Abx? Problems: JUAN LUIS HUANG MD May 11, 2017 16:26
[2017-05-11 19:55] VITALS: BP 136/71
[2017-05-11] MEDS ORDERED: FAMOTIDINE 20 MG/2 ML VIAL IVP SCH (21:00)
[2017-05-11] MEDS: ENOXAPARIN 40 MG/0.4 ML SYRINGE. SQ SCH (21:19)
[2017-05-11] MEDS: INSULIN DETEMIR 300 UNITS/3 ML INSULN.PEN. SQ SCH (21:23)
[2017-05-11] MEDS ORDERED: AMINO ACIDS IV SCH ×9 (22:00)
[2017-05-11] MEDS ORDERED: DEXTROSE 70% IV SCH ×9 (22:00)
[2017-05-11] MEDS ORDERED: TOTAL PARENTERAL NUTRITION IV SCH ×9 (22:00)
[2017-05-11] MEDS ORDERED: [UNRECOGNIZED DRUG - OTHER] IV SCH ×9 (22:00)
[2017-05-11 22:33] VITALS: BP 151/81
[2017-05-12] VITALS (7 sets, daily range): BP systolic 118–144; BP diastolic 61–84
[2017-05-12] MEDS ORDERED: ALTEPLASE 2 MG VIAL INT CAT ONE (05:15)
[2017-05-12 05:36] LABS: CALCIUM 8.9 mg/dL (8.5-10.1); CREATININE 0.6 mg/dL (0.7-1.3); MAGNESIUM 1.6 mg/dL (1.8-2.4); POTASSIUM 3.7 mmol/L (3.5-5.1)
[2017-05-12] MEDS: MEROPENEM 1 GM in IV NORMAL SALINE 100ML 100 ML IV SCH (06:19)
[2017-05-12] MEDS: ENALAPRILAT 1.25 MG/ML VIAL. IV SCH (06:23)
[2017-05-12] MEDS: METOPROLOL TARTRATE 5 MG/5 ML VIAL. IVP SCH (06:24)
[2017-05-12] MEDS: INSULIN ASPART 300 UNITS/3 ML INSULN.PEN SQ SCH ×3 (08:00→16:54)
[2017-05-12] MEDS: FAMOTIDINE 20 MG/2 ML VIAL IVP SCH (08:36)
[2017-05-12] MEDS: oxyCODONE/APAP 10/325 1 TAB TABLET PO PRN ×2 (08:36→21:56)
--- NOTE | 2017-05-12 08:41 | PDOC ---
Infectious Disease Note Subjective Subjective + feeling of bowel gas moving Tolerating pills Better today Pain controlled Denies N/V ROS ROS GEN: Denies fevers, chills, sweats HEENT: Denies blurred vision, sore throat CV: Denies chest pain RESP: Denies shortness of air, cough GI: Denies n/v/d NEURO: Denies confusion, dizziness MSK: Denies weakness, joint pain/swelling Vital Sign Vital Signs Vital Signs Date Time Temp Pulse Resp B/P (MAP) Pulse Ox O2 Delivery O2 Flow Rate FiO2 05/12/17 08:36 18 Room Air 05/12/17 07:00 97.9 66 133/68 (89) 97 97.9 Physical Exam PHYSICAL EXAM GENERAL: In bed, NAD, looks better HEENT: PERRL, OC/OP dry NECK: Supple LUNGS: Clear HEART: S1 and S2, no gallop, no murmur ABD: Obese, BS active, soft, NT to light palpation. Dressings dry, KENNETH intact- serosanguineous drainage. ostomy- + air. less distended EXT: No edema, no cyanosis. Gio lebron SPEECH PATHOLOGY SUPERVISOR: Alert, oriented x 3, no focal neurologic deficit SKIN: No rash RUE-PICC. (05/07). clean Labs Lab Laboratory Tests Test 05/11/17 12:16 05/11/17 17:26 05/11/17 21:05 05/12/17 04:30 Glucose (Fingerstick) 256 mg/dL (70-99) 189 mg/dL (70-99) 214 mg/dL (70-99) Sodium Level 142 mmol/L (136-145) Potassium Level 3.7 mmol/L (3.5-5.1) Chloride Level 110 mmol/L (98-107) Carbon Dioxide Level 31 mmol/L (21-32) Anion Gap 1 (6-14) Blood Urea Nitrogen 13 mg/dL (8-26) Creatinine 0.6 mg/dL (0.7-1.3) Estimated GFR (Cockcroft-Gault) 137.0 Glucose Level 161 mg/dL (70-99) Calcium Level 8.9 mg/dL (8.5-10.1) Phosphorus Level 3.0 mg/dL (2.6-4.7) Magnesium Level 1.6 mg/dL (1.8-2.4) Test 05/12/17 07:56 Glucose (Fingerstick) 126 mg/dL (70-99) Micro 05/06 Enterococcus faecalis Light growth AEROBIC RES 2 Final Escherichia coli Scant growth ANTIMICROBIAL SUSCEPTIBILITY Final Comment S = Susceptible; I = Intermediate; R = Resistant P = Positive; N = Negative MICS are expressed in micrograms per mL Antibiotic RSLT#1 RSLT#2 RSLT#3 RSLT#4 Amoxicillin/Clavulanic Acid S Ampicillin R Cefepime S Ceftriaxone S Cefuroxime S Ciprofloxacin S Ertapenem S Gentamicin S Imipenem S Levofloxacin S CONTINUED ON NEXT PAGE RUN DATE: 05/09/17 PAGE 2 RUN TIME: 1632 [facility] [address] [place] [address] Donny Johnson M.D., Government Affairs Specialist SPEC: [id number] PATIENT: DAYAN TORRES [id number] ( Continued) Procedure Result ANTIMICROBIAL SUSCEPTIBILITY Final (continued) Penicillin S Piperacillin R Tetracycline S Tobramycin S Trimethoprim/Sulfa R Vancomycin S Objective Assessment Perforated sigmoid diverticulum. -s/p rigid procto, SBR with primary anastomosis, sigmoid resection with end colostomy, Agustin's pouch, 05/06. Intra-op: Ecoli/ Bacteroides and Enterococcus Cipro allergy - ? seizure -has not had levoflox/Cipro since Leukocytosis - better Afib RVR Plan Plan of Care Discont Meropenem Begin Augmentin for 7 days JULIA JURADO MD May 12, 2017 08:41
--- NOTE | 2017-05-12 10:20 | PDOC ---
CARDIO Progress Notes Date and Time Date of Service 05/12/2017 Time of Evaluation 0935 Subjective Subjective: No Chest Pain, No shortness of breath, No Palpitations, No Dizziness, Other (abdominal surgical incision pain controlled) Vitals Vitals Vital Signs Date Time Temp Pulse Resp B/P (MAP) Pulse Ox O2 Delivery O2 Flow Rate FiO2 05/12/17 08:36 18 Room Air 05/12/17 07:00 97.9 66 133/68 (89) 97 97.9 Weight Weight [ ] Input and Output Intake and Output Intake and Output 05/12/17 07:00 Intake Total 2175 ml Output Total 1460 ml Balance 715 ml Intake Oral 575 ml IV Total 1600 ml Output Urine Total 1400 ml Drainage Total 60 ml # Voids 5 Laboratory Labs Laboratory Tests Test 05/11/17 12:16 05/11/17 17:26 05/11/17 21:05 05/12/17 04:30 Glucose (Fingerstick) 256 mg/dL (70-99) 189 mg/dL (70-99) 214 mg/dL (70-99) Sodium Level 142 mmol/L (136-145) Potassium Level 3.7 mmol/L (3.5-5.1) Chloride Level 110 mmol/L (98-107) Carbon Dioxide Level 31 mmol/L (21-32) Anion Gap 1 (6-14) Blood Urea Nitrogen 13 mg/dL (8-26) Creatinine 0.6 mg/dL (0.7-1.3) Estimated GFR (Cockcroft-Gault) 137.0 Glucose Level 161 mg/dL (70-99) Calcium Level 8.9 mg/dL (8.5-10.1) Phosphorus Level 3.0 mg/dL (2.6-4.7) Magnesium Level 1.6 mg/dL (1.8-2.4) Test 05/12/17 07:56 Glucose (Fingerstick) 126 mg/dL (70-99) Microbiology Micro Microbiology 05/06/17 Anaerobic/Aerobic Culture - Final, Complete 05/06/17 Anaerobic Culture Result 1 (DEBBIE) - Final, Complete 05/06/17 Aerobic Culture - Final, Complete 05/06/17 Aerobic Culture Result 1 (DEBBIE) - Final, Complete 05/06/17 Aerobic Culture Result 2 (DEBBIE) - Final, Complete 05/06/17 Antimicrobic Susceptibility - Final, Complete Physical Exam HEENT: Neck Supple W Full Motion Chest: Symmetric LUNGS: Clear to Auscultation Heart: S1S2, RRR (SR) Abdomen: Soft N/T Extremities: No Edema, No Calf Tenderness Neurology: alert, oriented, follow commands Assessment Assessment 1. PAFIB: Remains SR with x1 episode of NSVT yesterday and intermittent episodes of AFIB. 2. S/P POD#6 sigmoid resection, small bowel resection with colostomy 3. DM2/HTN/HLP Recommendations 1. Change to metoprolol 25 mg po bid. Uptitrate per response. 2. Maintain ECASA 81 mg for stroke prevention. future consideration for NOAC once cleared by surgery. 3. Replace Mg 4. Continue supportive care. GINA ONEILL SAS ANALYST May 12, 2017 10:20
[2017-05-12] MEDS ORDERED: MAGNESIUM SULFATE 2GM 50 ML IV ONE (10:30)
[2017-05-12] MEDS: METOPROLOL TART IMMED RELEASE 25 MG TABLET. PO SCH ×2 (11:00→21:52)
[2017-05-12] MEDS: AMOXICILLIN/K CLAV 875/125MG TABLET. PO SCH ×2 (11:01→21:48)
[2017-05-12] MEDS: ASPIRIN ENTERIC COATED 81 MG TABLET.DR. PO SCH (11:01)
[2017-05-12] MEDS: LISINOPRIL 10 MG TABLET PO SCH (11:01)
--- NOTE | 2017-05-12 13:00 | PDOC ---
CONOR MILLER ASSISTANT UNIT FORESTER 05/12/17 1300: SURGICAL PROGRESS NOTE Subjective tolerating diet plans for LTAC Vital Signs Vital Signs Date Time Temp Pulse Resp B/P (MAP) Pulse Ox O2 Delivery O2 Flow Rate FiO2 05/12/17 11:01 71 130/66 05/12/17 11:00 98.2 18 97 Room Air 98.2 I&O Intake and Output 05/12/17 07:00 Intake Total 2175 ml Output Total 1460 ml Balance 715 ml Intake Oral 575 ml IV Total 1600 ml Output Urine Total 1400 ml Drainage Total 60 ml # Voids 5 General: Alert, Oriented X3, Cooperative, No acute distress Abdomen: Soft, Other (dressing dry, ostomy with stool, stoma pink, ting serosang) Labs Laboratory Tests Test 05/10/17 16:48 05/10/17 21:13 05/11/17 04:14 05/11/17 08:10 Glucose (Fingerstick) 177 mg/dL (70-99) 265 mg/dL (70-99) 287 mg/dL (70-99) Sodium Level 144 mmol/L (136-145) Potassium Level 3.4 mmol/L (3.5-5.1) Chloride Level 107 mmol/L (98-107) Carbon Dioxide Level 28 mmol/L (21-32) Anion Gap 9 (6-14) Blood Urea Nitrogen 8 mg/dL (8-26) Creatinine 0.5 mg/dL (0.7-1.3) Estimated GFR (Cockcroft-Gault) 169.0 Glucose Level 242 mg/dL (70-99) Calcium Level 8.9 mg/dL (8.5-10.1) Phosphorus Level 3.0 mg/dL (2.6-4.7) Magnesium Level 1.7 mg/dL (1.8-2.4) Test 05/11/17 12:16 05/11/17 17:26 05/11/17 21:05 05/12/17 04:30 Glucose (Fingerstick) 256 mg/dL (70-99) 189 mg/dL (70-99) 214 mg/dL (70-99) Sodium Level 142 mmol/L (136-145) Potassium Level 3.7 mmol/L (3.5-5.1) Chloride Level 110 mmol/L (98-107) Carbon Dioxide Level 31 mmol/L (21-32) Anion Gap 1 (6-14) Blood Urea Nitrogen 13 mg/dL (8-26) Creatinine 0.6 mg/dL (0.7-1.3) Estimated GFR (Cockcroft-Gault) 137.0 Glucose Level 161 mg/dL (70-99) Calcium Level 8.9 mg/dL (8.5-10.1) Phosphorus Level 3.0 mg/dL (2.6-4.7) Magnesium Level 1.6 mg/dL (1.8-2.4) Test 05/12/17 07:56 05/12/17 11:23 Glucose (Fingerstick) 126 mg/dL (70-99) 161 mg/dL (70-99) Laboratory Tests Test 05/11/17 17:26 05/11/17 21:05 05/12/17 04:30 05/12/17 07:56 Glucose (Fingerstick) 189 mg/dL (70-99) 214 mg/dL (70-99) 126 mg/dL (70-99) Sodium Level 142 mmol/L (136-145) Potassium Level 3.7 mmol/L (3.5-5.1) Chloride Level 110 mmol/L (98-107) Carbon Dioxide Level 31 mmol/L (21-32) Anion Gap 1 (6-14) Blood Urea Nitrogen 13 mg/dL (8-26) Creatinine 0.6 mg/dL (0.7-1.3) Estimated GFR (Cockcroft-Gault) 137.0 Glucose Level 161 mg/dL (70-99) Calcium Level 8.9 mg/dL (8.5-10.1) Phosphorus Level 3.0 mg/dL (2.6-4.7) Magnesium Level 1.6 mg/dL (1.8-2.4) Test 05/12/17 11:23 Glucose (Fingerstick) 161 mg/dL (70-99) Problem List Problems Medical Problems: (1) Diverticulitis Status: Acute (2) Perforated bowel Status: Acute Assessment/Plan s/p resection diet as tolerated work toward dc to LTAC drain output decreasing Problems: JUAN LUIS HUANG MD 05/12/17 5511: SURGICAL PROGRESS NOTE Assessment/Plan pt seen and examine he and his feel he will be OK at home making strides hope to dismiss soon Problems: CONOR MILLER APRN May 12, 2017 13:00 JUAN LUIS HUANG MD May 12, 2017 17:11
--- NOTE | 2017-05-12 13:04 | PDOC ---
PROGRESS NOTES Chief Complaint Chief Complaint Sigmoid diverticulitis with perf ASSESSMENT AND PLAN: 1. Sigmoid diverticulitis with perforation: s/p sx sigmoid resection with ileostomy (05/05/17). recovering appropriately. NGT d/c.ed. tolerating PO 2. SIRS: POA, now resolved 3. Intraperit abscess: E.coli, bacteroides, enterococcus. on merrem. ID following. plan to switch to PO upon D/C 4. Leukocytosis: reactive, almost resolved 5. Pain control: on percocet PRN, with good control 6. Pafib w/RVR: converted back to NSR. on metoprolol, stop dig. room to increase BB if needed 7. Sustained vtach (05/05/17): resolved 8. DM2: much better controlled with adjusted insulin regimen 9. Nutrition: on TPN; meds ok PO. advance as per surgery 10. Prophylaxis: lovenox, H2B 11. Obesity BMI 33.9 History of Present Illness History of Present Illness feels good; ambulating w/o difficulties Vitals Vitals Vital Signs Date Time Temp Pulse Resp B/P (MAP) Pulse Ox O2 Delivery O2 Flow Rate FiO2 05/12/17 11:01 71 130/66 05/12/17 11:00 98.2 18 97 Room Air 98.2 Physical Exam General: Alert, Oriented X3, Cooperative, No acute distress Heart: Regular rate, Other (2/6 systolic murmur to LLS border) Lungs: Clear Abdomen: Soft, Other (dressing dry, ostomy with stool, stoma pink, ting serosang) Extremities: No clubbing Skin: No rashes Labs LABS Laboratory Tests Test 05/11/17 17:26 05/11/17 21:05 05/12/17 04:30 05/12/17 07:56 Glucose (Fingerstick) 189 mg/dL (70-99) 214 mg/dL (70-99) 126 mg/dL (70-99) Sodium Level 142 mmol/L (136-145) Potassium Level 3.7 mmol/L (3.5-5.1) Chloride Level 110 mmol/L (98-107) Carbon Dioxide Level 31 mmol/L (21-32) Anion Gap 1 (6-14) Blood Urea Nitrogen 13 mg/dL (8-26) Creatinine 0.6 mg/dL (0.7-1.3) Estimated GFR (Cockcroft-Gault) 137.0 Glucose Level 161 mg/dL (70-99) Calcium Level 8.9 mg/dL (8.5-10.1) Phosphorus Level 3.0 mg/dL (2.6-4.7) Magnesium Level 1.6 mg/dL (1.8-2.4) Test 05/12/17 11:23 Glucose (Fingerstick) 161 mg/dL (70-99) DUNG CASH MD May 12, 2017 13:03
[2017-05-12] MEDS ORDERED: ATORVASTATIN CALCIUM 40 MG TABLET. PO SCH (21:00)
[2017-05-12] MEDS ORDERED: FAMOTIDINE 20 MG TABLET. PO SCH (21:00)
[2017-05-12] MEDS: FAMOTIDINE 20 MG TABLET. PO SCH (21:52)
[2017-05-12] MEDS: ENOXAPARIN 40 MG/0.4 ML SYRINGE. SQ SCH (21:59)
[2017-05-12] MEDS: INSULIN DETEMIR 300 UNITS/3 ML INSULN.PEN. SQ SCH (22:36)
[2017-05-13 02:45] VITALS: BP 135/82
[2017-05-13 07:00] VITALS: BP 124/59
[2017-05-13] MEDS: INSULIN ASPART 300 UNITS/3 ML INSULN.PEN SQ SCH ×2 (08:00→12:26)
[2017-05-13] MEDS: ASPIRIN ENTERIC COATED 81 MG TABLET.DR. PO SCH (08:56)
[2017-05-13] MEDS: AMOXICILLIN/K CLAV 875/125MG TABLET. PO SCH (08:56)
[2017-05-13] MEDS: FAMOTIDINE 20 MG TABLET. PO SCH (08:57)
[2017-05-13] MEDS: LISINOPRIL 10 MG TABLET PO SCH (08:57)
[2017-05-13] MEDS: METOPROLOL TART IMMED RELEASE 25 MG TABLET. PO SCH (09:00)
[2017-05-13 11:00] VITALS: BP 138/83
--- NOTE | 2017-05-13 11:12 | PDOC ---
CARDIO Progress Notes Date and Time Date of Service 05/13/2017 Time of Evaluation 1045 Subjective Subjective: No Chest Pain, No shortness of breath, No Palpitations, No Dizziness Vitals Vitals Vital Signs Date Time Temp Pulse Resp B/P (MAP) Pulse Ox O2 Delivery O2 Flow Rate FiO2 05/13/17 10:01 Room Air 05/13/17 09:01 96 05/13/17 09:00 74 129/69 05/13/17 07:00 97.8 20 97.8 Weight Weight [ ] Input and Output Intake and Output Intake and Output 05/13/17 07:00 Intake Total 1440 ml Output Total 540 ml Balance 900 ml Intake Oral 1440 ml Output Urine Total 450 ml Stool Total 90 ml # Voids 9 Laboratory Labs Laboratory Tests Test 05/12/17 11:23 05/12/17 16:37 05/12/17 21:03 05/13/17 07:49 Glucose (Fingerstick) 161 mg/dL (70-99) 143 mg/dL (70-99) 176 mg/dL (70-99) 112 mg/dL (70-99) Microbiology Micro Microbiology 05/06/17 Anaerobic/Aerobic Culture - Final, Complete 05/06/17 Anaerobic Culture Result 1 (DEBBIE) - Final, Complete 05/06/17 Aerobic Culture - Final, Complete 05/06/17 Aerobic Culture Result 1 (DEBBIE) - Final, Complete 05/06/17 Aerobic Culture Result 2 (DEBBIE) - Final, Complete 05/06/17 Antimicrobic Susceptibility - Final, Complete Physical Exam HEENT: Neck Supple W Full Motion Chest: Symmetric LUNGS: Clear to Auscultation Heart: S1S2, RRR (SR) Abdomen: Soft N/T, Other (colostomy) Extremities: No Edema, No Calf Tenderness Neurology: alert, oriented, follow commands Assessment Assessment 1. PAFIB: No further ectopies overnight after BB adjustment, remains on SR. 2. S/P POD#7 sigmoid resection, small bowel resection with colostomy 3. DM2/HTN/HLP Recommendations 1. Continue with metoprolol, lisinopril, lipitor 2. Recommend eliquis 5 mg po bid if clear by general surgery otherwise maintain ECASA 81 mg for stroke prevention 3. [id number] 2. MCOT to commence when DC and note AFIB burden. 4. Continue supportive care. GINA ONEILL COMPUTER SPECIALIST May 13, 2017 11:12
--- NOTE | 2017-05-13 12:38 | PDOC ---
SURGICAL PROGRESS NOTE Subjective eating a regular diet today Vital Signs Vital Signs Date Time Temp Pulse Resp B/P (MAP) Pulse Ox O2 Delivery O2 Flow Rate FiO2 05/13/17 11:00 98.1 70 19 138/83 (101) 97 Room Air 98.1 I&O Intake and Output 05/13/17 07:00 Intake Total 1440 ml Output Total 540 ml Balance 900 ml Intake Oral 1440 ml Output Urine Total 450 ml Stool Total 90 ml # Voids 9 PATIENT HAS A ZIEGLER: No General: Alert, Oriented X3, Cooperative, No acute distress Abdomen: Soft Labs Laboratory Tests Test 05/11/17 17:26 05/11/17 21:05 05/12/17 04:30 05/12/17 07:56 Glucose (Fingerstick) 189 mg/dL (70-99) 214 mg/dL (70-99) 126 mg/dL (70-99) Sodium Level 142 mmol/L (136-145) Potassium Level 3.7 mmol/L (3.5-5.1) Chloride Level 110 mmol/L (98-107) Carbon Dioxide Level 31 mmol/L (21-32) Anion Gap 1 (6-14) Blood Urea Nitrogen 13 mg/dL (8-26) Creatinine 0.6 mg/dL (0.7-1.3) Estimated GFR (Cockcroft-Gault) 137.0 Glucose Level 161 mg/dL (70-99) Calcium Level 8.9 mg/dL (8.5-10.1) Phosphorus Level 3.0 mg/dL (2.6-4.7) Magnesium Level 1.6 mg/dL (1.8-2.4) Test 05/12/17 11:23 05/12/17 16:37 05/12/17 21:03 05/13/17 07:49 Glucose (Fingerstick) 161 mg/dL (70-99) 143 mg/dL (70-99) 176 mg/dL (70-99) 112 mg/dL (70-99) Test 05/13/17 11:46 Glucose (Fingerstick) 154 mg/dL (70-99) Laboratory Tests Test 05/12/17 16:37 05/12/17 21:03 05/13/17 07:49 05/13/17 11:46 Glucose (Fingerstick) 143 mg/dL (70-99) 176 mg/dL (70-99) 112 mg/dL (70-99) 154 mg/dL (70-99) Problem List Problems Medical Problems: (1) Diverticulitis Status: Acute (2) Perforated bowel Status: Acute Assessment/Plan home today f/u 05/20 OK to start armando Problems: JUAN LUIS HUANG MD May 13, 2017 12:38
[2017-05-13] MEDS ORDERED: AMOX1TAB11 PO (12:58)
[2017-05-13] MEDS ORDERED: FAMO20TA5 PO (12:58)
[2017-05-13] MEDS ORDERED: ATOR40TA59 PO (12:58)
[2017-05-13] MEDS ORDERED: OXYC1TAB7 PO (12:58)
[2017-05-13] MEDS ORDERED: LISI10TA2 PO (12:58)
[2017-05-13] MEDS ORDERED: APIX5TAB PO (12:58)
[2017-05-13] MEDS ORDERED: INSU100I13 SQ (12:58)
[2017-05-13] MEDS ORDERED: APIXABAN 5 MG TABLET. PO SCH (21:00)
--- NOTE | 2017-05-15 19:35 | PDOC3 ---
Discharge Summary* Date of Admission: Apr 27, 2017 Date of Discharge: May 13, 2017 Admitting Diagnosis Diverticulitis with perf Problems: Final Diagnosis diverticulitis with perf s/p CONSULTS Surgery Infectious disease Procedures sigmoid resection with end-to-end anastomosis Brief Hospital Course Mr. Lacy is a 61y/o man who presented with abdominal pain that had worsened acutely located in the left lower quadrant, worse with movement and even mild pressure. this was associated with mild nausea, no vomiting, dry mouth. PO intake was minimal, and he reported no urinary ouptut. CT in the ER showed sigmoid diverticulitis and he was admitted. Unfortunately, despite Abx and bowel rest, he progressed to perforation with abscess formation , prompting resection on 05/[address] Mcclain. 1. Sigmoid diverticulitis with perforation: s/p sx sigmoid resection with ileostomy (05/06/17). recovering appropriately. NGT d/c.ed 2. SIRS: POA, now resolved 3. Intraperit abscess: E.coli, bacteroides, enterococcus. on merrem, switched to augmentin at time of discharge 4. Leukocytosis: reactive, slowly drifting down 5. Pain control: on percocet PRN at time of D/C 6. Pafib w/RVR: converted back to NSR. on metoprolol, stop dig. room to increase BB 7. Sustained vtach (05/05/17): resolved 8. DM2: poorly controlled. adjust insulin regimen 9. Nutrition: tolerating soft diet Disposition/Orders: D/C to Home CONDITION AT DISCHARGE: Improved Diet: Mechanical Soft/Chopped Scheduled Amoxicillin/Potassium Clav (Amox Tr-K Clv 875-125 Mg Tab), 1 TAB PO BID Apixaban (Eliquis), 5 MG PO BID Aspirin (Aspir 81), 1 TAB PO DAILY, (Reported) Atorvastatin Calcium (Atorvastatin Calcium), 40 MG PO QHS Carvedilol (Carvedilol), 1 TAB PO BID, (Reported) Famotidine (Famotidine), 20 MG PO BID Gabapentin (Gabapentin), 600 MG PO TID, (Reported) Insulin Glargine,Hum.rec.anlog (Lantus Solostar), 40 UNIT SQ BID Lisinopril (Lisinopril), 10 MG PO DAILY Naproxen Sodium (Aleve), 440 MG PO BID, (Reported) Scheduled PRN Oxycodone Hcl/Acetaminophen (Oxycodone-Acetaminophen 5-325), 1 TAB PO PRN Q4HRS PRN for PAIN Discontinued Medications Gemfibrozil (Gemfibrozil), 600 MG PO BID, (Reported) Lisinopril (Lisinopril), 1 TAB PO DAILY, (Reported) FOLLOW UP APPOINTMENT: Dr Mcclain in 1 week PCP Eloy Roe URSULA MD May 15, 2017 19:35
== END 2017-05-13 14:30 | disposition home or self-care (01) | DRG 330 ==
LOC: ER 07:07 → 2 NORTH 09:52
PROVIDERS: ADMIT Internal Medicine; ATTEND Internal Medicine
PROC: 02H633Z Insertion of Infusion Device into Right Atrium, Percutaneous Approach (ICD-10-PCS; 2017-04-27)
PROC: 0D1N0Z4 Bypass Sigmoid Colon to Cutaneous, Open Approach (ICD-10-PCS; 2017-05-06)
PROC: 0DT80ZZ Resection of Small Intestine, Open Approach (ICD-10-PCS; 2017-05-06)
PROC: 0DJD8ZZ Inspection of Lower Intestinal Tract, Via Natural or Artificial Opening Endoscopic (ICD-10-PCS; 2017-05-06)
PROC: 0DTN0ZZ Resection of Sigmoid Colon, Open Approach (ICD-10-PCS; principal; 2017-05-06 10:00)
DX: K57.20 Diverticulitis of large intestine with perforation and abscess without bleeding (principal); I47.2 Ventricular tachycardia; K56.60 Unspecified intestinal obstruction; R65.10 Systemic inflammatory response syndrome (SIRS) of non-infectious origin without acute organ dysfunction; E11.9 Type 2 diabetes mellitus without complications; E66.9 Obesity, unspecified; Z68.32 Body mass index [BMI] 32.0-32.9, adult; E78.5 Hyperlipidemia, unspecified; F17.210 Nicotine dependence, cigarettes, uncomplicated; I10 Essential (primary) hypertension; I48.91 Unspecified atrial fibrillation; J44.9 Chronic obstructive pulmonary disease, unspecified; Z82.49 Family history of ischemic heart disease and other diseases of the circulatory system; Z88.1 Allergy status to other antibiotic agents; Z90.49 Acquired absence of other specified parts of digestive tract; E11.65 Type 2 diabetes mellitus with hyperglycemia; E87.6 Hypokalemia; I48.0 Paroxysmal atrial fibrillation; Z68.33 Body mass index [BMI] 33.0-33.9, adult; Z86.73 Personal history of transient ischemic attack (TIA), and cerebral infarction without residual deficits; Z87.440 Personal history of urinary (tract) infections; Z87.442 Personal history of urinary calculi; B95.2 Enterococcus as the cause of diseases classified elsewhere
CPT/HCPCS: 36415; 71010; 74000; 74177; 80047; 80048; 80053; 80061; 80076; 80202; 81001; 82565; 82962; 83036; 83690; 83735; 84100; 84443; 85007; 85027; 87071; 87075; 87186; 87205; 88307; 93005; 93306; 94250; 94640; 94760; 96365; 96375; 97164; C9113; G0238; J0330; J0610; J0780; J1100; J1160; J1170; J1650; J1815; J2185; J2248; J2270; J2405; J2543; J2704; J2710; J2997; J3010; J3370; J3475; J3480; J3490; J7030; J7040; J7042; J7050; J7060; J7120; J7620; Q9967; S0028; 97116; 97530; 97535; 99285-25

== ENCOUNTER 2017-06-08 17:35 | Emergency (ER) | payer BC ==
[~2017-06-08] VITALS: Ht 182.9 cm; Wt 104.3 kg
[~2017-06-08 17:35] MED LIST: AMOX1TAB11 PO; APIX5TAB PO; ASPI-482 PO; ATOR40TA59 PO; CARV6.252 PO; FAMO20TA5 PO; GABA600T2 PO; GEMF600T3 PO; INSU100I13 SQ; LISI-338 PO; LISI10TA2 PO; NAPR220C4 PO; OXYC1TAB7 PO
[2017-06-08 17:50] VITALS: BP 102/55
[2017-06-08] MEDS ORDERED: AMOX1TAB61 PO (18:23)
[2017-06-08] MEDS ORDERED: ACET1TAB33 PO (18:27)
--- NOTE | 2017-06-08 18:28 | PHYS DOC ---
Past Medical History Past Medical History: A-Fib, Arthritis, CHF, Diabetes-Type II, Hypertension, Kidney Stone Past Surgical History: Cholecystectomy Alcohol Use: None Drug Use: Marijuana Adult General Chief Complaint Chief Complaint: ANIMAL BITE HPI HPI Patient is a 62 year old male who presents complaining of cat bite to the left hand that occurred 3 days ago. The cat is known to the family and has all its shots. The patient started developing some swelling on the dorsum of the hand today so he came in to have that checked. Patient denies any fevers, chills, vomiting. Review of Systems Review of Systems Constitutional: Denies fever or chills [] Eyes: Denies change in visual acuity, redness, or eye pain [] HENT: Denies nasal congestion or sore throat [] Respiratory: Denies cough or shortness of breath [] Cardiovascular: No additional information not addressed in HPI [] GI: Denies abdominal pain, nausea, vomiting, bloody stools or diarrhea [] : Denies dysuria or hematuria [] Musculoskeletal: Denies back pain or joint pain [] Integument: Denies rash or skin lesions [] Neurologic: Denies headache, focal weakness or sensory changes [] Endocrine: Denies polyuria or polydipsia [] Allergies Allergies Allergies Coded Allergies Type Severity Reaction Last Updated Verified ciprofloxacin Adverse Reaction Severe SEIZURES 04/27/17 Yes Physical Exam Physical Exam Constitutional: Well developed, well nourished, no acute distress, non-toxic appearance. [] HENT: Normocephalic, atraumatic, Eyes: EOMI, conjunctiva normal, no discharge. [] Neck: Normal range of motion, Cardiovascular:Heart rate regular rhythm, normal perfusion Lungs & Thorax: No tachypnea Abdomen: No distention, ostomy site at left lower abdomen without signs of infection Skin: Swelling to the dorsum of the left hand with diffuse erythema, 2 puncture wounds versus scratch aldana that are not draining, there is no evidence of abscess. Neurovascularly intact distally. There are no signs of septic joint. There is no streaking. Back: Full range of motion Extremities: No tenderness, no cyanosis, no clubbing, ROM intact, no edema. The exception is mild tenderness to palpation on the dorsum of the left hand. No lymphadenopathy noted. Neurologic: Alert and oriented X 3, normal motor function, normal sensory function, no focal deficits noted. [] Psychologic: Affect normal, judgement normal, mood normal. [] Cooperative EKG EKG [] Radiology/Procedures Radiology/Procedures [] Course & Med Decision Making Course & Med Decision Making Pertinent Labs and Imaging studies reviewed. (See chart for details) [] Patient and family have been made aware of the need to recheck in 2 days, if PCP is not available please return to the ED for recheck and reevaluation. Strict return precautions discuss with the patient and the family who agreed to follow-up as directed. Dragon Disclaimer Dragon Disclaimer This electronic medical record was generated, in whole or in part, using a voice recognition dictation system. Departure Departure Impression: Primary Impression: Cat bite involving extremity Additional Impression: Cellulitis Disposition: HOME, SELF-CARE Condition: STABLE Referrals: BERTO CLOUD (PCP) please have your hand rechecked in 2 days Patient Instructions: Animal Bite, Cellulitis Scripts Acetaminophen With Codeine (ACETAMINOPHEN-COD #3 TABLET) 1 Each Tablet 1 TAB PO PRN Q6HRS Y for PAIN for 2 Days, #8 TAB Prov: Juliana CUNNINGHAM MD 06/08/17 Amoxicillin/Potassium Clav (AUGMENTIN 875-125 TABLET) 1 Each Tablet 1 TAB PO BID, #20 TAB Prov: Juliana CUNNINGHAM MD 06/08/17 Problem Qualifiers Juliana CUNNINGHAM MD Jun 08, 2017 18:28
== END 2017-06-08 18:35 | disposition home or self-care (01) ==
LOC: ER 17:35
DX: S61.452A Open bite of left hand, initial encounter (principal); L03.114 Cellulitis of left upper limb; E11.9 Type 2 diabetes mellitus without complications; I11.0 Hypertensive heart disease with heart failure; I50.9 Heart failure, unspecified; F12.10 Cannabis abuse, uncomplicated; M19.90 Unspecified osteoarthritis, unspecified site; I48.91 Unspecified atrial fibrillation; Z90.49 Acquired absence of other specified parts of digestive tract; W55.01XA Bitten by cat, initial encounter; Y93.89 Activity, other specified; Y99.8 Other external cause status; Y92.89 Other specified places as the place of occurrence of the external cause
CPT/HCPCS: 99283

== ENCOUNTER 2017-06-14 19:46 | Inpatient (IN) | payer BC ==
[~2017-06-14] VITALS: Ht 182.9 cm; Wt 98.0 kg
[~2017-06-14 19:46] MED LIST changes: +ACET1TAB33 PO; +AMOX1TAB61 PO
[2017-06-14] MEDS ORDERED: IV NORMAL SALINE 1000ML BAG 1,000 ML IV ONE (20:45)
[2017-06-14] MEDS: MORPHINE SULFATE 4 MG/ML DISP.SYRIN. IV/SQ PRN ×2 (20:49→22:40)
[2017-06-14 21:14] LABS: BASO % 0 % (0-3); EOS % 0 % (0-3); HEMATOCRIT 29.3 % (39.0-53.0); HEMOGLOBIN 9.7 g/dL (13.0-17.5); LYMPH # 1.9 x10^3/uL (1.0-4.8); LYMPH % 13 % (24-48); MEAN CORPUSCULAR HEMOGLOBIN 27 pg (25-35); MEAN CORPUSCULAR HGB CONC 33 g/dL (31-37); MEAN CORPUSCULAR VOLUME 83 fL (79-100); MONO % 6 % (0-9); NEUT % 81 % (31-73); PLATELET COUNT 214 x10^3/uL (140-400); RED BLOOD COUNT 3.54 x10^6/uL (4.30-5.70); RED CELL DISTRIBUTION WIDTH 15.2 % (11.5-14.5); WHITE BLOOD COUNT 14.3 x10^3/uL (4.0-11.0)
[2017-06-14] MEDS ORDERED: ONDANSETRON PF 4 MG/2 ML VIAL. IV ONE (21:15)
[2017-06-14] MEDS ORDERED: AMPICILLIN/SULBACTAM 3 GM in IV NORMAL SALINE 100ML 100 ML IV ONE (21:15)
[2017-06-14 21:30] LABS: CALCIUM 7.8 mg/dL (8.5-10.1); CREATININE 0.8 mg/dL (0.7-1.3); POTASSIUM 3.6 mmol/L (3.5-5.1)
[2017-06-14 21:36] LABS: ALBUMIN 1.9 g/dL (3.4-5.0); ALBUMIN/GLOBULIN RATIO 0.5 (1.0-1.7); TOTAL BILIRUBIN 0.4 mg/dL (0.2-1.0); TOTAL PROTEIN 5.8 g/dL (6.4-8.2)
[2017-06-14] MEDS ORDERED: DIPHTH,PERTUSS(ACELL),TET TOX 0.5 ML DISP.SYRIN. VAX IM ONE (22:15)
[2017-06-14] MEDS ORDERED: FAMOTIDINE 20 MG/2 ML VIAL IVP ONE (22:15)
[2017-06-14] MEDS ORDERED: ONDANSETRON PF 4 MG/2 ML VIAL. IV PRN (22:45)
[2017-06-14] MEDS: IV NORMAL SALINE 1000ML BAG 1,000 ML IV SCH (22:45)
[2017-06-15] VITALS (9 sets, daily range): BP systolic 113–148; BP diastolic 71–91
[2017-06-15] MEDS: MORPHINE SULFATE 4 MG/ML DISP.SYRIN. IV PRN ×6 (00:48→15:36)
--- NOTE | 2017-06-15 03:39 | PHYS DOC ---
Past Medical History Past Medical History: A-Fib, Arthritis, CHF, Diabetes-Type II, Hypertension, Kidney Stone Past Surgical History: Cholecystectomy, Other Additional Past Surgical Histo: colon resection, ileostomy Alcohol Use: None Drug Use: Marijuana Adult General Chief Complaint Chief Complaint: NAUSEA/VOMITING/DIARRHA HPI HPI Patient is a 62 year old male who presents with infected cat bite wound to hand as well as nausea & vomiting. He states he was seen here 5 days ago for cat bite to dorsum of left hand, has been trying to take augmentin prescribed at that time but now having worsening erythema/warmth/swelling extending proximally & distally. Because of vomiting he has been unable to tolerate antibiotics. He reports many episodes of vomiting today as well as increased output of loose stools to colostomy bag which are dark in color. He denies parviz blood in stools. Denies fevers/chills, chest pain, shortness of breath, abdominal pain, dysuria/hematuria. He is right handed. Last tetanus is unknown. Has colostomy secondary to intraabdominal abscess resulting in colon resection. Review of Systems Review of Systems Constitutional: Denies fever or chills Eyes: Denies change in visual acuity HENT: Denies nasal congestion or sore throat Respiratory: Denies cough or shortness of breath Cardiovascular: Denies chest pain or edema GI: Reports nausea, vomiting, diarrhea, melena, Denies abdominal pain : Denies dysuria or hematuria Musculoskeletal: Reports wound infection as per history of present illness Integument: Reports wound infection as per history of present illness Neurologic: Denies headache, focal weakness or sensory changes Current Medications Current Medications Current Medications Medications (Trade) Dose Ordered Sig/Duane Start Time Stop Time Status Last Admin Dose Admin Ampicillin Sodium/ Sulbactam Sodium 3 gm/Sodium Chloride 100 ml @ 200 mls/hr 1X ONCE 06/14/17 21:15 06/14/17 21:44 DC 06/14/17 20:48 200 MLS/HR Morphine Sulfate 4 mg PRN Q15MIN PRN 06/14/17 20:45 06/15/17 20:44 06/14/17 22:40 4 MG Ondansetron HCl (Zofran) 4 mg 1X ONCE 06/14/17 21:15 06/14/17 21:16 DC 06/14/17 20:46 4 MG Sodium Chloride 1,000 ml @ 1,000 mls/hr 1X ONCE 06/14/17 20:45 06/14/17 21:44 DC 06/14/17 20:43 1,000 MLS/HR Allergies Allergies Allergies Coded Allergies Type Severity Reaction Last Updated Verified ciprofloxacin Adverse Reaction Severe SEIZURES 04/27/17 Yes Physical Exam Physical Exam Constitutional: Well developed, well nourished, no acute distress, non-toxic appearance. HENT: Normocephalic, atraumatic, bilateral external ears normal, oropharynx moist, nose normal. Eyes: conjunctiva normal, no discharge. Neck: supple, no stridor. Cardiovascular: RRR, no murmurs, no edema. Lungs & Thorax: LCTAB, no wheezing, no respiratory distress. Abdomen: soft, nontender, nondistended. no masses or pulsatile masses, no rebound/guarding, ostomy bag is opaque unable to visualize contents. Skin: see extremities below. Back: No tenderness. Extremities: left hand dorsally there is skin desquamation with surrounding erythema extending to fingers & proximally to the elbow, warmth & swelling in this distribution as well, radial pulse 2+, radial/median/ulnar nerve sensory & motor function intact. Neurologic: Alert and oriented X 3, no focal deficits noted. Psychologic: Affect normal, judgement normal, mood normal. Current Patient Data Vital Signs Vital Signs Date Time Temp Pulse Resp B/P (MAP) Pulse Ox O2 Delivery O2 Flow Rate FiO2 06/14/17 21:45 80 120/62 (81) 96 Room Air 06/14/17 20:49 22 06/14/17 20:16 98.6 98.6 Lab Values Laboratory Tests Test 06/14/17 21:00 White Blood Count 14.3 x10^3/uL (4.0-11.0) H Red Blood Count 3.54 x10^6/uL (4.30-5.70) L Hemoglobin 9.7 g/dL (13.0-17.5) L Hematocrit 29.3 % (39.0-53.0) L Mean Corpuscular Volume 83 fL (79-100) Mean Corpuscular Hemoglobin 27 pg (25-35) Mean Corpuscular Hemoglobin Concent 33 g/dL (31-37) Red Cell Distribution Width 15.2 % (11.5-14.5) H Platelet Count 214 x10^3/uL (140-400) Neutrophils (%) (Auto) 81 % (31-73) H Lymphocytes (%) (Auto) 13 % (24-48) L Monocytes (%) (Auto) 6 % (0-9) Eosinophils (%) (Auto) 0 % (0-3) Basophils (%) (Auto) 0 % (0-3) Neutrophils # (Auto) 11.5 x10^3uL (1.8-7.7) H Lymphocytes # (Auto) 1.9 x10^3/uL (1.0-4.8) Monocytes # (Auto) 0.8 x10^3/uL (0.0-1.1) Eosinophils # (Auto) 0.0 x10^3/uL (0.0-0.7) Basophils # (Auto) 0.0 x10^3/uL (0.0-0.2) Erythrocyte Sedimentation Rate 66 (0-15) H Sodium Level 141 mmol/L (136-145) Potassium Level 3.6 mmol/L (3.5-5.1) Chloride Level 102 mmol/L (98-107) Carbon Dioxide Level 22 mmol/L (21-32) Anion Gap 17 (6-14) H Blood Urea Nitrogen 20 mg/dL (8-26) Creatinine 0.8 mg/dL (0.7-1.3) Estimated GFR (Cockcroft-Gault) 98.0 BUN/Creatinine Ratio 25 (6-20) H Glucose Level 269 mg/dL (70-99) H Lactic Acid Level 1.8 mmol/L (0.4-2.0) Calcium Level 7.8 mg/dL (8.5-10.1) L Total Bilirubin 0.4 mg/dL (0.2-1.0) Aspartate Amino Transferase (AST) 10 U/L (15-37) L Alanine Aminotransferase (ALT) 12 U/L (16-63) L Alkaline Phosphatase 123 U/L (46-116) H Troponin I Quantitative 0.019 ng/mL (0.000-0.055) C-Reactive Protein, Quantitative 78.3 mg/L (0-3.3) H Total Protein 5.8 g/dL (6.4-8.2) L Albumin 1.9 g/dL (3.4-5.0) L Albumin/Globulin Ratio 0.5 (1.0-1.7) L Lipase 297 U/L (73-393) Laboratory Tests 06/14/17 21:00 Laboratory Tests 06/14/17 21:00 EKG EKG interpreted by me: NSR rate 85, no acute ST/T wave changes, normal intervals, PACs.[] Radiology/Procedures Radiology/Procedures XR L hand: interpreted by me: no fracture or dislocation, no foreign body seen , soft tissue swelling is present.[] Course & Med Decision Making Course & Med Decision Making Pertinent Labs and Imaging studies reviewed. (See chart for details) The patient presents with wound infection after cat bite as well as nausea, vomiting, and melanotic stools. Does not meet criteria for sepsis but needs admission for IV antibiotics. Tetanus updated, gave unasyn here. IV fluids, zofran, pain medication administered. Found to have acute decrease in hemoglobin from 12 in 04/2017 to 9 today. Hemodynamically stable not tachycardic or hypotensive. We'll type and screen, hold off on transfusion at this time. Hemoccult ordered. Will monitor CBC and consult Dr. Mariee of GI. Famotidine administered in the emergency department. Consulted with Dr. Corbin of orthopedics who agrees with plan of care for managing wound infection, will consult, asks that patient be kept NPO. discussed with patient who agrees with plan of care. Discussed with Dr. Modi who agrees to admit to inpatient status. The patient is admitted in stable condition. Dragon Disclaimer Dragon Disclaimer This electronic medical record was generated, in whole or in part, using a voice recognition dictation system. Departure Departure Impression: Primary Impression: Wound infection Additional Impressions: Infected cat bite of hand Upper GI bleed Melena Anemia Leukocytosis Hyperglycemia Disposition: ADMITTED INPATIENT Admitting Physician: Zakia Modi Condition: STABLE Problem Qualifiers MARIA E CALDERÓN MD Jun 15, 2017 03:39
--- NOTE | 2017-06-15 04:47 | ACF ---
Admission Forms Criteria WOUND COMPLICATIONS Clinical Indications for Inpatient Care (Place 'X' for any and all applicable criteria): Ongoing inpatient care may be indicated for wound complications with ANY ONE of the following (1) (15): [X]I. Infection with ANY ONE of the following(32)(33): [ ]a) Temperature greater than 38.5 C (101.3 F) [ ]b) Evidence of tissue necrosis [X]c) Erythema diameter expanding around wound despite treatment [ ]d) Mental status changes [ ]e) Dehydration [ ]f) Bacteremia [ ]g) Hemodynamic instability [ ]h) Suspected necrotizing fasciitis [ ]i) Rapidly spreading lesions [ ]j) High-risk location (eg, perineum, sternum, orbit) [ ]k) High-risk coexisting clinical condition as indicated by ANY ONE of the following: [ ]i) Poorly controlled diabetes [ ]ii) Cirrhosis [ ]iii) Renal failure [ ]iv) Neutropenia [ ] v) Asplenia [ ]vi) Immunosuppression (eg, AIDS, chronic corticosteroid use) [ ]viii) Other high-risk medical comorbidities [ ] II. Dehiscence requiring frequent monitoring or immediate treatment [ ] III. Hematoma with ANY ONE of the following: [ ]a) Hemodynamic instability or acute anemia due to rapid development of hematoma [ ]b) Neck hematoma causing airway compression [ ]c) Retroperitoneal hematoma [ ]d) Uncontrolled coagulopathy [ ]IV. Seroma with evidence of secondary infection and requirement for IV antibiotics [D](31) [ ]V. Pain that cannot be managed at lower level of care Extended stay beyond goal length of stay for primary condition may be needed until ALL of the following are present(1)(33)(34): [ ]a) Afebrile or fever resolving [ ]b) Hemodynamic stability [ ]c) Pain resolving [ ]d) Wound closed, continuity adequately restored, or wound manageable at lower level of care [ ]e) No drain needed or drain care manageable at lower level of care [ ]f) Wound hematoma or seroma resolving [ ]g) Antibiotics not needed or regimen manageable at lower level of care(38) [ ]h) Dressing care manageable at lower level of care [ ]i) Coagulopathy absent, resolved, or treatable at lower level of care [ ]j) Medical comorbidities resolved or treatable at lower level of care The original [facility] [employer] content created by [employer] has been revised. The portions of the content which have been revised are identified through the use of italic text or in bold, and [facility] has neither reviewed nor approved the modified material. All other unmodified content is copyright [facility]. Please see references footnoted in the original [facility] edition 2016 Admission Criteria Met?: Yes ABIGAIL GLOVER Jun 15, 2017 04:47
[2017-06-15 06:16] LABS: BASO # 0.1 x10^3/uL (0.0-0.2); BASO % 0 % (0-3); EOS % 1 % (0-3); HEMATOCRIT 36.6 % (39.0-53.0); HEMOGLOBIN 12.3 g/dL (13.0-17.5); LYMPH # 3.1 x10^3/uL (1.0-4.8); LYMPH % 18 % (24-48); MEAN CORPUSCULAR HEMOGLOBIN 28 pg (25-35); MEAN CORPUSCULAR HGB CONC 34 g/dL (31-37); MEAN CORPUSCULAR VOLUME 82 fL (79-100); MONO % 7 % (0-9); NEUT % 73 % (31-73); PLATELET COUNT 287 x10^3/uL (140-400); RED BLOOD COUNT 4.48 x10^6/uL (4.30-5.70); RED CELL DISTRIBUTION WIDTH 15.7 % (11.5-14.5); WHITE BLOOD COUNT 17.2 x10^3/uL (4.0-11.0)
[2017-06-15 06:28] LABS: BILIRUBIN,URINE NEGATIVE (NEG); GLUCOSE,URINE >=1000 mg/dL (NEG); NITRITE,URINE NEGATIVE (NEG); PROTEIN,URINE NEGATIVE (NEG-TRACE); UROBILINOGEN,URINE 0.2 mg/dL (0.2 mg/dL)
[2017-06-15 06:38] LABS: CALCIUM 8.9 mg/dL (8.5-10.1); CREATININE 0.6 mg/dL (0.7-1.3); GFR 136.5; POTASSIUM 3.6 mmol/L (3.5-5.1)
[2017-06-15 06:41] LABS: BACTERIA,URINE FEW /HPF (0-FEW); RBC,URINE OCC /HPF (0-2); SQUAMOUS EPITHELIAL CELL,UR OCC /LPF
[2017-06-15] MEDS: MORPHINE SULFATE 4 MG/ML DISP.SYRIN. IV/SQ PRN (07:59)
[2017-06-15] MEDS: IV NORMAL SALINE 1000ML BAG 1,000 ML IV SCH (08:01)
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
--- NOTE | 2017-06-15 08:39 | RAD ---
Left hand, 3 views, 06/14/2017: History: Cat bite No fracture or destructive bony lesion is seen. There are moderate degenerative changes involving scattered interphalangeal joints as well as the first CMC and MCP joints. There is moderate soft tissue swelling over the dorsum of the hand in the metacarpal region. IMPRESSION: No acute bony abnormality is detected.
[2017-06-15] MEDS ORDERED: IV RINGERS,LACTATED 1000ML 1,000 ML IV SCH (08:54)
--- NOTE | 2017-06-15 08:55 | EKG ---
[facility] [address] [place] [id number] Test Date: 2017-06-14 Test Time: 20:38:22 Pat Name: DAYAN TORRES Department: Room: 402 1 Gender: M [employer]: : [id number] Requested By: MARIA E CALDERÓN Order Number: [id number] Reading MD: Jorden Del Real Measurements Intervals [place] Rate: 85 P: -49 ND: 122 QRS: 59 QRSD: 114 T: 21 QT: 390 QTc: 470 Interpretive Statements SINUS RHYTHM ATRIAL PREMATURE COMPLEX(ES) RI6.01 Unconfirmed report Compared to ECG 04/27/2017 09:39:29 Atrial fibrillation no longer present Electronically Signed On 06-15-2017 11:23:18 CDT by Jorden Del Real
[2017-06-15] MEDS ORDERED: fentaNYL PF VIAL 100 MCG/2 ML VIAL IV PRN (09:00)
[2017-06-15] MEDS ORDERED: PROCHLORPERAZINE 10 MG/2 ML VIAL. IV PRN (09:00)
[2017-06-15] MEDS ORDERED: LIDOCAINE 1% 1 ML SYRINGE. ID PRN (09:00)
[2017-06-15] MEDS ORDERED: MORPHINE SULFATE 2 MG/ML DISP.SYRIN. IV PRN (09:00)
[2017-06-15] MEDS ORDERED: ONDANSETRON PF 4 MG/2 ML VIAL. IV PRN (09:00)
[2017-06-15] MEDS ORDERED: fentaNYL PF VIAL 100 MCG/2 ML VIAL ONE ×2 (09:09→10:21)
[2017-06-15] MEDS ORDERED: DEXAMETHASONE SOD PHOS 20 MG/5 ML VIAL. ONE ×2 (09:09→10:24)
[2017-06-15] MEDS ORDERED: LIDOCAINE 2% PF Vial for OR 5 ML VIAL. ONE (09:09)
[2017-06-15] MEDS ORDERED: ONDANSETRON PF 4 MG/2 ML VIAL. ONE (09:09)
[2017-06-15] MEDS ORDERED: PROPOFOL 20 ML IV ONE (09:09)
[2017-06-15] MEDS ORDERED: INSULIN ASPART 100 UNIT/ML 10ML VIAL. SQ ONE (09:15)
[2017-06-15] MEDS ORDERED: 0.9 % SODIUM CHLORIDE 50 ML VIAL. IJ ONE (10:03)
[2017-06-15] MEDS ORDERED: PHENYLEPHRINE 10 MG/ML VIAL. ONE (10:03)
[2017-06-15] MEDS ORDERED: AMPICILLIN/SULBACTAM 3 GM in IV NORMAL SALINE 100ML 100 ML IV SCH (10:15)
[2017-06-15] MEDS ORDERED: SEVOFLURANE 31 TO 60 MINUTES. IH ONE (10:38)
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
[2017-06-15] MEDS: fentaNYL PF VIAL 100 MCG/2 ML VIAL IV PRN ×4 (11:02→11:17)
[2017-06-15] MEDS: HYDROmorphone 2 MG/ML VIAL IV PRN ×2 (11:40→11:52)
--- NOTE | 2017-06-15 11:48 | PDOC ---
G I PROGRESS NOTE Objective Currently in surgery. Review of Relevant I have reviewed the following items ebony (where applicable) has been applied. Labs Laboratory Tests Test 06/14/17 21:00 06/15/17 05:15 06/15/17 06:10 06/15/17 09:01 White Blood Count 14.3 x10^3/uL (4.0-11.0) 17.2 x10^3/uL (4.0-11.0) Red Blood Count 3.54 x10^6/uL (4.30-5.70) 4.48 x10^6/uL (4.30-5.70) Hemoglobin 9.7 g/dL (13.0-17.5) 12.3 g/dL (13.0-17.5) Hematocrit 29.3 % (39.0-53.0) 36.6 % (39.0-53.0) Mean Corpuscular Volume 83 fL (79-100) 82 fL (79-100) Mean Corpuscular Hemoglobin 27 pg (25-35) 28 pg (25-35) Mean Corpuscular Hemoglobin Concent 33 g/dL (31-37) 34 g/dL (31-37) Red Cell Distribution Width 15.2 % (11.5-14.5) 15.7 % (11.5-14.5) Platelet Count 214 x10^3/uL (140-400) 287 x10^3/uL (140-400) Neutrophils (%) (Auto) 81 % (31-73) 73 % (31-73) Lymphocytes (%) (Auto) 13 % (24-48) 18 % (24-48) Monocytes (%) (Auto) 6 % (0-9) 7 % (0-9) Eosinophils (%) (Auto) 0 % (0-3) 1 % (0-3) Basophils (%) (Auto) 0 % (0-3) 0 % (0-3) Neutrophils # (Auto) 11.5 x10^3uL (1.8-7.7) 12.5 x10^3uL (1.8-7.7) Lymphocytes # (Auto) 1.9 x10^3/uL (1.0-4.8) 3.1 x10^3/uL (1.0-4.8) Monocytes # (Auto) 0.8 x10^3/uL (0.0-1.1) 1.3 x10^3/uL (0.0-1.1) Eosinophils # (Auto) 0.0 x10^3/uL (0.0-0.7) 0.2 x10^3/uL (0.0-0.7) Basophils # (Auto) 0.0 x10^3/uL (0.0-0.2) 0.1 x10^3/uL (0.0-0.2) Erythrocyte Sedimentation Rate 66 (0-15) Sodium Level 141 mmol/L (136-145) 136 mmol/L (136-145) Potassium Level 3.6 mmol/L (3.5-5.1) 3.6 mmol/L (3.5-5.1) Chloride Level 102 mmol/L (98-107) 99 mmol/L (98-107) Carbon Dioxide Level 22 mmol/L (21-32) 22 mmol/L (21-32) Anion Gap 17 (6-14) 15 (6-14) Blood Urea Nitrogen 20 mg/dL (8-26) 20 mg/dL (8-26) Creatinine 0.8 mg/dL (0.7-1.3) 0.6 mg/dL (0.7-1.3) Estimated GFR (Cockcroft-Gault) 98.0 136.5 BUN/Creatinine Ratio 25 (6-20) Glucose Level 269 mg/dL (70-99) 233 mg/dL (70-99) Lactic Acid Level 1.8 mmol/L (0.4-2.0) Calcium Level 7.8 mg/dL (8.5-10.1) 8.9 mg/dL (8.5-10.1) Total Bilirubin 0.4 mg/dL (0.2-1.0) Aspartate Amino Transf (AST/SGOT) 10 U/L (15-37) Alanine Aminotransferase (ALT/SGPT) 12 U/L (16-63) Alkaline Phosphatase 123 U/L (46-116) Troponin I Quantitative 0.019 ng/mL (0.000-0.055) C-Reactive Protein, Quantitative 78.3 mg/L (0-3.3) Total Protein 5.8 g/dL (6.4-8.2) Albumin 1.9 g/dL (3.4-5.0) Albumin/Globulin Ratio 0.5 (1.0-1.7) Lipase 297 U/L (73-393) Urine Collection Type Unknown Urine Color Yellow Urine Clarity Clear Urine pH 6.0 Urine Specific [place] >=1.030 Urine Protein Negative mg/dL (NEG-TRACE) Urine Glucose (UA) >=1000 mg/dL (NEG) Urine Ketones (Stick) 40 mg/dL (NEG) Urine Blood Negative (NEG) Urine Nitrite Negative (NEG) Urine Bilirubin Negative (NEG) Urine Urobilinogen Dipstick 0.2 mg/dL (0.2 mg/dL) Urine Leukocyte Esterase Negative (NEG) Urine RBC Occ /HPF (0-2) Urine WBC 1-4 /HPF (0-4) Urine Squamous Epithelial Cells Occ /LPF Urine Bacteria Few /HPF (0-FEW) Urine Mucus Slight /LPF Glucose (Fingerstick) 256 mg/dL (70-99) Test 06/15/17 11:05 Glucose (Fingerstick) 199 mg/dL (70-99) Laboratory Tests Test 06/14/17 21:00 06/15/17 05:15 06/15/17 06:10 06/15/17 09:01 White Blood Count 14.3 x10^3/uL (4.0-11.0) 17.2 x10^3/uL (4.0-11.0) Red Blood Count 3.54 x10^6/uL (4.30-5.70) 4.48 x10^6/uL (4.30-5.70) Hemoglobin 9.7 g/dL (13.0-17.5) 12.3 g/dL (13.0-17.5) Hematocrit 29.3 % (39.0-53.0) 36.6 % (39.0-53.0) Mean Corpuscular Volume 83 fL (79-100) 82 fL (79-100) Mean Corpuscular Hemoglobin 27 pg (25-35) 28 pg (25-35) Mean Corpuscular Hemoglobin Concent 33 g/dL (31-37) 34 g/dL (31-37) Red Cell Distribution Width 15.2 % (11.5-14.5) 15.7 % (11.5-14.5) Platelet Count 214 x10^3/uL (140-400) 287 x10^3/uL (140-400) Neutrophils (%) (Auto) 81 % (31-73) 73 % (31-73) Lymphocytes (%) (Auto) 13 % (24-48) 18 % (24-48) Monocytes (%) (Auto) 6 % (0-9) 7 % (0-9) Eosinophils (%) (Auto) 0 % (0-3) 1 % (0-3) Basophils (%) (Auto) 0 % (0-3) 0 % (0-3) Neutrophils # (Auto) 11.5 x10^3uL (1.8-7.7) 12.5 x10^3uL (1.8-7.7) Lymphocytes # (Auto) 1.9 x10^3/uL (1.0-4.8) 3.1 x10^3/uL (1.0-4.8) Monocytes # (Auto) 0.8 x10^3/uL (0.0-1.1) 1.3 x10^3/uL (0.0-1.1) Eosinophils # (Auto) 0.0 x10^3/uL (0.0-0.7) 0.2 x10^3/uL (0.0-0.7) Basophils # (Auto) 0.0 x10^3/uL (0.0-0.2) 0.1 x10^3/uL (0.0-0.2) Erythrocyte Sedimentation Rate 66 (0-15) Sodium Level 141 mmol/L (136-145) 136 mmol/L (136-145) Potassium Level 3.6 mmol/L (3.5-5.1) 3.6 mmol/L (3.5-5.1) Chloride Level 102 mmol/L (98-107) 99 mmol/L (98-107) Carbon Dioxide Level 22 mmol/L (21-32) 22 mmol/L (21-32) Anion Gap 17 (6-14) 15 (6-14) Blood Urea Nitrogen 20 mg/dL (8-26) 20 mg/dL (8-26) Creatinine 0.8 mg/dL (0.7-1.3) 0.6 mg/dL (0.7-1.3) Estimated GFR (Cockcroft-Gault) 98.0 136.5 BUN/Creatinine Ratio 25 (6-20) Glucose Level 269 mg/dL (70-99) 233 mg/dL (70-99) Lactic Acid Level 1.8 mmol/L (0.4-2.0) Calcium Level 7.8 mg/dL (8.5-10.1) 8.9 mg/dL (8.5-10.1) Total Bilirubin 0.4 mg/dL (0.2-1.0) Aspartate Amino Transf (AST/SGOT) 10 U/L (15-37) Alanine Aminotransferase (ALT/SGPT) 12 U/L (16-63) Alkaline Phosphatase 123 U/L (46-116) Troponin I Quantitative 0.019 ng/mL (0.000-0.055) C-Reactive Protein, Quantitative 78.3 mg/L (0-3.3) Total Protein 5.8 g/dL (6.4-8.2) Albumin 1.9 g/dL (3.4-5.0) Albumin/Globulin Ratio 0.5 (1.0-1.7) Lipase 297 U/L (73-393) Urine Collection Type Unknown Urine Color Yellow Urine Clarity Clear Urine pH 6.0 Urine Specific [place] >=1.030 Urine Protein Negative mg/dL (NEG-TRACE) Urine Glucose (UA) >=1000 mg/dL (NEG) Urine Ketones (Stick) 40 mg/dL (NEG) Urine Blood Negative (NEG) Urine Nitrite Negative (NEG) Urine Bilirubin Negative (NEG) Urine Urobilinogen Dipstick 0.2 mg/dL (0.2 mg/dL) Urine Leukocyte Esterase Negative (NEG) Urine RBC Occ /HPF (0-2) Urine WBC 1-4 /HPF (0-4) Urine Squamous Epithelial Cells Occ /LPF Urine Bacteria Few /HPF (0-FEW) Urine Mucus Slight /LPF Glucose (Fingerstick) 256 mg/dL (70-99) Test 06/15/17 11:05 Glucose (Fingerstick) 199 mg/dL (70-99) Medications Current Medications Ampicillin Sodium/ Sulbactam Sodium 3 gm/Sodium Chloride 100 ml @ 200 mls/hr 1X ONCE IV Last administered on 06/14/17t 20:48; Start 06/14/17 at 21:15; Stop 06/14/17 at 21:44; Status DC Sodium Chloride 1,000 ml @ 1,000 mls/hr 1X ONCE IV Last administered on 20:43; Start 06/14/17 at 20:45; Stop 06/14/17 at 21:44; Status DC Ondansetron HCl (Zofran) 4 mg 1X ONCE IV Last administered on 06/14/17 20:46; Start 06/14/17 at 21:15; Stop 06/14/17 at 21:16; Status DC Morphine Sulfate 4 mg PRN Q15MIN PRN IV/SQ PAIN GREATER THAN 3/10 Last administered on 06/15/17 07:59; Start 06/14/17 at 20:45; Stop 06/15/17 at 20:44 Diphtheria/ Tetanus/Acell Pertussis (Boostrix) 0.5 ml ONCE ONCE VAX IM Last administered on 06/14/17 22:44; Start 06/14/17 at 22:15; Stop 06/14/17 at 22:16; Status DC Famotidine (Pepcid) 20 mg 1X ONCE IVP Last administered on 06/14/17 22:34; Start 06/14/17 at 22:15; Stop 06/14/17 at 22:16; Status DC Ondansetron HCl (Zofran) 4 mg PRN Q8HRS PRN IV NAUSEA/VOMITING Last administered on 06/15/17 08:00; Start 06/14/17 at 22:45; Stop 06/15/17 at 22:44 Morphine Sulfate 4 mg PRN Q2HR PRN IV PAIN Last administered on 06/15/17 05:17 ; Start 06/14/17 at 22:45; Stop 06/15/17 at 22:44 Sodium Chloride 1,000 ml @ 100 mls/hr Q10H IV Last administered on 06/15/17 08 :01; Start 06/14/17 at 22:45; Stop 06/15/17 at 22:44 Ondansetron HCl (Zofran) 4 mg PRN Q6HRS PRN IV NAUSEA/VOMITING; Start 06/15/17 at 09:00; Stop 06/15/17 at 23:00 Fentanyl Citrate (Fentanyl 2ml Vial) 25 mcg PRN Q5MIN PRN IV MILD PAIN; Start 06/15/17 at 09:00; Stop 06/15/17 at 23:00 Fentanyl Citrate (Fentanyl 2ml Vial) 50 mcg PRN Q5MIN PRN IV MODERATE PAIN Last administered on 06/15/17t 11:17; Start 06/15/17 at 09:00; Stop 06/15/17 at 23: 00 Morphine Sulfate 1 mg PRN Q10MIN PRN IV SEVERE PAIN; Start 06/15/17 at 09:00; Stop 06/15/17 at 23:00 Ringer's Solution 1,000 ml @ 30 mls/hr Q24H IV ; Start 06/15/17 at 08:54; Stop 06/15/17 at 20:53 Lidocaine HCl 2 ml PRN 1X PRN ID PRIOR TO IV START; Start 06/15/17 at 09:00; Stop 06/15/17 at 23:00 Hydromorphone HCl (Dilaudid) 0.5 mg PRN Q10MIN PRN IV SEV PAIN, Second choice Last administered on 06/15/17t 11:40; Start 06/15/17 at 09:00; Stop 06/15/17 at 23: 00 Prochlorperazine Edisylate (Compazine) 5 mg PACU PRN PRN IV NAUSEA, MRX1; Start 06/15/17 at 09:00; Stop 06/15/17 at 23:00 Dexamethasone Sodium Phosphate (Decadron) 20 mg STK-MED ONCE .ROUTE ; Start 06/15 at 09:09; Stop 06/15/17 at 09:10; Status DC Ondansetron HCl (Zofran) 4 mg STK-MED ONCE .ROUTE ; Start 06/15/17 at 09:09; Stop 06/15/17 at 09:10; Status DC Propofol 20 ml @ As Directed STK-MED ONCE IV ; Start 06/15/17 at 09:09; Stop 06/15 at 09:10; Status DC Lidocaine HCl (Lidocaine Pf 2% Vial) 5 ml STK-MED ONCE .ROUTE ; Start 06/15/17 at 09:09; Stop 06/15/17 at 09:10; Status DC Fentanyl Citrate (Fentanyl 2ml Vial) 100 mcg STK-MED ONCE .ROUTE ; Start at 09:09; Stop 06/15/17 at 09:10; Status DC Insulin Aspart (NovoLOG VIAL) 6 unit 1X ONCE SQ Last administered on 06/15/17 09:15; Start 06/15/17 at 09:15; Stop 06/15/17 at 09:19; Status DC Ampicillin Sodium/ Sulbactam Sodium 3 gm/Sodium Chloride 100 ml @ 200 mls/hr 1X PACU IV Last administered on 06/15/17t 10:26; Start 06/15/17 at 10:15 Phenylephrine HCl (Sim-Synephrine Inj) 10 mg STK-MED ONCE .ROUTE ; Start at 10:03; Stop 06/15/17 at 10:04; Status DC Sodium Chloride (Sodium Chloride) 50 ml STK-MED ONCE IJ ; Start 06/15/17 at 10:03 ; Stop 06/15/17 at 10:04; Status DC Fentanyl Citrate (Fentanyl 2ml Vial) 100 mcg STK-MED ONCE .ROUTE ; Start at 10:21; Stop 06/15/17 at 10:22; Status DC Dexamethasone Sodium Phosphate (Decadron) 20 mg STK-MED ONCE .ROUTE ; Start 06/15 at 10:24; Stop 06/15/17 at 10:25; Status DC Sevoflurane (Ultane) 30 ml STK-MED ONCE IH ; Start 06/15/17 at 10:38; Stop at 10:39; Status DC Morphine Sulfate 2 mg PACU PRN PRN IV PAIN Last administered on 06/15/17 11:12 ; Start 06/15/17 at 11:15; Stop 06/15/17 at 23:00 Active Scripts Active Acetaminophen-Cod #3 Tablet (Acetaminophen/Codeine Phosphate) 1 Each Tablet 1 Tab PO PRN Q6HRS PRN 2 Days Augmentin 875-125 Tablet (Amoxicillin/Potassium Clav) 1 Each Tablet 1 Tab PO BID Eliquis (Apixaban) 5 Mg Tablet 5 Mg PO BID Oxycodone-Acetaminophen 5-325 (Oxycodone Hcl/Acetaminophen) 1 Each Tablet 1 Tab PO PRN Q4HRS PRN Lisinopril 10 Mg Tablet 10 Mg PO DAILY Famotidine 20 Mg Tablet 20 Mg PO BID 60 Days Atorvastatin Calcium 40 Mg Tablet 40 Mg PO QHS Amox Tr-K Clv 875-125 Mg Tab (Amoxicillin/Potassium Clav) 1 Each Tablet 1 Tab PO BID Lantus Solostar (Insulin Glargine,Hum.rec.anlog) 100 Unit/1 Ml Insuln.pen 40 Unit SQ BID Reported Aleve (Naproxen Sodium) 220 Mg Capsule 440 Mg PO BID Aspir 81 (Aspirin) 81 Mg Tablet.dr 1 Tab PO DAILY Gabapentin 600 Mg Tablet 600 Mg PO TID Carvedilol 6.25 Mg Tablet 1 Tab PO BID Vitals/I & O Vital Sign - Last 24 Hours 06/14/17 06/14/17 06/14/17 06/14/17 20:16 20:45 20:49 21:15 Temp 98.6 98.6 Pulse 84 80 79 Resp 22 22 B/P (MAP) 146/78 (100) 135/73 (93) 128/60 (82) Pulse Ox 100 99 99 97 O2 Delivery Room Air Room Air Room Air Room Air 06/14/17 06/14/17 06/14/17 06/14/17 21:45 22:15 22:40 22:45 Pulse 80 83 87 Resp 18 B/P (MAP) 120/62 (81) 120/67 (84) 128/68 (88) Pulse Ox 96 98 99 98 O2 Delivery Room Air Room Air Room Air Room Air 06/14/17 06/15/17 06/15/17 06/15/17 23:15 00:14 00:45 00:48 Temp 98.7 98.7 Pulse 82 80 Resp 18 20 B/P (MAP) 120/57 (78) 132/78 (96) Pulse Ox 97 97 O2 Delivery Room Air Room Air Room Air Room Air 06/15/17 06/15/17 06/15/17 06/15/17 03:00 05:17 05:47 07:00 Temp 98.3 98.1 98.3 98.1 Pulse 81 81 Resp 18 20 20 18 B/P (MAP) 130/71 (90) 123/74 (90) Pulse Ox 97 97 O2 Delivery Room Air Room Air Room Air Room Air 06/15/17 06/15/17 06/15/17 06/15/17 07:40 07:59 08:30 09:04 Temp 97.4 97.4 Pulse 75 Resp 18 B/P (MAP) 117/69 Pulse Ox 96 O2 Delivery Room Air Room Air Room Air Room Air 06/15/17 06/15/17 06/15/17 06/15/17 10:55 10:55 11:02 11:02 Temp 98.2 98.2 Pulse 96 Resp 20 20 20 B/P (MAP) 140/94 Pulse Ox 100 100 100 O2 Delivery Mask Simple Mask Simple Mask Simple Mask O2 Flow Rate 10 10 10.0 10.0 06/15/17 06/15/17 06/15/17 06/15/17 11:07 11:10 11:12 11:12 Pulse 90 Resp 20 20 20 20 B/P (MAP) 143/78 Pulse Ox 100 100 97 100 O2 Delivery Simple Mask Simple Mask Room Air Simple Mask O2 Flow Rate 10.0 10 10.0 06/15/17 06/15/17 06/15/17 06/15/17 11:17 11:25 11:40 11:40 Pulse 86 82 Resp 20 20 20 20 B/P (MAP) 132/75 133/76 Pulse Ox 96 96 O2 Delivery Room Air Room Air Room Air Room Air Intake and Output 06/14/17 06/14/17 06/15/17 15:00 23:00 07:00 Intake Total 1100 ml 1000 ml Output Total 575 ml Balance 1100 ml 425 ml Problem List Problems Medical Problems: (1) Anemia Status: Acute (2) Hyperglycemia Status: Acute (3) Infected cat bite of hand Status: Acute (4) Leukocytosis Status: Acute (5) Melena Status: Acute (6) Upper GI bleed Status: Acute (7) Wound infection Status: Acute Assessment Melena? Hemoglobin down from post-op in April and taking NSAID. --unable to see today as out of room. Plan of Care Note Start/continue empiric antisecretory and monitor. Unless unstable, will plan on seeing tomorrow. Thanks. SHIMON BANKS MD Jun 15, 2017 11:48
[2017-06-15] MEDS ORDERED: ACETAMINOPHEN/CODEINE 300/30MG TABLET. PO PRN (13:00)
[2017-06-15] MEDS ORDERED: oxyCODONE/APAP 5/325 1 TAB TABLET PO PRN (13:00)
[2017-06-15] MEDS ORDERED: DEXTROSE 50% 25 GM / 50ML DISP.SYRIN. IV PRN (13:15)
[2017-06-15 13:18] LABS: BASO # 0.1 x10^3/uL (0.0-0.2); BASO % 0 % (0-3); EOS % 1 % (0-3); HEMATOCRIT 36.7 % (39.0-53.0); HEMOGLOBIN 12.1 g/dL (13.0-17.5); LYMPH # 1.2 x10^3/uL (1.0-4.8); LYMPH % 5 % (24-48); MEAN CORPUSCULAR HEMOGLOBIN 27 pg (25-35); MEAN CORPUSCULAR HGB CONC 33 g/dL (31-37); MEAN CORPUSCULAR VOLUME 82 fL (79-100); MONO % 2 % (0-9); NEUT % 92 % (31-73); PLATELET COUNT 262 x10^3/uL (140-400); RED BLOOD COUNT 4.46 x10^6/uL (4.30-5.70); RED CELL DISTRIBUTION WIDTH 15.7 % (11.5-14.5); WHITE BLOOD COUNT 22.8 x10^3/uL (4.0-11.0)
[2017-06-15] MEDS ORDERED: INSULIN ASPART 300 UNITS/3 ML INSULN.PEN SQ ONE (13:30)
[2017-06-15] MEDS ORDERED: LISINOPRIL 10 MG TABLET PO SCH (14:00)
[2017-06-15] MEDS ORDERED: GABAPENTIN 300 MG CAPSULE. PO SCH (14:00)
--- NOTE | 2017-06-15 15:03 | HP ---
ADMIT DATE: CHIEF COMPLAINT: Hand cellulitis post cat bite. HISTORY OF PRESENT ILLNESS: The patient is a 62-year-old gentleman well known to this service with a recent history of perforated sigmoid diverticulitis requiring resection with ileostomy placement in April of this year. He presented last night to the Emergency Room with nausea, vomiting as well as hand swelling. He relates that he sustained a cat bites about 2 weeks ago when power went out and he had to stay with his daughter. The site became red, indurated and painful. He went to the Emergency Room 6 days ago, where he was given amoxicillin and discharged back home. He took medications as prescribed without any improvement in his hands symptoms. Started with nausea and vomiting a day before presentation and decided to return to the Emergency Room. He is now admitted for further management. He denies any parviz fevers, although subjectively ____ twice in the past 2 days. Denies any chills. Hand is very painful. He denies any other pain symptoms in rest of body, however. He is able to move his arm, but hand movements and finger movements are painful. PAST MEDICAL HISTORY: Sigmoid diverticulitis, status post resection with ileostomy on 05/05/2017, paroxysmal AFib, diabetes mellitus, hypertension and hyperlipidemia. FAMILY HISTORY: Positive for CAD. SOCIAL HISTORY: One pack a day smoker, occasional alcohol, no drugs. ALLERGIES: CIPROFLOXACIN. HOME MEDICATIONS: reconciled with MAR. REVIEW OF SYSTEMS: Essentially positive as per HPI. Rest of organ system review shows no other symptoms. PHYSICAL EXAMINATION: VITAL SIGNS: From today show a blood pressure of 133/73, heart rate of 75, respiratory rate at 18. He is afebrile. GENERAL: This is a well-nourished 62-year-old gentleman appearing older than his stated age, alert and oriented, in no acute distress. LUNGS: Fairly clear. HEART: Has regular rate and rhythm. ABDOMEN: Has positive bowel sounds, soft, nontender. Ostomy in the left lower quadrant. EXTREMITIES: Show no pedal edema. Left hand is erythematous from knuckles to mid forearm with swelling. Wound VAC applied to the dorsum of hand and joint. SKIN: Otherwise, warm, soft and dry, no rash. LABORATORY DATA: CBC with a WBC of 17.2, hemoglobin of 12.3, platelets of 287. Chemistries with a BUN and creatinine of 20 and 0.6, normal electrolytes. Glucoses between 199 and 233, calcium at 8.9. C-reactive protein 78, albumin at 1.9. LFTs essentially within normal. IMAGING: Hand x-ray from the Emergency Room shows no acute bony abnormality. ASSESSMENT AND PLAN: The patient is a 62-year-old gentleman, who presented with persistent cat bite cellulitis on his hand. He was taken to the OR early this morning by ____, who applied wound VAC. Case was discussed with ____. Recommendations for transfer to facility with hand specialist such as Carlos Bowen at . For antibiotics, the patient is currently on ampicillin. We will discuss with ID service to optimize antibiotic treatment. Leukocytosis is more than likely reactive to current infection. We will monitor. The patient is diabetic with borderline controlled currently. Part of this is most likely secondary to infection. We will add insulin sliding scale to his home medications. From a cardiac standpoint, he appears very stable. We will continue his home medications. Recent abdominal surgery also is completely resolved. He has been off antibiotics for several weeks now. As recommended by ortho, will transfer the patient out to appropriate facility RONY. DUNG CASH MD DR: SONJA/nts JOB#: [id number] / [id number] BERTO Rosado
[2017-06-15 15:53] LABS: % EOS 1 % (0-5)
[2017-06-15 15:54] LABS: PLT ESTIMATE ADEQUATE (ADEQUATE)
[2017-06-15] MEDS ORDERED: MORPHINE SULFATE 4 MG/ML DISP.SYRIN. IV ONE (16:00)
[2017-06-15] MEDS ORDERED: CARVEDILOL 6.25 MG TABLET. PO SCH (17:00)
[2017-06-15] MEDS ORDERED: INSULIN ASPART 300 UNITS/3 ML INSULN.PEN SQ SCH (17:00)
[2017-06-15] MEDS ORDERED: INSULIN DETEMIR 300 UNITS/3 ML INSULN.PEN. SQ SCH (21:00)
[2017-06-15] MEDS ORDERED: ATORVASTATIN CALCIUM 40 MG TABLET. PO SCH (21:00)
[2017-06-15] MEDS ORDERED: FAMOTIDINE 20 MG TABLET. PO SCH (21:00)
== END 2017-06-15 16:15 | disposition short-term general hospital (02) | DRG 580 ==
LOC: ER 19:46 → 4 NORTH 22:06
PROVIDERS: ADMIT Internal Medicine; ATTEND Internal Medicine
PROC: 0JBK0ZZ Excision of Left Hand Subcutaneous Tissue and Fascia, Open Approach (ICD-10-PCS; principal; 2017-06-15 10:05)
DX: L03.114 Cellulitis of left upper limb (principal); K92.1 Melena; D64.9 Anemia, unspecified; E11.65 Type 2 diabetes mellitus with hyperglycemia; E78.5 Hyperlipidemia, unspecified; F17.210 Nicotine dependence, cigarettes, uncomplicated; I11.0 Hypertensive heart disease with heart failure; I48.0 Paroxysmal atrial fibrillation; I50.9 Heart failure, unspecified; S61.459A Open bite of unspecified hand, initial encounter; W55.01XA Bitten by cat, initial encounter; Z82.49 Family history of ischemic heart disease and other diseases of the circulatory system; Z87.442 Personal history of urinary calculi; Z93.3 Colostomy status; F12.90 Cannabis use, unspecified, uncomplicated; M19.90 Unspecified osteoarthritis, unspecified site; Z90.49 Acquired absence of other specified parts of digestive tract; Z93.2 Ileostomy status; Z88.1 Allergy status to other antibiotic agents
CPT/HCPCS: 36415; 73130; 80048; 80053; 81001; 82962; 83605; 83690; 84484; 85007; 85027; 85651; 86140; 86850; 86900; 86901; 87040; 87205; 90471; 90715; 93005; 96365; 96375; J0295; J1100; J1170; J1815; J2001; J2270; J2405; J2704; J3010; J7030; S0028; 99285-25

== ENCOUNTER 2017-10-03 14:34 | Emergency (ER) | payer BC ==
[~2017-10-03] VITALS: Ht 182.9 cm; Wt 93.0 kg
[2017-10-03] MEDS ORDERED: IV NORMAL SALINE 1000ML BAG 1,000 ML IV ONE ×2 (15:15→16:30)
--- NOTE | 2017-10-03 15:16 | EKG ---
[facility] [address] [place] [address] Test Date: 2017-10-03 Test Time: 15:10:52 Pat Name: DAYAN TORRES Department: Room: Gender: M Household Assistant: : 1955 Requested By: KARRIE HUGHES Order Number: [id number] Reading MD: Measurements Intervals [place] Rate: 97 P: MS: QRS: 32 QRSD: 110 T: 23 QT: 310 QTc: 397 Interpretive Statements ACCELERATED JUNCTIONAL RHYTHM ABNORMAL ECG RI6.01 No previous ECG available for comparison
[2017-10-03 15:26] LABS: BASO # 0.1 x10^3/uL (0.0-0.2); BASO % 1 % (0-3); EOS % 1 % (0-3); HEMATOCRIT 37.2 % (39.0-53.0); HEMOGLOBIN 12.6 g/dL (13.0-17.5); LYMPH # 3.5 x10^3/uL (1.0-4.8); LYMPH % 21 % (24-48); MEAN CORPUSCULAR HEMOGLOBIN 29 pg (25-35); MEAN CORPUSCULAR HGB CONC 34 g/dL (31-37); MEAN CORPUSCULAR VOLUME 85 fL (79-100); MONO % 8 % (0-9); NEUT % 70 % (31-73); PLATELET COUNT 235 x10^3/uL (140-400); RED BLOOD COUNT 4.39 x10^6/uL (4.30-5.70); RED CELL DISTRIBUTION WIDTH 13.9 % (11.5-14.5); WHITE BLOOD COUNT 17.2 x10^3/uL (4.0-11.0)
[2017-10-03 15:49] LABS: CALCIUM 9.5 mg/dL (8.5-10.1); CREATININE 0.9 mg/dL (0.7-1.3); GFR 85.5; POTASSIUM 4.5 mmol/L (3.5-5.1)
[2017-10-03 15:55] LABS: ALBUMIN 2.7 g/dL (3.4-5.0); ALBUMIN/GLOBULIN RATIO 0.6 (1.0-1.7); TOTAL BILIRUBIN 0.2 mg/dL (0.2-1.0)
--- NOTE | 2017-10-03 15:56 | RAD ---
EXAM: Chest one view. HISTORY: Fever. COMPARISON: 09/16/2017. FINDINGS: A frontal view of the chest is obtained. There are no confluent infiltrates. There is no pneumothorax or pleural effusion. The heart is not enlarged. IMPRESSION: 1. No confluent infiltrates.
[2017-10-03 17:21] LABS: BILIRUBIN,URINE NEGATIVE (NEG); GLUCOSE,URINE >=1000 mg/dL (NEG); NITRITE,URINE NEGATIVE (NEG); PROTEIN,URINE NEGATIVE (NEG-TRACE); UROBILINOGEN,URINE 0.2 mg/dL (0.2 mg/dL)
[2017-10-03 17:37] LABS: BACTERIA,URINE 0 /HPF (0-FEW); RBC,URINE 0 /HPF (0-2); SQUAMOUS EPITHELIAL CELL,UR OCC /LPF; WBC,URINE 0 /HPF (0-4)
[2017-10-03 18:01] VITALS: BP 103/53
--- NOTE | 2017-10-03 23:25 | PHYS DOC ---
Past Medical History Past Medical History: A-Fib, Arthritis, CHF, Diabetes-Type II, Hypertension, Kidney Stone Past Surgical History: Cholecystectomy, Other Additional Past Surgical Histo: colon resection, ileostomy Alcohol Use: None Drug Use: Marijuana Adult General Chief Complaint Chief Complaint: HYPOTENSION HPI HPI Patient is a 62 year old L insulin dependent diabetic who presents from presurgical physical exam with reports of hypotension. Patient denies dizziness or lightheadedness. He states he was told his was 70s over 40s. This was rechecked tenderness leg which was in the normal range. Patient states he is currently compliant with his blood pressure and heart medications. He takes Coreg 6.25 mg grams twice daily. He denies chest pain, shortness of breath, cough, fever, nausea, vomiting, urinary frequency urgency. Deniees increased leg pain or swelling. Patient pressure on ED arrival is in the normal range. He is not tachycardic. Blood sugar is approximately 400. Patient's is compliant with his Lantus, but did drink of Pepsi prior to coming to the emergency department. Patient's preop clearance was for takedown of ileostomy[] Review of Systems Review of Systems Review symptoms as per history of present illness. All other systems were reviewed and found to be within normal limits, except as documented in this note. Current Medications Current Medications Current Medications Medications (Trade) Dose Ordered Sig/Duane Start Time Stop Time Status Last Admin Dose Admin Sodium Chloride 1,000 ml @ 1,000 mls/hr 1X ONCE 10/03/17 16:30 10/03/17 17:29 DC 10/03/17 16:30 1,000 MLS/HR Allergies Allergies Allergies Coded Allergies Type Severity Reaction Last Updated Verified ciprofloxacin Adverse Reaction Severe SEIZURES 06/15/17 Yes Physical Exam Physical Exam Constitutional: Well developed, well nourished, no acute distress, non-toxic appearance. [] HENT: Normocephalic, atraumatic, bilateral external ears normal, oropharynx moist, no oral exudates, nose normal. [] Eyes: PERRLA, EOMI, conjunctiva normal, no discharge. [] Neck: Normal range of motion, no tenderness, supple, no stridor. [] Cardiovascular:Heart rate regular rhythm, no murmur [] Lungs & Thorax: Bilateral breath sounds clear to auscultation [] Abdomen: Bowel sounds normal, soft, no tenderness, no masses, no pulsatile masses. [] Skin: Warm, dry, no erythema, no rash. [] Back: No tenderness, no CVA tenderness. [] Extremities: No tenderness, no cyanosis, no clubbing, ROM intact, no edema. [] Neurologic: Alert and oriented X 3, normal motor function, normal sensory function, no focal deficits noted. [] Psychologic: Affect normal, judgement normal, mood normal. [] Current Patient Data Vital Signs Vital Signs Date Time Temp Pulse Resp B/P (MAP) Pulse Ox O2 Delivery O2 Flow Rate FiO2 10/03/17 18:01 77 18 103/53 (70) 97 Room Air 10/03/17 14:47 97.4 97.4 Lab Values Laboratory Tests Test 10/03/17 15:20 10/03/17 17:05 10/03/17 18:08 White Blood Count 17.2 x10^3/uL (4.0-11.0) H Red Blood Count 4.39 x10^6/uL (4.30-5.70) Hemoglobin 12.6 g/dL (13.0-17.5) L Hematocrit 37.2 % (39.0-53.0) L Mean Corpuscular Volume 85 fL (79-100) Mean Corpuscular Hemoglobin 29 pg (25-35) Mean Corpuscular Hemoglobin Concent 34 g/dL (31-37) Red Cell Distribution Width 13.9 % (11.5-14.5) Platelet Count 235 x10^3/uL (140-400) Neutrophils (%) (Auto) 70 % (31-73) Lymphocytes (%) (Auto) 21 % (24-48) L Monocytes (%) (Auto) 8 % (0-9) Eosinophils (%) (Auto) 1 % (0-3) Basophils (%) (Auto) 1 % (0-3) Neutrophils # (Auto) 12.1 x10^3uL (1.8-7.7) H Lymphocytes # (Auto) 3.5 x10^3/uL (1.0-4.8) Monocytes # (Auto) 1.3 x10^3/uL (0.0-1.1) H Eosinophils # (Auto) 0.2 x10^3/uL (0.0-0.7) Basophils # (Auto) 0.1 x10^3/uL (0.0-0.2) Sodium Level 128 mmol/L (136-145) L Potassium Level 4.5 mmol/L (3.5-5.1) Chloride Level 97 mmol/L (98-107) L Carbon Dioxide Level 23 mmol/L (21-32) Anion Gap 8 (6-14) Blood Urea Nitrogen 23 mg/dL (8-26) Creatinine 0.9 mg/dL (0.7-1.3) Estimated GFR (Cockcroft-Gault) 85.5 BUN/Creatinine Ratio 26 (6-20) H Glucose Level 399 mg/dL (70-99) H Calcium Level 9.5 mg/dL (8.5-10.1) Total Bilirubin 0.2 mg/dL (0.2-1.0) Aspartate Amino Transferase (AST) 11 U/L (15-37) L Alanine Aminotransferase (ALT) 9 U/L (16-63) L Alkaline Phosphatase 129 U/L (46-116) H Total Protein 7.0 g/dL (6.4-8.2) Albumin 2.7 g/dL (3.4-5.0) L Albumin/Globulin Ratio 0.6 (1.0-1.7) L Urine Color Yellow Urine Clarity Clear Urine pH 6.0 Urine Specific [place] 1.025 Urine Protein Negative mg/dL (NEG-TRACE) Urine Glucose (UA) >=1000 mg/dL (NEG) Urine Ketones (Stick) Negative mg/dL (NEG) Urine Blood Negative (NEG) Urine Nitrite Negative (NEG) Urine Bilirubin Negative (NEG) Urine Urobilinogen Dipstick 0.2 mg/dL (0.2 mg/dL) Urine Leukocyte Esterase Negative (NEG) Urine RBC 0 /HPF (0-2) Urine WBC 0 /HPF (0-4) Urine Squamous Epithelial Cells Occ /LPF Urine Bacteria 0 /HPF (0-FEW) Glucose (Fingerstick) 251 mg/dL (70-99) H Laboratory Tests 10/03/17 15:20 Laboratory Tests 10/03/17 15:20 EKG EKG [] Radiology/Procedures Radiology/Procedures [Chest x-ray: No acute cardiopulmonary disease.] Course & Med Decision Making Course & Med Decision Making Pertinent Labs and Imaging studies reviewed. (See chart for details) [Blood pressure remained stable. Patient given IV fluids primarily for treatment of hyperglycemia. Patient's white blood cell count elevated elevated. There is not clinically a source of infection. Chest x-ray UA negative for infection. Patient denies symptoms or complaints. Recommend Blood pressure much ears at home With increased compliance, PCP follow-up in watchful waiting. Return precautions reviewed. Patient verbalizes understanding agreement discharge instructions prior to departure.] Dragon Disclaimer Dragon Disclaimer This electronic medical record was generated, in whole or in part, using a voice recognition dictation system. Departure Departure Impression: Primary Impression: Hyperglycemia Additional Impression: Hypotension Disposition: HOME, SELF-CARE Condition: STABLE Patient Instructions: Hypotension, [id number], Hyperglycemia Additional Instructions: You were evaluated emergency department for possible low blood pressure. Lab work, EKG and imaging were obtained. While in the emergency department here your blood pressure was in the low end of the normal range. This may be due to combination of uncontrolled blood sugar and pressure medication. Please follow strict diabetic diet and take Lantus as scheduled. Please check your blood sugar readings 3 times daily and blood pressure daily and record results to review by your primary care physician. Follow-up with your PCP for further management of diabetes and blood pressure. In the meantime, if you develop new or worsening symptoms, return to the emergency department.. Problem Qualifiers KARRIE HUGHES DO Oct 03, 2017 23:24
== END 2017-10-03 18:39 | disposition home or self-care (01) ==
LOC: ER 14:34
DX: I95.9 Hypotension, unspecified (principal); E11.65 Type 2 diabetes mellitus with hyperglycemia; I11.0 Hypertensive heart disease with heart failure; I50.9 Heart failure, unspecified; I48.91 Unspecified atrial fibrillation; M19.90 Unspecified osteoarthritis, unspecified site; Z01.818 Encounter for other preprocedural examination; Z87.442 Personal history of urinary calculi; Z90.49 Acquired absence of other specified parts of digestive tract; Z93.2 Ileostomy status; Z79.4 Long term (current) use of insulin; Z88.1 Allergy status to other antibiotic agents
CPT/HCPCS: 36415; 71010; 80053; 81001; 82962; 85025; 93005; 96360; 96361; 99285; J7030

== ENCOUNTER → 2017-10-03 | Outpatient (CLI) | payer BC ==
[2017-06-15 15:45] VITALS: BP 147/91
[~2017-10-03] MED LIST changes: +DOCU100C28 PO; +INSU100V8 SQ; +OXYC-327 PO
[2017-10-03 14:31] LABS: BASO # 0.2 x10^3/uL (0.0-0.2); BASO % 1 % (0-3); EOS % 1 % (0-3); HEMATOCRIT 35.1 % (39.0-53.0); HEMOGLOBIN 11.8 g/dL (13.0-17.5); LYMPH # 3.3 x10^3/uL (1.0-4.8); LYMPH % 17 % (24-48); MEAN CORPUSCULAR HEMOGLOBIN 29 pg (25-35); MEAN CORPUSCULAR HGB CONC 34 g/dL (31-37); MEAN CORPUSCULAR VOLUME 85 fL (79-100); MONO % 7 % (0-9); NEUT % 74 % (31-73); PLATELET COUNT 243 x10^3/uL (140-400); RED BLOOD COUNT 4.15 x10^6/uL (4.30-5.70); RED CELL DISTRIBUTION WIDTH 14.1 % (11.5-14.5); WHITE BLOOD COUNT 19.5 x10^3/uL (4.0-11.0)
[2017-10-03 14:45] LABS: GFR 75.7; POTASSIUM 4.4 mmol/L (3.5-5.1)
[2017-10-03 22:40] LABS: % EOS 1 % (0-5); PLT ESTIMATE ADEQUATE (ADEQUATE)
== END | disposition home or self-care (01) ==
LOC: SURGPAT 12:54
PROVIDERS: ATTEND Surgery
DX: Z01.818 Encounter for other preprocedural examination (principal); K57.92 Diverticulitis of intestine, part unspecified, without perforation or abscess without bleeding; K57.80 Diverticulitis of intestine, part unspecified, with perforation and abscess without bleeding
CPT/HCPCS: 36415; 80048; 85007; 85025

== ENCOUNTER → 2017-10-11 | Outpatient (CLI) | payer BC ==
[2017-10-03 18:01] VITALS: BP 103/53
--- NOTE | 2017-10-11 12:54 | RAD ---
Right great toe, 3 views, 10/11/2017: History: Nonhealing wound There appears to be soft tissue deformity with an overlying partially radiopaque bandage involving the distal end of the great toe. There is a suggestion of minimal cortical loss along the lateral margin of the terminal tuft of the distal phalanx. The appearance suggests early osteomyelitis versus demineralization due to chronic adjacent hyperemia. The proximal phalanx is unremarkable. IMPRESSION: Possible early osteomyelitis involving the terminal tuft of the distal phalanx of the great toe.
== END | disposition home or self-care (01) ==
LOC: PMGWOUND 10:24
PROVIDERS: ATTEND Emergency Medicine Undersea and Hyperbaric Medicine
DX: E11.621 Type 2 diabetes mellitus with foot ulcer (principal); L97.513 Non-pressure chronic ulcer of other part of right foot with necrosis of muscle; F41.9 Anxiety disorder, unspecified; F32.9 Major depressive disorder, single episode, unspecified; F17.210 Nicotine dependence, cigarettes, uncomplicated; I11.0 Hypertensive heart disease with heart failure; I50.9 Heart failure, unspecified; I48.91 Unspecified atrial fibrillation; M19.90 Unspecified osteoarthritis, unspecified site
CPT/HCPCS: 73660; 87205; 93922; 97597

== ENCOUNTER → 2017-10-13 | Outpatient (CLI) | payer BC ==
[2017-10-03 18:01] VITALS: BP 103/53
--- NOTE | 2017-10-13 13:46 | RAD ---
Ultrasound arterial lower extremity Indication: Nonhealing wound of the right great toe Comparison: None Technique: Grayscale, color Doppler and spectral waveform ultrasound images of the right lower extremity arteries. Comparison: None Findings: Triphasic waveform is seen in the COMMUNICATIONS TOWER CLIMBER. Systolic velocity of 79 cm/s. Biphasic waveform is seen in the profunda femoris artery with systolic velocity of 98 cm/s. Biphasic waveforms seen in the proximal SFA with systolic velocity of 92 cm/s. Triphasic waveform is seen in the mid SFA with systolic velocity of 81 cm/s. Biphasic waveforms seen in the distal SFA. Systolic velocity of 82 cm/s. Biphasic waveform is seen in the popliteal artery with systolic velocity of 52 cm/s. Triphasic waveforms seen in the proximal posterior tibial artery with systolic velocity of 66 cm/s. Triphasic waveform is seen in the peroneal artery with systolic velocity of 58 cm/s. Biphasic waveforms seen in the anterior tibial artery with systolic velocity of 36 cm/s. Biphasic waveforms seen in the dorsalis pedis artery with systolic velocity of 60 cm/s. Impression: No evidence of significant stenosis in the right lower extremity arteries.
--- NOTE | 2017-10-13 14:18 | RAD ---
OFELIA ART STUDY LOWER EXTREM SACHIN Clinical Indication: NON HEALING WOUND RT GREAT TOE Comparison: None. Technique: ABIs the bilateral extremities were performed. Findings: The right are measures 111. The right ankle measures 124. This equals a right OFELIA of 1.11. The left arm measures 108. The left ankle measures 109. This equals a left OFELIA of 1.0. IMPRESSION: Normal bilateral ABIs.
== END | disposition home or self-care (01) ==
LOC: US 15:47
PROVIDERS: ATTEND Emergency Medicine Undersea and Hyperbaric Medicine
DX: S91.101A Unspecified open wound of right great toe without damage to nail, initial encounter (principal); X58.XXXA Exposure to other specified factors, initial encounter; Y93.89 Activity, other specified; Y92.89 Other specified places as the place of occurrence of the external cause; Y99.8 Other external cause status
CPT/HCPCS: 93922; 93926

== ENCOUNTER → 2017-10-18 | Outpatient (CLI) | payer BC ==
[2017-10-03 18:01] VITALS: BP 103/53
== END | disposition home or self-care (01) ==
LOC: PMGWOUND 10:24
PROVIDERS: ATTEND Emergency Medicine Undersea and Hyperbaric Medicine
DX: E11.621 Type 2 diabetes mellitus with foot ulcer (principal); L97.514 Non-pressure chronic ulcer of other part of right foot with necrosis of bone; F41.9 Anxiety disorder, unspecified; F32.9 Major depressive disorder, single episode, unspecified; F17.210 Nicotine dependence, cigarettes, uncomplicated; E11.65 Type 2 diabetes mellitus with hyperglycemia; M19.90 Unspecified osteoarthritis, unspecified site; I11.0 Hypertensive heart disease with heart failure; I48.91 Unspecified atrial fibrillation; I50.9 Heart failure, unspecified; Z87.442 Personal history of urinary calculi; Z93.2 Ileostomy status; Z88.1 Allergy status to other antibiotic agents; Z79.4 Long term (current) use of insulin; Z90.49 Acquired absence of other specified parts of digestive tract
CPT/HCPCS: 97597

== ENCOUNTER 2017-10-21 06:08 | Day surgery (SDC) | payer BC ==
[~2017-10-21] VITALS: Ht 185.4 cm; Wt 94.8 kg
[2017-10-21] MEDS ORDERED: HYDROmorphone 2 MG/ML VIAL IV PRN (07:00)
[2017-10-21] MEDS ORDERED: LIDOCAINE 1% PF 2 ML VIAL. ID PRN (07:00)
[2017-10-21] MEDS ORDERED: LIDOCAINE 2% PF Vial for OR 5 ML VIAL. ONE (07:00)
[2017-10-21] MEDS ORDERED: fentaNYL PF VIAL 100 MCG/2 ML VIAL IV PRN ×2 (07:00)
[2017-10-21] MEDS ORDERED: PROCHLORPERAZINE 10 MG/2 ML VIAL. IV PRN (07:00)
[2017-10-21] MEDS ORDERED: ONDANSETRON PF 4 MG/2 ML VIAL. IV PRN (07:00)
[2017-10-21] MEDS ORDERED: MORPHINE SULFATE 2 MG/ML DISP.SYRIN. IV PRN (07:00)
[2017-10-21] MEDS ORDERED: IV RINGERS,LACTATED 1000ML 1,000 ML IV SCH (07:00)
[2017-10-21] MEDS ORDERED: PROPOFOL 20 ML IV ONE (07:00)
[2017-10-21] MEDS ORDERED: BUPIVACAINE MPF 0.5% 30 ML VIAL. ONE (07:06)
[2017-10-21] MEDS ORDERED: LIDOCAINE 1% PF 30 ML VIAL. ONE (07:06)
--- NOTE | 2017-10-21 07:07 | DISCH ---
DISCHARGE INSTRUCTIONS Condition on Discharge Condition on Discharge: Stable Activity After Discharge Activity Instructions for Disc: Activity as tolerated Weight Bearing Status after Di: As tolerated Diet after Discharge Diet after Discharge: Regular Wound Incision Care Wound/Incision Care: Ice to area for comfort, Keep wound elevated, Change dressing Contacting the DRL[facility] after DC Call your doctor for: Concerns you may have Follow-Up Follow up with: [facility] in 2wks DANIEL REYNOSO II, MD Oct 21, 2017 07:07
[2017-10-21] MEDS ORDERED: DEXTROSE 50% 25 GM / 50ML DISP.SYRIN. IV ONE ×2 (07:12→07:30)
[2017-10-21] MEDS ORDERED: fentaNYL PF VIAL 100 MCG/2 ML VIAL ONE (07:16)
[2017-10-21] MEDS ORDERED: DEXAMETHASONE SOD PHOS 20 MG/5 ML VIAL. ONE (07:16)
[2017-10-21] MEDS ORDERED: MIDAZOLAM HCL/PF 2 MG/2 ML VIAL. ONE (07:17)
[2017-10-21] MEDS ORDERED: ONDANSETRON PF 4 MG/2 ML VIAL. ONE (07:17)
[2017-10-21] MEDS ORDERED: ePHEDrine PF IN SALINE 50 MG/5 ML DISP.SYRIN IV ONE (07:40)
--- NOTE | 2017-10-21 08:12 | PDOC4 ---
Operative Note Operative Note Date of surgery: 10/21/2017 Preoperative diagnosis: Right great toe osteomyelitis Postoperative diagnosis: Same Procedure performed: Right great toe amputation through MTP joint Surgeon: Taz Reynoso Anesthesia: Gen. Blood loss: 10 mL Tourniquet time: 5 minutes Specimens: Right great toe sent to pathology Findings friable distal phalanx, subcutaneous tissue and skin necrosis plantarly to just beyond the MTP joint. Next Reason for procedure: Gee is a 62-year-old gentleman who developed a toe wound several weeks ago. He had been seen by the wound care center referred to myself for definitive management. After reviewing the clinical findings, imaging , and discussing options with him and he elected to proceed with surgery. Description of procedure: Patient was greeted in the preoperative area by myself for the correct extremity was marked and verified. Taken to the operative suite and his antibiotics were started and row. Once in the operating room, he was transferred gently supine to the OR table and secured to the bed with all pressure points padded. He then underwent successful induction of a general anesthetic. We then proceeded prep and drape right lower extremity in her usual sterile fashion with Betadine. I then placed a blue towel around his ankle and used an Esmarch around his foot and circumferentially wrapped and then clamped it around his ankle to function as a tourniquet. I then inspected his soft tissue and did not think a partial great toe amputation would lead me adequate soft tissue to cover the wound. Therefore I elected to make a fishmouth type incision preserving as much soft tissue as I was able to. I incised skin full-thickness down to bone then used a [place] to identify the joint capsule and incised this with a scalpel circumferentially and delivered the toe from the operative field. I then let the tourniquet off and cauterized couple bleeders. I then irrigated out the wound with approximately 800 mL of sterile saline and then closed skin with a combination of simple interrupted and mattress 2-0 nylon. This gave a good tension-free closure. I then injected about 18 mL of a local anesthetic mixture into the wound bed and. Incisional area. Prior to accomplishing wound closure, all counts correct 2. No complications. The surgery was well tolerated by the patient. At the conclusion of surgery, he was awakened from anesthesia transferred gently supine to the hospital bed and taken to PACU in a stable and extubated condition. Postoperative plan is for him to be discharged home. He'll follow up in 2 weeks , sooner should a problem arise. TAZ REYNOSO II, MD Oct 21, 2017 08:12
[2017-10-21 09:38] VITALS: BP 102/61
== END 2017-10-21 09:43 | disposition home or self-care (01) ==
LOC: SURG 06:08
PROVIDERS: ATTEND Orthopaedic Surgery Sports Medicine
DX: M86.8X7 Other osteomyelitis, ankle and foot (principal); E11.69 Type 2 diabetes mellitus with other specified complication; E11.42 Type 2 diabetes mellitus with diabetic polyneuropathy; I50.9 Heart failure, unspecified; E78.00 Pure hypercholesterolemia, unspecified; F17.200 Nicotine dependence, unspecified, uncomplicated; F32.9 Major depressive disorder, single episode, unspecified; E11.9 Type 2 diabetes mellitus without complications; M06.9 Rheumatoid arthritis, unspecified; F41.9 Anxiety disorder, unspecified; I48.91 Unspecified atrial fibrillation; I11.0 Hypertensive heart disease with heart failure; E66.9 Obesity, unspecified; Z90.49 Acquired absence of other specified parts of digestive tract; Z87.442 Personal history of urinary calculi; Z82.49 Family history of ischemic heart disease and other diseases of the circulatory system
CPT/HCPCS: 28820; 82962; A4215; J1100; J2250; J2405; J2704; J3010; J3490; J7042; A4461; J2001

== ENCOUNTER → 2018-01-09 | Outpatient (CLI) | payer BC ==
[2018-01-09 13:05] LABS: ADD MAN DIFF? NO
[2018-01-09 13:07] LABS: BASO # 0.1 x10^3/uL (0.0-0.2); BASO % 1 % (0-3); EOS # 0.3 x10^3/uL (0.0-0.7); EOS % 3 % (0-3); HEMOGLOBIN 13.2 g/dL (13.0-17.5); LYMPH # 3.4 x10^3/uL (1.0-4.8); LYMPH % 34 % (24-48); MEAN CORPUSCULAR HEMOGLOBIN 29 pg (25-35); MEAN CORPUSCULAR HGB CONC 34 g/dL (31-37); MEAN CORPUSCULAR VOLUME 85 fL (79-100); MONO # 0.8 x10^3/uL (0.0-1.1); MONO % 8 % (0-9); NEUT # 5.4 x10^3uL (1.8-7.7); NEUT % 54 % (31-73); PLATELET COUNT 267 x10^3/uL (140-400); RED BLOOD COUNT 4.62 x10^6/uL (4.30-5.70); RED CELL DISTRIBUTION WIDTH 14.8 % (11.5-14.5)
[2018-01-09 13:18] LABS: ALBUMIN 3.1 g/dL (3.4-5.0); ANION GAP 9 (6-14); BLOOD UREA NITROGEN 16 mg/dL (8-26); CALCIUM 9.4 mg/dL (8.5-10.1); CARBON DIOXIDE 26 mmol/L (21-32); CHLORIDE 104 mmol/L (98-107); CREATININE 0.6 mg/dL (0.7-1.3); GFR 136.5; GLUCOSE 60 mg/dL (70-99); SODIUM 139 mmol/L (136-145)
== END | disposition home or self-care (01) ==
LOC: SURGPAT 11:18
DX: Z01.818 Encounter for other preprocedural examination (principal)
CPT/HCPCS: 36415; 71046; 80048; 82040; 85025

== ENCOUNTER → 2018-01-13 | Day surgery (SDC) | payer BC ==
[~2018-01-13] MED LIST changes: -ACET1TAB33 PO; -AMOX1TAB11 PO; -AMOX1TAB61 PO; -APIX5TAB PO; -ASPI-482 PO; -ATOR40TA59 PO; -CARV6.252 PO; -DOCU100C28 PO; -FAMO20TA5 PO; -GABA600T2 PO; -GEMF600T3 PO; -INSU100I13 SQ; -INSU100V8 SQ; +LIDOCAINE 1% PF 2 ML VIAL. ID; +LIDOCAINE 2% PF Vial for OR 5 ML VIAL.; -LISI-338 PO; -LISI10TA2 PO; +MIDAZOLAM HCL/PF 2 MG/2 ML VIAL. IV; -NAPR220C4 PO; -OXYC-327 PO; -OXYC1TAB7 PO; +PROPOFOL 20 ML IV; +fentaNYL PF VIAL 100 MCG/2 ML VIAL IV
[2018-01-13 10:05] LABS: POC GLUCOSE 108 mg/dL (70-99)
[2018-01-13] MEDS: IV RINGERS,LACTATED 1000ML 1,000 ML IV (10:20)
== END | disposition home or self-care (01) ==
LOC: SURG 09:29
DX: D12.2 Benign neoplasm of ascending colon (principal); K63.5 Polyp of colon; K64.1 Second degree hemorrhoids; F41.9 Anxiety disorder, unspecified; I50.9 Heart failure, unspecified; F32.9 Major depressive disorder, single episode, unspecified; E11.9 Type 2 diabetes mellitus without complications; K21.9 Gastro-esophageal reflux disease without esophagitis; E66.3 Overweight; Z95.5 Presence of coronary angioplasty implant and graft; Z83.71 Family history of colonic polyps; Z90.49 Acquired absence of other specified parts of digestive tract; Z83.3 Family history of diabetes mellitus; Z82.49 Family history of ischemic heart disease and other diseases of the circulatory system; Z87.891 Personal history of nicotine dependence; Z88.1 Allergy status to other antibiotic agents; Z93.3 Colostomy status; Z79.82 Long term (current) use of aspirin
CPT/HCPCS: 45385; 82962; 88305; J2704

== ENCOUNTER 2018-01-16 06:21 | Inpatient (IN) | payer BC ==
[2018-01-16] MEDS ORDERED: DEXTROSE 50% 25 GM / 50ML DISP.SYRIN. IV (06:58)
[2018-01-16 06:59] LABS: POC GLUCOSE 47 mg/dL (70-99)
[2018-01-16] MEDS ORDERED: ONDANSETRON PF 4 MG/2 ML VIAL. IV ×2 (07:00→12:15)
[2018-01-16] MEDS ORDERED: PROCHLORPERAZINE 10 MG/2 ML VIAL. IV (07:00)
[2018-01-16] MEDS ORDERED: MORPHINE SULFATE 4 MG/ML DISP.SYRIN. IV (07:00)
[2018-01-16] MEDS ORDERED: fentaNYL PF VIAL 100 MCG/2 ML VIAL IV (07:00)
[2018-01-16] MEDS: IV RINGERS,LACTATED 1000ML 1,000 ML IV (07:03)
[2018-01-16] MEDS: DEXTROSE 50% 25 GM / 50ML DISP.SYRIN. IV (07:06)
[2018-01-16 07:21] LABS: POC GLUCOSE 98 mg/dL (70-99)
[2018-01-16] MEDS ORDERED: DEXAMETHASONE SOD PHOS 20 MG/5 ML VIAL. (07:25)
[2018-01-16] MEDS ORDERED: LIDOCAINE 1% PF 5 ML VIAL. (07:25)
[2018-01-16] MEDS ORDERED: ROCURONIUM 50 MG/5 ML VIAL. ×2 (07:25→09:31)
[2018-01-16] MEDS ORDERED: fentaNYL PF VIAL 100 MCG/2 ML VIAL ×4 (07:25→12:36)
[2018-01-16] MEDS ORDERED: ONDANSETRON PF 4 MG/2 ML VIAL. (07:25)
[2018-01-16] MEDS ORDERED: PROPOFOL 20 ML IV (07:25)
[2018-01-16] MEDS ORDERED: SEVOFLURANE 61 TO 120 MINUTES. IH (07:26)
[2018-01-16] MEDS ORDERED: IPRATRPIUM/ALBUTEROL 0.5/2.5MG 3 ML NEBU. (07:49)
[2018-01-16] MEDS ORDERED: IOHEXOL 300 MG/ML 100ML VIAL. (07:51)
[2018-01-16] MEDS: IPRATRPIUM/ALBUTEROL 0.5/2.5MG 3 ML NEBU. NEB (07:55)
[2018-01-16] MEDS ORDERED: MIDAZOLAM HCL/PF 2 MG/2 ML VIAL. (09:04)
[2018-01-16] MEDS ORDERED: PHENYLEPHRINE 10 MG/ML VIAL. (10:07)
[2018-01-16] MEDS ORDERED: SEVOFLURANE > 120 MINUTES. IH (10:07)
[2018-01-16] MEDS ORDERED: NEOSTIGMINE 10 MG/10 ML VIAL. (10:34)
[2018-01-16] MEDS ORDERED: GLYCOPYRROLATE 1 MG/5 ML VIAL. (10:34)
[2018-01-16 11:53] LABS: POC GLUCOSE 97 mg/dL (70-99)
[2018-01-16 11:53] LABS: POC GLUCOSE 109 mg/dL (70-99)
[2018-01-16 11:53] LABS: POC GLUCOSE 53 mg/dL (70-99)
[2018-01-16] MEDS ORDERED: PROCHLORPERAZINE 10 MG/2 ML VIAL. (12:07)
[2018-01-16] MEDS ORDERED: 0.9 % SODIUM CHLORIDE 10 ML DISP.SYRIN. IV (12:15)
[2018-01-16] MEDS ORDERED: diphenhydrAMINE 50 MG/ML VIAL IV (12:15)
[2018-01-16] MEDS: fentaNYL PF VIAL 100 MCG/2 ML VIAL IV ×4 (12:24→13:15)
[2018-01-16] MEDS: MORPHINE SULFATE/PF 30 ML IV (13:05)
[2018-01-16] MEDS: LIDOCAINE 1% PF 2 ML VIAL. ID (13:16)
[2018-01-16 13:55] LABS: POC GLUCOSE 80 mg/dL (70-99)
[2018-01-16] MEDS: POTASSIUM CL 20MEQ-0.45% NACL 1,000 ML IV (16:41)
[2018-01-16 16:48] LABS: POC GLUCOSE 84 mg/dL (70-99)
[2018-01-16 20:52] LABS: POC GLUCOSE 72 mg/dL (70-99)
[2018-01-17] MEDS: POTASSIUM CL 20MEQ-0.45% NACL 1,000 ML IV ×3 (02:16→21:30)
[2018-01-17 04:01] LABS: POC GLUCOSE 55 mg/dL (70-99)
[2018-01-17] MEDS: DEXTROSE 50% 25 GM / 50ML DISP.SYRIN. IV (04:06)
[2018-01-17 04:20] LABS: POC GLUCOSE 104 mg/dL (70-99)
[2018-01-17 05:42] LABS: HEMATOCRIT 38.5 % (39.0-53.0); HEMOGLOBIN 12.9 g/dL (13.0-17.5); MEAN CORPUSCULAR HEMOGLOBIN 28 pg (25-35); MEAN CORPUSCULAR HGB CONC 34 g/dL (31-37); MEAN CORPUSCULAR VOLUME 84 fL (79-100); PLATELET COUNT 222 x10^3/uL (140-400); RED CELL DISTRIBUTION WIDTH 14.7 % (11.5-14.5); WHITE BLOOD COUNT 16.1 x10^3/uL (4.0-11.0)
[2018-01-17 06:13] LABS: ANION GAP 8 (6-14); BLOOD UREA NITROGEN 15 mg/dL (8-26); CALCIUM 8.9 mg/dL (8.5-10.1); CARBON DIOXIDE 25 mmol/L (21-32); CHLORIDE 102 mmol/L (98-107); CREATININE 0.5 mg/dL (0.7-1.3); GFR 168.5; GLUCOSE 96 mg/dL (70-99); POTASSIUM 3.8 mmol/L (3.5-5.1); SODIUM 135 mmol/L (136-145)
[2018-01-17] MEDS: ENOXAPARIN 40 MG/0.4 ML SYRINGE. SQ (10:12)
[2018-01-17 12:06] LABS: POC GLUCOSE 66 mg/dL (70-99)
[2018-01-17 13:48] LABS: POC GLUCOSE 73 mg/dL (70-99)
[2018-01-17 20:19] LABS: POC GLUCOSE 76 mg/dL (70-99)
[2018-01-18] LABS: POC GLUCOSE 69 mg/dL (70-99)
[2018-01-18] MEDS: MORPHINE SULFATE/PF 30 ML IV (04:25)
[2018-01-18 06:07] LABS: POC GLUCOSE 87 mg/dL (70-99)
[2018-01-18] MEDS: POTASSIUM CL 20MEQ-0.45% NACL 1,000 ML IV (07:30)
[2018-01-18] MEDS: ENOXAPARIN 40 MG/0.4 ML SYRINGE. SQ (11:38)
[2018-01-18 11:54] LABS: POC GLUCOSE 131 mg/dL (70-99)
[2018-01-18] MEDS ORDERED: ACETAMINOPHEN 500 MG TABLET PO (19:15)
[2018-01-18] MEDS ORDERED: ONDANSETRON PF 4 MG/2 ML VIAL. IV (19:30)
[2018-01-18] MEDS ORDERED: ONDANSETRON ODT 4 MG TAB.RAPDIS. PO (19:30)
[2018-01-18] MEDS: IPRATRPIUM/ALBUTEROL 0.5/2.5MG 3 ML NEBU. NEB (19:42)
[2018-01-19 00:19] LABS: POC GLUCOSE 111 mg/dL (70-99)
[2018-01-19 00:19] LABS: POC GLUCOSE 134 mg/dL (70-99)
[2018-01-19] MEDS: POTASSIUM CL 20MEQ-0.45% NACL 1,000 ML IV ×2 (03:10→18:39)
[2018-01-19] MEDS: diphenhydrAMINE HCL 25 MG CAPSULE PO (03:14)
[2018-01-19 05:07] LABS: ADD MAN DIFF? NO
[2018-01-19 05:15] LABS: BASO # 0.1 x10^3/uL (0.0-0.2); BASO % 1 % (0-3); EOS # 0.2 x10^3/uL (0.0-0.7); EOS % 2 % (0-3); HEMATOCRIT 38.1 % (39.0-53.0); HEMOGLOBIN 12.7 g/dL (13.0-17.5); LYMPH % 17 % (24-48); MEAN CORPUSCULAR HEMOGLOBIN 28 pg (25-35); MEAN CORPUSCULAR HGB CONC 33 g/dL (31-37); MEAN CORPUSCULAR VOLUME 84 fL (79-100); MONO # 0.9 x10^3/uL (0.0-1.1); MONO % 8 % (0-9); NEUT # 8.3 x10^3uL (1.8-7.7); NEUT % 72 % (31-73); PLATELET COUNT 224 x10^3/uL (140-400); RED BLOOD COUNT 4.54 x10^6/uL (4.30-5.70); RED CELL DISTRIBUTION WIDTH 14.6 % (11.5-14.5); WHITE BLOOD COUNT 11.5 x10^3/uL (4.0-11.0)
[2018-01-19 05:35] LABS: ALBUMIN 2.5 g/dL (3.4-5.0); ALBUMIN/GLOBULIN RATIO 0.6 (1.0-1.7); ALK PHOS 93 U/L (46-116); ALT (SGPT) 9 U/L (16-63); ANION GAP 13 (6-14); AST (SGOT) 12 U/L (15-37); BLOOD UREA NITROGEN 14 mg/dL (8-26); BUN/CREATININE RATIO 28 (6-20); CARBON DIOXIDE 25 mmol/L (21-32); CHLORIDE 101 mmol/L (98-107); CREATININE 0.5 mg/dL (0.7-1.3); GFR 168.5; GLUCOSE 115 mg/dL (70-99); POTASSIUM 4.3 mmol/L (3.5-5.1); SODIUM 139 mmol/L (136-145); TOTAL BILIRUBIN 0.4 mg/dL (0.2-1.0)
[2018-01-19 06:01] LABS: POC GLUCOSE 110 mg/dL (70-99)
[2018-01-19] MEDS: IPRATRPIUM/ALBUTEROL 0.5/2.5MG 3 ML NEBU. NEB ×4 (07:02→19:51)
[2018-01-19] MEDS: ENOXAPARIN 40 MG/0.4 ML SYRINGE. SQ (08:59)
[2018-01-19] MEDS ORDERED: fentaNYL PF VIAL 100 MCG/2 ML VIAL IV (09:15)
[2018-01-19 11:58] LABS: POC GLUCOSE 119 mg/dL (70-99)
[2018-01-19] MEDS: HYDROcodone/APAP 5/325MG 1 TAB TABLET PO ×2 (17:44→23:18)
[2018-01-19 20:55] LABS: POC GLUCOSE 165 mg/dL (70-99)
[2018-01-19] MEDS: ZOLPIDEM 5 MG TABLET. PO ×2 (21:21→23:18)
[2018-01-20 06:02] LABS: POC GLUCOSE 141 mg/dL (70-99)
[2018-01-20] MEDS: POTASSIUM CL 20MEQ-0.45% NACL 1,000 ML IV (06:32)
[2018-01-20] MEDS: IPRATRPIUM/ALBUTEROL 0.5/2.5MG 3 ML NEBU. NEB ×2 (07:25→11:51)
[2018-01-20] MEDS: HYDROcodone/APAP 5/325MG 1 TAB TABLET PO (08:04)
[2018-01-20] MEDS: ENOXAPARIN 40 MG/0.4 ML SYRINGE. SQ (08:04)
[2018-01-20 08:40] LABS: ADD MAN DIFF? NO
[2018-01-20 08:45] LABS: BASO # 0.1 x10^3/uL (0.0-0.2); BASO % 1 % (0-3); EOS # 0.3 x10^3/uL (0.0-0.7); EOS % 3 % (0-3); HEMATOCRIT 39.4 % (39.0-53.0); HEMOGLOBIN 12.9 g/dL (13.0-17.5); LYMPH # 2.2 x10^3/uL (1.0-4.8); LYMPH % 18 % (24-48); MEAN CORPUSCULAR HEMOGLOBIN 28 pg (25-35); MEAN CORPUSCULAR HGB CONC 33 g/dL (31-37); MEAN CORPUSCULAR VOLUME 85 fL (79-100); MONO # 0.8 x10^3/uL (0.0-1.1); MONO % 6 % (0-9); NEUT % 73 % (31-73); PLATELET COUNT 256 x10^3/uL (140-400); RED BLOOD COUNT 4.66 x10^6/uL (4.30-5.70); RED CELL DISTRIBUTION WIDTH 14.4 % (11.5-14.5); WHITE BLOOD COUNT 12.4 x10^3/uL (4.0-11.0)
[2018-01-20 09:05] LABS: ALBUMIN 2.5 g/dL (3.4-5.0); ALBUMIN/GLOBULIN RATIO 0.5 (1.0-1.7); ALK PHOS 92 U/L (46-116); ALT (SGPT) 13 U/L (16-63); ANION GAP 7 (6-14); AST (SGOT) 13 U/L (15-37); BLOOD UREA NITROGEN 11 mg/dL (8-26); BUN/CREATININE RATIO 18 (6-20); CALCIUM 9.1 mg/dL (8.5-10.1); CARBON DIOXIDE 27 mmol/L (21-32); CHLORIDE 102 mmol/L (98-107); CREATININE 0.6 mg/dL (0.7-1.3); GFR 136.5; GLUCOSE 194 mg/dL (70-99); POTASSIUM 3.8 mmol/L (3.5-5.1); SODIUM 136 mmol/L (136-145); TOTAL BILIRUBIN 0.4 mg/dL (0.2-1.0); TOTAL PROTEIN 7.1 g/dL (6.4-8.2)
[2018-01-20 11:17] LABS: POC GLUCOSE 195 mg/dL (70-99)
== END 2018-01-20 12:00 | disposition home or self-care (01) | DRG 330 ==
LOC: OPSVCIP 06:21 → 4 NORTH 14:53
PROVIDERS: Surgery
PROC: 0T778DZ Dilation of Left Ureter with Intraluminal Device, Via Natural or Artificial Opening Endoscopic (ICD-10-PCS; principal; 2018-01-16 08:00)
PROC: 0DBE0ZZ Excision of Large Intestine, Open Approach (ICD-10-PCS; 2018-01-16 08:00)
PROC: 0DTJ0ZZ Resection of Appendix, Open Approach (ICD-10-PCS; 2018-01-16 08:00)
PROC: 0DJD8ZZ Inspection of Lower Intestinal Tract, Via Natural or Artificial Opening Endoscopic (ICD-10-PCS; 2018-01-16 08:00)
PROC: 0TP98DZ Removal of Intraluminal Device from Ureter, Via Natural or Artificial Opening Endoscopic (ICD-10-PCS; 2018-01-16 08:00)
DX: K57.80 Diverticulitis of intestine, part unspecified, with perforation and abscess without bleeding (principal); E11.9 Type 2 diabetes mellitus without complications; E78.5 Hyperlipidemia, unspecified; I10 Essential (primary) hypertension; J44.9 Chronic obstructive pulmonary disease, unspecified; Z72.0 Tobacco use; Z82.49 Family history of ischemic heart disease and other diseases of the circulatory system; Z93.3 Colostomy status; Z90.49 Acquired absence of other specified parts of digestive tract; Z88.1 Allergy status to other antibiotic agents
CPT/HCPCS: 36415; 71045; 74018; 80048; 80053; 82962; 85025; 85027; 86850; 86900; 86901; 88302; 88304; 88305; 94640; 94760; 97116-GP; 97161-GP; 97166-GO; 97530-GO; 97535-GO; C1769; C2617; J0694; J1100; J1650; J2250; J2270; J2405; J2704; J2710; J3010; J3490; J7042; J7120; J7620; Q0163; Q9967

== ENCOUNTER → 2020-05-16 | Outpatient (CLI) | payer BC ==
[2018-01-20 10:47] VITALS: BP 114/73
[~2020-05-16] MED LIST changes: +ACET1TAB33 PO; +AMOX1TAB11 PO; +AMOX1TAB61 PO; +APIX5TAB PO; +ASPI-482 PO; +ATOR40TA59 PO; +CARV6.2511 PO; +DOCU100C28 PO; +FAMO20TA5 PO; +GABA600T7 PO; +GEMF600T8 PO; +HYDR-2761 PO; +INSU100I13 SQ; +INSU100V8 SQ; -LIDOCAINE 1% PF 2 ML VIAL. ID; -LIDOCAINE 2% PF Vial for OR 5 ML VIAL.; +LISI-338 PO; +LISI10TA2 PO; -MIDAZOLAM HCL/PF 2 MG/2 ML VIAL. IV; +NAPR220C4 PO; +OXYC1TAB19 PO; +OXYC1TAB7 PO; -PROPOFOL 20 ML IV; +RANI-275 PO; -fentaNYL PF VIAL 100 MCG/2 ML VIAL IV
[2020-05-16 18:34] LABS: CALCIUM 9.1 mg/dL (8.5-10.1); CREATININE 1.3 mg/dL (0.7-1.3); GFR 55.6
== END | disposition home or self-care (01) ==
LOC: SPEC 18:19
PROVIDERS: ATTEND Family Medicine
DX: I10 Essential (primary) hypertension (principal); E11.9 Type 2 diabetes mellitus without complications
CPT/HCPCS: 36415; 80048